=== PATIENT | female | born 1950 | race African-American/Black ===

== ENCOUNTER 2024-11-21 14:15 | Outpatient (AMB) | payer MEDICARE, SELFPAY ==
[2024-11-21 14:18] VITALS: BP 128/76; PULSE 76; O2SAT 99; BMI 24.2
--- NOTE | 2024-11-21 14:18 | A.OFFVIS_ITS ---
Vital Signs 11/21/24 14:18 Height 5 ft 6 in Weight 149 lb 14.629 oz BMI 24.2 BP 128/76 Blood Pressure Location Rt brachial Position Sitting Pulse 76 Pulse Source Pulse Oximeter Pulse Oximetry (%) 99 Oxygen Delivery Method Room Air Intake Visit Reasons: T2DM Intake Note: New patient present today for Type 2 Diabetes Mellitus Last Diabetic eye exam: 06/2024 Last Podiatry Visit: Has a rail switchman, needs to call for an appt Random Glucose: 89 mg/dL HgA1C: 10.3%, 11/21/2024 Jumpbasting Collar Baster Required: No Accompanied by: Grand Child Allergies amoxicillin Allergy (Mild, Verified 11/21/24 14:49) Rash semaglutide (From Rybelsus) Allergy (Mild, Verified 11/21/24 14:49) Rash Medication List - Last Reviewed 11/21/24 by NIKOLE Rice amlodipine 10 mg PO DAILY atorvastatin 40 mg PO DAILY blood sugar diagnostic (StoredIQTouch Verio test strips) As directed blood-glucose sensor (FreeStyle Celso 3 Plus Sensor device) As directed cholecalciferol (vitamin D3) 125 mcg PO DAILY insulin glargine U-300 conc (Toujeo Max U-300 SoloStar) units subcut insulin lispro (Humalog KwikPen (U-100) Insulin) subcut lancets (Cloudkickuch Delica Plus Lancet) As directed metformin ER 1,000 mg PO DAILY metoprolol succinate ER 100 mg PO DAILY omeprazole 20 mg PO DAILY pen needle, diabetic As directed HPI HPI T2DM: Details: Patient is a 73-year-old female who presents today for an initial consultation regarding type 2 diabetes. Endo: States that she was diagnosed with diabetes around 2004. Her A1c is 10.3. She is currently on metformin 1000 mg daily, Toujeo 8 units qam, Humalog 8 units with dinner CGM-freestyle Celso download shows 92% usage, average glucose 229, G mi 8.8%, variability 37%. Very hyperglycemic 40%, hyperglycemic 26%, in range 34%, 0% hypoglycemia Hyperglycemia-states her sensor goes off of the time because she is very hyperglycemic. Denies any symptoms of this Hypoglycemia-has some symptoms of lows and ends up eating candies and drinking juice. Daughter is here today with patient and states that her blood sugars are all over the place because of her diet. States that she eats a diet high in sugars and does not do anything with this. Patient states that she does love eating rice, pasta and bread. She understands that this is not ideal for diabetes but is not interested at this point in changing this. She does not recall ever having testing to confirm type 2 diabetes. Does not have a family history of this. It has only been recently that her blood sugars have been uncontrolled. CV: Blood pressure today in the office is 128/76. She is currently on amlodipine 10 mg daily, metoprolol 100 mg daily. Her cholesterol is managed with atorvastatin 40 mg PFSH Surgical History (Updated 11/21/24 @ 14:33 by NIKOLE Rice) History of surgery on lower extremity History of back surgery Hx of hysterectomy Family History (Updated 11/21/24 @ 14:33 by NIKOLE Rice) Father Diabetes mellitus Mother Diabetes mellitus Social History (Updated 11/21/24 @ 14:28 by NIKOLE Rice) Alcohol intake: current Alcohol intake frequency: does not drink Patient Tobacco Use Status: Never used Tobacco Physical Exam Vital Signs: Last Vital Signs Pulse 76 11/21/24 14:18 BP 128/76 11/21/24 14:18 Pulse Ox 99 11/21/24 14:18 Oxygen Delivery Method Room Air 11/21/24 14:18 BMI result Body Mass Index 24.2 Const Orientation/consciousness: patient oriented x3 Neck Neck: Yes no lymphadenopathy Thyroid: Thyroid normal Carotids: no bruits Resp Auscultation: clear to auscultation bilaterally Cardio Rate: regular rate Rhythm: regular rhythm Heart sounds: S1 normal heart sound present and S2 normal heart sound present Peripheral pulses: dorsalis pedis present Neuro General: patient oriented x3, gait normal and no focal motor deficits Extrem Other: Monofilament sensation intact bilaterally. Vibratory sensation intact bilaterally. Skin intact. General: Yes normal to inspection Results AMB Hemoglobin A1c AMB Hemoglobin A1c 10.3 % Last Edit by NIKOLE Rice on 11/21/24 14:3 6 Results Reviewed Results Reviewed: Laboratory Last Values Glucose (Clinic) 86 mg/dL (60-115) 11/21/24 14:21 Hgb A1c (Clinic) 10.3 % (4.0-6.0) H 11/21/24 14:35 Assessment & Plan Assessment & Plan (1) Type 2 diabetes mellitus with hyperglycemia, with long-term current use of insulin: Code(s): E11.65 - Type 2 diabetes mellitus with hyperglycemia; Z79.4 - group home (c urrent) use of insulin Category: Medical Plan: Spent 60 minutes in [id number] time today reviewing the differences between type 1 and type 2 diabetes, pathophysiology of diabetes and complications associated with diabetes including but not limited to kidney disease, stroke, blindness, increased risk of amputation, AK, kidney disease, neuropathy etc. Increase Toujeo to 10 units Reduce Humalog to 4 units before meals Continue metformin Labs ordered today. Short term follow up in 2 weeks. Rule of 15 review Signs and symptoms of hyper and hypoglycemia that would require emergent medical treatment were discussed. (2) HTN (hypertension): Code(s): I10 - Essential (primary) hypertension Category: Medical Plan: Continue current regimen (3) HLD (hyperlipidemia): Code(s): E78.5 - Hyperlipidemia, unspecified Category: Medical Plan: As above. Orders: Orders AMB Hemoglobin A1c Today E11.9 - Type 2 diabetes mellitus without complications Comprehensive [place]. Panel Fast Today E11.65 - Type 2 diabetes mellitus with hyperglycemia, E78.5 - Hyperlipidemia, unspecified, I10 - Essential (primary) hypertension, Z79.4 - group home (current) use of insulin C Peptide Today E11.65 - Type 2 diabetes mellitus with hyperglycemia, E78.5 - Hyperlipidemia, unspecified, I10 - Essential (primary) hypertension, Z79.4 - rat exterminator (current) use of insulin Glutamic acid decarboxylase Ab Today E11.65 - Type 2 diabetes mellitus with hyperglycemia, E78.5 - Hyperlipidemia, unspecified, I10 - Essential (primary) hypertension, Z79.4 - rat exterminator (current) use of insulin Islet Cell Antibody Scrn/Titer Today E11.65 - Type 2 diabetes mellitus with hyperglycemia, E78.5 - Hyperlipidemia, unspecified, I10 - Essential (primary) hypertension, Z79.4 - group home (current) use of insulin Microalbumin, Random (w Creat) Today E11.65 - Type 2 diabetes mellitus with hyperglycemia, E78.5 - Hyperlipidemia, unspecified, I10 - Essential (primary) hypertension, Z79.4 - rat exterminator (current) use of insulin Referrals Diabetes Education Referral E11.65 - Type 2 diabetes mellitus with hyperglycemia, Z79.4 - rat exterminator (current) use of insulin Medications: New insulin lispro (Humalog KwikPen (U-100) Insulin) with meals 4 units (0.04 mL) subcut TID 15 mL 2RF lancets (OneTouch UltraSoft 2 Lancet) use daily As directed to monitor blood sugars 100 ea 2RF insulin glargine U-300 conc (Toujeo Max U-300 SoloStar) 10 units (0.0333 mL) subcut QAM 6 mL 3RF blood-glucose meter (OneTouch Verio Flex Meter) Use daily As directed to monitor blood sugars 1 ea 0RF E11.649 - Type 2 diabetes mellitus with hypoglycemia without coma, Z79.4 - rat exterminator (current) use of insulin blood sugar diagnostic (OneTouch Verio test strips) use daily As directed to monitor blood sugars 100 ea 1RF Coding Level of Care Code New Pt Level 5 (74090) Complex EM visit Add On G2211 Diagnoses Type 2 diabetes mellitus with hyperglycemia, with long-term current use of insulin E11.65; Z79.4 HTN (hypertension) I10 HLD (hyperlipidemia) E78.5
[2024-11-21 14:25] LABS: Glucose, Whole Blood 86 mg/dL (60-115)
--- OUTSIDE RECORDS SUMMARY | 2024-11-21 15:05 | XMS_ITS | Encounter Summary ---
Author Organization [facility] Address [address] [facility] [address] [place] [address] Phone Care Team Providers Care Graphic Illustrator Name Role Phone Jasper Villalba MD Primary Care Provider [phone] Encounter Details Date Type Department Care Team ([facility] Contact Info) Description 07/09/2021 Documentation Only [facility] [address] [facility] [address] [place] [address] Gurwinder Quinonez MD [address] [place] [address], [address] [address] Social History Tobacco Use Types Packs/Day Years Used Date Smoking Tobacco: Never Smokeless Tobacco: Never Alcohol Use Standard Drinks/Week Comments No 0 (1 standard drink = 0.6 oz pur e alcohol) Comments Unknown Sex and Gender Information Value Date Recorded Sex Assigned at Not on file Legal Sex Female 4:49 PM EST Gender Identity Not on file Sexual Orientation Not on file COVID-19 Exposure Response Date Recorded In the last month, have you been in contact with someone who was confirmed or suspected to have Coronavirus / COVID-19? No / Unsure 07/09/2021 3:57 PM EST documented as of this encounter Plan of Treatment Upcoming Encounters Date Type Department Care Team (Late Contact Info) Description 11/29/2024 1:00 PM EDT Office Visit [facility] [address] [address] Nguyen Vu ARNP [address] [address] documented as of this encounter Visit Diagnoses Not on filedocumented in this encounter Care Teams Graphic Illustrator Relationship Specialty Start Date End Date Jasper Villalba MD [address] [place] [address] PCP - General Internal Medicine 01/03/21 documented as of this encounter
--- OUTSIDE RECORDS SUMMARY | 2024-11-21 15:05 | XMS_ITS | Patient Health Record ---
Author Organization [facility] [address] Address [address] [place] [address] Care Team Providers Care Oil Well Service Operator Name Role Phone NITA VILLALBA Unavailable [phone] Walter Sonal Unavailable [phone] Allergies Allergen (clinical drug ingredient) Drug/Non Drug Allergy documented on EMR Reaction Allergy Type Onset Date Status semaglutide Rybelsus rash Drug Allergy Activ e amoxicillin Amoxicillin Unknown Drug Allergy Act haja Results Component Value Reference Range Notes RENAL PROFILE Reviewed date:03/14/2024 09:14:46 AM Interpretation: Performing Lab: Notes/Report: Note Original Ordering Provider: BACILIO ESPINAL [employer] [address] Airfield Operations Specialist - Mary Leos MD GLUCOSE 476 70-100 mg/dL JERARDO REBOLLEDO CALLED CRITICAL RESULTS AT [id number] 1620. THE RESULTS WERE READ BACK AND VERIFIED BY: FRANCHESCA Reference range applicable to fasting specimens only BUN 21 5-25 mg/dL CREAT 1.17 0.5-1.1 mg/dL GLOMERULAR FILTRATION RATE 50 >60 This eGFR result was calculated using the CKD-EPI 2020 Creatinine Equation SODIUM 135 135-145 mEq/L POTASSIUM 4.0 3.5-5.5 mmol/L CHLORIDE 103 96-110 mmol/L CO2 24 21-32 mmol/L ANION GAP 8 3-11 CALCIUM 9.0 8.5-10.5 mg/dL PHOSPHORUS 3.4 2.5-4.5 mg/dL ALBUMIN 3.5 3.2-5.0 G/dL Note Original Ordering Provider: BACILIO ESPINAL [employer], [place] [address] Airfield Operations Specialist - Mary Leos MD INTACT PTH Reviewed date:12/15/2023 10:26:04 AM Interpretation: Performing Lab: Notes/Report: Note Original Orderi ng Provider: BACILIO [place] INTACT PTH 120 18-88 pg/mL LIPID PROFILE Reviewed date:03/02/2024 09:15:07 AM Interpretation: Performing Lab: Notes/Report: [employer], a member of [address] [address] Airfield Operations Specialist - Mary Leos MD CHOLESTEROL 156 0-200 mg/dL TRIGLYCERIDES 117 0-150 mg/dL HDL CHOLESTEROL 43 >40 mg/dL LDL CALCULATED 90 0-100 mg/dL TC-HDLC RATIO 3.6 0-4.4 mg/dL CBC WITH AUTO DIFF Reviewed date:03/02/2024 10:35:53 AM Interpretation: Performing Lab: Notes/Report: Original Ordering Provider: SONAL RIBEIRO PA-C [employer], a member of [address] [address] Airfield Operations Specialist - Mary Leos MD WBC 6.1 4.8-10.8 x10-3/uL RBC 4.0 3.8-4.8 x10-6/uL HEMOGLOBIN 11.4 11.5-16.0 g/dL HEMATOCRIT 35.6 35-47 % MCV 88.6 79-98 fL MCH 28.4 27-32 pg MCHC 32.0 32-37 g/dL RDW 15.1 11-15 % PLT COUNT 206 130-400 x10-3/uL MEAN PLATELET VOLUME 12.4 7-11 fL NRBC % AUTO 0.0 <1 % NEUT % 57.1 LYMPH % 35.2 MONO % 6.4 EOS % 0.8 BASO % 0.3 IMMATURE GRANULOCYTES % 0.2 NRBC # AUTO 0.00 <0.1 x10-3/uL ABSOLUTE NEUT 3.49 1.5-7.0 x10-3/uL LYMPH # 2.15 1-5.0 x10-3/uL MONO # 0.39 0.2-1.0 x10-3/uL EOS # 0.05 0-0.5 x10-3/uL BASO # 0.02 0-0.2 x10-3/uL IMMATURE GRANULOCYTES # 0.01 0-0.03 x10-3/uL COMPREHENSIVE METABOLIC PANE L Reviewed date:03/02/2024 10:35:22 AM Interpretation: Performing Lab: Notes/Report: Note Original Orderi ng Provider: SONAL RIBEIRO PA-C GLUCOSE 476 70-100 mg/dL JERARDO REBOLLEDO CALLED CRITICAL RESULTS AT [id number] 1617. THE RESULTS WERE READ BACK AND VERIFIED BY: Jaspreet RIBEIRO Reference range applicable to fasting specimens only BUN 22 5-25 mg/dL CREAT 1.21 0.5-1.1 mg/dL GLOMERULAR FILTRATION RATE 48 >60 This eGFR result was calculated using the CKD-EPI 2020 Creatinine Equation SODIUM 133 135-145 mEq/L POTASSIUM 4.1 3.5-5.5 mmol/L CHLORIDE 101 96-110 mmol/L CO2 26 21-32 mmol/L ANION GAP 6 3-11 CALCIUM 9.1 8.5-10.5 mg/dL TOTAL PROTEIN 6.6 6.0-8.0 G/dL ALBUMIN 3.6 3.2-5.0 G/dL BILI,TOTAL 0.4 0.0-1.4 mg/dL SGOT 14 10-42 U/L SGPT 24 10-60 U/L ALK PHOS 71 42-121 U/L MG MAMMO DIGITAL SCREENING W NUBIA BILAT Reviewed date:08/23/2024 07:44:41 AM Interpretation: Performing Lab: Notes/Report: Note See Note [facility], a member of [employer] Patient Name: LAURIE MOELLER Date of : 1950 Reason for Exam: ROUTINE Exam Date: 08/22/2024 [id number] EST Report Status: Final Ordering Provider: SONAL RIBEIRO PCP: NITA VILLALBA EXAM: SCREENING MAMMOGRAPHY, BILATERAL HISTORY: SCREENING. Scar marked upper outer right breast for reportedly benign process. Family history of breast cancer; maternal aunt, knees COMPARISON: 06/29/23, 06/24/22, 06/21/21, 06/04/20 TECHNIQUE: Synthesiz ed CC and MLO projections of each breast. Tomosynthesis of each breast in the CC and MLO projections. ADDITIONAL IMAGING: None Computer-aided detec tion was employed with the iCAD [employer] AI 3-D. TISSUE DENSITY: Ther e are scattered areas of fibroglandular density. (BI-RADS category B) FINDINGS: RIGHT BREAST: No new suspicious ma ss. No suspicious calcification. No distortion. There is an unchanged oval 0.9 cm equal density mass in the 10 o'clock position 4.5 cm from the right nipple with an associated biopsy site marker. LEFT BREAST: No suspicious mass. No suspicious calcification. No distortion. There is an unchanged equal density circumscribed oval 1.2 cm mass with some coarse calcifications in the 7 o'clock position 3 cm from the left nipple. IMPRESSION: No mammographic evid ence of malignancy. No suspicious interv al change. A negative mammogram in the presence of a clinically suspicious palpable abnormality does not preclude the possibility of malignancy or alter the indications for biopsy. ASSESSMENT: BI-RADS 2: BENIGN RECOMMENDATION(S): 1: Routine screening mammogram BILATERAL in 1 year. [facility]amm[facility] [address], [address] -------- FINAL REPOR T -------- Dictated By: Omer Lee Dictated Date: 08/22/2024 17:27 ET Assigned Physician: Omer Wahl Reviewed and Electronically Signed By: Omer Wahl Signed Date: 025 17:40 ET Workstation ID: [id number] Transcribed By: Self Edit Transcribed Date: 08/22/2024 17:27 ET VITAMIN D, 25-HYDROXY Reviewed date:12/15/2023 10:26:04 AM Interpretation: Performing Lab: Notes/Report: [employer], a member of [address] [address] Airfield Operations Specialist - Mary Leos MD VITAMIN D, 25-HYDROXY 42 30-80 ng/mL MICROALB/CREAT RATIO, RANDOM Reviewed date:12/15/2023 11:07:39 AM Interpretation: Performing Lab: Notes/Report: Original Ordering Provider: BACILIO C[place] [employer], a member of [address] [address] Airfield Operations Specialist - Mary Leos MD CREATININE, RANDOM URINE 53 MICROALBUMIN, RANDOM 1190.0 0.0-29.0 mg/L MICROALB/CRE RATIO RANDOM 2245.2 0.0-30.0 mg/G CBC Reviewed date:12/15/2023 09:50:33 AM Interpretation: Performing Lab: Notes/Report: Note Original Ordering Provider: BACILIO BERTRAND-C [employer], a member of [address] [address] Airfield Operations Specialist - Mary Leos MD WBC 6.0 4.8-10.8 x10-3/uL RBC 3.9 3.8-4.8 x10-6/uL HEMOGLOBIN 11.2 11.5-16.0 g/dL HEMATOCRIT 34.5 35-47 % MCV 88.9 79-98 fL MCH 28.9 27-32 pg MCHC 32.5 32-37 g/dL RDW 14.8 11-15 % PLT COUNT 237 130-400 x10-3/uL MEAN PLATELET VOLUME 11.8 7-11 fL NRBC % AUTO 0.0 <1 % NRBC # AUTO 0.00 <0.1 x10-3/uL Note Original Ordering Provider: BACILIO BERTRAND-C [employer], a member of [address] [address] Airfield Operations Specialist - Mary Leos MD CR Foot RT Min 3 Views Reviewed date:12/10/2023 03:30:43 PM Interpretation: Performing Lab: Notes/Report: Original Ordering Provider: ЕКАТЕРИНА KAUFMAN NP [facility] FREE T3 Reviewed date:12/09/2023 10:24:44 AM Interpretation: Performing Lab: Notes/Report: Original Ordering Provider: SONAL RIBEIRO PA-C FREE T3 256 230-420 pg/dl TSH Reviewed date:12/09/2023 10:24:25 AM Interpretation: Performing Lab: Notes/Report: [employer], a member of [address] [address] Airfield Operations Specialist - Mary Leos MD TSH 3.56 0.40-4.00 uIU/ml FREE T4 Reviewed date:12/09/2023 10:24:56 AM Interpretation: Performing Lab: Notes/Report: FREE T4 0.94 0.70-1.80 ng/dL HEMOGLOBIN A1C Reviewed date:07/27/2024 01:05:49 PM Interpretation: Performing Lab: Notes/Report: Hemoglobin A1C 9.9 <6.5 % Mean Bld Glu Estim. 237 COMPREHENSIVE METABOLIC PANE L Reviewed date:07/27/2024 01:07:02 PM Interpretation: Performing Lab: Notes/Report: Sodium 136 133-145 mmol/L Potassium 4.2 3.5-5.5 mmol/L Chloride 103 96-110 mmol/L CO2 27 21-32 mmol/L Anion Gap 6 3-11 Glucose 423 70-100 mg/dL BUN 25 5-25 mg/dL Creatinine 1.25 0.50-1.10 mg/dL eGFR 46 >=60 mL/min/1.73m2 Calculati on based on the Chronic Kidney Disease Epidemiology Collaboration (CKD-EPI) equation refit without adjustment for race. BUN/Creatinine Ratio 20.0 Calcium 9.2 8.5-10.5 mg/dL AST (SGOT) 14 10-42 unit/L ALT (SGPT) 22 10-60 unit/L Alkaline Phosphatase 96 42-121 unit/L Total Protein 6.5 6.0-8.0 g/dL Albumin 3.1 3.2-5.0 g/dL Total Bilirubin 0.4 0.0-1.4 mg/dL THYROID STIMULATING HORMONE Reviewed date:07/27/2024 01:07:20 PM Interpretation: Performing Lab: Notes/Report: TSH 2.74 0.40-4.00 mcIU/mL CBC WITH AUTO DIFFERENTIAL Reviewed date:07/27/2024 01:07:41 PM Interpretation: Performing Lab: Notes/Report: WBC 5.5 4.8-10.8 K/mcL RBC 4.20 3.80-4.80 M/mcL Hemoglobin 11.9 11.5-16.0 g/dL Hematocrit 36.7 35.0-47.0 % MCV 88.4 79.0-98.0 FL MCH 28.7 27.0-32.0 pcg MCHC 32.4 32.0-37.0 g/dL RDW 15.3 11.0-15.0 % Platelets 241 130-400 K/mcL MPV 12.0 7.0-11.0 FL NRBC 0.0 <1.0 % NRBC Absolute 0.00 <0.10 K/mcL Neutrophils Relative 53.2 Lymphocytes Relative 37.0 Monocytes Relative 7.5 Eosinophils Relative 1.6 Basophils Relative 0.5 Immature Granulocytes Relative 0.2 Neutrophils Absolute 2.91 1.50-7.00 K/mcL Lymphocytes Absolute 2.03 1.00-5.00 K/mcL Monocytes Absolute 0.41 0.20-1.00 K/mcL Eosinophils Absolute 0.09 0.00-0.50 K/mcL Basophils Absolute 0.03 0.00-0.20 K/mcL Immature Granulocytes Absolute 0.01 0.00-0.03 K/mcL CT ABDOMEN PELVIS WO CONTRAS T Reviewed date:10/19/2024 03:27:29 PM Interpretation: Performing Lab: Notes/Report: Note See Note [facility], a member of [employer] Patient Name: LAURIE MOELLER Date of : 1950 Reason for Exam: ABDOMINAL PAIN/ UNEXPLAINABLE WEIGHT LOSS Exam Date: 10/18/2024 [id number] EST Report Status: FA Ordering Provider: SONAL RIBEIRO PCP: NITA VILLALBA PROCEDURE: CT Abdome n and Pelvis without contrast INDICATION: ABDOMINA L PAIN/ UNEXPLAINABLE WEIGHT LOSS TECHNIQUE: CT of the abdomen and pelvis without contrast. Multiplanar reformats. The examination was performed utilizing dose reduction techniques. DLP: 605 mGy/cm COMPARISON: No prior s available. FINDINGS: LOWER THORAX: Lung b ases are clear. HEPATOBILIARY: No fo greg liver lesions. No cholelithiasis or biliary duct dilatation. SPLEEN: No splenomegaly. PANCREAS: No focal m ass or ductal dilatation. ADRENALS: Stable thickening right greater than left adrenal glands. KIDNEYS/URETERS: We will low-attenuation lesions in the kidney probably represent cysts. Nonobstructive calculi in the lower pole of the left kidney. PELVIC ORGANS/BLADDE R: Status post hysterectomy. PERITONEUM / RETROPERITONEUM: No ascites or free air. No retroperitoneal lymphadenopathy. VESSELS: Atheroscler otic plaque throughout with aneurysm at the aortic hiatus measuring 3.7 cm. GI TRACT: There is a small hiatal hernia. The stomach is underdistended. No small bowel obstruction. Prominent stool burden throughout the colon with sigmoid underdistention. No mass evident. BONES AND SOFT TISSU ES: Degenerative changes of the spine was prominent at the lower lumbar levels and lumbosacral junction. There is probable spinal stenosis and neuroforaminal narrowing. Soft tissues are unremarkable. IMPRESSION: No acute infectious or inflammatory process. 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 -------- ADDENDUM -------- Dictated By: Brook Hirsch Dictated Date: 10/18/2024 16:18 ET Assigned Physician: Brook Hirsch Reviewed and Electronically Signed By: Brook Hirsch Signed Date: 16:18 ET Workstation ID: [id number] Transcribed By: Self Edit Transcribed Date: 10/18/2024 16:18 ET PROCEDURE: CT Abdome n and Pelvis without contrast INDICATION: ABDOMINA L PAIN/ UNEXPLAINABLE WEIGHT LOSS TECHNIQUE: CT of the abdomen and pelvis without contrast. Multiplanar reformats. The examination was performed utilizing dose reduction techniques. DLP: 605 mGy/cm COMPARISON: No prior s available. FINDINGS: LOWER THORAX: Lung b ases are clear. HEPATOBILIARY: No fo greg liver lesions. No cholelithiasis or biliary duct dilatation. SPLEEN: No splenomegaly. PANCREAS: No focal m ass or ductal dilatation. ADRENALS: Stable thickening right greater than left adrenal glands. KIDNEYS/URETERS: We will low-attenuation lesions in the kidney probably represent cysts. Nonobstructive calculi in the lower pole of the left kidney. PELVIC ORGANS/BLADDE R: Status post hysterectomy. PERITONEUM / RETROPERITONEUM: No ascites or free air. No retroperitoneal lymphadenopathy. VESSELS: Atheroscler otic plaque throughout with aneurysm at the aortic hiatus measuring 2.7 cm. GI TRACT: There is a small hiatal hernia. The stomach is underdistended. No small bowel obstruction. Prominent stool burden throughout the colon with sigmoid underdistention. No mass evident. BONES AND SOFT TISSU ES: Degenerative changes of the spine was prominent at the lower lumbar levels and lumbosacral junction. There is probable spinal stenosis and neuroforaminal narrowing. Soft tissues are unremarkable. IMPRESSION: No acute infectious or inflammatory process. 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 -------- FINAL REPOR T -------- Dictated By: Brook Hirsch Dictated Date: 10/18/2024 12:10 ET Assigned Physician: Brook Hirsch Reviewed and Electronically Signed By: Brook Hirsch Signed Date: 025 12:18 ET Workstation ID: [id number] Transcribed By: Self Edit Transcribed Date: 10/18/2024 12:10 ET LACTATE DEHYDROGENASE Reviewed date:10/18/2024 04:22:28 PM Interpretation: Performing Lab: Notes/Report: LDH 212 120-246 unit/L COMPREHENSIVE METABOLIC PANE L Reviewed date:10/18/2024 04:23:01 PM Interpretation: Performing Lab: Notes/Report: Sodium 139 133-145 mmol/L Potassium 4.0 3.5-5.5 mmol/L Chloride 106 96-110 mmol/L CO2 27 21-32 mmol/L Anion Gap 6 3-11 Glucose 249 70-100 mg/dL BUN 12 5-25 mg/dL Creatinine 0.86 0.50-1.10 mg/dL eGFR 72 >=60 mL/min/1.73m2 Calculati on based on the Chronic Kidney Disease Epidemiology Collaboration (CKD-EPI) equation refit without adjustment for race. BUN/Creatinine Ratio 14.0 Calcium 8.6 8.5-10.5 mg/dL AST (SGOT) 20 10-42 unit/L ALT (SGPT) 26 10-60 unit/L Alkaline Phosphatase 75 42-121 unit/L Total Protein 6.2 6.0-8.0 g/dL Albumin 3.1 3.2-5.0 g/dL Total Bilirubin 0.5 0.0-1.4 mg/dL CBC WITH AUTO DIFFERENTIAL Reviewed date:10/18/2024 04:23:21 PM Interpretation: Performing Lab: Notes/Report: WBC 5.1 4.8-10.8 K/mcL RBC 4.20 3.80-4.80 M/mcL Hemoglobin 12.0 11.5-16.0 g/dL Hematocrit 37.0 35.0-47.0 % MCV 87.5 79.0-98.0 FL MCH 28.4 27.0-32.0 pcg MCHC 32.4 32.0-37.0 g/dL RDW 15.8 11.0-15.0 % Platelets 239 130-400 K/mcL MPV 11.9 7.0-11.0 FL NRBC 0.0 <1.0 % NRBC Absolute 0.00 <0.10 K/mcL Neutrophils Relative 52.7 Lymphocytes Relative 38.2 Monocytes Relative 5.7 Eosinophils Relative 2.6 Basophils Relative 0.6 Immature Granulocytes Relative 0.2 Neutrophils Absolute 2.66 1.50-7.00 K/mcL Lymphocytes Absolute 1.93 1.00-5.00 K/mcL Monocytes Absolute 0.29 0.20-1.00 K/mcL Eosinophils Absolute 0.13 0.00-0.50 K/mcL Basophils Absolute 0.03 0.00-0.20 K/mcL Immature Granulocytes Absolute 0.01 0.00-0.03 K/mcL CT CHEST WO CONTRAST Reviewed date:03/22/2024 08:13:23 AM Interpretation: Performing Lab: Notes/Report: Note See Note [facility], a member of [employer] Patient Name: LAURIE MOELLER Date of : 1950 Reason for Exam: Chest wall pain Exam Date: 03/17/2024 [id number] EST Report Status: Final Ordering Provider: SONAL RIBEIRO PCP: NITA VILLALBA EXAMINATION: CT ches t without contrast. CLINICAL INDICATION: Chest wall pain COMPARISON: Chest 2 views 02/21/2024. TECHNIQUE: 2.5 mm th in axial and reformatted 2 mm thin sagittal and coronal images of chest were obtained. Scanner: [employer] 64 slice VCT Dose reduction technique: ASIR (Adaptive statistical iterative reconstruction) and/or AEC (automated exposure control) Dose: total exam DLP 351 mGy/cm. FINDINGS: LUNGS: The lungs are well-expanded and clear of acute pneumonic process. The heart size and pulmonary vascularity is normal. No gross bony abnormality seen. Mediastinum: Slightl y heterogeneous right thyroid lobe is noted. The left thyroid lobe is smaller. The central trachea and the bronchi are widely patent. Heart size and the great vessels are normal caliber. There is moderate coronary artery calcifications are present. Trace pericardial effusion seen. No abnormal size mediastinal or hilar lymph nodes Pleura: There is no pleural effusion, thickening or calcified plaques. Axilla: No abnormal size axillary lymph nodes seen. The chest wall is unremarkable. Osseous structures: There is moderate bridging osteophytes right thoracic spine extending from T4 through T12 vertebra. No aggressive lytic or sclerotic process or compression fracture seen.. IMPRESSION: Unremarkable CT ches t exam. There is moderate spondylosis and bridging osteophytes along the right thoracic spine as described above. No aggressive lytic process or fracture identified -------- FINAL REPOR T -------- Dictated By: Judson Hobson Dictated Date: 03/17/2024 13:24 ET Assigned Physician: Judson Hobson Reviewed and Electronically Signed By: Judson Hobson Signed Date: 13:54 ET Workstation ID: [id number] Transcribed By: Self Edit Transcribed Date: 03/17/2024 13:43 ET PROTEIN AND CREATININE WITH RATIO, URINE Reviewed date:04/19/2024 08:37:02 AM Interpretation: Performing Lab: Notes/Report: Protein, Urine 118 Prot/Creat, Ur 1.40 <=0.20 mg/mg creat Creatinine, Urine 84.0 RENAL FUNCTION PANEL Reviewed date:04/19/2024 08:32:09 AM Interpretation: Performing Lab: Notes/Report: Sodium 139 133-145 mmol/L Potassium 4.4 3.5-5.5 mmol/L Chloride 107 96-110 mmol/L CO2 23 21-32 mmol/L Anion Gap 9 3-11 Glucose 144 70-100 mg/dL BUN 26 5-25 mg/dL Creatinine 1.06 0.50-1.10 mg/dL eGFR 56 >=60 mL/min/1.73m2 Calculati on based on the?Chronic Kidney Disease Epidemiology Collaboration (CKD-EPI) equation refit?without adjustment for race. BUN/Creatinine Ratio 24.5 Albumin 3.5 3.2-5.0 g/dL Calcium 9.1 8.5-10.5 mg/dL Phosphorus 3.3 2.5-4.5 mg/dL MICROALBUMIN CREATININE URIN E RATIO Reviewed date:04/26/2024 08:52:38 AM Interpretation: Performing Lab: Notes/Report: Creatinine, Urine 84.0 Microalb, Ur 826.0 0.0-29.0 mg/L Microalb/Creat Ratio 983 <30 mg/g creat XR THORACIC SPINE 2 VIEWS Reviewed date:04/19/2024 08:31:07 AM Interpretation: Performing Lab: Notes/Report: Note See Note [facility], a member of [employer] Patient Name: LAURIE MOELLER Date of : 1950 Reason for Exam: RADICULOPATHY Exam Date: 04/15/2024 [id number] EST Report Status: Final Ordering Provider: KARRIE ENAMORADO PCP: NITA VILLALBA HISTORY: The patient is a 73-year-old female with thoracic radiculopathy. FINDINGS: AP and lat eral radiographs of the thoracic spine demonstrate mild, 9 degree dextroscoliosis with the apex at the at the T8 level. The alignment of the bony structures is otherwise anatomic. No fracture is seen. Bridging anterior and lateral osteophytes are present throughout the mid and lower thoracic spine. No osteolytic or osteoblastic lesion is seen. IMPRESSION: No acute findings. M ild, 9 degree dextroscoliosis with the apex at T8. There are bridging anterior and lateral osteophytes throughout the mid and lower thoracic spine. Code 04088 -------- FINAL REPOR T -------- Dictated By: Chandrakant Wellington Dictated Date: 04/18/2024 08:01 ET Assigned Physician: Chandrakant Wellington Reviewed and Electronically Signed By: Chandrakant Wellington Signed Date: 08:03 ET Workstation ID: [id number] Transcribed By: Self Edit Transcribed Date: 04/18/2024 08:01 ET LIPID PANEL WITH REFLEX TO D IRECT LDL Reviewed date:04/19/2024 08:18:44 AM Interpretation: Performing Lab: Notes/Report: Cholesterol 151 0-200 mg/dL Triglycerides 149 0-150 mg/dL HDL 50 >=40 mg/dL LDL Calculated 71 0-100 mg/dL VLDL Cholesterol Greg 29.8 Non HDL Chol. (LDL+VLDL) 101 <145 mg/dL Chol/HDL Ratio 3.0 0.0-4.4 Reason For Referral Diagnosis 1 Decreased hearing of both ears (H91.93) Referral Organization [facility] [address] Referring Provider First Name Sonal Referring Provider Last Name Svrcek Referring Provider Speciality Internal M edicine Referred Provider Specialty Ear, nose an d throat surgeon General Notes [address], [address] [address], phone [phone], fax [phone], [phone] Clinical Notes Lamar Rolon 04/2024 02:25:56 PM > refaxed to [phone], Lamar Rolon 12/21/2023 04:19:43 PM > I called the office and they informed me that the patient had three no-shows and is no longer allowed back in their practice. We need to send the referral to a different practice. I informed Reyna about this, Tenzin Mcclure 12/22/2023 11:49:53 AM >refaxed referral to ENT in [place] @ fax number [phone] and there phone number is [phone], Lamar Rolon 12/29/2023 01:52:39 PM > refaxed to [phone], Lamar Rolon 01/08/2024 09:45:29 AM > refaxed to [phone], Danya Dash 01/12/2024 08:07:01 AM >referral not accepeted at [facility] due to insurance Referral Priority Routine Diagnosis 1 Decreased hearing of both ears (H91.93) Referral Organization [facility] [address] Referring Provider First Name NITA Referring Provider Last Name SANKET Referring Provider Speciality Internal M edicine Referred Provider Cesar Londono Referred Provider Specialty Ear, nose an d throat surgeon General Notes [address] [place] [address] [place] [address], , Clinical Notes Lamar Rolon 10:32:52 AM > refaxed and I called the patient to inform her and provided the office's phone number. The patient said she would call them, Lamar Rolon 01/21/2024 11:03:51 AM > Patient is scheduled for 04/21/2024 at 10 am. Pt is aware Referral Priority Routine Reason PSSP; moderate spond ylosis thoracic spine/chronic pain Diagnosis 1 Spondylolisthesis, t horacic region (M43.14) Diagnosis 2 Other chronic pain ( G89.29) Referral Organization [facility] [address] Referring Provider First Name Sonal Referring Provider Last Name Walter Referring Provider Speciality Internal M edicine Referred Provider Specialty Physical The rapist General Notes [address] [place] [address], (p) [phone], (f)[phone] Clinical Notes Yolande Kessler 02:59:34 PM >referral faxed Referral Priority Routine Reason [email or web address]; ty pe 2 diabetes Diagnosis 1 Type 2 diabetes saira itus without complication, without long-term current use of insulin (E11.9) [facility] Referring Provider First Name TALSANDRA Referring Provider Last Name SANKET Referring Provider Speciality Internal edicine Referred Provider Specialty Nutrition General Notes [address] [facility], (p) [phone] Clinical Notes Corrine Dwyer 08/09 03:30:31 PM >, patient referred to alternative provider Referral Priority Routine Reason [employer]; diabeti c management program Diagnosis 1 Type 2 diabetes saira itus without complications (E11.9) Referral Organization [facility] Referring Provider First Name NITA Referring Provider Last Name SANKET [facility] Referred Provider Specialty Miscellaneou s General Notes (p) [phone], (f ) [phone] Clinical Notes Yolande Kessler 01:29:08 PM > manually faxed with attachments, they do not take [facility] [place] Referral Priority Routine Reason patient needing home services / diabetes education Diagnosis 1 Decreased hearing of both ears (H91.93) Diagnosis 2 Heart disease (I51.9 ) Diagnosis 3 Primary hypertension (I10) Diagnosis 4 Uncontrolled type 2 diabetes mellitus with hyperglycemia (E11.65) Referral Organization [facility] Referring Provider First Name NITA Referring Provider Last Name SANKET [facility] Referred Provider [facility] General Notes alessandra CARRILLO , phone - [phone] , fax- [phone] Clinical Notes Corrine Dwyer 08/09 03:33:47 PM >, faxed pt is aware, Lamar Rolon 09/07/2024 03:34:27 PM > refaxed to [phone] Referral Priority Routine Reason [facility] Diagnosis 1 Uncontrolled type 2 diabetes mellitus with hyperglycemia (E11.65) [facility] Referring Provider First Name TALAL Referring Provider Last Name SANKET Referring Provider Speciality Internal edicine Referred Provider Specialty Endocrinolog y General Notes [facility], phone - , [address] [place] [address] Drive, [address], Alessandra , fax- [phone] Clinical Notes Yuliya, Corrine 09/28 10:03:59 AM >, referral faxed with attachments patient is awareGonzales Redena 10/25/2024 03:08:44 PM > Scheduled for 10/31 but this appt needs to be rescheduled. The office will be calling the patient to r/s her appt Referral Priority Routine Reason Pt needing referral Diagnosis 1 Abdominal aortic ane urysm (AAA) without rupture, unspecified part (I71.40) Referral Organization [facility] [address] Referring Provider First Name Sonal Referring Provider Last Name Walter Referring Provider Speciality Internal M edicine Referred Provider Den Carrillo Referred Provider Specialty Vascular Daquan delfina General Notes [facility] a ppt request form faxed to [facility]. Fax - [phone] results , last office note and demographics. Clinical Notes Maggie Phillips 10/20/19 02:38:20 PM >, Lamar Rolon 10/25/2024 01:55:53 PM > Refaxed, Lamar Rolon 10/31/2024 03:51:13 PM > Not contracted with [facility] Corrine Dwyer 10/31/2024 03:59:06 PM >, re-faxed to [facility] [address] [place] [address], phone- [phone], fax- [phone] Referral Priority Routine Medications Medication SIG (Take, Route, Frequency, Duration) Notes Start Date End Date Status Vitamin D3 125 MCG (5000 UT) 1 capsule Orally Once a day; Duration: 90 days Active Aspirin 81 MG 1 tablet Orally Once a day Active Atorvastatin Calcium 40 MG 1 tablet Orally Once a day; Duration: 90 days Active amLODIPine Besylate 10 MG TAKE 1 TABLET BY MOUTH DAILY; Duration: 90 Active Gabapentin 100 MG TAKE 1 CAPSULE BY MOUTH EVERY 8 HOURS; Duration: 30 Active Metoprolol Succinate ER 100 MG TAKE 1 TABLET BY MOUTH DAILY; Duration: 90 Active hydrALAZINE HCl 25 MG TAKE 1 TABLET BY MOUTH TWICE DAILY WITH FOOD; Duration: 90 Active one touch verio test strips 1 strip 1 strip intra 3 times a day; Duration: 30 days 08/10/2020 Active metFORMIN HCl ER 500 MG 2 tablets Orally Once a day; Duration: 90 days Active Hydrocortisone 2.5 % 1 application Externally Once a day; Duration: 30 days Active FreeStyle Celso 3 Sensor - use one sensor every 15 days; Duration: 30 days freestyle celso 3 plus 08/17/2024 Active Wong Blanc SoloStar 300 UNIT/ML INJECT SUBCUTANEOUSLY 50 UNITS EVERY NIGHT AT BEDTIME; Duration: 90 10 units at bedtime Active BD Pen Needle Mini Ultrafine 31G X 5 MM USE DIRECTED FOUR TIMES DAILY; Duration: 75 Active HumaLOG 100 UNIT/ML use 15 units Subcutaneous twice a day; Duration: 90 days 8 units with meals Active Losartan Potassium 100 MG TAKE 1 TABLET BY MOUTH EVERY DAY Orally Once a day; Duration: 90 days Active Immunizations Vaccine Route Administration Date Status Comme nts influenza IM Intramuscular 03/06/2021 Administered influenza IM Intramuscular 02/06/2022 Administered Social History Tobacco Use: Social History Observation Description Date Details (start date - stop date) Never Smoker NA - NA Tobacco Use/Smoking Question Answer Notes Are you a nonsmoker Problems Problem Type SNOMED Code ICD Code Onset Dates Problem Status W/U Status Risk Notes Problem Anemia in chronic kidney disease (303011212) Anemia in chronic kidney disease (D63.1) Active confirmed Problem Type II diabetes mellitus without complication (241843728) Type 2 diabetes mellitus without complications (E11.9) Active confirmed Problem Chronic pain (37535730) Other chronic pain (G89.29) Active confirmed Problem Acquired spondylolisthesis (981303106) Spondylolisthesis, thoracic region (M43.14) Active confirmed Problem Low back pain (776538449) Low back pain (M54.5) Active confirmed Problem Adult health examination (225422276) Encounter for general adult medical examination without abnormal findings (Z00.00) Active confirmed Problem Long-term current us e of insulin (821601130) prison (current) use of insulin (Z79.4) Active confirmed Problem Hyperlipidemia (11440415) Hyperlipidemia, unspecified (E78.5) Active confirmed Problem Moderate nonproliferative retinopathy of right eye due to diabetes mellitus (disorder) (667438348) Type 2 diabetes mellitus with moderate nonproliferative diabetic retinopathy with macular edema, right eye (E11.3311) Active confirmed Problem Proliferative diabetic retinopathy due to type II diabetes mellitus (3112044935201) Type 2 diabetes mellitus with stable proliferative diabetic retinopathy, bilateral (E11.3553) Active confirmed Problem Essential hypertension (40399936) Essential hypertension (I10) Active confirmed Problem Hearing loss (37622065) Decreased hearing of both ears (H91.93) Active confirmed Problem Colon cancer screening (163379590) Colon cancer screening (Z12.11) Active confirmed Problem Disorder due to type 2 diabetes mellitus (304750619) Type 2 diabetes mellitus with complication, unspecified whether halfway insulin use (E11.8) Active confirmed Problem Hyperlipidaemia (86348430) Hyperlipidemia, unspecified hyperlipidemia type (E78.5) Active confirmed Problem Acquired hypothyroidism (700200742) Acquired hypothyroidism (E03.9) Active confirmed Problem Hypothyroidism (92334740) Hypothyroidism, unspecified type (E03.9) Active confirmed Problem Essential hypertension (34977425) Jovanna hypertension (I10) Active confirmed Problem Vitamin D deficiency (61573627) Vitamin D deficiency (E55.9) Active confirmed Problem Screening for malignant neoplasm of breast (436509990) Breast cancer screening by mammogram (Z12.31) Active confirmed Problem Constipation (05851696) Constipation, unspecified constipation type (K59.00) Active confirmed Problem Essential hypertension (21089849) Hypertension, unspecified type (I10) Active confirmed Problem Type II diabetes mellitus without complication (768722734) Type 2 diabetes mellitus without complication, without long-term current use of insulin (E11.9) Active confirmed Problem Type II diabetes mellitus without complication (183172496) Type 2 diabetes mellitus without complication, unspecified whether halfway insulin use (E11.9) Active confirmed Problem Peripheral vascular disease (107151274) PVD (peripheral vascular disease) (I73.9) Active confirmed Problem Gastroesophageal reflux disease with esophagitis (disorder) (771792471) Gastroesophageal reflux disease with esophagitis without hemorrhage (K21.00) Active confirmed Problem Chronic kidney disease stage 3A (662034384) Stage 3a chronic kidney disease (N18.31) Active confirmed Problem Aortic aneurysm (81130651) Aortic aneurysm without rupture, unspecified portion of aorta (I71.9) Active confirmed Problem Primary hypertension (59092721) Primary hypertension (I10) Active confirmed Problem Eruption of skin (264160497) Rash and nonspecific skin eruption (R21) Active confirmed Problem Hyperglycemia due to type 2 diabetes mellitus (553157757348978) Uncontrolled type 2 diabetes mellitus with hyperglycemia (E11.65) Active confirmed Problem Dyspnea on exertion (60044187) Dyspnea on exertion (R06.00) Active confirmed Problem Diastolic dysfunctio n (4191980) Diastolic dysfunction (I51.89) Active confirmed Problem Allergic contact dermatitis (217465385) Allergic dermatitis (L23.9) Active confirmed Problem Heart disease (94643065) Heart disease (I51.9) Active confirmed Problem Abdominal aortic aneurysm without rupture (disorder) (66419097) Abdominal aortic aneurysm (AAA) without rupture, unspecified part (I71.40) Active confirmed Problem Congenital hypothyroidism screening test (726310303) Screening for hypothyroidism (Z13.29) Active confirmed Problem Hyperaldosteronism (03619907) Hyperaldosteronism (E26.9) Active confirmed Problem Hyperparathyroidism due to renal insufficiency (72644714) Hyperparathyroidism, 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) Active confirmed Problem Thoracic spondylosis (613256174) Thoracic spondylosis (M47.814) Active confirmed Vital Signs Heart Rate 79 /min 10/25/2024 Oximetry 99 % 10/25/2024 Blood pressure diastolic 60 mm Hg 10/25/2024 Height 65 in 10/25/2024 Blood pressure systolic 136 mm Hg 10/25/2024 Weight 150.8 lbs 10/25/2024 BMI 25.09 kg/m2 10/25/2024 Encounters Encounter Location Date Provider Diagnosis [facility] [address] [place] [address] 12/09/2023 Sonal Svrcek [facility] [address] [place] [address] 12/09/2023 TALAL VILLALBA [facility] [address] [address] 12/21/2023 Sonal Svrcek [facility] [address] [place] [address] 01/12/2024 TALAL VILLALBA [facility] [address] [facility] [address] [place] [address] 02/05/2024 TALAL VILLALBA [facility] [address] [facility] [address] [place] [address] 02/18/2024 TALAL VILLALBA [facility] [address] [place] [address] 02/24/2024 Sonal Svrcek [facility] [address] [address] [place] [address] 03/01/2024 Sonal Svrcek [facility] [address] [facility] [address] [place] [address] 03/15/2024 TALAL VILLALBA [facility] [address] [facility] [address] [place] [address] 03/18/2024 Sonal Svrcek [facility] [address] [facility] [address] [place] [address] 03/30/2024 Sonal Svrcek [facility] [address] [facility] [address] [place] [address] 04/12/2024 Sonal Svrcek [facility] [address] [facility] [address] [place] [address] 04/14/2024 TALAL VILLALBA [facility] [address] [facility] [address] [place] [address] 04/19/2024 Sonal Svrcek [facility] [address] [facility] [address] [place] [address] 05/13/2024 Sonal Svrcek [facility] [address] [facility] [address] [place] [address] 05/24/2024 TALAL VILLALBA [facility] [address] [facility] [address] [place] [address] 06/16/2024 TALAL VILLALBA [facility] [address] [place] [address] 07/26/2024 Sonal Svrcek [facility] [address] [facility] [address] [place] [address] 07/27/2024 TALAL VILLALBA [facility] [address] [facility] [address] [place] [address] 08/04/2024 TALAL VILLALBA [facility] [address] [facility] [address] [place] [address] 08/08/2024 TALAL VILLALBA [facility] [address] [facility] [address] [place] [address] 08/17/2024 Sonal Svrcek [facility] [address] [facility] [address] [place], [place] 08/22/2024 Sonal Svrcek [facility] [address] [facility] [address] [place], [place] 08/22/2024 Sonal Svrcek [facility] [address] [facility] [address] [place] 09/14/2024 Sonal Svrcek [facility] [address] [facility] [address] [place] 09/16/2024 Sonal Svrcek [facility] [address] [facility] [address] [place] 09/22/2024 Sonal Svrcek [facility] [address] [place] [address] 10/06/2024 TALAL VILLALBA [facility] [address] 10/18/2024 Sonal Svrcek [facility] [address] [place] [address] 10/19/2024 Sonal Svrcek [facility] [address] 10/25/2024 TALAL VILLALBA [facility] [address] 10/31/2024 TALAL VILLALBA [facility] [address] 11/15/2024 Sonal Svrcek [facility] [address] 02/18/2024 Sonal Svrcek Other chronic pain G 89.29 ; Right-sided chest wall pain R07.89 ; Pleuritic pain R07.81 ; Pain in thoracic spine M54.6 and Essential hypertension I10 [facility] [address] 09/15/2024 Sonal Svrcek [facility] [address] 12/08/2023 Sonal Svrcek Type 2 diabetes saira itus with complication, unspecified whether terminal press operator insulin use E11.8 ; Essential hypertension I10 ; Right foot pain M79.671 ; Decreased hearing of both ears H91.93 and Abnormal TSH R79.89 [facility] [address] [address] 01/27/2024 Sonal Svrcek Essential hypertensi on I10 ; Type 2 diabetes mellitus without complication, unspecified whether terminal press operator insulin use E11.9 ; Stage 3a chronic kidney disease N18.31 ; Hyperaldosteronism E26.9 ; Hyperparathyroidism, secondary renal N25.81 and Anemia in chronic kidney disease D63.1 [facility] [address] 03/17/2024 Sonal Svrcek Other chronic pain G 89.29 ; Right-sided chest wall pain R07.89 ; Pleuritic pain R07.81 ; Essential hypertension I10 and Thoracic spondylosis M47.814 [facility] [address] [address] 06/16/2024 Sonal Svrcek Essential hypertensi on I10 ; Type 2 diabetes mellitus with complication, unspecified whether halfway insulin use E11.8 ; Hyperlipidemia, unspecified E78.5 ; prison (current) use of insulin Z79.4 ; Hyperaldosteronism E26.9 and Stage 3a chronic kidney disease N18.31 [facility] [address] [address] 07/27/2024 Sonal Svrcek Essential hypertensi on I10 ; Type 2 diabetes mellitus with complication, unspecified whether halfway insulin use E11.8 ; Hyperlipidemia, unspecified E78.5 ; prison (current) use of insulin Z79.4 ; Hyperaldosteronism E26.9 ; Stage 3a chronic kidney disease N18.31 ; Systolic murmur R01.1 and Breast cancer screening by mammogram Z12.31 [facility] [address] [address] 09/21/2024 Sonal Svrcek Essential hypertensi on I10 ; Abdominal distention R14.0 ; Unexplained weight loss R63.4 ; Type 2 diabetes mellitus with complication, unspecified whether halfway insulin use E11.8 ; Hyperlipidemia, unspecified E78.5 ; terminologist (current) use of insulin Z79.4 ; Hyperaldosteronism E26.9 ; Stage 3a chronic kidney disease N18.31 and Breast cancer screening by mammogram Z12.31 [facility] [address] [facility] [address] [place] [address] 10/25/2024 Sonal Emilcemicaela Type 2 diabetes saira itus with complication, unspecified whether terminal press operator insulin use E11.8 ; Aortic aneurysm without rupture, unspecified portion of aorta I71.9 ; Unexplained weight loss R63.4 ; Hyperlipidemia, unspecified E78.5 ; terminologist (current) use of insulin Z79.4 ; Hyperaldosteronism E26.9 ; Stage 3a chronic kidney disease N18.31 and Hypertension, unspecified type I10 [facility] [address] [facility] [address] [place] [address] 02/24/2024 Sonal Ribeiro Other chronic pain G 89.29 ; Right-sided chest wall pain R07.89 ; Pleuritic pain R07.81 and Essential hypertension I10 Assessments Encounter Date Diagnosis (ICD Code) Assessment Notes Treatment Notes Treatment Clinical Notes Section Notes 12/08/2023 Essential hypertension (ICD-10 - I10) #Type 2 diabetes. Not well-controlled. She did not tolerate the increased dose of Rybelsus 7 mg. Will go back to 3 mg daily. Continue metformin 500 mg twice a day. Discussed if blood glucose readings remain elevated in 2 weeks can increase metformin to 1000 mg in the morning and 500 in the evening until her follow-up with me in 6 weeks. #Hypertension. Blood pressure remains elevated. She did not tolerate increased dose of valsartan and went back to losartan 100 mg daily. She does have further testing with nephrology in the next 2 weeks for her blood pressure. Renal function has been normal. #Right foot pain. Status post trip and fall yesterday with acute tenderness to anterior right foot at base of fourth and fifth toes mild swelling. Discussed rest ice elevation. Will get x-ray and follow-up pending results. #Decreased hearing. Family has noticed difficulty with hearing will refer for hearing evaluation. #Abnormal TSH- she never had her repeat labs. Will do today and f/u pending results. Case discussed with collaborating physician Yeni Villalba who reviewed the assessment and plan. Chart, medications, labs, vital signs reviewed. Dictation was accomplished with the use of [employer] voice recognition software, prone to medical misidentifications and grammatical errors. This is unintentional and the practitioner does try to identify and correct these, but some could still be present. Please do not hesitate to contact practitioner for clarification. All questions answered to patients satisfaction. Patient verbalized understanding of diagnosis and treatments explained. To call sooner prior to next visit it any questions/concerns arise. 12/08/2023 Type 2 diabetes mellitus with complication, unspecified whether terminal press operator insulin use (ICD-10 - E11.8) #Type 2 diabetes. Not well-controlled. She did not tolerate the increased dose of Rybelsus 7 mg. Will go back to 3 mg daily. Continue metformin 500 mg twice a day. Discussed if blood glucose readings remain elevated in 2 weeks can increase metformin to 1000 mg in the morning and 500 in the evening until her follow-up with me in 6 weeks. #Hypertension. Blood pressure remains elevated. She did not tolerate increased dose of valsartan and went back to losartan 100 mg daily. She does have further testing with nephrology in the next 2 weeks for her blood pressure. Renal function has been normal. #Right foot pain. Status post trip and fall yesterday with acute tenderness to anterior right foot at base of fourth and fifth toes mild swelling. Discussed rest ice elevation. Will get x-ray and follow-up pending results. #Decreased hearing. Family has noticed difficulty with hearing will refer for hearing evaluation. #Abnormal TSH- she never had her repeat labs. Will do today and f/u pending results. Case discussed with collaborating physician Yeni Villalba who reviewed the assessment and plan. Chart, medications, labs, vital signs reviewed. Dictation was accomplished with the use of [employer] voice recognition software, prone to medical misidentifications and grammatical errors. This is unintentional and the practitioner does try to identify and correct these, but some could still be present. Please do not hesitate to contact practitioner for clarification. All questions answered to patients satisfaction. Patient verbalized understanding of diagnosis and treatments explained. To call sooner prior to next visit it any questions/concerns arise. 01/27/2024 Essential hypertension (ICD-10 - I10) #Hypertension. Uncontrolled. Followed by [facility]. 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 She has had a workup for secondary causes including saline suppression test which showed primary hyperaldosteronism. Abdominal MRI showed bilateral thickening of the adrenals without a specific nodule therefore was not report for surgical intervention. Her renal Doppler did not show any evidence of STEFANIE. She did not tolerate Farxiga or spironolactone. Recent visit last month with nephrology. Currently on amlodipine 10 mg daily, eplerenone 100 mg twice daily which was increased from 50 mg twice daily. Metoprolol XL 200 mg daily. Continue to avoid nephrotoxins and NSAIDs. Will get comprehensive labs and follow-up in 1 month. She has follow-up with them in March. Advised to bring all of her medications to her visit in 1 month to review. #Type 2 diabetes. Did not tolerate SGLT2's. Will get comprehensive labs follow-up in 1 month. #CKD 3 AA. Labs have been stable. Will continue to work on blood pressure control with nephrology and avoid nephrotoxins. #Hyperaldosteronism. As above. Following with nephrology. 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 PTH borderline at 120. Normal calcium and vitamin D. Nephrology plans to continue to monitor with a target PTH of less than 150. Case discussed with collaborating physician Yeni Villalba who reviewed the assessment and plan. Chart, medications, labs, vital signs reviewed. Dictation was accomplished with the use of [employer] voice recognition software, prone to medical misidentifications and grammatical errors. This is unintentional and the practitioner does try to identify and correct these, but some could still be present. Please do not hesitate to contact practitioner for clarification. All questions answered to patients satisfaction. Patient verbalized understanding of diagnosis and treatments explained. To call sooner prior to next visit it any questions/concerns arise. 01/27/2024 Type 2 diabetes mellitus without complication, unspecified whether halfway insulin use (ICD-10 - E11.9) #Hypertension. Uncontrolled. Followed by [facility]. 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 She has had a workup for secondary causes including saline suppression test which showed primary hyperaldosteronism. Abdominal MRI showed bilateral thickening of the adrenals without a specific nodule therefore was not report for surgical intervention. Her renal Doppler did not show any evidence of STEFANIE. She did not tolerate Farxiga or spironolactone. Recent visit last month with nephrology. Currently on amlodipine 10 mg daily, eplerenone 100 mg twice daily which was increased from 50 mg twice daily. Metoprolol XL 200 mg daily. Continue to avoid nephrotoxins and NSAIDs. Will get comprehensive labs and follow-up in 1 month. She has follow-up with them in March. Advised to bring all of her medications to her visit in 1 month to review. #Type 2 diabetes. Did not tolerate SGLT2's. Will get comprehensive labs follow-up in 1 month. #CKD 3 AA. Labs have been stable. Will continue to work on blood pressure control with nephrology and avoid nephrotoxins. #Hyperaldosteronism. As above. Following with nephrology. 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 PTH borderline at 120. Normal calcium and vitamin D. Nephrology plans to continue to monitor with a target PTH of less than 150. Case discussed with collaborating physician Yeni Villalba who reviewed the assessment and plan. Chart, medications, labs, vital signs reviewed. Dictation was accomplished with the use of [employer] voice recognition software, prone to medical misidentifications and grammatical errors. This is unintentional and the practitioner does try to identify and correct these, but some could still be present. Please do not hesitate to contact practitioner for clarification. All questions answered to patients satisfaction. Patient verbalized understanding of diagnosis and treatments explained. To call sooner prior to next visit it any questions/concerns arise. 02/18/2024 Other chronic pain (ICD-10 - G89.29) #Right-sided chest wall pain. Right sided chest wall pain, thoracic pain and intermittent pleuritic pain. Ongoing times years with worsening symptoms. Unclear etiology. She has had recent chest x-ray, rib series, abdominal ultrasound of the right upper quadrant as well as MRI of the abdomen without clear cause. Will get further workup with chest CT with contrast and follow-up pending results. If negative will do bone scan. Discussed symptomatic management. Will start with Salonpas with lidocaine patches. Discussed option of adding gabapentin as needed. Will follow-up pending CT results and follow-up with me in the office in 2 weeks sooner with any new or worsening symptoms. #Hypertension. Uncontrolled. Followed by nephrology and cardiology. Has had extensive workup for secondary causes of hypertension. MRI did show nonspecific adrenal cortical thickening without mass or nodule. Continue to follow with nephrology. Follow labs closely. Case discussed with collaborating physician Yeni Villalba who reviewed the assessment and plan. Chart, medications, labs, vital signs reviewed. Dictation was accomplished with the use of [employer] voice recognition software, prone to medical misidentifications and grammatical errors. This is unintentional and the practitioner does try to identify and correct these, but some could still be present. Please do not hesitate to contact practitioner for clarification. All questions answered to patients satisfaction. Patient verbalized understanding of diagnosis and treatments explained. To call sooner prior to next visit it any questions/concerns arise. 02/18/2024 Right-sided chest wall pain (ICD-10 - R07.89) #Right-sided chest wall pain. Right sided chest wall pain, thoracic pain and intermittent pleuritic pain. Ongoing times years with worsening symptoms. Unclear etiology. She has had recent chest x-ray, rib series, abdominal ultrasound of the right upper quadrant as well as MRI of the abdomen without clear cause. Will get further workup with chest CT with contrast and follow-up pending results. If negative will do bone scan. Discussed symptomatic management. Will start with Salonpas with lidocaine patches. Discussed option of adding gabapentin as needed. Will follow-up pending CT results and follow-up with me in the office in 2 weeks sooner with any new or worsening symptoms. #Hypertension. Uncontrolled. Followed by nephrology and cardiology. Has had extensive workup for secondary causes of hypertension. MRI did show nonspecific adrenal cortical thickening without mass or nodule. Continue to follow with nephrology. Follow labs closely. Case discussed with collaborating physician Yeni Villalba who reviewed the assessment and plan. Chart, medications, labs, vital signs reviewed. Dictation was accomplished with the use of [employer] voice recognition software, prone to medical misidentifications and grammatical errors. This is unintentional and the practitioner does try to identify and correct these, but some could still be present. Please do not hesitate to contact practitioner for clarification. All questions answered to patients satisfaction. Patient verbalized understanding of diagnosis and treatments explained. To call sooner prior to next visit it any questions/concerns arise. 02/24/2024 Other chronic pain (ICD-10 - G89.29) #Right-sided chest wall pain. Right sided chest wall pain, thoracic pain and intermittent pleuritic pain. Ongoing times years with worsening symptoms. Unclear etiology. Recent ED visit this weekened with repeat CXR that was normal. Chest CT with contrast pending. No improvement with lidocaine patches, Tylenol or ibuprofen. Will start gabapentin 100 mg 3 times daily. Discussed risk benefits adverse effects of medication in detail. If no improvement after 3 days can increase to 200 mg at bedtime and 100 mg twice during the day and gradually increase from there as needed. She will follow-up on Thursday with how she is feeling. Follow-up sooner with any new or worsening symptoms. Follow up with me in the office in 3 weeks once she has had CT. #Hypertension. Uncontrolled. Followed by nephrology and cardiology. Has had extensive workup for secondary causes of hypertension. MRI did show nonspecific adrenal cortical thickening without mass or nodule. Continue to follow with nephrology. Follow labs closely. Case discussed with collaborating physician Yeni Villalba who reviewed the assessment and plan. Chart, medications, labs, vital signs reviewed. Dictation was accomplished with the use of [employer] voice recognition software, prone to medical misidentifications and grammatical errors. This is unintentional and the practitioner does try to identify and correct these, but some could still be present. Please do not hesitate to contact practitioner for clarification. All questions answered to patients satisfaction. Patient verbalized understanding of diagnosis and treatments explained. To call sooner prior to next visit it any questions/concerns arise. 02/24/2024 Right-sided chest wall pain (ICD-10 - R07.89) #Right-sided chest wall pain. Right sided chest wall pain, thoracic pain and intermittent pleuritic pain. Ongoing times years with worsening symptoms. Unclear etiology. Recent ED visit this weekened with repeat CXR that was normal. Chest CT with contrast pending. No improvement with lidocaine patches, Tylenol or ibuprofen. Will start gabapentin 100 mg 3 times daily. Discussed risk benefits adverse effects of medication in detail. If no improvement after 3 days can increase to 200 mg at bedtime and 100 mg twice during the day and gradually increase from there as needed. She will follow-up on Thursday with how she is feeling. Follow-up sooner with any new or worsening symptoms. Follow up with me in the office in 3 weeks once she has had CT. #Hypertension. Uncontrolled. Followed by nephrology and cardiology. Has had extensive workup for secondary causes of hypertension. MRI did show nonspecific adrenal cortical thickening without mass or nodule. Continue to follow with nephrology. Follow labs closely. Case discussed with collaborating physician Yeni Villalba who reviewed the assessment and plan. Chart, medications, labs, vital signs reviewed. Dictation was accomplished with the use of [employer] voice recognition software, prone to medical misidentifications and grammatical errors. This is unintentional and the practitioner does try to identify and correct these, but some could still be present. Please do not hesitate to contact practitioner for clarification. All questions answered to patients satisfaction. Patient verbalized understanding of diagnosis and treatments explained. To call sooner prior to next visit it any questions/concerns arise. 03/17/2024 Right-sided chest wall pain (ICD-10 - R07.89) #Right-sided chest wall pain. Right sided chest wall pain, thoracic pain and intermittent pleuritic pain. Ongoing times years with worsening symptoms. She has had extensive workup. She did have chest CT this morning. CT was unremarkable however did show spondylosis of the thoracic spine. She has not been using the gabapentin consistently but only as needed as she does not always have symptoms. Discussed options we will send to [facility] for consult. n #Hypertension. Uncontrolled. Followed by nephrology and cardiology. Has had extensive workup for secondary causes of hypertension. MRI did show nonspecific adrenal cortical thickening without mass or nodule. Continue to follow with nephrology. Follow labs closely. #Thoracic spondylosis noted on CT done this morning. T4-T12. Will refer to [facility]. Question could this be contributing to her intermittent chest pain as above. Case discussed with collaborating physician Yeni Villalba who reviewed the assessment and plan. Chart, medications, labs, vital signs reviewed. Dictation was accomplished with the use of [employer] voice recognition software, prone to medical misidentifications and grammatical errors. This is unintentional and the practitioner does try to identify and correct these, but some could still be present. Please do not hesitate to contact practitioner for clarification. All questions answered to patients satisfaction. Patient verbalized understanding of diagnosis and treatments explained. To call sooner prior to next visit it any questions/concerns arise. 03/17/2024 Other chronic pain (ICD-10 - G89.29) #Right-sided chest wall pain. Right sided chest wall pain, thoracic pain and intermittent pleuritic pain. Ongoing times years with worsening symptoms. She has had extensive workup. She did have chest CT this morning. CT was unremarkable however did show spondylosis of the thoracic spine. She has not been using the gabapentin consistently but only as needed as she does not always have symptoms. Discussed options we will send to [facility] for consult. n #Hypertension. Uncontrolled. Followed by nephrology and cardiology. Has had extensive workup for secondary causes of hypertension. MRI did show nonspecific adrenal cortical thickening without mass or nodule. Continue to follow with nephrology. Follow labs closely. #Thoracic spondylosis noted on CT done this morning. T4-T12. Will refer to [facility]. Question could this be contributing to her intermittent chest pain as above. Case discussed with collaborating physician Yeni Villalba who reviewed the assessment and plan. Chart, medications, labs, vital signs reviewed. Dictation was accomplished with the use of [employer] voice recognition software, prone to medical misidentifications and grammatical errors. This is unintentional and the practitioner does try to identify and correct these, but some could still be present. Please do not hesitate to contact practitioner for clarification. All questions answered to patients satisfaction. Patient verbalized understanding of diagnosis and treatments explained. To call sooner prior to next visit it any questions/concerns arise. 06/16/2024 Essential hypertension (ICD-10 - I10) #Hypertension. Blood pressure is actually improved today compared to previous. Of note she has been off the eplerenone for the past month. Advised to call her licensed club manager to discuss whether or not she should remain off or restart. #Type 2 diabetes. Uncontrolled. A1c 10.5 in the office today. Currently on metformin 500 mg twice daily, Toujeo 10 units at bedtime and Humalog 8 units with meals. She has not tolerated Rybelsus or Farxiga in the past. She does note that her daughter has been cooking for her for the last couple of weeks and plans to continue to manage her meals. Since then blood sugar levels have been in the green zone. We did discuss slow titration of Toujeo at bedtime could increase to 12 units and monitor for any lows. Discussed importance of consistent eating habits. Will plan to recheck labs in 6 weeks. Follow-up sooner with any worsening symptoms. #Hyperaldosteronism. Followed by nephrology. Has been on eplerenone however reports that she discontinued this after someone from the lab told her that she should not be on it. I advised her to call her licensed club manager today to discuss further with them in regards to remaining off versus restarting. #Chronic kidney disease. As above. Followed by nephrology. Will get updated labs prior to follow-up in 6 weeks. Case discussed with collaborating physician Yeni Villalba who reviewed the assessment and plan. Chart, medications, labs, vital signs reviewed. Dictation was accomplished with the use of [employer] voice recognition software, prone to medical misidentifications and grammatical errors. This is unintentional and the practitioner does try to identify and correct these, but some could still be present. Please do not hesitate to contact practitioner for clarification. All questions answered to patients satisfaction. Patient verbalized understanding of diagnosis and treatments explained. To call sooner prior to next visit it any questions/concerns arise. 07/27/2024 Essential hypertension (ICD-10 - I10) #Hypertension. Blood pressure remains elevated and has been difficult to controll. Currently being managed by nephrology. She has had extensive workup and tried many medications. Advised to call nephrology for f/u. #Type 2 diabetes. Uncontrolled. A1c 9.7 today, down from 10.5 last visit. Does admit that she has not been consistently taking her metformin in the evening. Advised to take 2 tablets for total of 1000 mg daily in the morning as she is currently on the extended release 24-hour formulation to ensure better compliance. She also never increase her Toujeo dose at bedtime beyond 8 units. Encouraged to consider increasing by 2 units and monitoring blood glucose closely. Will refer to museum educator. She has not tolerated Rybelsus or Farxiga in the past. She has frequent fluctuations in BG levels. She is using a celso 3 and is benefitting from better monitoring of blood sugar leveles. Discussed importance of consistent eating habits with a focus on more protein in her diet. Will plan to recheck labs in 6 weeks. Follow-up sooner with any worsening symptoms. #Hyperaldosteronism. Followed by nephrology. #Chronic kidney disease. As above. Followed by nephrology. Will get updated labs prior to follow-up in 6 weeks. #Systolic murmur. Not new. Asymptomatic. Cardiogram was done in June 2023. She also had a nuclear stress test last year with cardiology as well. Will continue to monitor. Discussed signs and symptoms to monitor for. Case discussed with collaborating physician Yeni Villalba who reviewed the assessment and plan. Chart, medications, labs, vital signs reviewed. Dictation was accomplished with the use of [employer] voice recognition software, prone to medical misidentifications and grammatical errors. This is unintentional and the practitioner does try to identify and correct these, but some could still be present. Please do not hesitate to contact practitioner for clarification. All questions answered to patients satisfaction. Patient verbalized understanding of diagnosis and treatments explained. To call sooner prior to next visit it any questions/concerns arise. 07/27/2024 Type 2 diabetes mellitus with complication, unspecified whether halfway insulin use (ICD-10 - E11.8) #Hypertension. Blood pressure remains elevated and has been difficult to controll. Currently being managed by nephrology. She has had extensive workup and tried many medications. Advised to call nephrology for f/u. #Type 2 diabetes. Uncontrolled. A1c 9.7 today, down from 10.5 last visit. Does admit that she has not been consistently taking her metformin in the evening. Advised to take 2 tablets for total of 1000 mg daily in the morning as she is currently on the extended release 24-hour formulation to ensure better compliance. She also never increase her Toujeo dose at bedtime beyond 8 units. Encouraged to consider increasing by 2 units and monitoring blood glucose closely. Will refer to museum educator. She has not tolerated Rybelsus or Farxiga in the past. She has frequent fluctuations in BG levels. She is using a celso 3 and is benefitting from better monitoring of blood sugar leveles. Discussed importance of consistent eating habits with a focus on more protein in her diet. Will plan to recheck labs in 6 weeks. Follow-up sooner with any worsening symptoms. #Hyperaldosteronism. Followed by nephrology. #Chronic kidney disease. As above. Followed by nephrology. Will get updated labs prior to follow-up in 6 weeks. #Systolic murmur. Not new. Asymptomatic. Cardiogram was done in June 2023. She also had a nuclear stress test last year with cardiology as well. Will continue to monitor. Discussed signs and symptoms to monitor for. Case discussed with collaborating physician Yeni Villalba who reviewed the assessment and plan. Chart, medications, labs, vital signs reviewed. Dictation was accomplished with the use of [employer] voice recognition software, prone to medical misidentifications and grammatical errors. This is unintentional and the practitioner does try to identify and correct these, but some could still be present. Please do not hesitate to contact practitioner for clarification. All questions answered to patients satisfaction. Patient verbalized understanding of diagnosis and treatments explained. To call sooner prior to next visit it any questions/concerns arise. 09/21/2024 Essential hypertension (ICD-10 - I10) #Abdominal distention and weight loss. Mild distention noted on exam. Vague abdominal discomfort, weight loss over the past year although stable in the past few months. Negative Cologuard October 2022. She does not want to have a colonoscopy. Will get CT scan to further evaluate and follow-up pending results. Discussed signs and symptoms to monitor for. #Hypertension. Blood pressure remains mildly elevated and has been difficult to controll. Currently being managed by nephrology. She has had extensive workup and tried many medications. continue current regimen. #Type 2 diabetes. Uncontrolled. A1c 9.9 today,up from 9.7 last visit. Reports compliance with medications. On metformin 1000 mg XR daily. She also never increased her Toujeo dose at bedtime beyond 8 units. Encouraged to consider increasing by 2 units and monitoring blood glucose closely. Reports she drops with any adjustment of insulin. Referred to DM educator at last visit. She has not tolerated Rybelsus or Farxiga in the past. F/u 4 weeks. #Hyperaldosteronism. Followed by nephrology. #Chronic kidney disease. As above. Followed by nephrology. Case discussed with collaborating physician Yeni Villalba who reviewed the assessment and plan. Chart, medications, labs, vital signs reviewed. Dictation was accomplished with the use of [employer] voice recognition software, prone to medical misidentifications and grammatical errors. This is unintentional and the practitioner does try to identify and correct these, but some could still be present. Please do not hesitate to contact practitioner for clarification. All questions answered to patients satisfaction. Patient verbalized understanding of diagnosis and treatments explained. To call sooner prior to next visit it any questions/concerns arise. 09/21/2024 Abdominal distention (ICD-10 - R14.0) #Abdominal distention and weight loss. Mild distention noted on exam. Vague abdominal discomfort, weight loss over the past year although stable in the past few months. Negative Cologuard October 2022. She does not want to have a colonoscopy. Will get CT scan to further evaluate and follow-up pending results. Discussed signs and symptoms to monitor for. #Hypertension. Blood pressure remains mildly elevated and has been difficult to controll. Currently being managed by nephrology. She has had extensive workup and tried many medications. continue current regimen. #Type 2 diabetes. Uncontrolled. A1c 9.9 today,up from 9.7 last visit. Reports compliance with medications. On metformin 1000 mg XR daily. She also never increased her Toujeo dose at bedtime beyond 8 units. Encouraged to consider increasing by 2 units and monitoring blood glucose closely. Reports she drops with any adjustment of insulin. Referred to DM educator at last visit. She has not tolerated Rybelsus or Farxiga in the past. F/u 4 weeks. #Hyperaldosteronism. Followed by nephrology. #Chronic kidney disease. As above. Followed by nephrology. Case discussed with collaborating physician Yeni Villalba who reviewed the assessment and plan. Chart, medications, labs, vital signs reviewed. Dictation was accomplished with the use of [employer] voice recognition software, prone to medical misidentifications and grammatical errors. This is unintentional and the practitioner does try to identify and correct these, but some could still be present. Please do not hesitate to contact practitioner for clarification. All questions answered to patients satisfaction. Patient verbalized understanding of diagnosis and treatments explained. To call sooner prior to next visit it any questions/concerns arise. 10/25/2024 Type 2 diabetes mellitus with complication, unspecified whether terminal press operator insulin use (ICD-10 - E11.8) #Aortic aneurysm. 3.7 cm aortic aneurysm noted on recent CT of abdomen and pelvis. Reviewed results with patient and her daughter. Patient has been referred to vascular surgery for consultation. #Abdominal distention and weight loss. Negative Cologuard October 2022. She does not want to have a colonoscopy. CT of abdomen and pelvis done and reviewed with the patient. No acute findings aside from aortic aneurysm as noted above. Discussed weight loss may be secondary to poorly controlled diabetes. #Hypertension. Currently being managed by nephrology. She has had extensive workup and tried many medications. continue current regimen. #Type 2 diabetes. Uncontrolled. A1c 10.2, up from 9.9. Reports compliance with medications. On metformin 1000 mg XR daily. She has not tolerated insulin doses beyond 8 units. Discussed diet and consistent eating habits at length. Her daughter is planning to help her with diabetic diet. We have referred her to endocrinology and discussed the importance of following up with them for better management. I am concerned as she is having highs as well as significant lows. She does have a CGM. She has not tolerated Rybelsus, trulicity or Farxiga in the past. #Hyperaldosteronism. Followed by nephrology. #Chronic kidney disease. As above. Followed by nephrology. Case discussed with collaborating physician Yeni Villalba who reviewed the assessment and plan. Chart, medications, labs, vital signs reviewed. Dictation was accomplished with the use of [employer] voice recognition software, prone to medical misidentifications and grammatical errors. This is unintentional and the practitioner does try to identify and correct these, but some could still be present. Please do not hesitate to contact practitioner for clarification. All questions answered to patients satisfaction. Patient verbalized understanding of diagnosis and treatments explained. To call sooner prior to next visit it any questions/concerns arise. 10/25/2024 Aortic aneurysm without rupture, unspecified portion of aorta (ICD-10 - I71.9) #Aortic aneurysm. 3.7 cm aortic aneurysm noted on recent CT of abdomen and pelvis. Reviewed results with patient and her daughter. Patient has been referred to vascular surgery for consultation. #Abdominal distention and weight loss. Negative Cologuard October 2022. She does not want to have a colonoscopy. CT of abdomen and pelvis done and reviewed with the patient. No acute findings aside from aortic aneurysm as noted above. Discussed weight loss may be secondary to poorly controlled diabetes. #Hypertension. Currently being managed by nephrology. She has had extensive workup and tried many medications. continue current regimen. #Type 2 diabetes. Uncontrolled. A1c 10.2, up from 9.9. Reports compliance with medications. On metformin 1000 mg XR daily. She has not tolerated insulin doses beyond 8 units. Discussed diet and consistent eating habits at length. Her daughter is planning to help her with diabetic diet. We have referred her to endocrinology and discussed the importance of following up with them for better management. I am concerned as she is having highs as well as significant lows. She does have a CGM. She has not tolerated Rybelsus, trulicity or Farxiga in the past. #Hyperaldosteronism. Followed by nephrology. #Chronic kidney disease. As above. Followed by nephrology. Case discussed with collaborating physician Yeni Villalba who reviewed the assessment and plan. Chart, medications, labs, vital signs reviewed. Dictation was accomplished with the use of [employer] voice recognition software, prone to medical misidentifications and grammatical errors. This is unintentional and the practitioner does try to identify and correct these, but some could still be present. Please do not hesitate to contact practitioner for clarification. All questions answered to patients satisfaction. Patient verbalized understanding of diagnosis and treatments explained. To call sooner prior to next visit it any questions/concerns arise. 10/25/2024 Unexplained weight loss (ICD-10 - R63.4) #Aortic aneurysm. 3.7 cm aortic aneurysm noted on recent CT of abdomen and pelvis. Reviewed results with patient and her daughter. Patient has been referred to vascular surgery for consultation. #Abdominal distention and weight loss. Negative Cologuard October 2022. She does not want to have a colonoscopy. CT of abdomen and pelvis done and reviewed with the patient. No acute findings aside from aortic aneurysm as noted above. Discussed weight loss may be secondary to poorly controlled diabetes. #Hypertension. Currently being managed by nephrology. She has had extensive workup and tried many medications. continue current regimen. #Type 2 diabetes. Uncontrolled. A1c 10.2, up from 9.9. Reports compliance with medications. On metformin 1000 mg XR daily. She has not tolerated insulin doses beyond 8 units. Discussed diet and consistent eating habits at length. Her daughter is planning to help her with diabetic diet. We have referred her to endocrinology and discussed the importance of following up with them for better management. I am concerned as she is having highs as well as significant lows. She does have a CGM. She has not tolerated Rybelsus, trulicity or Farxiga in the past. #Hyperaldosteronism. Followed by nephrology. #Chronic kidney disease. As above. Followed by nephrology. Case discussed with collaborating physician Yeni Villalba who reviewed the assessment and plan. Chart, medications, labs, vital signs reviewed. Dictation was accomplished with the use of [employer] voice recognition software, prone to medical misidentifications and grammatical errors. This is unintentional and the practitioner does try to identify and correct these, but some could still be present. Please do not hesitate to contact practitioner for clarification. All questions answered to patients satisfaction. Patient verbalized understanding of diagnosis and treatments explained. To call sooner prior to next visit it any questions/concerns arise. 09/21/2024 Unexplained weight loss (ICD-10 - R63.4) #Abdominal distention and weight loss. Mild distention noted on exam. Vague abdominal discomfort, weight loss over the past year although stable in the past few months. Negative Cologuard October 2022. She does not want to have a colonoscopy. Will get CT scan to further evaluate and follow-up pending results. Discussed signs and symptoms to monitor for. #Hypertension. Blood pressure remains mildly elevated and has been difficult to controll. Currently being managed by nephrology. She has had extensive workup and tried many medications. continue current regimen. #Type 2 diabetes. Uncontrolled. A1c 9.9 today,up from 9.7 last visit. Reports compliance with medications. On metformin 1000 mg XR daily. She also never increased her Toujeo dose at bedtime beyond 8 units. Encouraged to consider increasing by 2 units and monitoring blood glucose closely. Reports she drops with any adjustment of insulin. Referred to DM educator at last visit. She has not tolerated Rybelsus or Farxiga in the past. F/u 4 weeks. #Hyperaldosteronism. Followed by nephrology. #Chronic kidney disease. As above. Followed by nephrology. Case discussed with collaborating physician Yeni Villalba who reviewed the assessment and plan. Chart, medications, labs, vital signs reviewed. Dictation was accomplished with the use of [employer] voice recognition software, prone to medical misidentifications and grammatical errors. This is unintentional and the practitioner does try to identify and correct these, but some could still be present. Please do not hesitate to contact practitioner for clarification. All questions answered to patients satisfaction. Patient verbalized understanding of diagnosis and treatments explained. To call sooner prior to next visit it any questions/concerns arise. 07/27/2024 Hyperlipidemia, unspecified (ICD-10 - E78.5) #Hypertension. Blood pressure remains elevated and has been difficult to controll. Currently being managed by nephrology. She has had extensive workup and tried many medications. Advised to call nephrology for f/u. #Type 2 diabetes. Uncontrolled. A1c 9.7 today, down from 10.5 last visit. Does admit that she has not been consistently taking her metformin in the evening. Advised to take 2 tablets for total of 1000 mg daily in the morning as she is currently on the extended release 24-hour formulation to ensure better compliance. She also never increase her Toujeo dose at bedtime beyond 8 units. Encouraged to consider increasing by 2 units and monitoring blood glucose closely. Will refer to museum educator. She has not tolerated Rybelsus or Farxiga in the past. She has frequent fluctuations in BG levels. She is using a celso 3 and is benefitting from better monitoring of blood sugar leveles. Discussed importance of consistent eating habits with a focus on more protein in her diet. Will plan to recheck labs in 6 weeks. Follow-up sooner with any worsening symptoms. #Hyperaldosteronism. Followed by nephrology. #Chronic kidney disease. As above. Followed by nephrology. Will get updated labs prior to follow-up in 6 weeks. #Systolic murmur. Not new. Asymptomatic. Cardiogram was done in June 2023. She also had a nuclear stress test last year with cardiology as well. Will continue to monitor. Discussed signs and symptoms to monitor for. Case discussed with collaborating physician Yeni Villalba who reviewed the assessment and plan. Chart, medications, labs, vital signs reviewed. Dictation was accomplished with the use of [employer] voice recognition software, prone to medical misidentifications and grammatical errors. This is unintentional and the practitioner does try to identify and correct these, but some could still be present. Please do not hesitate to contact practitioner for clarification. All questions answered to patients satisfaction. Patient verbalized understanding of diagnosis and treatments explained. To call sooner prior to next visit it any questions/concerns arise. 06/16/2024 Type 2 diabetes mellitus with complication, unspecified whether terminal press operator insulin use (ICD-10 - E11.8) #Hypertension. Blood pressure is actually improved today compared to previous. Of note she has been off the eplerenone for the past month. Advised to call her licensed club manager to discuss whether or not she should remain off or restart. #Type 2 diabetes. Uncontrolled. A1c 10.5 in the office today. Currently on metformin 500 mg twice daily, Toujeo 10 units at bedtime and Humalog 8 units with meals. She has not tolerated Rybelsus or Farxiga in the past. She does note that her daughter has been cooking for her for the last couple of weeks and plans to continue to manage her meals. Since then blood sugar levels have been in the green zone. We did discuss slow titration of Toujeo at bedtime could increase to 12 units and monitor for any lows. Discussed importance of consistent eating habits. Will plan to recheck labs in 6 weeks. Follow-up sooner with any worsening symptoms. #Hyperaldosteronism. Followed by nephrology. Has been on eplerenone however reports that she discontinued this after someone from the lab told her that she should not be on it. I advised her to call her licensed club manager today to discuss further with them in regards to remaining off versus restarting. #Chronic kidney disease. As above. Followed by nephrology. Will get updated labs prior to follow-up in 6 weeks. Case discussed with collaborating physician Yeni Villalba who reviewed the assessment and plan. Chart, medications, labs, vital signs reviewed. Dictation was accomplished with the use of [employer] voice recognition software, prone to medical misidentifications and grammatical errors. This is unintentional and the practitioner does try to identify and correct these, but some could still be present. Please do not hesitate to contact practitioner for clarification. All questions answered to patients satisfaction. Patient verbalized understanding of diagnosis and treatments explained. To call sooner prior to next visit it any questions/concerns arise. 03/17/2024 Pleuritic pain (ICD-10 - R07.81) #Right-sided chest wall pain. Right sided chest wall pain, thoracic pain and intermittent pleuritic pain. Ongoing times years with worsening symptoms. She has had extensive workup. She did have chest CT this morning. CT was unremarkable however did show spondylosis of the thoracic spine. She has not been using the gabapentin consistently but only as needed as she does not always have symptoms. Discussed options we will send to [facility] for consult. n #Hypertension. Uncontrolled. Followed by nephrology and cardiology. Has had extensive workup for secondary causes of hypertension. MRI did show nonspecific adrenal cortical thickening without mass or nodule. Continue to follow with nephrology. Follow labs closely. #Thoracic spondylosis noted on CT done this morning. T4-T12. Will refer to [facility]. Question could this be contributing to her intermittent chest pain as above. Case discussed with collaborating physician Yeni Villalba who reviewed the assessment and plan. Chart, medications, labs, vital signs reviewed. Dictation was accomplished with the use of [employer] voice recognition software, prone to medical misidentifications and grammatical errors. This is unintentional and the practitioner does try to identify and correct these, but some could still be present. Please do not hesitate to contact practitioner for clarification. All questions answered to patients satisfaction. Patient verbalized understanding of diagnosis and treatments explained. To call sooner prior to next visit it any questions/concerns arise. 02/24/2024 Pleuritic pain (ICD-10 - R07.81) #Right-sided chest wall pain. Right sided chest wall pain, thoracic pain and intermittent pleuritic pain. Ongoing times years with worsening symptoms. Unclear etiology. Recent ED visit this weekened with repeat CXR that was normal. Chest CT with contrast pending. No improvement with lidocaine patches, Tylenol or ibuprofen. Will start gabapentin 100 mg 3 times daily. Discussed risk benefits adverse effects of medication in detail. If no improvement after 3 days can increase to 200 mg at bedtime and 100 mg twice during the day and gradually increase from there as needed. She will follow-up on Thursday with how she is feeling. Follow-up sooner with any new or worsening symptoms. Follow up with me in the office in 3 weeks once she has had CT. #Hypertension. Uncontrolled. Followed by nephrology and cardiology. Has had extensive workup for secondary causes of hypertension. MRI did show nonspecific adrenal cortical thickening without mass or nodule. Continue to follow with nephrology. Follow labs closely. Case discussed with collaborating physician Yeni Villalba who reviewed the assessment and plan. Chart, medications, labs, vital signs reviewed. Dictation was accomplished with the use of [employer] voice recognition software, prone to medical misidentifications and grammatical errors. This is unintentional and the practitioner does try to identify and correct these, but some could still be present. Please do not hesitate to contact practitioner for clarification. All questions answered to patients satisfaction. Patient verbalized understanding of diagnosis and treatments explained. To call sooner prior to next visit it any questions/concerns arise. 02/18/2024 Pleuritic pain (ICD-10 - R07.81) #Right-sided chest wall pain. Right sided chest wall pain, thoracic pain and intermittent pleuritic pain. Ongoing times years with worsening symptoms. Unclear etiology. She has had recent chest x-ray, rib series, abdominal ultrasound of the right upper quadrant as well as MRI of the abdomen without clear cause. Will get further workup with chest CT with contrast and follow-up pending results. If negative will do bone scan. Discussed symptomatic management. Will start with Salonpas with lidocaine patches. Discussed option of adding gabapentin as needed. Will follow-up pending CT results and follow-up with me in the office in 2 weeks sooner with any new or worsening symptoms. #Hypertension. Uncontrolled. Followed by nephrology and cardiology. Has had extensive workup for secondary causes of hypertension. MRI did show nonspecific adrenal cortical thickening without mass or nodule. Continue to follow with nephrology. Follow labs closely. Case discussed with collaborating physician Yeni Villalba who reviewed the assessment and plan. Chart, medications, labs, vital signs reviewed. Dictation was accomplished with the use of [employer] voice recognition software, prone to medical misidentifications and grammatical errors. This is unintentional and the practitioner does try to identify and correct these, but some could still be present. Please do not hesitate to contact practitioner for clarification. All questions answered to patients satisfaction. Patient verbalized understanding of diagnosis and treatments explained. To call sooner prior to next visit it any questions/concerns arise. 01/27/2024 Stage 3a chronic kidney disease (ICD-10 - N18.31) #Hypertension. Uncontrolled. Followed by [facility]. 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 She has had a workup for secondary causes including saline suppression test which showed primary hyperaldosteronism. Abdominal MRI showed bilateral thickening of the adrenals without a specific nodule therefore was not report for surgical intervention. Her renal Doppler did not show any evidence of STEFANIE. She did not tolerate Farxiga or spironolactone. Recent visit last month with nephrology. Currently on amlodipine 10 mg daily, eplerenone 100 mg twice daily which was increased from 50 mg twice daily. Metoprolol XL 200 mg daily. Continue to avoid nephrotoxins and NSAIDs. Will get comprehensive labs and follow-up in 1 month. She has follow-up with them in March. Advised to bring all of her medications to her visit in 1 month to review. #Type 2 diabetes. Did not tolerate SGLT2's. Will get comprehensive labs follow-up in 1 month. #CKD 3 AA. Labs have been stable. Will continue to work on blood pressure control with nephrology and avoid nephrotoxins. #Hyperaldosteronism. As above. Following with nephrology. 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 PTH borderline at 120. Normal calcium and vitamin D. Nephrology plans to continue to monitor with a target PTH of less than 150. Case discussed with collaborating physician Yeni Villalba who reviewed the assessment and plan. Chart, medications, labs, vital signs reviewed. Dictation was accomplished with the use of [employer] voice recognition software, prone to medical misidentifications and grammatical errors. This is unintentional and the practitioner does try to identify and correct these, but some could still be present. Please do not hesitate to contact practitioner for clarification. All questions answered to patients satisfaction. Patient verbalized understanding of diagnosis and treatments explained. To call sooner prior to next visit it any questions/concerns arise. 12/08/2023 Right foot pain (ICD-10 - M79.671) #Type 2 diabetes. Not well-controlled. She did not tolerate the increased dose of Rybelsus 7 mg. Will go back to 3 mg daily. Continue metformin 500 mg twice a day. Discussed if blood glucose readings remain elevated in 2 weeks can increase metformin to 1000 mg in the morning and 500 in the evening until her follow-up with me in 6 weeks. #Hypertension. Blood pressure remains elevated. She did not tolerate increased dose of valsartan and went back to losartan 100 mg daily. She does have further testing with nephrology in the next 2 weeks for her blood pressure. Renal function has been normal. #Right foot pain. Status post trip and fall yesterday with acute tenderness to anterior right foot at base of fourth and fifth toes mild swelling. Discussed rest ice elevation. Will get x-ray and follow-up pending results. #Decreased hearing. Family has noticed difficulty with hearing will refer for hearing evaluation. #Abnormal TSH- she never had her repeat labs. Will do today and f/u pending results. Case discussed with collaborating physician Ynei Villalba who reviewed the assessment and plan. Chart, medications, labs, vital signs reviewed. Dictation was accomplished with the use of [employer] voice recognition software, prone to medical misidentifications and grammatical errors. This is unintentional and the practitioner does try to identify and correct these, but some could still be present. Please do not hesitate to contact practitioner for clarification. All questions answered to patients satisfaction. Patient verbalized understanding of diagnosis and treatments explained. To call sooner prior to next visit it any questions/concerns arise. 12/08/2023 Decreased hearing of both ears (ICD-10 - H91.93) #Type 2 diabetes. Not well-controlled. She did not tolerate the increased dose of Rybelsus 7 mg. Will go back to 3 mg daily. Continue metformin 500 mg twice a day. Discussed if blood glucose readings remain elevated in 2 weeks can increase metformin to 1000 mg in the morning and 500 in the evening until her follow-up with me in 6 weeks. #Hypertension. Blood pressure remains elevated. She did not tolerate increased dose of valsartan and went back to losartan 100 mg daily. She does have further testing with nephrology in the next 2 weeks for her blood pressure. Renal function has been normal. #Right foot pain. Status post trip and fall yesterday with acute tenderness to anterior right foot at base of fourth and fifth toes mild swelling. Discussed rest ice elevation. Will get x-ray and follow-up pending results. #Decreased hearing. Family has noticed difficulty with hearing will refer for hearing evaluation. #Abnormal TSH- she never had her repeat labs. Will do today and f/u pending results. Case discussed with collaborating physician Yeni Villalba who reviewed the assessment and plan. Chart, medications, labs, vital signs reviewed. Dictation was accomplished with the use of [employer] voice recognition software, prone to medical misidentifications and grammatical errors. This is unintentional and the practitioner does try to identify and correct these, but some could still be present. Please do not hesitate to contact practitioner for clarification. All questions answered to patients satisfaction. Patient verbalized understanding of diagnosis and treatments explained. To call sooner prior to next visit it any questions/concerns arise. 01/27/2024 Hyperaldosteronism (ICD-10 - E26.9) #Hypertension. Uncontrolled. Followed by [facility]. 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 She has had a workup for secondary causes including saline suppression test which showed primary hyperaldosteronism. Abdominal MRI showed bilateral thickening of the adrenals without a specific nodule therefore was not report for surgical intervention. Her renal Doppler did not show any evidence of STEFANIE. She did not tolerate Farxiga or spironolactone. Recent visit last month with nephrology. Currently on amlodipine 10 mg daily, eplerenone 100 mg twice daily which was increased from 50 mg twice daily. Metoprolol XL 200 mg daily. Continue to avoid nephrotoxins and NSAIDs. Will get comprehensive labs and follow-up in 1 month. She has follow-up with them in March. Advised to bring all of her medications to her visit in 1 month to review. #Type 2 diabetes. Did not tolerate SGLT2's. Will get comprehensive labs follow-up in 1 month. #CKD 3 AA. Labs have been stable. Will continue to work on blood pressure control with nephrology and avoid nephrotoxins. #Hyperaldosteronism. As above. Following with nephrology. 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 PTH borderline at 120. Normal calcium and vitamin D. Nephrology plans to continue to monitor with a target PTH of less than 150. Case discussed with collaborating physician Yeni Villalba who reviewed the assessment and plan. Chart, medications, labs, vital signs reviewed. Dictation was accomplished with the use of [employer] voice recognition software, prone to medical misidentifications and grammatical errors. This is unintentional and the practitioner does try to identify and correct these, but some could still be present. Please do not hesitate to contact practitioner for clarification. All questions answered to patients satisfaction. Patient verbalized understanding of diagnosis and treatments explained. To call sooner prior to next visit it any questions/concerns arise. 02/18/2024 Pain in thoracic spine (ICD-10 - M54.6) #Right-sided chest wall pain. Right sided chest wall pain, thoracic pain and intermittent pleuritic pain. Ongoing times years with worsening symptoms. Unclear etiology. She has had recent chest x-ray, rib series, abdominal ultrasound of the right upper quadrant as well as MRI of the abdomen without clear cause. Will get further workup with chest CT with contrast and follow-up pending results. If negative will do bone scan. Discussed symptomatic management. Will start with Salonpas with lidocaine patches. Discussed option of adding gabapentin as needed. Will follow-up pending CT results and follow-up with me in the office in 2 weeks sooner with any new or worsening symptoms. #Hypertension. Uncontrolled. Followed by nephrology and cardiology. Has had extensive workup for secondary causes of hypertension. MRI did show nonspecific adrenal cortical thickening without mass or nodule. Continue to follow with nephrology. Follow labs closely. Case discussed with collaborating physician Yeni Villalba who reviewed the assessment and plan. Chart, medications, labs, vital signs reviewed. Dictation was accomplished with the use of [employer] voice recognition software, prone to medical misidentifications and grammatical errors. This is unintentional and the practitioner does try to identify and correct these, but some could still be present. Please do not hesitate to contact practitioner for clarification. All questions answered to patients satisfaction. Patient verbalized understanding of diagnosis and treatments explained. To call sooner prior to next visit it any questions/concerns arise. 02/24/2024 Essential hypertension (ICD-10 - I10) #Right-sided chest wall pain. Right sided chest wall pain, thoracic pain and intermittent pleuritic pain. Ongoing times years with worsening symptoms. Unclear etiology. Recent ED visit this weekened with repeat CXR that was normal. Chest CT with contrast pending. No improvement with lidocaine patches, Tylenol or ibuprofen. Will start gabapentin 100 mg 3 times daily. Discussed risk benefits adverse effects of medication in detail. If no improvement after 3 days can increase to 200 mg at bedtime and 100 mg twice during the day and gradually increase from there as needed. She will follow-up on Thursday with how she is feeling. Follow-up sooner with any new or worsening symptoms. Follow up with me in the office in 3 weeks once she has had CT. #Hypertension. Uncontrolled. Followed by nephrology and cardiology. Has had extensive workup for secondary causes of hypertension. MRI did show nonspecific adrenal cortical thickening without mass or nodule. Continue to follow with nephrology. Follow labs closely. Case discussed with collaborating physician Yeni Villalba who reviewed the assessment and plan. Chart, medications, labs, vital signs reviewed. Dictation was accomplished with the use of [employer] voice recognition software, prone to medical misidentifications and grammatical errors. This is unintentional and the practitioner does try to identify and correct these, but some could still be present. Please do not hesitate to contact practitioner for clarification. All questions answered to patients satisfaction. Patient verbalized understanding of diagnosis and treatments explained. To call sooner prior to next visit it any questions/concerns arise. 06/16/2024 Hyperlipidemia, unspecified (ICD-10 - E78.5) #Hypertension. Blood pressure is actually improved today compared to previous. Of note she has been off the eplerenone for the past month. Advised to call her licensed club manager to discuss whether or not she should remain off or restart. #Type 2 diabetes. Uncontrolled. A1c 10.5 in the office today. Currently on metformin 500 mg twice daily, Toujeo 10 units at bedtime and Humalog 8 units with meals. She has not tolerated Rybelsus or Farxiga in the past. She does note that her daughter has been cooking for her for the last couple of weeks and plans to continue to manage her meals. Since then blood sugar levels have been in the green zone. We did discuss slow titration of Toujeo at bedtime could increase to 12 units and monitor for any lows. Discussed importance of consistent eating habits. Will plan to recheck labs in 6 weeks. Follow-up sooner with any worsening symptoms. #Hyperaldosteronism. Followed by nephrology. Has been on eplerenone however reports that she discontinued this after someone from the lab told her that she should not be on it. I advised her to call her licensed club manager today to discuss further with them in regards to remaining off versus restarting. #Chronic kidney disease. As above. Followed by nephrology. Will get updated labs prior to follow-up in 6 weeks. Case discussed with collaborating physician Yeni Villalba who reviewed the assessment and plan. Chart, medications, labs, vital signs reviewed. Dictation was accomplished with the use of [employer] voice recognition software, prone to medical misidentifications and grammatical errors. This is unintentional and the practitioner does try to identify and correct these, but some could still be present. Please do not hesitate to contact practitioner for clarification. All questions answered to patients satisfaction. Patient verbalized understanding of diagnosis and treatments explained. To call sooner prior to next visit it any questions/concerns arise. 03/17/2024 Essential hypertension (ICD-10 - I10) #Right-sided chest wall pain. Right sided chest wall pain, thoracic pain and intermittent pleuritic pain. Ongoing times years with worsening symptoms. She has had extensive workup. She did have chest CT this morning. CT was unremarkable however did show spondylosis of the thoracic spine. She has not been using the gabapentin consistently but only as needed as she does not always have symptoms. Discussed options we will send to [facility] for consult. n #Hypertension. Uncontrolled. Followed by nephrology and cardiology. Has had extensive workup for secondary causes of hypertension. MRI did show nonspecific adrenal cortical thickening without mass or nodule. Continue to follow with nephrology. Follow labs closely. #Thoracic spondylosis noted on CT done this morning. T4-T12. Will refer to [facility]. Question could this be contributing to her intermittent chest pain as above. Case discussed with collaborating physician Yeni Villalba who reviewed the assessment and plan. Chart, medications, labs, vital signs reviewed. Dictation was accomplished with the use of [employer] voice recognition software, prone to medical misidentifications and grammatical errors. This is unintentional and the practitioner does try to identify and correct these, but some could still be present. Please do not hesitate to contact practitioner for clarification. All questions answered to patients satisfaction. Patient verbalized understanding of diagnosis and treatments explained. To call sooner prior to next visit it any questions/concerns arise. 07/27/2024 prison (current) use of insulin (ICD-10 - Z79.4) #Hypertension. Blood pressure remains elevated and has been difficult to controll. Currently being managed by nephrology. She has had extensive workup and tried many medications. Advised to call nephrology for f/u. #Type 2 diabetes. Uncontrolled. A1c 9.7 today, down from 10.5 last visit. Does admit that she has not been consistently taking her metformin in the evening. Advised to take 2 tablets for total of 1000 mg daily in the morning as she is currently on the extended release 24-hour formulation to ensure better compliance. She also never increase her Toujeo dose at bedtime beyond 8 units. Encouraged to consider increasing by 2 units and monitoring blood glucose closely. Will refer to museum educator. She has not tolerated Rybelsus or Farxiga in the past. She has frequent fluctuations in BG levels. She is using a celso 3 and is benefitting from better monitoring of blood sugar leveles. Discussed importance of consistent eating habits with a focus on more protein in her diet. Will plan to recheck labs in 6 weeks. Follow-up sooner with any worsening symptoms. #Hyperaldosteronism. Followed by nephrology. #Chronic kidney disease. As above. Followed by nephrology. Will get updated labs prior to follow-up in 6 weeks. #Systolic murmur. Not new. Asymptomatic. Cardiogram was done in June 2023. She also had a nuclear stress test last year with cardiology as well. Will continue to monitor. Discussed signs and symptoms to monitor for. Case discussed with collaborating physician Yeni Villalba who reviewed the assessment and plan. Chart, medications, labs, vital signs reviewed. Dictation was accomplished with the use of [employer] voice recognition software, prone to medical misidentifications and grammatical errors. This is unintentional and the practitioner does try to identify and correct these, but some could still be present. Please do not hesitate to contact practitioner for clarification. All questions answered to patients satisfaction. Patient verbalized understanding of diagnosis and treatments explained. To call sooner prior to next visit it any questions/concerns arise. 09/21/2024 Type 2 diabetes mellitus with complication, unspecified whether terminal press operator insulin use (ICD-10 - E11.8) #Abdominal distention and weight loss. Mild distention noted on exam. Vague abdominal discomfort, weight loss over the past year although stable in the past few months. Negative Cologuard October 2022. She does not want to have a colonoscopy. Will get CT scan to further evaluate and follow-up pending results. Discussed signs and symptoms to monitor for. #Hypertension. Blood pressure remains mildly elevated and has been difficult to controll. Currently being managed by nephrology. She has had extensive workup and tried many medications. continue current regimen. #Type 2 diabetes. Uncontrolled. A1c 9.9 today,up from 9.7 last visit. Reports compliance with medications. On metformin 1000 mg XR daily. She also never increased her Toujeo dose at bedtime beyond 8 units. Encouraged to consider increasing by 2 units and monitoring blood glucose closely. Reports she drops with any adjustment of insulin. Referred to DM educator at last visit. She has not tolerated Rybelsus or Farxiga in the past. F/u 4 weeks. #Hyperaldosteronism. Followed by nephrology. #Chronic kidney disease. As above. Followed by nephrology. Case discussed with collaborating physician Yeni Villalba who reviewed the assessment and plan. Chart, medications, labs, vital signs reviewed. Dictation was accomplished with the use of [employer] voice recognition software, prone to medical misidentifications and grammatical errors. This is unintentional and the practitioner does try to identify and correct these, but some could still be present. Please do not hesitate to contact practitioner for clarification. All questions answered to patients satisfaction. Patient verbalized understanding of diagnosis and treatments explained. To call sooner prior to next visit it any questions/concerns arise. 10/25/2024 Hyperlipidemia, unspecified (ICD-10 - E78.5) #Aortic aneurysm. 3.7 cm aortic aneurysm noted on recent CT of abdomen and pelvis. Reviewed results with patient and her daughter. Patient has been referred to vascular surgery for consultation. #Abdominal distention and weight loss. Negative Cologuard October 2022. She does not want to have a colonoscopy. CT of abdomen and pelvis done and reviewed with the patient. No acute findings aside from aortic aneurysm as noted above. Discussed weight loss may be secondary to poorly controlled diabetes. #Hypertension. Currently being managed by nephrology. She has had extensive workup and tried many medications. continue current regimen. #Type 2 diabetes. Uncontrolled. A1c 10.2, up from 9.9. Reports compliance with medications. On metformin 1000 mg XR daily. She has not tolerated insulin doses beyond 8 units. Discussed diet and consistent eating habits at length. Her daughter is planning to help her with diabetic diet. We have referred her to endocrinology and discussed the importance of following up with them for better management. I am concerned as she is having highs as well as significant lows. She does have a CGM. She has not tolerated Rybelsus, trulicity or Farxiga in the past. #Hyperaldosteronism. Followed by nephrology. #Chronic kidney disease. As above. Followed by nephrology. Case discussed with collaborating physician Yeni Villalba who reviewed the assessment and plan. Chart, medications, labs, vital signs reviewed. Dictation was accomplished with the use of [employer] voice recognition software, prone to medical misidentifications and grammatical errors. This is unintentional and the practitioner does try to identify and correct these, but some could still be present. Please do not hesitate to contact practitioner for clarification. All questions answered to patients satisfaction. Patient verbalized understanding of diagnosis and treatments explained. To call sooner prior to next visit it any questions/concerns arise. 10/25/2024 prison (current) use of insulin (ICD-10 - Z79.4) #Aortic aneurysm. 3.7 cm aortic aneurysm noted on recent CT of abdomen and pelvis. Reviewed results with patient and her daughter. Patient has been referred to vascular surgery for consultation. #Abdominal distention and weight loss. Negative Cologuard October 2022. She does not want to have a colonoscopy. CT of abdomen and pelvis done and reviewed with the patient. No acute findings aside from aortic aneurysm as noted above. Discussed weight loss may be secondary to poorly controlled diabetes. #Hypertension. Currently being managed by nephrology. She has had extensive workup and tried many medications. continue current regimen. #Type 2 diabetes. Uncontrolled. A1c 10.2, up from 9.9. Reports compliance with medications. On metformin 1000 mg XR daily. She has not tolerated insulin doses beyond 8 units. Discussed diet and consistent eating habits at length. Her daughter is planning to help her with diabetic diet. We have referred her to endocrinology and discussed the importance of following up with them for better management. I am concerned as she is having highs as well as significant lows. She does have a CGM. She has not tolerated Rybelsus, trulicity or Farxiga in the past. #Hyperaldosteronism. Followed by nephrology. #Chronic kidney disease. As above. Followed by nephrology. Case discussed with collaborating physician Yeni Villalba who reviewed the assessment and plan. Chart, medications, labs, vital signs reviewed. Dictation was accomplished with the use of [employer] voice recognition software, prone to medical misidentifications and grammatical errors. This is unintentional and the practitioner does try to identify and correct these, but some could still be present. Please do not hesitate to contact practitioner for clarification. All questions answered to patients satisfaction. Patient verbalized understanding of diagnosis and treatments explained. To call sooner prior to next visit it any questions/concerns arise. 09/21/2024 Hyperlipidemia, unspecified (ICD-10 - E78.5) #Abdominal distention and weight loss. Mild distention noted on exam. Vague abdominal discomfort, weight loss over the past year although stable in the past few months. Negative Cologuard October 2022. She does not want to have a colonoscopy. Will get CT scan to further evaluate and follow-up pending results. Discussed signs and symptoms to monitor for. #Hypertension. Blood pressure remains mildly elevated and has been difficult to controll. Currently being managed by nephrology. She has had extensive workup and tried many medications. continue current regimen. #Type 2 diabetes. Uncontrolled. A1c 9.9 today,up from 9.7 last visit. Reports compliance with medications. On metformin 1000 mg XR daily. She also never increased her Toujeo dose at bedtime beyond 8 units. Encouraged to consider increasing by 2 units and monitoring blood glucose closely. Reports she drops with any adjustment of insulin. Referred to DM educator at last visit. She has not tolerated Rybelsus or Farxiga in the past. F/u 4 weeks. #Hyperaldosteronism. Followed by nephrology. #Chronic kidney disease. As above. Followed by nephrology. Case discussed with collaborating physician Yeni Villalba who reviewed the assessment and plan. Chart, medications, labs, vital signs reviewed. Dictation was accomplished with the use of [employer] voice recognition software, prone to medical misidentifications and grammatical errors. This is unintentional and the practitioner does try to identify and correct these, but some could still be present. Please do not hesitate to contact practitioner for clarification. All questions answered to patients satisfaction. Patient verbalized understanding of diagnosis and treatments explained. To call sooner prior to next visit it any questions/concerns arise. 07/27/2024 Hyperaldosteronism (ICD-10 - E26.9) #Hypertension. Blood pressure remains elevated and has been difficult to controll. Currently being managed by nephrology. She has had extensive workup and tried many medications. Advised to call nephrology for f/u. #Type 2 diabetes. Uncontrolled. A1c 9.7 today, down from 10.5 last visit. Does admit that she has not been consistently taking her metformin in the evening. Advised to take 2 tablets for total of 1000 mg daily in the morning as she is currently on the extended release 24-hour formulation to ensure better compliance. She also never increase her Toujeo dose at bedtime beyond 8 units. Encouraged to consider increasing by 2 units and monitoring blood glucose closely. Will refer to museum educator. She has not tolerated Rybelsus or Farxiga in the past. She has frequent fluctuations in BG levels. She is using a celso 3 and is benefitting from better monitoring of blood sugar leveles. Discussed importance of consistent eating habits with a focus on more protein in her diet. Will plan to recheck labs in 6 weeks. Follow-up sooner with any worsening symptoms. #Hyperaldosteronism. Followed by nephrology. #Chronic kidney disease. As above. Followed by nephrology. Will get updated labs prior to follow-up in 6 weeks. #Systolic murmur. Not new. Asymptomatic. Cardiogram was done in June 2023. She also had a nuclear stress test last year with cardiology as well. Will continue to monitor. Discussed signs and symptoms to monitor for. Case discussed with collaborating physician Yeni Villalba who reviewed the assessment and plan. Chart, medications, labs, vital signs reviewed. Dictation was accomplished with the use of [employer] voice recognition software, prone to medical misidentifications and grammatical errors. This is unintentional and the practitioner does try to identify and correct these, but some could still be present. Please do not hesitate to contact practitioner for clarification. All questions answered to patients satisfaction. Patient verbalized understanding of diagnosis and treatments explained. To call sooner prior to next visit it any questions/concerns arise. 03/17/2024 Thoracic spondylosis (ICD-10 - M47.814) #Right-sided chest wall pain. Right sided chest wall pain, thoracic pain and intermittent pleuritic pain. Ongoing times years with worsening symptoms. She has had extensive workup. She did have chest CT this morning. CT was unremarkable however did show spondylosis of the thoracic spine. She has not been using the gabapentin consistently but only as needed as she does not always have symptoms. Discussed options we will send to [facility] for consult. n #Hypertension. Uncontrolled. Followed by nephrology and cardiology. Has had extensive workup for secondary causes of hypertension. MRI did show nonspecific adrenal cortical thickening without mass or nodule. Continue to follow with nephrology. Follow labs closely. #Thoracic spondylosis noted on CT done this morning. T4-T12. Will refer to [facility]. Question could this be contributing to her intermittent chest pain as above. Case discussed with collaborating physician Yeni Villalba who reviewed the assessment and plan. Chart, medications, labs, vital signs reviewed. Dictation was accomplished with the use of [employer] voice recognition software, prone to medical misidentifications and grammatical errors. This is unintentional and the practitioner does try to identify and correct these, but some could still be present. Please do not hesitate to contact practitioner for clarification. All questions answered to patients satisfaction. Patient verbalized understanding of diagnosis and treatments explained. To call sooner prior to next visit it any questions/concerns arise. 06/16/2024 prison (current) use of insulin (ICD-10 - Z79.4) #Hypertension. Blood pressure is actually improved today compared to previous. Of note she has been off the eplerenone for the past month. Advised to call her licensed club manager to discuss whether or not she should remain off or restart. #Type 2 diabetes. Uncontrolled. A1c 10.5 in the office today. Currently on metformin 500 mg twice daily, Toujeo 10 units at bedtime and Humalog 8 units with meals. She has not tolerated Rybelsus or Farxiga in the past. She does note that her daughter has been cooking for her for the last couple of weeks and plans to continue to manage her meals. Since then blood sugar levels have been in the green zone. We did discuss slow titration of Toujeo at bedtime could increase to 12 units and monitor for any lows. Discussed importance of consistent eating habits. Will plan to recheck labs in 6 weeks. Follow-up sooner with any worsening symptoms. #Hyperaldosteronism. Followed by nephrology. Has been on eplerenone however reports that she discontinued this after someone from the lab told her that she should not be on it. I advised her to call her licensed club manager today to discuss further with them in regards to remaining off versus restarting. #Chronic kidney disease. As above. Followed by nephrology. Will get updated labs prior to follow-up in 6 weeks. Case discussed with collaborating physician Yeni Villalba who reviewed the assessment and plan. Chart, medications, labs, vital signs reviewed. Dictation was accomplished with the use of [employer] voice recognition software, prone to medical misidentifications and grammatical errors. This is unintentional and the practitioner does try to identify and correct these, but some could still be present. Please do not hesitate to contact practitioner for clarification. All questions answered to patients satisfaction. Patient verbalized understanding of diagnosis and treatments explained. To call sooner prior to next visit it any questions/concerns arise. 02/18/2024 Essential hypertension (ICD-10 - I10) #Right-sided chest wall pain. Right sided chest wall pain, thoracic pain and intermittent pleuritic pain. Ongoing times years with worsening symptoms. Unclear etiology. She has had recent chest x-ray, rib series, abdominal ultrasound of the right upper quadrant as well as MRI of the abdomen without clear cause. Will get further workup with chest CT with contrast and follow-up pending results. If negative will do bone scan. Discussed symptomatic management. Will start with Salonpas with lidocaine patches. Discussed option of adding gabapentin as needed. Will follow-up pending CT results and follow-up with me in the office in 2 weeks sooner with any new or worsening symptoms. #Hypertension. Uncontrolled. Followed by nephrology and cardiology. Has had extensive workup for secondary causes of hypertension. MRI did show nonspecific adrenal cortical thickening without mass or nodule. Continue to follow with nephrology. Follow labs closely. Case discussed with collaborating physician Yeni Villalba who reviewed the assessment and plan. Chart, medications, labs, vital signs reviewed. Dictation was accomplished with the use of [employer] voice recognition software, prone to medical misidentifications and grammatical errors. This is unintentional and the practitioner does try to identify and correct these, but some could still be present. Please do not hesitate to contact practitioner for clarification. All questions answered to patients satisfaction. Patient verbalized understanding of diagnosis and treatments explained. To call sooner prior to next visit it any questions/concerns arise. 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 Uncontrolled. Followed by [facility]. 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 She has had a workup for secondary causes including saline suppression test which showed primary hyperaldosteronism. Abdominal MRI showed bilateral thickening of the adrenals without a specific nodule therefore was not report for surgical intervention. Her renal Doppler did not show any evidence of STFEANIE. She did not tolerate Farxiga or spironolactone. Recent visit last month with nephrology. Currently on amlodipine 10 mg daily, eplerenone 100 mg twice daily which was increased from 50 mg twice daily. Metoprolol XL 200 mg daily. Continue to avoid nephrotoxins and NSAIDs. Will get comprehensive labs and follow-up in 1 month. She has follow-up with them in March. Advised to bring all of her medications to her visit in 1 month to review. #Type 2 diabetes. Did not tolerate SGLT2's. Will get comprehensive labs follow-up in 1 month. #CKD 3 AA. Labs have been stable. Will continue to work on blood pressure control with nephrology and avoid nephrotoxins. #Hyperaldosteronism. As above. Following with nephrology. 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 PTH borderline at 120. Normal calcium and vitamin D. Nephrology plans to continue to monitor with a target PTH of less than 150. Case discussed with collaborating physician Yeni Villalba who reviewed the assessment and plan. Chart, medications, labs, vital signs reviewed. Dictation was accomplished with the use of [employer] voice recognition software, prone to medical misidentifications and grammatical errors. This is unintentional and the practitioner does try to identify and correct these, but some could still be present. Please do not hesitate to contact practitioner for clarification. All questions answered to patients satisfaction. Patient verbalized understanding of diagnosis and treatments explained. To call sooner prior to next visit it any questions/concerns arise. 12/08/2023 Abnormal TSH (ICD-10 - R79.89) #Type 2 diabetes. Not well-controlled. She did not tolerate the increased dose of Rybelsus 7 mg. Will go back to 3 mg daily. Continue metformin 500 mg twice a day. Discussed if blood glucose readings remain elevated in 2 weeks can increase metformin to 1000 mg in the morning and 500 in the evening until her follow-up with me in 6 weeks. #Hypertension. Blood pressure remains elevated. She did not tolerate increased dose of valsartan and went back to losartan 100 mg daily. She does have further testing with nephrology in the next 2 weeks for her blood pressure. Renal function has been normal. #Right foot pain. Status post trip and fall yesterday with acute tenderness to anterior right foot at base of fourth and fifth toes mild swelling. Discussed rest ice elevation. Will get x-ray and follow-up pending results. #Decreased hearing. Family has noticed difficulty with hearing will refer for hearing evaluation. #Abnormal TSH- she never had her repeat labs. Will do today and f/u pending results. Case discussed with collaborating physician Yeni Villalba who reviewed the assessment and plan. Chart, medications, labs, vital signs reviewed. Dictation was accomplished with the use of [employer] voice recognition software, prone to medical misidentifications and grammatical errors. This is unintentional and the practitioner does try to identify and correct these, but some could still be present. Please do not hesitate to contact practitioner for clarification. All questions answered to patients satisfaction. Patient verbalized understanding of diagnosis and treatments explained. To call sooner prior to next visit it any questions/concerns arise. 01/27/2024 Anemia in chronic kidney disease (ICD-10 - D63.1) #Hypertension. Uncontrolled. Followed by [facility]. 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 She has had a workup for secondary causes including saline suppression test which showed primary hyperaldosteronism. Abdominal MRI showed bilateral thickening of the adrenals without a specific nodule therefore was not report for surgical intervention. Her renal Doppler did not show any evidence of STEFANIE. She did not tolerate Farxiga or spironolactone. Recent visit last month with nephrology. Currently on amlodipine 10 mg daily, eplerenone 100 mg twice daily which was increased from 50 mg twice daily. Metoprolol XL 200 mg daily. Continue to avoid nephrotoxins and NSAIDs. Will get comprehensive labs and follow-up in 1 month. She has follow-up with them in March. Advised to bring all of her medications to her visit in 1 month to review. #Type 2 diabetes. Did not tolerate SGLT2's. Will get comprehensive labs follow-up in 1 month. #CKD 3 AA. Labs have been stable. Will continue to work on blood pressure control with nephrology and avoid nephrotoxins. #Hyperaldosteronism. As above. Following with nephrology. 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 PTH borderline at 120. Normal calcium and vitamin D. Nephrology plans to continue to monitor with a target PTH of less than 150. Case discussed with collaborating physician Yeni Villalba who reviewed the assessment and plan. Chart, medications, labs, vital signs reviewed. Dictation was accomplished with the use of [employer] voice recognition software, prone to medical misidentifications and grammatical errors. This is unintentional and the practitioner does try to identify and correct these, but some could still be present. Please do not hesitate to contact practitioner for clarification. All questions answered to patients satisfaction. Patient verbalized understanding of diagnosis and treatments explained. To call sooner prior to next visit it any questions/concerns arise. 06/16/2024 Hyperaldosteronism (ICD-10 - E26.9) #Hypertension. Blood pressure is actually improved today compared to previous. Of note she has been off the eplerenone for the past month. Advised to call her licensed club manager to discuss whether or not she should remain off or restart. #Type 2 diabetes. Uncontrolled. A1c 10.5 in the office today. Currently on metformin 500 mg twice daily, Toujeo 10 units at bedtime and Humalog 8 units with meals. She has not tolerated Rybelsus or Farxiga in the past. She does note that her daughter has been cooking for her for the last couple of weeks and plans to continue to manage her meals. Since then blood sugar levels have been in the green zone. We did discuss slow titration of Toujeo at bedtime could increase to 12 units and monitor for any lows. Discussed importance of consistent eating habits. Will plan to recheck labs in 6 weeks. Follow-up sooner with any worsening symptoms. #Hyperaldosteronism. Followed by nephrology. Has been on eplerenone however reports that she discontinued this after someone from the lab told her that she should not be on it. I advised her to call her licensed club manager today to discuss further with them in regards to remaining off versus restarting. #Chronic kidney disease. As above. Followed by nephrology. Will get updated labs prior to follow-up in 6 weeks. Case discussed with collaborating physician Yeni Villalba who reviewed the assessment and plan. Chart, medications, labs, vital signs reviewed. Dictation was accomplished with the use of [employer] voice recognition software, prone to medical misidentifications and grammatical errors. This is unintentional and the practitioner does try to identify and correct these, but some could still be present. Please do not hesitate to contact practitioner for clarification. All questions answered to patients satisfaction. Patient verbalized understanding of diagnosis and treatments explained. To call sooner prior to next visit it any questions/concerns arise. 07/27/2024 Stage 3a chronic kidney disease (ICD-10 - N18.31) #Hypertension. Blood pressure remains elevated and has been difficult to controll. Currently being managed by nephrology. She has had extensive workup and tried many medications. Advised to call nephrology for f/u. #Type 2 diabetes. Uncontrolled. A1c 9.7 today, down from 10.5 last visit. Does admit that she has not been consistently taking her metformin in the evening. Advised to take 2 tablets for total of 1000 mg daily in the morning as she is currently on the extended release 24-hour formulation to ensure better compliance. She also never increase her Toujeo dose at bedtime beyond 8 units. Encouraged to consider increasing by 2 units and monitoring blood glucose closely. Will refer to museum educator. She has not tolerated Rybelsus or Farxiga in the past. She has frequent fluctuations in BG levels. She is using a celso 3 and is benefitting from better monitoring of blood sugar leveles. Discussed importance of consistent eating habits with a focus on more protein in her diet. Will plan to recheck labs in 6 weeks. Follow-up sooner with any worsening symptoms. #Hyperaldosteronism. Followed by nephrology. #Chronic kidney disease. As above. Followed by nephrology. Will get updated labs prior to follow-up in 6 weeks. #Systolic murmur. Not new. Asymptomatic. Cardiogram was done in June 2023. She also had a nuclear stress test last year with cardiology as well. Will continue to monitor. Discussed signs and symptoms to monitor for. Case discussed with collaborating physician Yeni Villalba who reviewed the assessment and plan. Chart, medications, labs, vital signs reviewed. Dictation was accomplished with the use of [employer] voice recognition software, prone to medical misidentifications and grammatical errors. This is unintentional and the practitioner does try to identify and correct these, but some could still be present. Please do not hesitate to contact practitioner for clarification. All questions answered to patients satisfaction. Patient verbalized understanding of diagnosis and treatments explained. To call sooner prior to next visit it any questions/concerns arise. 09/21/2024 terminologist (current) use of insulin (ICD-10 - Z79.4) #Abdominal distention and weight loss. Mild distention noted on exam. Vague abdominal discomfort, weight loss over the past year although stable in the past few months. Negative Cologuard October 2022. She does not want to have a colonoscopy. Will get CT scan to further evaluate and follow-up pending results. Discussed signs and symptoms to monitor for. #Hypertension. Blood pressure remains mildly elevated and has been difficult to controll. Currently being managed by nephrology. She has had extensive workup and tried many medications. continue current regimen. #Type 2 diabetes. Uncontrolled. A1c 9.9 today,up from 9.7 last visit. Reports compliance with medications. On metformin 1000 mg XR daily. She also never increased her Toujeo dose at bedtime beyond 8 units. Encouraged to consider increasing by 2 units and monitoring blood glucose closely. Reports she drops with any adjustment of insulin. Referred to DM educator at last visit. She has not tolerated Rybelsus or Farxiga in the past. F/u 4 weeks. #Hyperaldosteronism. Followed by nephrology. #Chronic kidney disease. As above. Followed by nephrology. Case discussed with collaborating physician Yeni Villalba who reviewed the assessment and plan. Chart, medications, labs, vital signs reviewed. Dictation was accomplished with the use of [employer] voice recognition software, prone to medical misidentifications and grammatical errors. This is unintentional and the practitioner does try to identify and correct these, but some could still be present. Please do not hesitate to contact practitioner for clarification. All questions answered to patients satisfaction. Patient verbalized understanding of diagnosis and treatments explained. To call sooner prior to next visit it any questions/concerns arise. 10/25/2024 Hyperaldosteronism (ICD-10 - E26.9) #Aortic aneurysm. 3.7 cm aortic aneurysm noted on recent CT of abdomen and pelvis. Reviewed results with patient and her daughter. Patient has been referred to vascular surgery for consultation. #Abdominal distention and weight loss. Negative Cologuard October 2022. She does not want to have a colonoscopy. CT of abdomen and pelvis done and reviewed with the patient. No acute findings aside from aortic aneurysm as noted above. Discussed weight loss may be secondary to poorly controlled diabetes. #Hypertension. Currently being managed by nephrology. She has had extensive workup and tried many medications. continue current regimen. #Type 2 diabetes. Uncontrolled. A1c 10.2, up from 9.9. Reports compliance with medications. On metformin 1000 mg XR daily. She has not tolerated insulin doses beyond 8 units. Discussed diet and consistent eating habits at length. Her daughter is planning to help her with diabetic diet. We have referred her to endocrinology and discussed the importance of following up with them for better management. I am concerned as she is having highs as well as significant lows. She does have a CGM. She has not tolerated Rybelsus, trulicity or Farxiga in the past. #Hyperaldosteronism. Followed by nephrology. #Chronic kidney disease. As above. Followed by nephrology. Case discussed with collaborating physician Yeni Villalba who reviewed the assessment and plan. Chart, medications, labs, vital signs reviewed. Dictation was accomplished with the use of [employer] voice recognition software, prone to medical misidentifications and grammatical errors. This is unintentional and the practitioner does try to identify and correct these, but some could still be present. Please do not hesitate to contact practitioner for clarification. All questions answered to patients satisfaction. Patient verbalized understanding of diagnosis and treatments explained. To call sooner prior to next visit it any questions/concerns arise. 10/25/2024 Stage 3a chronic kidney disease (ICD-10 - N18.31) #Aortic aneurysm. 3.7 cm aortic aneurysm noted on recent CT of abdomen and pelvis. Reviewed results with patient and her daughter. Patient has been referred to vascular surgery for consultation. #Abdominal distention and weight loss. Negative Cologuard October 2022. She does not want to have a colonoscopy. CT of abdomen and pelvis done and reviewed with the patient. No acute findings aside from aortic aneurysm as noted above. Discussed weight loss may be secondary to poorly controlled diabetes. #Hypertension. Currently being managed by nephrology. She has had extensive workup and tried many medications. continue current regimen. #Type 2 diabetes. Uncontrolled. A1c 10.2, up from 9.9. Reports compliance with medications. On metformin 1000 mg XR daily. She has not tolerated insulin doses beyond 8 units. Discussed diet and consistent eating habits at length. Her daughter is planning to help her with diabetic diet. We have referred her to endocrinology and discussed the importance of following up with them for better management. I am concerned as she is having highs as well as significant lows. She does have a CGM. She has not tolerated Rybelsus, trulicity or Farxiga in the past. #Hyperaldosteronism. Followed by nephrology. #Chronic kidney disease. As above. Followed by nephrology. Case discussed with collaborating physician Yeni Villalba who reviewed the assessment and plan. Chart, medications, labs, vital signs reviewed. Dictation was accomplished with the use of [employer] voice recognition software, prone to medical misidentifications and grammatical errors. This is unintentional and the practitioner does try to identify and correct these, but some could still be present. Please do not hesitate to contact practitioner for clarification. All questions answered to patients satisfaction. Patient verbalized understanding of diagnosis and treatments explained. To call sooner prior to next visit it any questions/concerns arise. 09/21/2024 Hyperaldosteronism (ICD-10 - E26.9) #Abdominal distention and weight loss. Mild distention noted on exam. Vague abdominal discomfort, weight loss over the past year although stable in the past few months. Negative Cologuard October 2022. She does not want to have a colonoscopy. Will get CT scan to further evaluate and follow-up pending results. Discussed signs and symptoms to monitor for. #Hypertension. Blood pressure remains mildly elevated and has been difficult to controll. Currently being managed by nephrology. She has had extensive workup and tried many medications. continue current regimen. #Type 2 diabetes. Uncontrolled. A1c 9.9 today,up from 9.7 last visit. Reports compliance with medications. On metformin 1000 mg XR daily. She also never increased her Toujeo dose at bedtime beyond 8 units. Encouraged to consider increasing by 2 units and monitoring blood glucose closely. Reports she drops with any adjustment of insulin. Referred to DM educator at last visit. She has not tolerated Rybelsus or Farxiga in the past. F/u 4 weeks. #Hyperaldosteronism. Followed by nephrology. #Chronic kidney disease. As above. Followed by nephrology. Case discussed with collaborating physician Yeni Villalba who reviewed the assessment and plan. Chart, medications, labs, vital signs reviewed. Dictation was accomplished with the use of [employer] voice recognition software, prone to medical misidentifications and grammatical errors. This is unintentional and the practitioner does try to identify and correct these, but some could still be present. Please do not hesitate to contact practitioner for clarification. All questions answered to patients satisfaction. Patient verbalized understanding of diagnosis and treatments explained. To call sooner prior to next visit it any questions/concerns arise. 07/27/2024 Systolic murmur (ICD-10 - R01.1) #Hypertension. Blood pressure remains elevated and has been difficult to controll. Currently being managed by nephrology. She has had extensive workup and tried many medications. Advised to call nephrology for f/u. #Type 2 diabetes. Uncontrolled. A1c 9.7 today, down from 10.5 last visit. Does admit that she has not been consistently taking her metformin in the evening. Advised to take 2 tablets for total of 1000 mg daily in the morning as she is currently on the extended release 24-hour formulation to ensure better compliance. She also never increase her Toujeo dose at bedtime beyond 8 units. Encouraged to consider increasing by 2 units and monitoring blood glucose closely. Will refer to museum educator. She has not tolerated Rybelsus or Farxiga in the past. She has frequent fluctuations in BG levels. She is using a celso 3 and is benefitting from better monitoring of blood sugar leveles. Discussed importance of consistent eating habits with a focus on more protein in her diet. Will plan to recheck labs in 6 weeks. Follow-up sooner with any worsening symptoms. #Hyperaldosteronism. Followed by nephrology. #Chronic kidney disease. As above. Followed by nephrology. Will get updated labs prior to follow-up in 6 weeks. #Systolic murmur. Not new. Asymptomatic. Cardiogram was done in June 2023. She also had a nuclear stress test last year with cardiology as well. Will continue to monitor. Discussed signs and symptoms to monitor for. Case discussed with collaborating physician Yeni Villalba who reviewed the assessment and plan. Chart, medications, labs, vital signs reviewed. Dictation was accomplished with the use of [employer] voice recognition software, prone to medical misidentifications and grammatical errors. This is unintentional and the practitioner does try to identify and correct these, but some could still be present. Please do not hesitate to contact practitioner for clarification. All questions answered to patients satisfaction. Patient verbalized understanding of diagnosis and treatments explained. To call sooner prior to next visit it any questions/concerns arise. 06/16/2024 Stage 3a chronic kidney disease (ICD-10 - N18.31) #Hypertension. Blood pressure is actually improved today compared to previous. Of note she has been off the eplerenone for the past month. Advised to call her licensed club manager to discuss whether or not she should remain off or restart. #Type 2 diabetes. Uncontrolled. A1c 10.5 in the office today. Currently on metformin 500 mg twice daily, Toujeo 10 units at bedtime and Humalog 8 units with meals. She has not tolerated Rybelsus or Farxiga in the past. She does note that her daughter has been cooking for her for the last couple of weeks and plans to continue to manage her meals. Since then blood sugar levels have been in the green zone. We did discuss slow titration of Toujeo at bedtime could increase to 12 units and monitor for any lows. Discussed importance of consistent eating habits. Will plan to recheck labs in 6 weeks. Follow-up sooner with any worsening symptoms. #Hyperaldosteronism. Followed by nephrology. Has been on eplerenone however reports that she discontinued this after someone from the lab told her that she should not be on it. I advised her to call her licensed club manager today to discuss further with them in regards to remaining off versus restarting. #Chronic kidney disease. As above. Followed by nephrology. Will get updated labs prior to follow-up in 6 weeks. Case discussed with collaborating physician Yeni Villalba who reviewed the assessment and plan. Chart, medications, labs, vital signs reviewed. Dictation was accomplished with the use of [employer] voice recognition software, prone to medical misidentifications and grammatical errors. This is unintentional and the practitioner does try to identify and correct these, but some could still be present. Please do not hesitate to contact practitioner for clarification. All questions answered to patients satisfaction. Patient verbalized understanding of diagnosis and treatments explained. To call sooner prior to next visit it any questions/concerns arise. 07/27/2024 Breast cancer screening by mammogram (ICD-10 - Z12.31) #Hypertension. Blood pressure remains elevated and has been difficult to controll. Currently being managed by nephrology. She has had extensive workup and tried many medications. Advised to call nephrology for f/u. #Type 2 diabetes. Uncontrolled. A1c 9.7 today, down from 10.5 last visit. Does admit that she has not been consistently taking her metformin in the evening. Advised to take 2 tablets for total of 1000 mg daily in the morning as she is currently on the extended release 24-hour formulation to ensure better compliance. She also never increase her Toujeo dose at bedtime beyond 8 units. Encouraged to consider increasing by 2 units and monitoring blood glucose closely. Will refer to museum educator. She has not tolerated Rybelsus or Farxiga in the past. She has frequent fluctuations in BG levels. She is using a celso 3 and is benefitting from better monitoring of blood sugar leveles. Discussed importance of consistent eating habits with a focus on more protein in her diet. Will plan to recheck labs in 6 weeks. Follow-up sooner with any worsening symptoms. #Hyperaldosteronism. Followed by nephrology. #Chronic kidney disease. As above. Followed by nephrology. Will get updated labs prior to follow-up in 6 weeks. #Systolic murmur. Not new. Asymptomatic. Cardiogram was done in June 2023. She also had a nuclear stress test last year with cardiology as well. Will continue to monitor. Discussed signs and symptoms to monitor for. Case discussed with collaborating physician Yeni Villalba who reviewed the assessment and plan. Chart, medications, labs, vital signs reviewed. Dictation was accomplished with the use of [employer] voice recognition software, prone to medical misidentifications and grammatical errors. This is unintentional and the practitioner does try to identify and correct these, but some could still be present. Please do not hesitate to contact practitioner for clarification. All questions answered to patients satisfaction. Patient verbalized understanding of diagnosis and treatments explained. To call sooner prior to next visit it any questions/concerns arise. 09/21/2024 Stage 3a chronic kidney disease (ICD-10 - N18.31) #Abdominal distention and weight loss. Mild distention noted on exam. Vague abdominal discomfort, weight loss over the past year although stable in the past few months. Negative Cologuard October 2022. She does not want to have a colonoscopy. Will get CT scan to further evaluate and follow-up pending results. Discussed signs and symptoms to monitor for. #Hypertension. Blood pressure remains mildly elevated and has been difficult to controll. Currently being managed by nephrology. She has had extensive workup and tried many medications. continue current regimen. #Type 2 diabetes. Uncontrolled. A1c 9.9 today,up from 9.7 last visit. Reports compliance with medications. On metformin 1000 mg XR daily. She also never increased her Toujeo dose at bedtime beyond 8 units. Encouraged to consider increasing by 2 units and monitoring blood glucose closely. Reports she drops with any adjustment of insulin. Referred to DM educator at last visit. She has not tolerated Rybelsus or Farxiga in the past. F/u 4 weeks. #Hyperaldosteronism. Followed by nephrology. #Chronic kidney disease. As above. Followed by nephrology. Case discussed with collaborating physician Yeni Villalba who reviewed the assessment and plan. Chart, medications, labs, vital signs reviewed. Dictation was accomplished with the use of [employer] voice recognition software, prone to medical misidentifications and grammatical errors. This is unintentional and the practitioner does try to identify and correct these, but some could still be present. Please do not hesitate to contact practitioner for clarification. All questions answered to patients satisfaction. Patient verbalized understanding of diagnosis and treatments explained. To call sooner prior to next visit it any questions/concerns arise. 10/25/2024 Hypertension, unspecified type (ICD-10 - I10) #Aortic aneurysm. 3.7 cm aortic aneurysm noted on recent CT of abdomen and pelvis. Reviewed results with patient and her daughter. Patient has been referred to vascular surgery for consultation. #Abdominal distention and weight loss. Negative Cologuard October 2022. She does not want to have a colonoscopy. CT of abdomen and pelvis done and reviewed with the patient. No acute findings aside from aortic aneurysm as noted above. Discussed weight loss may be secondary to poorly controlled diabetes. #Hypertension. Currently being managed by nephrology. She has had extensive workup and tried many medications. continue current regimen. #Type 2 diabetes. Uncontrolled. A1c 10.2, up from 9.9. Reports compliance with medications. On metformin 1000 mg XR daily. She has not tolerated insulin doses beyond 8 units. Discussed diet and consistent eating habits at length. Her daughter is planning to help her with diabetic diet. We have referred her to endocrinology and discussed the importance of following up with them for better management. I am concerned as she is having highs as well as significant lows. She does have a CGM. She has not tolerated Rybelsus, trulicity or Farxiga in the past. #Hyperaldosteronism. Followed by nephrology. #Chronic kidney disease. As above. Followed by nephrology. Case discussed with collaborating physician Yeni Villalba who reviewed the assessment and plan. Chart, medications, labs, vital signs reviewed. Dictation was accomplished with the use of [employer] voice recognition software, prone to medical misidentifications and grammatical errors. This is unintentional and the practitioner does try to identify and correct these, but some could still be present. Please do not hesitate to contact practitioner for clarification. All questions answered to patients satisfaction. Patient verbalized understanding of diagnosis and treatments explained. To call sooner prior to next visit it any questions/concerns arise. 09/21/2024 Breast cancer screening by mammogram (ICD-10 - Z12.31) #Abdominal distention and weight loss. Mild distention noted on exam. Vague abdominal discomfort, weight loss over the past year although stable in the past few months. Negative Cologuard October 2022. She does not want to have a colonoscopy. Will get CT scan to further evaluate and follow-up pending results. Discussed signs and symptoms to monitor for. #Hypertension. Blood pressure remains mildly elevated and has been difficult to controll. Currently being managed by nephrology. She has had extensive workup and tried many medications. continue current regimen. #Type 2 diabetes. Uncontrolled. A1c 9.9 today,up from 9.7 last visit. Reports compliance with medications. On metformin 1000 mg XR daily. She also never increased her Toujeo dose at bedtime beyond 8 units. Encouraged to consider increasing by 2 units and monitoring blood glucose closely. Reports she drops with any adjustment of insulin. Referred to DM educator at last visit. She has not tolerated Rybelsus or Farxiga in the past. F/u 4 weeks. #Hyperaldosteronism. Followed by nephrology. #Chronic kidney disease. As above. Followed by nephrology. Case discussed with collaborating physician Yeni Villalba who reviewed the assessment and plan. Chart, medications, labs, vital signs reviewed. Dictation was accomplished with the use of [employer] voice recognition software, prone to medical misidentifications and grammatical errors. This is unintentional and the practitioner does try to identify and correct these, but some could still be present. Please do not hesitate to contact practitioner for clarification. All questions answered to patients satisfaction. Patient verbalized understanding of diagnosis and treatments explained. To call sooner prior to next visit it any questions/concerns arise. 01/20/2024 #Type 2 diabetes. Not well-controlled. She did not tolerate the increased dose of Rybelsus 7 mg. Will go back to 3 mg daily. Continue metformin 500 mg twice a day. Discussed if blood glucose readings remain elevated in 2 weeks can increase metformin to 1000 mg in the morning and 500 in the evening until her follow-up with me in 6 weeks. #Hypertension. Blood pressure remains elevated. She did not tolerate increased dose of valsartan and went back to losartan 100 mg daily. She does have further testing with nephrology in the next 2 weeks for her blood pressure. Renal function has been normal. #Right foot pain. Status post trip and fall yesterday with acute tenderness to anterior right foot at base of fourth and fifth toes mild swelling. Discussed rest ice elevation. Will get x-ray and follow-up pending results. #Decreased hearing. Family has noticed difficulty with hearing will refer for hearing evaluation. #Abnormal TSH- she never had her repeat labs. Will do today and f/u pending results. Case discussed with collaborating physician Yeni Villalba who reviewed the assessment and plan. Chart, medications, labs, vital signs reviewed. Dictation was accomplished with the use of [employer] voice recognition software, prone to medical misidentifications and grammatical errors. This is unintentional and the practitioner does try to identify and correct these, but some could still be present. Please do not hesitate to contact practitioner for clarification. All questions answered to patients satisfaction. Patient verbalized understanding of diagnosis and treatments explained. To call sooner prior to next visit it any questions/concerns arise. Plan Of Treatment Pending Test Test Name Order Date X ray : Chest 04/06/2020 Ultrasound : Right Upper Quadrant 2020 Ultrasound : Abdomen 05/07/2020 X ray : Shoulder, right 04/06/2020 Mammogram 07/27/2024 X ray : Thoracic and lumbar 04/06/2020 X ray : Thoracic spine 2 views 0 X ray : Chest with 2 views 04/06/2020 Chest X-ray PA and lateral 07/16/2023 EAR IRRIGATION 09/19/2022 MRI : Lumbar with and without Contrast 0 12/19/2020 Stress Echo 02/05/2022 ALKALINE PHOSPHATASE 06/11/2022 AMYLASE 06/11/2022 BILIRUBIN,TOTAL 06/11/2022 CBC (COMPLETE BLOOD COUNT) 04/06/2020 CBC (COMPLETE BLOOD COUNT) WITH DIFF CBC (COMPLETE BLOOD COUNT) WITH DIFF COMPREHENSIVE METABOLIC PANEL 01/27/2024 COMPREHENSIVE METABOLIC PANEL 05/26/2023 COMPREHENSIVE METABOLIC PANEL 04/06/2020 HEMOGLOBIN A1C 04/06/2020 HEMOGLOBIN A1C 03/06/2021 LDH 09/21/2024 LIPASE 06/11/2022 LIPID PANEL 04/06/2020 LIPID PANEL 05/26/2023 LIPID PANEL 01/27/2024 T3, FREE 10/22/2023 TSH 06/16/2024 TSH 10/22/2023 TSH 05/26/2023 TSH 10/20/2023 URINALYSIS, COMPLETE 04/06/2020 CT Chest w Contrast 02/18/2024 US Abdomen Complete 07/16/2023 US Abdomen Complete 06/03/2022 XR Foot 2 Views RT 12/08/2023 Cologuard 09/11/2022 COMPREHENSIVE METABOLIC PANEL 09/21/2024 COMPREHENSIVE METABOLIC PANEL 06/16/2024 CBC (INCLUDES DIFF/PLT) 06/16/2024 CBC (INCLUDES DIFF/PLT) 09/21/2024 HEMOGLOBIN A1c 06/16/2024 HEMOGLOBIN A1c 10/14/2021 HEMOGLOBIN A1c 01/27/2024 HEMOGLOBIN A1c 10/20/2023 VITAMIN B12 10/20/2023 T4, FREE 10/22/2023 TSH 01/27/2024 TSH 06/30/2023 VITAMIN D, 1,25 DIHYDROXY LC/MS/MS 10/19 Dexa Bone Density (Axial) 10/14/2022 MR Lumbar Spine WO 12/11/2020 H PYLORI BREATH TEST 06/11/2022 CT Abdomen Pelvis WO Cont 09/21/2024 Ribs W/ PA Chest Right 07/16/2023 PPC Hemoglobin A1C 10/25/2024 Future Test Test Name Order Date CBC (COMPLETE BLOOD COUNT) 01/31/2021 COMPREHENSIVE METABOLIC PANEL 01/31/2021 LIPID PANEL 01/31/2021 TSH 01/31/2021 HEMOGLOBIN A1C 05/02/2021 LIPID PANEL 05/02/2021 MICROALBUMIN, URINE 05/02/2021 COMPREHENSIVE METABOLIC PANEL 09/17/2021 HEMOGLOBIN A1C 09/17/2021 LIPID PANEL 09/17/2021 HEMOGLOBIN A1C 09/08/2022 CBC (COMPLETE BLOOD COUNT) WITH DIFF COMPREHENSIVE METABOLIC PANEL 01/14/2023 HEMOGLOBIN A1C 01/14/2023 LIPID PANEL 01/14/2023 MICROALBUMIN, URINE 01/14/2023 URINALYSIS W/REFLEX CULTURE 01/14/2023 Next Appt Details Provider Name:Sonal Ribeiro, Radha 11/30/2024 01:45:00 PM, [address] [facility] [address], [place], [address], Insurance Providers Payer Name Payer Address Payer Phone Subscriber Number Group Number Insured Name Patient Relationship to Insured Coverage Start Date Coverage End Date [employer] Preferred [address] [place] [address] [id number] LAURIE CHOUDHARY Self - patient is the insured Medical (General) History Medical History History ICD Code hypertension hyperlipidemia type II diabetes acid reflux Surgical History Surgery Date(Month/Year) hysterectomy Left leg surgery x2 due to infection of muscle causing sepsis 2017 Hospitalization History Reason Date(Month/Year) diabetes 2002
--- OUTSIDE RECORDS SUMMARY | 2024-11-21 15:05 | XMS_ITS | Encounter Summary ---
Author Organization [employer] Address [address] [facility] [address] [place] [address] Care Team Providers [employer] Professional Name Role Phone Unavailable Primary Care Provider Unavailabl e Encounter Details Date Type Department Care Team (Latest Contact Info) Description 07/12/2019 Abstract [facility] CONVERSIONS Dental, Provider, DDS Social History Tobacco Use Types Packs/Day Years Used Date Smoking Tobacco: Never Assessed Comments Unknown Sex and Gender Information Value Date Recorded Sex Assigned at Female 03/03/2022 10:33 AM EDT Legal Sex Female 10:33 AM EDT Gender Identity Female 03/03/2022 10:33 AM EDT Sexual Orientation Straight 03/03/2022 10 :33 AM EDT documented as of this encounter Plan of Treatment Not on file documented as of this encounter Visit Diagnoses Not on filedocumented in this encounter
--- OUTSIDE RECORDS SUMMARY | 2024-11-21 15:05 | XMS_ITS | Clinical Summary ---
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 Active eplerenone (INSPRA) 50 mg tablet Take 1 Tablet by mouth daily. Active aspirin 81 mg EC tablet Take 1 tablet (81 mg total) by mouth 1 (one) time each day. Active atorvastatin (LIPITOR) 40 mg tablet Take 1 tablet (40 mg total) by mouth 1 (one) time each day. Active losartan-hydroCHL OROthiazide (HYZAAR) 100-25 mg per tablet Take 1 tablet by mouth 1 (one) time each day. Active metoprolol succinate (Kapspargo Sprinkle) 100 mg capsule,sprinkle, ER 24hr Take by mouth. Active amLODIPine (NORVASC) 10 mg tablet Take 10 mg by mouth daily. Active metFORMIN XR (GLUCOPHAGE-XR) 500 mg 24 hr tablet Take 500 mg by mouth daily (with breakfast). Active insulin aspart protamine-insulin aspart (NovoLOG Mix 70-30FlexPen U-100) 100 unit/mL (70-30) injection pen Inject into the skin. Active Active Problems Problem Noted Date Diagnosed Date Diabetes ([facility] V24, [facility] V28) 02/10/2024 Diabetic neuropathy ([facility] V24, [facility] V28) 1 Hypertension 02/10/2024 Overview (02/10/2024): Last Assessment & Plan: Hypertension control has improved significantly but still slightly higher. PVD (peripheral vascular disease) ([facility] V24) 02/10/2024 Abnormal echocardiogram 10/29/2023 Overview (02/10/2024): Last Assessment & Plan: She has significant LVH by echocardiogram no obvious granular appearance. Global strain was overall unremarkable. LVH is probably caused by uncontrolled hypertension although I would like to exclude cardiac amyloidosis and hypertrophic cardiomyopathy. I will schedule cardiac PYP first. Abnormal EKG 10/29/2023 Overview (02/10/2024): Last Assessment & Plan: She had abnormal repolarization for quite a few years. She has no symptoms to suggest angina. But she is also diabetic. She had exercise echocardiogram stress test back to 2021 and did reasonably well without evidence of rest anemia. I would like to repeat stress test with nuclear perfusion modality. Venous insufficiency 03/24/2018 Encounters Date Type Department Care Team Description 10/18/2024 10:17 AM EDT - 10/18/2024 11:59 PM EDT Hospital Encounter [facility] CT Scan [address] [place] [address] Abdominal distension (gaseous); Abnormal weight loss Discharge Disposition: Home or Self Care 08/22/2024 12:53 PM EDT - 08/22/2024 11:59 PM EDT [facility] [address] [place] [id number] Encounter for screening mammogram for malignant neoplasm of breast Discharge Disposition: Home or Self Care from Last 3 Months Surgical History Surgery Date Site/Laterality Comments OTHER SURGICAL HISTORY 11/05/2016 PROCEDURE: ---- OTHER ----; COMMENT: STATED SURGICAL LEG HYSTERECTOMY BREAST LUMPECTOMY Right BENIGN STEREOTACTIC CORE BIOPSY Right Medical History Medical History Date Comments Diabetes ([facility] V24, [facility] V28) DX:Diabetes ([facility]) Hypertension DX:Hypertension PVD (peripheral vascular dis ease) ([facility] V24) DX:PVD (peripheral vascular disease) ([facility]) Diabetic neuropathy ([facility] V24, [facility] V28) DX:Diabetic neuropathy ([facility]) Family History Medical History Relation Name Comments Diabetes Father Other: Kidney disease Father Diabetes Mother Hypertension Mother Other: pacemaker Mother Breast cancer Mother's Sister Breast cancer Niece Relation Name Status Comments Father Mother Alive Mother's Sister Alive Niece Alive Social History Tobacco Use Types Packs/Day Years Used Date Smoking Tobacco: Never Smokeless Tobacco: Never Alcohol Use Standard Drinks/Week Comments Yes 0 (1 standard drink = 0.6 oz pur e alcohol) Comments No Sex and Gender Information Value Date Recorded Sex Assigned at Female 08/01/2024 11:11 AM EDT Legal Sex Female 4:23 AM EST Gender Identity Female 08/01/2024 11:11 AM EDT Sexual Orientation Straight 08/01/2024 11 :11 AM EDT Obstetrics History Para Term AB IAB SAB Ectopic Multiple Livin g Live Births 3 Last Filed Vital Signs Vital Sign Reading Time Taken Comments Blood Pressure 160/80 03/23/2024 1:09 PM EST Pulse 80 03/23/2024 1:09 PM EST Temperature - - Respiratory Rate 16 03/23/2024 1:09 PM EST Oxygen Saturation - - Inhaled Oxygen Concentration - - Weight 70.8 kg (156 lb) 08/22/2024 1:12 PM EDT Height 167.6 cm (5' 6 ) 08/22/2024 1:12 PM EDT Body Mass Index 25.18 08/22/2024 1:12 PM EDT Plan of Treatment Health Maintenance Due Date Last Done Comments Diabetes: Annual Foot Exam 1962 Diabetes: Annual Retina Eye Exam 1962 DTaP,Tdap,and Td Vaccines (1 - Tdap) 11/24/1971 Pneumococcal Vaccine: 50+ Years (1 of 2 - PCV) 11/24/1971 Zoster Vaccines (1 of 2) 2002 RSV Immunization Adult Patients (1 - Risk 60-74 years 1-dose series) 2012 Falls Risk Assessment 04/12/2022 Hepatitis C Screening 04/12/2022 Medicare Annual Wellness Visit 04/12/2022 Social Influencers of Health Screening 04/12/2022 COVID-19 Vaccine ( season) 2024 09/11/2020, 08/21/2020 Depression Screening 05/04/2024 Influenza Vaccine (#1) 2025 , 03/06/2021, 02/11/2017 Diabetes: Blood Sugar Control Test (HGBA1C) 01/25/2025 07/25/2024, 01/13/2023 Diabetes: Annual Urine Albumin-Creatinine Ratio (uACR) 04/15/2025 04/15/2024 Colorectal Cancer Screening: FIT-DNA (Cologuard) 10/01/2025 10/01/2022, 10/01/2022 Diabetes: Annual GFR (Glomerular Filtration Rate) 10/18/2025 10/18/2024, 07/25/2024, 04/15/2024 Hypertension/CHF/CAD Annual BMP Blood Test 10/18/2025 10/18/2024, 07/25/2024, 04/15/2024 Breast Cancer Screening 08/22/2026 08/23/19, 06/29/2023, 06/24/2022, Additional history exists Cholesterol Screening (Lipid Panel) 04/15/2029 04/15/2024 Osteoporosis Screening (Bone Density Screening) 10/27/2032 10/27/2022 HIB Vaccines Aged Out No longer eligi ble based on patient's age to complete this topic HPV Vaccines Aged Out No longer eligi ble based on patient's age to complete this topic Hepatitis A Vaccines Aged Out No long er eligible based on patient's age to complete this topic Hepatitis B Vaccines Aged Out No long er eligible based on patient's age to complete this topic IPV Vaccines Aged Out No longer eligi ble based on patient's age to complete this topic MMR Vaccines Aged Out No longer eligi ble based on patient's age to complete this topic Meningococcal ACWY Vaccine Aged Out N o longer eligible based on patient's age to complete this topic Meningococcal B Vaccine Aged Out No l onger eligible based on patient's age to complete this topic RSV Immunization Patients Under 20 months Aged Out No longer eligible based on patient's age to complete this topic Varicella Vaccines Aged Out No longer eligible based on patient's age to complete this topic Procedures Procedure Name Priority Date/Time Associated Diagnosis Comments CBC WITH AUTO DIFFERENTIAL Routine 10/18/2024 10:37 AM EDT Gastric tympany Loss of weight LACTATE DEHYDROGENASE Routine 10/18/2024 10:37 AM EDT Gastric tympany Loss of weight CBC AND DIFFERENTIAL Routine 10/18/2024 10:37 AM EDT Gastric tympany Loss of weight COMPREHENSIVE METABOLIC PANEL Routine 10/18/2024 10:37 AM EDT Gastric tympany Loss of weight CT ABDOMEN PELVIS WO CONTRAST Routine 10/18/2024 10:28 AM EDT Abdominal distension (gaseous) Abnormal weight loss MG MAMMO DIGITAL SCREENING W JOSE C BILAT Routine 08/22/2024 1:17 PM EDT Encounter for screening mammogram for malignant neoplasm of breast HEMOGLOBIN A1C Routine 07/25/2024 2:06 PM EDT Diabetes mellitus (CMS/HCC V24, CMS/HCC V28) Essential hypertension, malignant Screening for thyroid disorder MICROALBUMIN CREATININE URINE RATIO Routine 04/15/2024 3:29 PM EST Chronic kidney disease (CKD) stage G3a/A1, moderately decreased glomerular filtration rate (GFR) between 45-59 mL/min/1.73 square meter and albuminuria creatinine ratio les* (CMS/HCC V24, CMS/HCC V28) Essential hypertension, malignant Proteinuria Anemia of chronic renal failure 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 (CMS/HCC V24) LIPID PANEL WITH REFLEX TO DIRECT LDL Routine 04/15/2024 3:22 PM EST Essential hypertension, malignant Heart disease, unspecified KELL DEXA AXIAL SKELETON Routine 10/27/2022 8:32 AM EDT Encounter for screening for osteoporosis from Last 3 Months or Most Recently Relevant to Health Maintenance Results * (ABNORMAL) CBC auto differential (10/18/2024 10:37 AM EDT) [facility] WBC 5.1 4.8 - 10.8 K/mcL LAB HEMETOLOGY METHOD 10/18/2024 12:21 PM [facility] RBC 4.20 3.80 - 4.80 M/mcL LAB HEMETOLOGY METHOD 10/18/2024 12:21 PM [facility] Hemoglobin 12.0 11.5 - 16.0 g/dL LAB HEMETOLOGY METHOD 10/18/2024 12:21 PM [facility] Hematocrit 37.0 35.0 - 47.0 % LAB HEMETOLOGY METHOD 10/18/2024 12:21 PM [facility] MCV 87.5 79.0 - 98.0 FL LAB HEMETOLOGY METHOD 10/18/2024 12:21 PM [facility] MCH 28.4 27.0 - 32.0 pcg LAB HEMETOLOGY METHOD 10/18/2024 12:21 PM [facility] MCHC 32.4 32.0 - 37.0 g/dL LAB HEMETOLOGY METHOD 10/18/2024 12:21 PM [facility] RDW 15.8(H) 11.0 - 15.0 % LAB HEMETOLOGY METHOD 10/18/2024 12:21 PM [facility] Platelets 239 130 - 400 K/[facility] LAB HEMETOLOGY METHOD 10/18/2024 12:21 PM [facility] MPV 11.9(H) 7.0 - 11.0 FL LAB HEMETOLOGY METHOD 10/18/2024 12:21 PM [facility] NRBC 0.0 <1.0 % LAB HEMETOLOGY METHOD 10/18/2024 12:21 PM [facility] NRBC Absolute 0.00 <0.10 K/[facility] LAB HEMETOLOGY METHOD 10/18/2024 12:21 PM [facility] Neutrophils Relative 52.7 % LAB HEMETOLOGY METHOD 10/18/2024 12:21 PM [facility] Lymphocytes Relative 38.2 % LAB HEMETOLOGY METHOD 10/18/2024 12:21 PM [facility] Monocytes Relative 5.7 % LAB HEMETOLOGY METHOD 10/18/2024 12:21 PM [facility] Eosinophils Relative 2.6 % LAB HEMETOLOGY METHOD 10/18/2024 12:21 PM [facility] Basophils Relative 0.6 % LAB HEMETOLOGY METHOD 10/18/2024 12:21 PM [facility] Immature Granulocytes Relative 0.2 % LAB HEMETOLOGY METHOD 10/18/2024 12:21 PM [facility] Neutrophils Absolute 2.66 1.50 - 7.00 K/mcL LAB HEMETOLOGY METHOD 10/18/2024 12:21 PM [facility] Lymphocytes Absolute 1.93 1.00 - 5.00 K/mcL LAB HEMETOLOGY METHOD 10/18/2024 12:21 PM [facility] Monocytes Absolute 0.29 0.20 - 1.00 K/mcL LAB HEMETOLOGY METHOD 10/18/2024 12:21 PM [facility] Eosinophils Absolute 0.13 0.00 - 0.50 K/mcL LAB HEMETOLOGY METHOD 10/18/2024 12:21 PM [facility] Basophils Absolute 0.03 0.00 - 0.20 K/mcL LAB HEMETOLOGY METHOD 10/18/2024 12:21 PM [facility] Immature Granulocytes Absolute 0.01 0.00 - 0.03 K/mcL LAB HEMETOLOGY METHOD 10/18/2024 12:21 PM [facility] Blood Venous blood specimen / Unknown Venipuncture / Unknown 10/18/2024 10:37 AM EDT 10/18/2024 11:46 AM EDT Ernestina FRIEND LAB BLOOD ORDERABLES Final Resul t Performing Organization Address [facility]/ZIP Co de Phone Number [facility] [address] [place] [address], [place] [phone] * Lactate dehydrogenase (10/18/2024 10:37 AM EDT) LDH 212 120 - 246 unit/L LAB CHEMISTRY METHOD 10/18/2024 1:34 PM EDT [facility] Blood Venous blood specimen / Unknown Venipuncture / Unknown 10/18/2024 10:37 AM EDT 10/18/2024 11:46 AM EDT Ernestina FRIEND LAB BLOOD ORDERABLES Final Resul t Performing Organization Address [facility] de Phone Number [facility] [address] [place] [address], [place] [phone] * (ABNORMAL) Comprehensive metabolic panel (10/18/2024 10:37 AM EDT) Sodium 139 133 - 145 mmol/L LAB CHEMISTRY METHOD 10/18/2024 1:35 PM EDT [facility] Potassium 4.0 3.5 - 5.5 mmol/L LAB CHEMISTRY METHOD 10/18/2024 1:35 PM EDT [facility] Chloride 106 96 - 110 mmol/L LAB CHEMISTRY METHOD 10/18/2024 1:35 PM EDT [facility] CO2 27 21 - 32 mmol/L LAB CHEMISTRY METHOD 10/18/2024 1:35 PM EDT [facility] Anion Gap 6 3 - 11 LAB CHEMISTRY METHOD 10/18/2024 1:35 PM EDT [facility] Glucose 249(H) 70 - 100 mg/dL LAB CHEMISTRY METHOD 10/18/2024 1:35 PM [facility] BUN 12 5 - 25 mg/dL LAB CHEMISTRY METHOD 10/18/2024 1:35 PM [facility] Creatinine 0.86 0.50 - 1.10 mg/dL LAB CHEMISTRY METHOD 10/18/2024 1:35 PM [facility] eGFR 72 >=60 mL/min/1. 73m2 LAB CHEMISTRY METHOD 10/18/2024 1:35 PM [facility] Comment:Calculation based on the Chronic Kidney Disease Epidemiology Collaboration (CKD-EPI) equation refit without adjustment for race. BUN/Creatinine Ratio 14.0 LAB CHEMISTRY METHOD 10/18/2024 1:35 PM [facility] Calcium 8.6 8.5 - 10.5 mg/dL LAB CHEMISTRY METHOD 10/18/2024 1:35 PM [facility] AST (SGOT) 20 10 - 42 unit/L LAB CHEMISTRY METHOD 10/18/2024 1:35 PM [facility] ALT (SGPT) 26 10 - 60 unit/L LAB CHEMISTRY METHOD 10/18/2024 1:35 PM [facility] Alkaline Phosphatase 75 42 - 121 unit/L LAB CHEMISTRY METHOD 10/18/2024 1:35 PM [facility] Total Protein 6.2 6.0 - 8.0 g/dL LAB CHEMISTRY METHOD 10/18/2024 1:35 PM [facility] Albumin 3.1(L) 3.2 - 5.0 g/dL LAB CHEMISTRY METHOD 10/18/2024 1:35 PM [facility] Total Bilirubin 0.5 0.0 - 1.4 mg/dL LAB CHEMISTRY METHOD 10/18/2024 1:35 PM [facility] Blood Venous blood specimen / Unknown Venipuncture / Unknown 10/18/2024 10:37 AM EDT 10/18/2024 11:46 AM EDT Ernestina FRIEND LAB BLOOD ORDERABLES Final Resul t [facility] [address] [place] [address], [place] [phone] * CT Abdomen Pelvis wo Contrast (10/18/2024 10:28 AM EDT) Anatomical Region Laterality Modality Body Computed Tomogra phy 10/18/2024 12:1 0 PM EDT Addenda Addendum by Brook Hirsch MD on 10/18/2024 4:18 PM EDT PROCEDURE: CT Abdomen and Pelvis without contrast INDICATION: ABDOMINAL PAIN/ UNEXPLAINABLE WEIGHT LOSS TECHNIQUE: CT of the abdomen and pelvis without contrast. Multiplanar reformats. The examination was performed utilizing dose reduction techniques. DLP: 605 mGy/cm COMPARISON: No priors available. FINDINGS: LOWER THORAX: Lung bases are clear. HEPATOBILIARY: No focal liver lesions. No cholelithiasis or biliary duct dilatation. SPLEEN: No splenomegaly. PANCREAS: No focal mass or ductal dilatation. ADRENALS: Stable thickening right greater than left adrenal glands. KIDNEYS/URETERS: We will low-attenuation lesions in the kidney probably represent cysts. Nonobstructive calculi in the lower pole of the left kidney. PELVIC ORGANS/BLADDER: Status post hysterectomy. PERITONEUM / RETROPERITONEUM: No ascites or free air. No retroperitoneal lymphadenopathy. VESSELS: Atherosclerotic plaque throughout with aneurysm at the aortic hiatus measuring 3.7 cm. GI TRACT: There is a small hiatal hernia. The stomach is underdistended. No small bowel obstruction. Prominent stool burden throughout the colon with sigmoid underdistention. No mass evident. BONES AND SOFT TISSUES: Degenerative changes of the spine was prominent at the lower lumbar levels and lumbosacral junction. There is probable spinal stenosis and neuroforaminal narrowing. Soft tissues are unremarkable. IMPRESSION: No acute infectious or inflammatory process. There is a 3.7 cm aortic aneurysm at the hiatus, recommend vascular surgery consultation. -------- ADDENDUM -------- Dictated By: Brook Hirsch Dictated Date: 10/18/2024 16:18 ET Assigned Physician: Brook Hirsch Reviewed and Electronically Signed By: Brook Hirsch Signed Date: 10/18/2024 16:18 ET Workstation ID: [id number] Transcribed By: Self Edit Transcribed Date: 10/18/2024 16:18 ET Impressions 10/18/2024 12:18 PM EDT No acute infectious or inflammatory process. There is a 3.7 cm aortic aneurysm at the hiatus, recommend vascular surgery consultation. -------- FINAL REPORT -------- Dictated By: Brook Hirsch Dictated Date: 10/18/2024 12:10 ET Assigned Physician: Brook Hirsch Reviewed and Electronically Signed By: Brook Hirsch Signed Date: 10/18/2024 12:18 ET Workstation ID: [id number] Transcribed By: Self Edit Transcribed Date: 10/18/2024 12:10 ET Narrative 10/18/2024 12:18 PM EDT PROCEDURE: CT Abdomen and Pelvis without contrast INDICATION: ABDOMINAL PAIN/ UNEXPLAINABLE WEIGHT LOSS TECHNIQUE: CT of the abdomen and pelvis without contrast. Multiplanar reformats. The examination was performed utilizing dose reduction techniques. DLP: 605 mGy/cm COMPARISON: No priors available. FINDINGS: LOWER THORAX: Lung bases are clear. HEPATOBILIARY: No focal liver lesions. No cholelithiasis or biliary duct dilatation. SPLEEN: No splenomegaly. PANCREAS: No focal mass or ductal dilatation. ADRENALS: Stable thickening right greater than left adrenal glands. KIDNEYS/URETERS: We will low-attenuation lesions in the kidney probably represent cysts. Nonobstructive calculi in the lower pole of the left kidney. PELVIC ORGANS/BLADDER: Status post hysterectomy. PERITONEUM / RETROPERITONEUM: No ascites or free air. No retroperitoneal lymphadenopathy. VESSELS: Atherosclerotic plaque throughout with aneurysm at the aortic hiatus measuring 2.7 cm. GI TRACT: There is a small hiatal hernia. The stomach is underdistended. No small bowel obstruction. Prominent stool burden throughout the colon with sigmoid underdistention. No mass evident. BONES AND SOFT TISSUES: Degenerative changes of the spine was prominent at the lower lumbar levels and lumbosacral junction. There is probable spinal stenosis and neuroforaminal narrowing. Soft tissues are unremarkable. Procedure Note Brook Hirsch MD - 10/18/2024 PROCEDURE: CT Abdomen and Pelvis without contrast INDICATION: ABDOMINAL PAIN/ UNEXPLAINABLE WEIGHT LOSS TECHNIQUE: CT of the abdomen and pelvis without contrast. Multiplanarreformats. The examination was performed utilizing dose reductiontechniques. DLP: 605 mGy/cm COMPARISON: No priors available. FINDINGS: LOWER THORAX: Lung bases are clear. HEPATOBILIARY: No focal liver lesions. No cholelithiasis or biliary ductdilatation. SPLEEN: No splenomegaly. PANCREAS: No focal mass or ductal dilatation. ADRENALS: Stable thickening right greater than left adrenal glands. KIDNEYS/URETERS: We will low-attenuation lesions in the kidney probablyrepresent cysts. Nonobstructive calculi in the lower pole of the leftkidney. PELVIC ORGANS/BLADDER: Status post hysterectomy. PERITONEUM / RETROPERITONEUM: No ascites or free air. No retroperitoneallymphadenopathy. VESSELS: Atherosclerotic plaque throughout with aneurysm at the aortichiatus measuring 2.7 cm. GI TRACT: There is a small hiatal hernia. The stomach is underdistended.No small bowel obstruction. Prominent stool burden throughout the colonwith sigmoid underdistention. No mass evident. BONES AND SOFT TISSUES: Degenerative changes of the spine was prominent atthe lower lumbar levels and lumbosacral junction. There is probablespinal stenosis and neuroforaminal narrowing. Soft tissues areunremarkable. IMPRESSION: No acute infectious or inflammatory process. There is a 3.7 cm aortic aneurysm at the hiatus, recommend vascularsurgery consultation. -------- FINAL REPORT -------- Dictated By: Brook Hirsch Dictated Date: 10/18/2024 12:10 ET Assigned Physician: Brook Hirsch Reviewed and Electronically Signed By: Brook Hirsch Signed Date: 10/18/2024 12:18 ET Workstation ID: [id number] Transcribed By: Self Edit Transcribed Date: 10/18/2024 12:10 ET [address] CT PROCEDURES Edited Result - Final * MG Mammo Digital Screening w Jose C bilat (08/22/2024 1:17 PM EDT) Anatomical Region Laterality Modality Breast Bilateral Mammography 08/22/2024 5:27 PM EDT Impressions 08/22/2024 5:40 PM EDT No mammographic evidence of malignancy. No suspicious interval change. A negative mammogram in the presence of a clinically suspicious palpable abnormality does not preclude the possibility of malignancy or alter the indications for biopsy. ASSESSMENT: BI-RADS 2: BENIGN RECOMMENDATION(S): 1: Routine screening mammogram BILATERAL in 1 year. [facility] [address], [address] -------- FINAL REPORT -------- Dictated By: Omer Wahl Dictated Date: 08/22/2024 17:27 ET Assigned Physician: Omer Wahl Reviewed and Electronically Signed By: Omer Wahl Signed Date: 08/22/2024 17:40 ET Workstation ID: [id number] Transcribed By: Self Edit Transcribed Date: 08/22/2024 17:27 ET Narrative 08/22/2024 5:40 PM EDT EXAM: SCREENING MAMMOGRAPHY, BILATERAL HISTORY: SCREENING. Scar marked upper outer right breast for reportedly benign process. Family history of breast cancer; maternal aunt, knees COMPARISON: 06/29/23, 06/24/22, 06/21/21, 06/04/20 TECHNIQUE: Synthesized CC and MLO projections of each breast. Tomosynthesis of each breast in the CC and MLO projections. ADDITIONAL IMAGING: None Computer-aided detection was employed with the iCAD ProFound AI 3-D. TISSUE DENSITY: There are scattered areas of fibroglandular density. (BI-RADS category B) FINDINGS: RIGHT BREAST: No new suspicious mass. No suspicious calcification. No distortion. [...] position 3 cm from the left nipple. Procedure Note Omer Wahl MD - 08/22/2024 EXAM: SCREENING MAMMOGRAPHY, BILATERAL HISTORY: SCREENING. Scar marked upper outer right breast for reportedlybenign process. Family history of breast cancer; maternal aunt, knees COMPARISON: 06/29/23, 06/24/22, 06/21/21, 06/04/20 TECHNIQUE: Synthesized CC and MLO projections of each breast.Tomosynthesis of each breast in the CC and MLO projections. ADDITIONAL IMAGING: None Computer-aided detection was employed with the iCAD BoxTone AI 3-D. TISSUE DENSITY: There are scattered areas of fibroglandular density.(BI-RADS category B) FINDINGS: RIGHT BREAST: No new suspicious mass. No suspicious calcification. No distortion.There is an unchanged oval 0.9 cm equal density mass in the 10 o'clockposition 4.5 cm from the right nipple with an associated biopsy sitemarker. LEFT BREAST: No suspicious mass. No suspicious calcification. No distortion. There isan unchanged equal density circumscribed oval 1.2 cm mass with some coarsecalcifications in the 7 o'clock position 3 cm from the left nipple. IMPRESSION: No mammographic evidence of malignancy. No suspicious interval change. A negative mammogram in the presence of a clinically suspicious palpableabnormality does not preclude the possibility of malignancy or alter theindications for biopsy. ASSESSMENT: BI-RADS 2: BENIGN RECOMMENDATION(S): 1: Routine screening mammogram BILATERAL in 1 year. [facility] location[facility] [address], [address] -------- FINAL REPORT -------- Dictated By: Omer Wahl Dictated Date: 08/22/2024 17:27 ET Assigned Physician: Omer Wahl Reviewed and Electronically Signed By: Omer Wahl Signed Date: 08/22/2024 17:40 ET Workstation ID: [id number] Transcribed By: Self Edit Transcribed Date: 08/22/2024 17:27 ET Ernestina FRIEND IMG BI PROCEDURES Final Result * (ABNORMAL) Hemoglobin A1c (07/25/2024 2:06 PM EDT) Hemoglobin A1C 9.9(H) <6.5 % LAB CHEMISTRY METHOD 07/25/2024 10:28 PM EDT [facility] Mean Bld Glu Estim. 237 mg/dL LAB CHEMISTRY METHOD 07/25/2024 10:28 PM EDT [facility] Blood Venous blood specimen / Unknown Venipuncture / Unknown 07/25/2024 2:06 PM EDT 07/25/2024 3:32 PM EDT Ernestina Watson PA LAB BLOOD ORDERABLES Final Resul t Performing Organization Address City/[facility]/ZIP Co de Phone Number [facility] [address] [place] [address], [place] [phone] * (ABNORMAL) Microalbumin creatinine urine ratio (04/15/2024 3:29 PM EST) Creatinine, Urine 84.0 mg/dL LAB CHEMISTRY METHOD 04/15/2024 5:24 PM EST [facility] Microalb, Ur 826.0(H) 0.0 - 29.0 mg/L LAB CHEMISTRY METHOD 04/15/2024 5:24 PM EST [facility] Microalb/Crea t Ratio 983(H) <30 mg/g creat LAB CHEMISTRY METHOD 04/15/2024 5:24 PM EST [facility] Urine Urine specimen obtained by clean catch procedure / Unknown Non-blood Collection / Unknown 04/15/2024 3:29 PM EST 04/15/2024 4:00 PM EST Nguyen SOMMERP LAB URINE ORDERABLES Final R esult [facility] [address] [place] [address], [place] [phone] * Lipid panel with reflex to direct LDL (04/15/2024 3:22 PM EST) Cholesterol 151 0 - 200 mg/dL LAB CHEMISTRY METHOD 04/15/2024 4:38 PM EST [facility] Triglycerides 149 0 - 150 mg/dL LAB CHEMISTRY METHOD 04/15/2024 4:38 PM EST [facility] HDL 50 >=40 mg/dL LAB CHEMISTRY METHOD 04/15/2024 4:38 PM [facility] LDL Calculated 71 0 - 100 mg/dL LAB CHEMISTRY METHOD 04/15/2024 4:38 PM EST [facility] VLDL Cholesterol Virgilio 29.8 mg/dL LAB CHEMISTRY METHOD 04/15/2024 4:38 PM [facility] Non HDL Chol. (LDL+VLDL) 101 <145 mg/dL LAB CHEMISTRY METHOD 04/15/2024 4:38 PM [facility] Chol/HDL Ratio 3.0 0.0 - 4.4 LAB CHEMISTRY METHOD 04/15/2024 4:38 PM [facility] Blood Venous blood specimen / Unknown Venipuncture / Unknown 04/15/2024 3:22 PM EST 04/15/2024 4:00 PM EST Kaity Mckenzie NP LAB BLOOD ORDERABLES F inal Result [facility] [address] [place] [address], * KELL DEXA AXIAL SKELETON (10/27/2022 8:32 AM EDT) Anatomical Region Laterality Modality Mammography 10/27/2022 7:35 AM EDT Narrative 10/27/2022 8:[address] [facility] Diagnostic Imaging Department [address] [place] [address] Patient: ANGELIQUE DELGADILLO /Age/Sex: 1950 - 71 - F Unit#: [id number] Location/Status: SPDIMAM/REG CLI Mnemonic/Ordering Site: MAMDEXAAX/SPMAM Ordering Physician: NITA VILLALBA MD [facility] Dexa Axial Skeleton - 10/27/22813 Report Status:Signed HISTORY: The patient is a 71-year-old postmenopausal female with clinical concern for metabolic bone disease. FINDINGS: Dual energy x-ray absorptiometry of the lumbar spine and femurs is performed. The mean bone mineral density at L1-L4 is 1.421 gm/cm2 which is 120% of that of young normals and 120% of that of age matched controls. This yields a T-score of 2.0 and a Z-score of 2.6 and there is therefore no evidence of osteoporosis or osteopenia here. The mean bone mineral density of the femurs bilaterally is 1.063 gm/cm2 which is 105% of that of young normals and 109% of that of age matched controls. This yields a T-score of 0.4 and a Z-score of 0.7 and there is therefore no evidence of osteoporosis or osteopenia here. IMPRESSION: 1. There is no evidence of osteoporosis or osteopenia. 2. FRAX analysis yields a 10-year probability of major osteoporotic fracture of 3.8% and a 10-year probability of hip fracture of 0.4%. Code 45118 Dictating Physician: YADIRA WELLINGTON MD Electronically Signed by: YADIRA WELLINGTON MD Dic Date/Time: 10/27/22819 Sign date/Time: 10/27/22831 Procedure Note Yadira Wellington MD - 06/09/2023 [facility] Diagnostic Imaging Department [address] [place] [address] Patient: ANGELIQUE DELGADILLO /Age/Sex: 1950 - 71- F Unit#: [id number] Location/Status: SPDIMAM/REG CLI Mnemonic/Ordering Site: MAMDEXAAX/SPMAM Ordering Physician: NITA VILLALBA MD [facility] Dexa Axial Skeleton - 10/27/22813 Report Status:Signed HISTORY: The patient is a 71-year-old postmenopausal female withclinical concern for metabolic bone disease. FINDINGS: Dual energy x-ray absorptiometry of the lumbar spine and femursis performed. The mean bone mineral density at L1-L4 is 1.421 gm/cm2 which is120% of that of young normals and 120% of that of age matched controls. Thisyields a T-score of 2.0 and a Z-score of 2.6 and there is therefore no evidenceof osteoporosis or osteopenia here. The mean bone mineral density of the femurs bilaterally is 1.063 gm/by0tbdxd is 105% of that of young normals and 109% of that of age matched controls.This yields a T-score of 0.4 and a Z-score of 0.7 and there is therefore noevidence of osteoporosis or osteopenia here. IMPRESSION: 1. There is no evidence of osteoporosis or osteopenia. 2. FRAX analysis yields a 10-year probability of major osteoporoticfracture of 3.8% and a 10-year probability of hip fracture of 0.4%. Code 56310 Dictating Physician: YADIRA WELLINGTON MD Electronically Signed by: YADIRA WELLINGTON MD Dic Date/Time: 10/27/22 0820 Sign date/Time: 10/27/22 0832 Nita Villalba MD IMG BI PROCEDURES Final Result from Last 3 Months or Most Recently Relevant to Health Maintenance Insurance [employer] [place] Care Teams Shoelace Tipping Machine Operator Relationship Specialty Start Date End Date Nita Villalba MD [address] [place] [id number] PCP - General Internal Medicine 03/17/24
--- OUTSIDE RECORDS SUMMARY | 2024-11-21 15:05 | XMS_ITS | Patient Health Record ---
Author Organization [facility] Address [address] [place] [address] Care Team Providers Care Cushion Padder Name Role Phone Deejay Avthomas Primary Care Provider Jarad Lacey Unavailable [phone] Allergies Allergen (clinical drug ingredient) Drug/Non Drug Allergy documented on EMR Reaction Allergy Type Onset Date Status meperidine Demerol rash Drug Allergy Active Penicillin Unknown Drug Allergy Active Reason For Referral No Information Medications Medication SIG (Take, Route, Frequency, Duration) Notes Start Date End Date Status Aaronujessica Blanc SoloStar 40 units Not-Taking Jardiance Active Synjardy XR 10-1000 MG 1 tablet with deuce akfast Once a day Not-Taking Ammonium Lactate 12 % 1 application to affected area Externally to feet Twice a day; Duration: 30 days Active Extra Depth Orthopedic Shoes (1 Pair) with Customized Heat Molded Multidensity Innersoles (3 Pair) as directed Dx: NIDDM/Polyneuropathy (E11.42), Hammertoe Foot Deformity (M20.41,M20.42), Preulcerative Skin Lesion(s) (L85.1 01/28/2023 Active Metoprolol Succinate ER 200 MG 1 tablet Orally Once a day Active Vitamin D3 Active HumaLOG 20 units Active Losartan Potassium 100 MG 1 tablet Once a day Active Atorvastatin Calcium 20 MG 1 tablet Once a day Active Eplerenone 50 MG 1 tablet Orally Active amLODIPine Besylate 10 MG 1 tablet Once a day Active metFORMIN HCl 1000 MG 1 tablet with a me al Once a day Not-Taking - Active Social History Tobacco Use: Social History Observation Description Date Details (start date - stop date) Never Smoker NA - NA Tobacco Use/Smoking Question Answer Notes Are you a: nonsmoker Additional Findings: Tobacco Non-User Current no n-smoker Alcohol Screen Question Answer Notes Did you have a drink containing alcohol in the p ast year? No Points 0 Interpretation Negative Tobacco use other than smoking: Question Answer Notes Are you an other tobacco user? No Problems Problem Type SNOMED Code ICD Code Onset Dates Problem Status W/U Status Risk Notes Problem Acquired hammer toe of right foot (3786869947732319 ) Other hammer toe(s) (acquired), right foot (M20.41) Active confirmed Problem Acquired hammer toe of left foot (1687818699997683 ) Other hammer toe(s) (acquired), left foot (M20.42) Active confirmed Problem Plantar wart (82336373) Plantar wart (B07.0) Active confirmed Problem Polyneuropathy due to type 2 diabetes mellitus (395231046) Type 2 diabetes mellitus with diabetic polyneuropathy (E11.42) Active confirmed Plan Of Treatment Pending Test Test Name Order Date 07203-RTOYGEX NAIL, 6 OR MORE 08/29/2021 75494-VWQYUOU NAIL, 6 OR MORE 11/28/2021 30965-MKZUXHF NAIL, 6 OR MORE 02/27/2022 73977-UCGSAIK NAIL, 6 OR MORE 05/29/2022 38758-HUZZNCU NAIL, 6 OR MORE 10/29/2022 86860-NCJUFMC NAIL, 6 OR MORE 01/28/2023 04849-Hvif Destruction, 1-14 01/28/2023 28710-Layp Destruction, 1-14 10/29/2022 97921-Uhjz Destruction, 1-14 11/28/2021 06997-Zsgt Destruction, 1-14 05/29/2022 52287-Gjkc Destruction, 1-14 02/27/2022 54912-FLBZ SKIN LESIONS, OVER 4 02/28/20 22 75840-UMQO SKIN LESIONS, OVER 4 05/29/19 23 45184-VAYV SKIN LESIONS, OVER 4 11/29/19 22 30654-WGZY SKIN LESIONS, OVER 4 08/30/19 22 17642-LVEX SKIN LESIONS, OVER 4 10/30/19 23 34800-XUMI SKIN LESIONS, OVER 4 01/29/20 23 Insurance Providers Payer Name Payer Address Payer Phone Subscriber Number Group Number Insured Name Patient Relationship to Insured Coverage Start Date Coverage End Date [employer] Preferred [address] [place] [address] [phone] [id number] Angelique Flores Self - patient is the insured Medical (General) History Medical History History ICD Code Diabetic High blood pressure Chicken pox Surgical History Surgery Date(Month/Year) leg surgery 10/21/16 hysterectomy 30 years ago
== END 2024-11-21 15:03 | disposition home or self-care (01) ==
LOC: HO.ENCR 14:15
PROVIDERS: PCP Internal Medicine; Visit Provider Physician Assistant
DX: E11.65 Type 2 diabetes mellitus with hyperglycemia (principal); Z79.4 Long term (current) use of insulin; I10 Essential (primary) hypertension; E78.5 Hyperlipidemia, unspecified; E11.9 Type 2 diabetes mellitus without complications

== ENCOUNTER → 2024-11-21 14:15 | Outpatient (BNVA) | payer MEDICARE, SELFPAY | PROVIDERS: PCP Internal Medicine; Visit Provider Physician Assistant | DX: E11.65 Type 2 diabetes mellitus with hyperglycemia (principal); E11.649 Type 2 diabetes mellitus with hypoglycemia without coma; I10 Essential (primary) hypertension; E78.5 Hyperlipidemia, unspecified; Z79.4 Long term (current) use of insulin; Z79.84 Long term (current) use of oral hypoglycemic drugs | CPT/HCPCS: 82947; 83036; 99202 ==

== ENCOUNTER 2024-11-30 08:45 | Outpatient (REF) | payer MEDICARE, SELFPAY ==
--- OUTSIDE RECORDS SUMMARY | 2024-11-30 09:03 | XMS_ITS | Encounter Summary ---
Author Organization [facility] Address [address] [facility] [address] [place] [address] Care Team Providers Care Yarn Sorter Name Role Phone Unavailable Primary Care Provider Unavailabl e Encounter Details Date Type Department Care Team (Latest Contact Info) Description 07/12/2019 Abstract [facility] CONVERSIONS Dental, Provider, DDS Social History Tobacco [...]
--- OUTSIDE RECORDS SUMMARY | 2024-11-30 09:03 | XMS_ITS | Clinical Summary ---
Author Organization [facility] Address [address] [place] [address] Phone Care Team Providers Care Certified Solid Waste Facility Operator Name Role Phone Nita Villalba MD Primary Care Provider [phone] Allergies No known active allergies Medications insulin [...] Problems Problem Noted Date Diagnosed Date Diabetes ([facility] V24, [facility] V28) 02/10/2024 Diabetic neuropathy ([facility] V24, [facility] V28) 1 Hypertension 02/10/2024 Overview (02/10/2024): Last Assessment & Plan: Hypertension control has improved significantly but still slightly higher. PVD (peripheral vascular disease) ([facility] V24) 02/10/2024 Abnormal echocardiogram 10/29/2023 Overview (02/10/2024): [...] - 10/18/2024 11:59 PM EDT Hospital Encounter [facility] CT Scan [address] [place] [address] Abdominal distension (gaseous); Abnormal weight loss Discharge Disposition: Home or Self Care from Last 3 Months Surgical History Surgery Date Site/Laterality Comments OTHER SURGICAL HISTORY 11/05/2016 PROCEDURE: ---- OTHER ----; COMMENT: STATED SURGICAL LEG HYSTERECTOMY BREAST LUMPECTOMY Right BENIGN STEREOTACTIC CORE BIOPSY Right Medical History Medical History Date Comments Diabetes ([facility] V24, [facility] V28) DX:Diabetes (HCC) Hypertension DX:Hypertension PVD (peripheral vascular dis ease) ([facility] V24) DX:PVD (peripheral vascular disease) (HCC) Diabetic neuropathy ([facility] V24, [facility] V28) DX:Diabetic neuropathy (HCC) Family History Medical History Relation Name Comments [...] EST Essential hypertension, malignant Heart disease, unspecified [facility] DEXA AXIAL SKELETON Routine 10/27/2022 8:32 AM EDT Encounter for screening for osteoporosis from Last 3 Months or Most Recently Relevant to Health Maintenance Results * (ABNORMAL) CBC auto differential (10/18/2024 10:37 AM EDT) [facility] WBC 5.1 4.8 - 10.8 K/mcL LAB HEMETOLOGY METHOD 10/18/2024 12:21 PM EDT [facility] RBC 4.20 3.80 - 4.80 M/mcL LAB HEMETOLOGY METHOD 10/18/2024 12:21 PM [facility] Hemoglobin 12.0 11.5 - 16.0 g/dL LAB HEMETOLOGY METHOD 10/18/2024 12:21 PM [facility] Hematocrit 37.0 35.0 - 47.0 % LAB HEMETOLOGY METHOD 10/18/2024 12:21 PM [facility] MCV 87.5 79.0 - 98.0 FL LAB HEMETOLOGY METHOD 10/18/2024 12:21 PM [facility] MCH 28.4 27.0 - 32.0 pcg LAB HEMETOLOGY METHOD 10/18/2024 12:21 PM [facility] MCHC 32.4 32.0 - 37.0 g/dL LAB HEMETOLOGY METHOD 10/18/2024 12:21 PM [facility] RDW 15.8(H) 11.0 - 15.0 % LAB HEMETOLOGY METHOD 10/18/2024 12:21 PM [facility] Platelets 239 130 - 400 K/mcL LAB HEMETOLOGY METHOD 10/18/2024 12:21 PM [facility] MPV 11.9(H) 7.0 - 11.0 FL LAB HEMETOLOGY METHOD 10/18/2024 12:21 PM [facility] NRBC 0.0 <1.0 % LAB HEMETOLOGY METHOD 10/18/2024 12:21 PM [facility] NRBC Absolute 0.00 <0.10 K/mcL LAB HEMETOLOGY METHOD 10/18/2024 12:21 PM [facility] Neutrophils Relative 52.7 % LAB HEMETOLOGY METHOD 10/18/2024 12:21 PM [facility] Lymphocytes Relative 38.2 % LAB HEMETOLOGY METHOD 10/18/2024 12:21 PM [facility] Monocytes Relative 5.7 % LAB HEMETOLOGY METHOD 10/18/2024 12:21 PM [facility] Eosinophils Relative 2.6 % LAB HEMETOLOGY METHOD 10/18/2024 12:21 PM [facility] Basophils Relative 0.6 % LAB HEMETOLOGY METHOD 10/18/2024 12:21 PM [facility] Immature Granulocytes Relative 0.2 % LAB HEMETOLOGY METHOD 10/18/2024 12:21 PM [facility] Neutrophils Absolute 2.66 1.50 - 7.00 K/mcL LAB HEMETOLOGY METHOD 10/18/2024 12:21 PM [facility] Lymphocytes Absolute 1.93 1.00 - 5.00 K/mcL LAB HEMETOLOGY METHOD 10/18/2024 12:21 PM [facility] Monocytes Absolute 0.29 0.20 - 1.00 K/mcL LAB HEMETOLOGY METHOD 10/18/2024 12:21 PM [facility] Eosinophils Absolute 0.13 0.00 - 0.50 K/mcL LAB HEMETOLOGY METHOD 10/18/2024 12:21 PM [facility] Basophils Absolute 0.03 0.00 - 0.20 K/mcL LAB HEMETOLOGY METHOD 10/18/2024 12:21 PM [facility] Immature Granulocytes Absolute 0.01 0.00 - 0.03 K/mcL LAB HEMETOLOGY METHOD 10/18/2024 12:21 PM [facility] Blood Venous blood specimen / Unknown Venipuncture / Unknown 10/18/2024 10:37 AM EDT 10/18/2024 11:46 AM EDT Ernestina FRIEND LAB BLOOD ORDERABLES Final Resul t Performing Organization Address [facility]/ZIP Co de Phone Number [facility] [address] [place] [address], [place] [phone] * Lactate dehydrogenase (10/18/2024 10:37 AM EDT) LDH 212 120 - 246 unit/L LAB CHEMISTRY METHOD 10/18/2024 1:34 PM EDT [facility] Blood Venous blood specimen / Unknown Venipuncture / Unknown 10/18/2024 10:37 AM EDT 10/18/2024 11:46 AM EDT Ernestina FRIEND LAB BLOOD ORDERABLES Final Resul t Performing Organization Address [facility] Co de Phone Number [facility] [address] [place] [address], [place] [phone] * (ABNORMAL) Comprehensive metabolic panel (10/18/2024 10:37 AM EDT) Pathologist [facility] Sodium 139 133 - 145 mmol/L LAB CHEMISTRY METHOD 10/18/2024 1:35 PM T [facility] Potassium 4.0 3.5 - 5.5 mmol/L LAB CHEMISTRY METHOD 10/18/2024 1:35 PM [facility] Chloride 106 96 - 110 mmol/L LAB CHEMISTRY METHOD 10/18/2024 1:35 PM T [facility] CO2 27 21 - 32 mmol/L LAB CHEMISTRY METHOD 10/18/2024 1:35 PM T [facility] Anion Gap 6 3 - 11 LAB CHEMISTRY METHOD 10/18/2024 1:35 PM [facility] Glucose 249(H) 70 - 100 mg/dL LAB CHEMISTRY METHOD 10/18/2024 1:35 PM [facility] BUN 12 5 - 25 mg/dL LAB CHEMISTRY METHOD 10/18/2024 1:35 PM T [facility] Creatinine 0.86 0.50 - 1.10 mg/dL LAB CHEMISTRY METHOD 10/18/2024 1:35 PM EDT [facility] eGFR 72 >=60 mL/min/1. 73m2 LAB CHEMISTRY METHOD 10/18/2024 1:35 PM T [facility] Comment:Calculation based on the Chronic Kidney Disease Epidemiology Collaboration (CKD-EPI) equation refit without adjustment for race. BUN/Creatinine Ratio 14.0 LAB CHEMISTRY METHOD 10/18/2024 1:35 PM T [facility] Calcium 8.6 8.5 - 10.5 mg/dL LAB CHEMISTRY METHOD 10/18/2024 1:35 PM [facility] AST (SGOT) 20 10 - 42 unit/L LAB CHEMISTRY METHOD 10/18/2024 1:35 PM [facility] ALT (SGPT) 26 10 - 60 unit/L LAB CHEMISTRY METHOD 10/18/2024 1:35 PM [facility] Alkaline Phosphatase 75 42 - 121 unit/L LAB CHEMISTRY METHOD 10/18/2024 1:35 PM [facility] Total Protein 6.2 6.0 - 8.0 g/dL LAB CHEMISTRY METHOD 10/18/2024 1:35 PM [facility] Albumin 3.1(L) 3.2 - 5.0 g/dL LAB CHEMISTRY METHOD 10/18/2024 1:35 PM T [facility] Total Bilirubin 0.5 0.0 - 1.4 mg/dL LAB CHEMISTRY METHOD 10/18/2024 1:35 PM [facility] Blood Venous blood specimen / Unknown Venipuncture / Unknown 10/18/2024 10:37 AM EDT 10/18/2024 11:46 AM EDT us Ernestina FRIEND LAB BLOOD ORDERABLES Final Resul t [facility] [address] [place] [address], * CT Abdomen Pelvis wo Contrast (10/18/2024 [...] Signed Date: 10/18/2024 16:18 ET Workstation ID: [id number] Transcribed By: Self Edit Transcribed Date: 10/18/2024 [...] Signed Date: 10/18/2024 12:18 ET Workstation ID: [id number] Transcribed By: Self Edit Transcribed Date: 10/18/2024 [...] Signed Date: 10/18/2024 12:18 ET Workstation ID: [id number] Transcribed By: Self Edit Transcribed Date: 10/18/2024 12:10 ET Ernestina FRIEND IMJason CT PROCEDURES Edited Result - Final * [...] year. 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 TISSUE DENSITY: There are scattered [...] year. Mammography location: [facility] at [address], [address] -------- FINAL REPORT -------- Dictated By: Omer Wahl Dictated Date: 08/22/2024 17:27 ET Assigned Physician: Omer Wahl Reviewed and Electronically Signed By: Omer Wahl Signed Date: 08/22/2024 17:40 ET Workstation ID: [id number] Transcribed By: Self Edit Transcribed Date: 08/22/2024 17:27 ET Ernestina FRIEND IMG BI PROCEDURES Final Result * (ABNORMAL) Hemoglobin A1c (07/25/2024 2:06 PM EDT) Hemoglobin A1C 9.9(H) <6.5 % LAB CHEMISTRY METHOD 07/25/2024 10:28 PM EDT [facility] Mean Bld Glu Estim. 237 mg/dL LAB CHEMISTRY METHOD 07/25/2024 10:28 PM EDT [facility] Blood Venous blood specimen / Unknown Venipuncture / Unknown 07/25/2024 2:06 PM EDT 07/25/2024 3:32 PM EDT Ernestina Watson PA LAB BLOOD ORDERABLES Final Resul t Performing Organization Address City/[facility]/ZIP Co de Phone Number [facility] [address] [place] [address], [place] [phone] * (ABNORMAL) Microalbumin creatinine urine ratio (04/15/2024 3:29 PM EST) Creatinine, Urine 84.0 mg/dL LAB CHEMISTRY METHOD 04/15/2024 5:24 PM EST [facility] Microalb, Ur 826.0(H) 0.0 - 29.0 mg/L LAB CHEMISTRY METHOD 04/15/2024 5:24 PM EST [facility] Microalb/Crea t Ratio 983(H) <30 mg/g creat LAB CHEMISTRY METHOD 04/15/2024 5:24 PM EST [facility] Urine Urine specimen obtained by clean catch procedure / Unknown Non-blood Collection / Unknown 04/15/2024 3:29 PM EST 04/15/2024 4:00 PM EST Nguyen Vu [facility] URINE ORDERABLES Final R esult Performing Organization Address City/[facility]/ZIP Co de Phone Number [facility] [address] [place] [address], [place] [phone] * Lipid panel with reflex to direct LDL (04/15/2024 3:22 PM EST) Cholesterol 151 0 - 200 mg/dL LAB CHEMISTRY METHOD 04/15/2024 4:38 PM EST [facility] Triglycerides 149 0 - 150 mg/dL LAB CHEMISTRY METHOD 04/15/2024 4:38 PM EST [facility] HDL 50 >=40 mg/dL LAB CHEMISTRY METHOD 04/15/2024 4:38 PM EST [facility] LDL Calculated 71 0 - 100 mg/dL LAB CHEMISTRY METHOD 04/15/2024 4:38 PM EST [facility] VLDL Cholesterol Virgilio 29.8 mg/dL LAB CHEMISTRY METHOD 04/15/2024 4:38 PM EST [facility] Non HDL Chol. (LDL+VLDL) 101 <145 mg/dL LAB CHEMISTRY METHOD 04/15/2024 4:38 PM EST [facility] Chol/HDL Ratio 3.0 0.0 - 4.4 LAB CHEMISTRY METHOD 04/15/2024 4:38 PM EST [facility] Blood Venous blood specimen / Unknown Venipuncture / Unknown 04/15/2024 3:22 PM EST 04/15/2024 4:00 PM EST us Kaity Mckenzie REHABILITATION SERVICES COUNSELOR LAB BLOOD ORDERABLES F inal Result [facility] [address] [place] [address], * KELL DEXA AXIAL SKELETON (10/27/2022 8:32 AM EDT) Anatomical Region Laterality Modality Mammography 10/27/2022 7:35 AM EDT Narrative 10/27/2022 8:32 AM EDT [facility] Diagnostic Imaging Department [address] [place] [address] Patient: ANGELIQUE DELGADILLO TASIA /Age/Sex: 1950 - 71 - F Unit#: [id number] Location/Status: SPDIMAM/REG CLI Mnemonic/Ordering Site: MAMDEXAAX/SPMAM Ordering [...] probability of hip fracture of 0.4%. Code 02669 Dictating Physician: YADIRA WELLINGTON MD Electronically Signed by: YADIRA WELLINGTON MD Dic Date/Time: 10/27/22819 Sign date/Time: 10/27/22831 Procedure Note Yadira Wellington MD - 06/09/2023 [facility] Diagnostic Imaging Department [address] [place] [address] Patient: ANGELIQUE DELGADILLO TASIA /Age/Sex: 1950 - 71- F Unit#: [id number] Location/Status: [facility] CLI Mnemonic/[facility] Ordering Physician: NITA VILLALBA MD [facility] Dexa Axial Skeleton - 10/27/22813 Report [...] density of the femurs bilaterally is 1.063 gm/fh0rxpui is 105% of that of young normals [...] probability of hip fracture of 0.4%. Code 96649 Dictating Physician: YADIRA WELLINGTON MD Electronically Signed by: YADIRA WELLINGTON MD Dic Date/Time: 10/27/22819 Sign date/Time: 10/27/22831 Nita Villalba MD IMG BI PROCEDURES Final Result from Last 3 Months or Most Recently Relevant to Health Maintenance Insurance [employer] [place] Care Teams Certified Solid Waste Facility Operator Relationship Specialty Start Date End Date Nita Villalba MD [address] [place] [address] [place] [address] PCP - General Internal Medicine 03/17/24
--- OUTSIDE RECORDS SUMMARY | 2024-11-30 09:03 | XMS_ITS | Encounter Summary ---
Author Organization [facility] Address [address] [address] Phone Care Team Providers Care Joinery Machinist Name Role Phone Jasper Villalba MD Primary Care Provider [phone] Encounter Details Date Type Department Care Team (Late st Contact Info) Description 07/09/2021 Documentation Only [facility] [address] [id number] Gurwinder Quinonez MD [address] [place] [address], [address] [id number] Social History Tobacco Use Types Packs/Day Years [...] on filedocumented in this encounter Care Teams Joinery Machinist Relationship Specialty Start Date End Date Jasper Villalba MD [address] [id number] PCP - General Internal Medicine 01/03/21 documented as of this encounter
--- OUTSIDE RECORDS SUMMARY | 2024-11-30 09:03 | XMS_ITS | Patient Health Record ---
Author Organization [facility] [address] Address [address] [place] [address] Care Team Providers Care Appeals Analyst Name Role Phone NITA VILLALBA Unavailable [phone] Sonal Ribeiro Unavailable [phone] Allergies Allergen (clinical drug ingredient) Drug/Non Drug Allergy documented on EMR Reaction Allergy Type Onset Date Status semaglutide Rybelsus rash Drug Allergy Activ e amoxicillin Amoxicillin Unknown Drug Allergy Act haja Results Component Value Reference Range Notes LIPID PROFILE Reviewed date:03/02/2024 09:15:07 AM Interpretation: Performing Lab: Notes/Report: [facility], a member of [address] [address] Shop Repairer - Mary Leos MD CHOLESTEROL 156 0-200 mg/dL TRIGLYCERIDES 117 0-150 mg/dL HDL CHOLESTEROL 43 >40 mg/dL LDL CALCULATED 90 0-100 mg/dL TC-HDLC RATIO 3.6 0-4.4 mg/dL COMPREHENSIVE METABOLIC PANE L Reviewed date:03/02/2024 10:35:22 AM Interpretation: Performing Lab: Notes/Report: Erica Original Orderi keyonna Provider: SONAL RIBEIRO PA-C GLUCOSE 476 70-100 mg/dL JERARDO REBOLLEDO CALLED CRITICAL RESULTS AT [id number] 1617. THE RESULTS WERE READ BACK AND [...] 10-60 U/L ALK PHOS 71 42-121 U/L CT ABDOMEN PELVIS WO CONTRAS T Reviewed date:10/19/2024 03:27:29 PM Interpretation: Performing Lab: Notes/Report: Note See Note [facility], a member of [employer] Patient Name: LAURIE MOELLER Date of : 1950 Reason for Exam: ABDOMINAL PAIN/ UNEXPLAINABLE WEIGHT LOSS Exam Date: 10/18/2024 [id number] EST Report Status: FA Ordering Provider: SONAL [...] Hirsch Signed Date: 16:18 ET Workstation ID: [id number] Transcribed By: Self Edit Transcribed Date: 10/18/2024 [...] Signed Date: 025 12:18 ET Workstation ID: [id number] Transcribed By: Self Edit Transcribed Date: 10/18/2024 12:10 ET LACTATE DEHYDROGENASE Reviewed date:10/18/2024 04:22:28 PM Interpretation: Performing Lab: Notes/Report: LDH 212 120-246 unit/L PROTEIN AND CREATININE WITH RATIO, URINE Reviewed [...] Interpretation: Performing Lab: Notes/Report: Note See Note [facility], a member of [employer] Patient Name: LAURIE MOELLER Date of : 1950 Reason for Exam: RADICULOPATHY Exam Date: 04/15/2024 [id number] EST Report Status: Final Ordering Provider: KARRIE [...] the mid and lower thoracic spine. Code 13465 -------- FINAL REPOR T -------- Dictated By: Chandrakant Wellington Dictated Date: 04/18/2024 08:01 ET Assigned Physician: Chandrakant Wellington Reviewed and Electronically Signed By: Chandrakant Wellington Signed Date: 08:03 ET Workstation ID: [id number] Transcribed By: Self Edit Transcribed Date: 04/18/2024 08:01 ET MG MAMMO DIGITAL SCREENING W NUBIA BILAT Reviewed date:08/23/2024 07:44:41 AM Interpretation: Performing Lab: Notes/Report: Note See Note [facility], a member of [place] [employer] Patient Name: LAURIE MOELLER Date of : 1950 Reason for Exam: ROUTINE Exam Date: 08/22/2024 [id number] EST Report Status: Final Ordering Provider: SONAL [...] Mamm[facility] [address], [address] -------- FINAL REPOR T -------- Dictated By: Omer Lee Dictated Date: 08/22/2024 17:27 ET Assigned Physician: Omer Wahl Reviewed and Electronically Signed By: Omer Wahl Signed Date: 025 17:40 ET Workstation ID: [id number] Transcribed By: Self Edit Transcribed Date: 08/22/2024 17:27 ET COMPREHENSIVE METABOLIC PANE L Reviewed date:10/18/2024 04:23:01 [...] 3.2-5.0 g/dL Total Bilirubin 0.5 0.0-1.4 mg/dL LIPID PANEL WITH REFLEX TO D IRECT LDL Reviewed date:04/19/2024 08:18:44 AM Interpretation: Performing Lab: Notes/Report: Cholesterol 151 0-200 mg/dL Triglycerides 149 0-150 mg/dL HDL 50 >=40 mg/dL LDL Calculated 71 0-100 mg/dL VLDL Cholesterol Greg 29.8 Non HDL Chol. (LDL+VLDL) 101 <145 mg/dL Chol/HDL Ratio 3.0 0.0-4.4 CBC WITH AUTO DIFFERENTIAL Reviewed date:10/18/2024 04:23:21 [...] K/mcL Immature Granulocytes Absolute 0.01 0.00-0.03 K/mcL RENAL PROFILE Reviewed date:03/14/2024 09:14:46 AM Interpretation: Performing Lab: Notes/Report: Note Original Ordering Provider: BACILIO SOMMERP-C [employer] [address] Shop Repairer - Mary Leos MD GLUCOSE 476 70-100 mg/dL JERARDO REBOLLEDO CALLED CRITICAL RESULTS AT [id number] 1620. THE RESULTS WERE READ BACK AND [...] 3.2-5.0 G/dL Note Original Ordering Provider: BACILIO BERTRAND-C [employer] [address] Shop Repairer - Mary Leos MD INTACT PTH Reviewed date:12/15/2023 10:26:04 AM Interpretation: Performing Lab: Notes/Report: Note Original Orderi ng Provider: BACILIO SOMMERP-C INTACT PTH 120 18-88 pg/mL VITAMIN D, 25-HYDROXY Reviewed date:12/15/2023 10:26:04 AM Interpretation: Performing Lab: Notes/Report: [employer] [address] Shop Repairer - Mary Leos MD VITAMIN D, 25-HYDROXY 42 30-80 ng/mL MICROALB/CREAT RATIO, RANDOM Reviewed date:12/15/2023 11:07:39 AM Interpretation: Performing Lab: Notes/Report: Original Ordering Provider: BACILIO BERTRAND-C [employer], a member of [address] [address] Shop Repairer - Mary Leos MD CREATININE, RANDOM URINE 53 MICROALBUMIN, RANDOM 1190.0 0.0-29.0 mg/L MICROALB/CRE RATIO RANDOM 2245.2 0.0-30.0 mg/G CBC WITH AUTO DIFF Reviewed date:03/02/2024 10:35:53 AM Interpretation: Performing Lab: Notes/Report: Original Ordering Provider: SONAL RIBEIRO PA-C [employer], a member of [address] [address] Shop Repairer - Mary Leos MD WBC 6.1 4.8-10.8 [...] x10-3/uL IMMATURE GRANULOCYTES # 0.01 0-0.03 x10-3/uL CBC Reviewed date:12/15/2023 09:50:33 AM Interpretation: Performing Lab: Notes/Report: Note Original Ordering Provider: BACILIO ESPINAL STUDIO CONTROL OPERATOR-C [employer], a member of [address] [address] Shop Repairer - Mary Leos MD WBC 6.0 4.8-10.8 [...] <0.1 x10-3/uL Note Original Ordering Provider: BACILIO ESPINAL STUDIO CONTROL OPERATOR-C [employer], a member of [address] [address] Shop Repairer - Mary Leos MD CT CHEST WO CONTRAST Reviewed date:03/22/2024 08:13:23 AM Interpretation: Performing Lab: Notes/Report: Note See Note [facility], a member of [facility] Patient Name: LAURIE MOELLER Date of : 1950 Reason for Exam: Chest wall pain Exam Date: 03/17/2024 [id number] EST Report Status: Final Ordering Provider: SONAL RIBEIRO PCP: NITA VILLALBA EXAMINATION: CT ches t without contrast. CLINICAL INDICATION: Chest wall pain COMPARISON: Chest 2 views 02/21/2024. TECHNIQUE: 2.5 mm th in axial and reformatted 2 mm thin sagittal and coronal images of chest were obtained. Scanner: [employer] 64 slice VCT Dose reduction technique: ASIR [...] Hobson Signed Date: 13:54 ET Workstation ID: [id number] Transcribed By: Self Edit Transcribed Date: 03/17/2024 13:43 ET HEMOGLOBIN A1C Reviewed date:07/27/2024 01:05:49 PM Interpretation: [...] K/mcL Immature Granulocytes Absolute 0.01 0.00-0.03 K/mcL CR Foot RT Min 3 Views Reviewed date:12/10/2023 03:30:43 PM Interpretation: Performing Lab: Notes/Report: Original Ordering Provider: ЕКАТЕРИНА KAUFMAN [facility] FREE T3 Reviewed date:12/09/2023 10:24:44 AM Interpretation: Performing Lab: Notes/Report: Original Ordering Provider: SONAL RIBEIRO PA-C FREE T3 256 230-420 pg/dl TSH Reviewed date:12/09/2023 10:24:25 AM Interpretation: Performing Lab: Notes/Report: [employer], a member of [address] [address] Shop Repairer - Mary Leos MD TSH 3.56 0.40-4.00 uIU/ml FREE T4 Reviewed date:12/09/2023 10:24:56 AM Interpretation: Performing Lab: Notes/Report: FREE T4 0.94 0.70-1.80 ng/dL Reason For Referral Diagnosis 1 Decreased hearing of both ears (H91.93) Referral Organization [facility] [address] Referring Provider First Name Sonal Referring Provider Last Name Walter Referring Provider Speciality Internal M edicine Referred Provider Specialty Ear, nose an d throat surgeon General Notes [address], [address] [address], phone [phone], fax [phone], [phone] Clinical Notes Lamar Rolon 04/2024 02:25:56 PM > refaxed to [phone], Lamar Rolon 12/21/2023 04:19:43 PM > I called the office and they informed me that the patient had three no-shows and is no longer allowed back in their practice. We need to send the referral to a different practice. I informed Reyna about this, Tenzin Mcclure 12/22/2023 11:49:53 AM >refaxed referral to ENT in [place] @ fax number [phone] and there phone number is [phone], Lamar Rolon 12/29/2023 01:52:39 PM > refaxed to [phone], Lamar Rolon 01/08/2024 09:45:29 AM > refaxed to [phone], Danya Dash 01/12/2024 08:07:01 AM >referral not accepeted at [facility] due to insurance Referral Priority Routine Diagnosis 1 Decreased hearing of both ears (H91.93) Referral Organization [facility] [address] Referring Provider First Name NITA Referring Provider Last Name SANKET Referring Provider Speciality Internal M edicine Referred Provider Cesar Londono Referred Provider Specialty Ear, nose an d throat surgeon General Notes [address] [place] [address] [place] [address], , Clinical Notes Lamar Rolon 10:32:52 AM [...] Provider Specialty Physical The rapist General Notes [address] [place] [address], (p) [phone], (f)[phone] Clinical Notes Yolande Kessler 02:59:34 PM >referral faxed Referral Priority Routine Reason [email or web address]; ty pe 2 diabetes Diagnosis 1 Type 2 diabetes saira itus without complication, without long-term current use of insulin (E11.9) [facility] Referring Provider First Name TALSANDRA Referring Provider Last Name SANKET Referring Provider Speciality Internal edicine Referred Provider Specialty Nutrition General Notes [address] [facility], (p) [phone] Clinical Notes Corrine Dwyer 08/09 03:30:31 PM >, patient referred to alternative provider Referral Priority Routine Reason [employer]; diabeti c management program Diagnosis 1 Type 2 diabetes saira itus without complications (E11.9) Referral Organization [facility] Referring Provider First Name NITA Referring Provider Last Name SANKET Referring Provider [facility] Internal edicine Referred Provider Specialty Miscellaneou s General Notes (p) [phone], (f ) [phone] Clinical Notes Yolande Kessler 01:29:08 PM > manually faxed with attachments, they do not take [facility] Referral Priority Routine Reason patient needing home services / diabetes education Diagnosis 1 Decreased hearing of both ears (H91.93) Diagnosis 2 Heart disease (I51.9 ) Diagnosis 3 Primary hypertension (I10) Diagnosis 4 Uncontrolled type 2 diabetes mellitus with hyperglycemia (E11.65) Referral Organization [facility] Referring Provider First Name NITA Referring Provider Last Name SANKET Referring Provider [facility] Internal edicine Referred Provider Specialty Miscellaneou s General Notes alessandra CARRILLO , phone - [phone] , fax- [phone] Clinical Notes Corrine Dwyer 08/09 03:33:47 PM >, faxed pt is aware, Lamar Rolon 09/07/2024 03:34:27 PM > refaxed to [phone] Referral Priority Routine Reason [facility] Diagnosis 1 Uncontrolled type 2 diabetes mellitus with hyperglycemia (E11.65) [facility] Referring Provider First Name TALAL Referring Provider Last Name SANKET Referring Provider Speciality Internal edicine Referred Provider Specialty Endocrinolog y General Notes [facility], phone - , [address] [place] [address] Drive, [address], Alessandra , fax- [phone] Clinical Notes Yuliya, Corrine 09/28 10:03:59 AM [...] Provider Specialty Vascular Daquan delfina General Notes [facility] a ppt request form faxed to [facility]. Fax - [phone] results , last office note and demographics. Clinical Notes Maggie Phillips 10/20/19 02:38:20 PM >, Lamar Rolon 10/25/2024 01:55:53 PM > Refaxed, Lamar Rolon 10/31/2024 03:51:13 PM > Not contracted with [facility] Corrine Dwyer 10/31/2024 03:59:06 PM >, re-faxed to [facility] [address] [place] [address], phone- [phone], fax- [phone] Referral Priority Routine Medications Medication SIG (Take, [...] Notes Problem Anemia in chronic kidney disease (312955481) Anemia in chronic kidney disease (D63.1) Active confirmed Problem Type II diabetes mellitus without complication (641311844) Type 2 diabetes mellitus without complications (E11.9) Active confirmed Problem Chronic pain (15408123) Other chronic pain (G89.29) Active confirmed Problem Acquired spondylolisthesis (847616813) Spondylolisthesis, thoracic region (M43.14) Active confirmed Problem Low back pain (776995360) Low back pain (M54.5) Active confirmed Problem Adult health examination (506020917) Encounter for general adult medical examination without abnormal findings (Z00.00) Active confirmed Problem Long-term current us e of insulin (500959457) [facility] (current) use of insulin (Z79.4) Active confirmed Problem Hyperlipidemia (12222208) Hyperlipidemia, unspecified (E78.5) Active confirmed Problem Moderate nonproliferative retinopathy of right eye due to diabetes mellitus (disorder) (147301768) Type 2 diabetes mellitus with moderate nonproliferative diabetic retinopathy with macular edema, right eye (E11.3311) Active confirmed Problem Proliferative diabetic retinopathy due to type II diabetes mellitus (6289828772117) Type 2 diabetes mellitus with stable proliferative diabetic retinopathy, bilateral (E11.3553) Active confirmed Problem Essential hypertension (23417377) Essential hypertension (I10) Active confirmed Problem Hearing loss (33703755) Decreased hearing of both ears (H91.93) Active confirmed Problem Colon cancer screening (960850375) Colon cancer screening (Z12.11) Active confirmed Problem Disorder due to type 2 diabetes mellitus (639607058) Type 2 diabetes mellitus with complication, unspecified whether halfway insulin use (E11.8) Active confirmed Problem Hyperlipidaemia (27882692) Hyperlipidemia, unspecified hyperlipidemia type (E78.5) Active confirmed Problem Acquired hypothyroidism (957070093) Acquired hypothyroidism (E03.9) Active confirmed Problem Hypothyroidism (20859458) Hypothyroidism, unspecified type (E03.9) Active confirmed Problem Essential hypertension (74142903) Jovanna hypertension (I10) Active confirmed Problem Vitamin D deficiency (54947628) Vitamin D deficiency (E55.9) Active confirmed Problem Screening for malignant neoplasm of breast (437512193) Breast cancer screening by mammogram (Z12.31) Active confirmed Problem Constipation (17632644) Constipation, unspecified constipation type (K59.00) Active confirmed Problem Essential hypertension (44576757) Hypertension, unspecified type (I10) Active confirmed Problem Type II diabetes mellitus without complication (515149469) Type 2 diabetes mellitus without complication, without long-term current use of insulin (E11.9) Active confirmed Problem Type II diabetes mellitus without complication (887179223) Type 2 diabetes mellitus without complication, unspecified whether halfway insulin use (E11.9) Active confirmed Problem Peripheral vascular disease (799725464) PVD (peripheral vascular disease) (I73.9) Active confirmed Problem Gastroesophageal reflux disease with esophagitis (disorder) (199459248) Gastroesophageal reflux disease with esophagitis without hemorrhage (K21.00) Active confirmed Problem Chronic kidney disease stage 3A (759111930) Stage 3a chronic kidney disease (N18.31) Active confirmed Problem Aortic aneurysm (28011328) Aortic aneurysm without rupture, unspecified portion of aorta (I71.9) Active confirmed Problem Primary hypertension (85920952) Primary hypertension (I10) Active confirmed Problem Eruption of skin (291932244) Rash and nonspecific skin eruption (R21) Active confirmed Problem Hyperglycemia due to type 2 diabetes mellitus (368715566109103) Uncontrolled type 2 diabetes mellitus with hyperglycemia (E11.65) Active confirmed Problem Dyspnea on exertion (05476801) Dyspnea on exertion (R06.00) Active confirmed Problem Diastolic dysfunctio n (7312358) Diastolic dysfunction (I51.89) Active confirmed Problem Allergic contact dermatitis (362203926) Allergic dermatitis (L23.9) Active confirmed Problem Heart disease (68930168) Heart disease (I51.9) Active confirmed Problem Abdominal aortic aneurysm without rupture (disorder) (16277963) Abdominal aortic aneurysm (AAA) without rupture, unspecified part (I71.40) Active confirmed Problem Congenital hypothyroidism screening test (681761571) Screening for hypothyroidism (Z13.29) Active confirmed Problem Hyperaldosteronism (06633739) Hyperaldosteronism (E26.9) Active confirmed Problem Hyperparathyroidism due to renal insufficiency (60961295) Hyperparathyroidism, 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) Active confirmed Problem Thoracic spondylosis (886265050) Thoracic spondylosis (M47.814) Active confirmed Vital Signs Heart Rate 79 /min 10/25/2024 Blood pressure diastolic 60 mm Hg 10/25/2024 Oximetry 99 % 10/25/2024 Height 65 in 10/25/2024 Blood pressure systolic 136 mm Hg 10/25/2024 Weight 150.8 lbs 10/25/2024 BMI 25.09 kg/m2 10/25/2024 Encounters Encounter Location Date Provider Diagnosis [facility] [address] [place] [address] 12/09/2023 Sonal Svrcek [facility] [address] [place] [address] 12/09/2023 TALAL VILLALBA [facility] [address] [address] 12/21/2023 Sonal Svrcek [facility] [address] [place] [address] 01/12/2024 TALAL VILLALBA [facility] [address] [facility] [address] [place] [address] 02/05/2024 TALAL VILLALBA [facility] [address] [facility] [address] [place] [address] 02/18/2024 TALAL VILLALBA [facility] [address] [place] [address] 02/24/2024 Sonal Svrcek [facility] [address] [facility] [address] [place] [address] 03/01/2024 Sonal Svrcek [facility] [address] [facility] [address] [place] [address] 03/15/2024 TALAL VILLALBA [facility] [address] [facility] [address] [place] [address] 03/18/2024 Sonal Svrcek [facility] [address] [facility] [address] [place] [address] 03/30/2024 Sonal Svrcek [facility] [address] [facility] [address] [place] [address] 04/12/2024 Sonal Svrcek [facility] [address] [facility] [address] [place] [address] 04/14/2024 TALAL VILLALBA [facility] [address] [facility] [address] [place] [address] 04/19/2024 Sonal Svrcek [facility] [address] [facility] [address] [place] [address] 05/13/2024 Sonal Svrcek [facility] [address] [facility] [address] [place] [address] 05/24/2024 TALAL VILLALBA [facility] [address] [facility] [address] [place] [address] 06/16/2024 TALAL VILLALBA [facility] [address] [place] [address] 07/26/2024 Sonal Svrcek [facility] [address] [facility] [address] [place] [address] 07/27/2024 TALAL VILLALBA [facility] [address] [facility] [address] [place] [address] 08/04/2024 TALAL VILLALBA [facility] [address] [address] [place] [address] 08/08/2024 TALAL VILLALBA [facility] [address] [address] [place] [address] 08/17/2024 Sonal Svrcek [facility] [address] [address] [place], [place] 08/22/2024 Sonal Svrcek [facility] [address] [facility] [address] [place], [place] 08/22/2024 Sonal Svrcek [facility] [address] [facility] [address] [place], [place] 09/14/2024 Sonal Svrcek [facility] [address] [facility] [address] [place], [place] 09/16/2024 Sonal Svrcek [facility] [address] [facility] [address] [place], [place] 09/22/2024 Sonal Svrcek [facility] [address] [place] [address] 10/06/2024 TALAL VILLALBA [facility] [address] 10/18/2024 Sonal Svrcek [facility] [address] [place] [address] 10/19/2024 Sonal Svrcek [facility] [address] 10/25/2024 TALAL VILLALBA [facility] [address] 10/31/2024 TALAL VILLALBA [facility] [address] 11/15/2024 Sonal Svrcek [facility] [address] 02/18/2024 Sonal Svrcek Other chronic pain G 89.29 ; Right-sided chest wall pain R07.89 ; Pleuritic pain R07.81 ; Pain in thoracic spine M54.6 and Essential hypertension I10 [facility] [address] 09/15/2024 Sonal Svrcek [facility] [address] 12/08/2023 Sonal Svrcek Type 2 diabetes saira itus with complication, unspecified whether intermediate designer insulin use E11.8 ; Essential hypertension I10 ; Right foot pain M79.671 ; Decreased hearing of both ears H91.93 and Abnormal TSH R79.89 [facility] [address] [address] 01/27/2024 Sonal Svrcek Essential hypertensi on I10 ; Type 2 diabetes mellitus without complication, unspecified whether intermediate designer insulin use E11.9 ; Stage 3a chronic kidney disease N18.31 ; Hyperaldosteronism E26.9 ; Hyperparathyroidism, secondary renal N25.81 and Anemia in chronic kidney disease D63.1 [facility] [address] 03/17/2024 Sonal Svrcek Other chronic pain G 89.29 ; Right-sided chest wall pain R07.89 ; Pleuritic pain R07.81 ; Essential hypertension I10 and Thoracic spondylosis M47.814 [facility] [address] [address] 06/16/2024 Sonal Svrcek Essential hypertensi on I10 ; Type 2 diabetes mellitus with complication, unspecified whether halfway insulin use E11.8 ; Hyperlipidemia, unspecified E78.5 ; [facility] (current) use of insulin Z79.4 ; Hyperaldosteronism E26.9 and Stage 3a chronic kidney disease N18.31 [facility] [address] [address] 07/27/2024 Sonal Svrcek Essential hypertensi on I10 ; Type 2 diabetes mellitus with complication, unspecified whether halfway insulin use E11.8 ; Hyperlipidemia, unspecified E78.5 ; [facility] (current) use of insulin Z79.4 ; Hyperaldosteronism E26.9 ; Stage 3a chronic kidney disease N18.31 ; Systolic murmur R01.1 and Breast cancer screening by mammogram Z12.31 [facility] [address] [address] 09/21/2024 Sonal Svrcek Essential hypertensi on I10 ; Abdominal distention R14.0 ; Unexplained weight loss R63.4 ; Type 2 diabetes mellitus with complication, unspecified whether halfway insulin use E11.8 ; Hyperlipidemia, unspecified E78.5 ; exterminator (current) use of insulin Z79.4 ; Hyperaldosteronism E26.9 ; Stage 3a chronic kidney disease N18.31 and Breast cancer screening by mammogram Z12.31 [facility] [address] [facility] [address] [place] [address] 10/25/2024 Sonal Svrcek Type 2 diabetes saira itus with complication, unspecified whether intermediate designer insulin use E11.8 ; Aortic aneurysm without rupture, unspecified portion of aorta I71.9 ; Unexplained weight loss R63.4 ; Hyperlipidemia, unspecified E78.5 ; exterminator (current) use of insulin Z79.4 ; Hyperaldosteronism E26.9 ; Stage 3a chronic kidney disease N18.31 and Hypertension, unspecified type I10 [facility] [address] [facility] [address] [place] [address] 02/24/2024 Sonal Walter Other chronic pain G 89.29 ; Right-sided chest wall pain R07.89 ; Pleuritic pain R07.81 and Essential hypertension I10 Assessments Encounter Date Diagnosis (ICD Code) Assessment Notes Treatment Notes Treatment Clinical Notes Section Notes 12/08/2023 Type 2 diabetes mellitus with complication, unspecified whether intermediate designer insulin use (ICD-10 - E11.8) #Type 2 [...] Dictation was accomplished with the use of [employer] voice recognition software, prone to medical misidentifications [...] next visit it any questions/concerns arise. 12/08/2023 Essential hypertension (ICD-10 - I10) #Type [...] Dictation was accomplished with the use of [employer] voice recognition software, prone to medical misidentifications [...] Followed by [facility]. 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 She has [...] Dictation was accomplished with the use of [employer] voice recognition software, prone to medical misidentifications [...] Followed by [facility]. 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 She has [...] Dictation was accomplished with the use of Ne[employer]ix voice recognition software, prone to medical misidentifications [...] Dictation was accomplished with the use of [employer] voice recognition software, prone to medical misidentifications [...] Dictation was accomplished with the use of Ne[employer] voice recognition software, prone to medical misidentifications [...] Dictation was accomplished with the use of [employer] voice recognition software, prone to medical misidentifications [...] Dictation was accomplished with the use of Ne[employer] voice recognition software, prone to medical misidentifications [...] symptoms. Discussed options we will send to [facility] for consult. n #Hypertension. Uncontrolled. Followed by nephrology and cardiology. Has had extensive workup for secondary causes of hypertension. MRI did show nonspecific adrenal cortical thickening without mass or nodule. Continue to follow with nephrology. Follow labs closely. #Thoracic spondylosis noted on CT done this morning. T4-T12. Will refer to [facility]. Question could this be contributing to her intermittent chest pain as above. Case discussed with collaborating physician Yeni Villalba who reviewed the assessment and plan. Chart, medications, labs, vital signs reviewed. Dictation was accomplished with the use of [employer] voice recognition software, prone to medical misidentifications [...] symptoms. Discussed options we will send to [facility] for consult. n #Hypertension. Uncontrolled. Followed by nephrology and cardiology. Has had extensive workup for secondary causes of hypertension. MRI did show nonspecific adrenal cortical thickening without mass or nodule. Continue to follow with nephrology. Follow labs closely. #Thoracic spondylosis noted on CT done this morning. T4-T12. Will refer to [facility]. Question could this be contributing to her intermittent chest pain as above. Case discussed with collaborating physician Yeni Villalba who reviewed the assessment and plan. Chart, medications, labs, vital signs reviewed. Dictation was accomplished with the use of [employer] voice recognition software, prone to medical misidentifications [...] the past month. Advised to call her hop worker to discuss whether or not she should [...] it. I advised her to call her hop worker today to discuss further with them in regards to remaining off versus restarting. #Chronic kidney disease. As above. Followed by nephrology. Will get updated labs prior to follow-up in 6 weeks. Case discussed with collaborating physician Yeni Villalba who reviewed the assessment and plan. Chart, medications, labs, vital signs reviewed. Dictation was accomplished with the use of [employer] voice recognition software, prone to medical misidentifications [...] monitoring blood glucose closely. Will refer to sales representative [employer]. She has not tolerated Rybelsus or Farxiga [...] Dictation was accomplished with the use of Ne[employer] voice recognition software, prone to medical misidentifications [...] monitoring blood glucose closely. Will refer to sales representative public [employer]. She has not tolerated Rybelsus or Farxiga [...] Dictation was accomplished with the use of Ne[employer] voice recognition software, prone to medical misidentifications [...] Dictation was accomplished with the use of [employer] voice recognition software, prone to medical misidentifications [...] Dictation was accomplished with the use of [employer] voice recognition software, prone to medical misidentifications [...] 2 diabetes mellitus with complication, unspecified whether intermediate designer insulin use (ICD-10 - E11.8) #Aortic aneurysm. [...] Dictation was accomplished with the use of [employer] voice recognition software, prone to medical misidentifications [...] Dictation was accomplished with the use of Ne[employer] voice recognition software, prone to medical misidentifications [...] Dictation was accomplished with the use of [employer] voice recognition software, prone to medical misidentifications [...] Dictation was accomplished with the use of Ne[employer] voice recognition software, prone to medical misidentifications [...] monitoring blood glucose closely. Will refer to sales representative [employer]. She has not tolerated Rybelsus or Farxiga [...] Dictation was accomplished with the use of Ne[employer] voice recognition software, prone to medical misidentifications [...] 2 diabetes mellitus with complication, unspecified whether intermediate designer insulin use (ICD-10 - E11.8) #Hypertension. Blood pressure is actually improved today compared to previous. Of note she has been off the eplerenone for the past month. Advised to call her hop worker to discuss whether or not she should [...] it. I advised her to call her hop worker today to discuss further with them in regards to remaining off versus restarting. #Chronic kidney disease. As above. Followed by nephrology. Will get updated labs prior to follow-up in 6 weeks. Case discussed with collaborating physician Yeni Villalba who reviewed the assessment and plan. Chart, medications, labs, vital signs reviewed. Dictation was accomplished with the use of Ne[employer] voice recognition software, prone to medical misidentifications [...] symptoms. Discussed options we will send to [facility] for consult. n #Hypertension. Uncontrolled. Followed by nephrology and cardiology. Has had extensive workup for secondary causes of hypertension. MRI did show nonspecific adrenal cortical thickening without mass or nodule. Continue to follow with nephrology. Follow labs closely. #Thoracic spondylosis noted on CT done this morning. T4-T12. Will refer to [facility]. Question could this be contributing to her intermittent chest pain as above. Case discussed with collaborating physician Yeni Villalba who reviewed the assessment and plan. Chart, medications, labs, vital signs reviewed. Dictation was accomplished with the use of Ne[employer] voice recognition software, prone to medical misidentifications [...] Dictation was accomplished with the use of Ne[employer] voice recognition software, prone to medical misidentifications [...] Dictation was accomplished with the use of Ne[employer] voice recognition software, prone to medical misidentifications [...] Followed by [facility]. 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 She has [...] Dictation was accomplished with the use of Ne[employer]ix voice recognition software, prone to medical misidentifications [...] Dictation was accomplished with the use of Ne[employer]ix voice recognition software, prone to medical misidentifications [...] Dictation was accomplished with the use of Neoconix voice recognition software, prone to medical misidentifications [...] Followed by [facility]. 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 Discussed options we will send to [facility] for consult. n #Hypertension. Uncontrolled. Followed by nephrology and cardiology. Has had extensive workup for secondary causes of hypertension. MRI did show nonspecific adrenal cortical thickening without mass or nodule. Continue to follow with nephrology. Follow labs closely. #Thoracic spondylosis noted on CT done this morning. T4-T12. Will refer to [facility]. Question could this be contributing to her intermittent chest pain as above. Case discussed with collaborating physician Yeni Villalba who reviewed the assessment and plan. Chart, medications, labs, vital signs reviewed. Dictation was accomplished with the use of Ne[employer] voice recognition software, prone to medical misidentifications [...] the past month. Advised to call her hop worker to discuss whether or not she should [...] it. I advised her to call her hop worker today to discuss further with them in regards to remaining off versus restarting. #Chronic kidney disease. As above. Followed by nephrology. Will get updated labs prior to follow-up in 6 weeks. Case discussed with collaborating physician Yeni Villalba who reviewed the assessment and plan. Chart, medications, labs, vital signs reviewed. Dictation was accomplished with the use of Ne[employer] voice recognition software, prone to medical misidentifications [...] next visit it any questions/concerns arise. 07/27/2024 [facility] (current) use of insulin (ICD-10 - Z79.4) [...] monitoring blood glucose closely. Will refer to [employer] representative [employer]. She has not tolerated Rybelsus or Farxiga [...] for. Case discussed with collaborating physician Yeni Villalab who reviewed the assessment and plan. Chart, medications, labs, vital signs reviewed. Dictation was accomplished with the use of Ne[employer]ix voice recognition software, prone to medical misidentifications [...] 2 diabetes mellitus with complication, unspecified whether intermediate designer insulin use (ICD-10 - E11.8) #Abdominal distention [...] Dictation was accomplished with the use of Ne[employer] voice recognition software, prone to medical misidentifications [...] Dictation was accomplished with the use of Ne[employer]ix voice recognition software, prone to medical misidentifications [...] next visit it any questions/concerns arise. 10/25/2024 [facility] (current) use of insulin (ICD-10 - Z79.4) [...] Dictation was accomplished with the use of Ne[employer]ix voice recognition software, prone to medical misidentifications [...] Dictation was accomplished with the use of Ne[employer]ix voice recognition software, prone to medical misidentifications [...] monitoring blood glucose closely. Will refer to sales [employer]. She has not tolerated Rybelsus or Farxiga [...] Dictation was accomplished with the use of Ne[employer]ix voice recognition software, prone to medical misidentifications [...] next visit it any questions/concerns arise. 06/16/2024 [facility] (current) use of insulin (ICD-10 - Z79.4) #Hypertension. Blood pressure is actually improved today compared to previous. Of note she has been off the eplerenone for the past month. Advised to call her hop worker to discuss whether or not she should [...] it. I advised her to call her hop worker today to discuss further with them in regards to remaining off versus restarting. #Chronic kidney disease. As above. Followed by nephrology. Will get updated labs prior to follow-up in 6 weeks. Case discussed with collaborating physician Yeni Villalba who reviewed the assessment and plan. Chart, medications, labs, vital signs reviewed. Dictation was accomplished with the use of Ne[employer] voice recognition software, prone to medical misidentifications [...] symptoms. Discussed options we will send to [facility] for consult. n #Hypertension. Uncontrolled. Followed by nephrology and cardiology. Has had extensive workup for secondary causes of hypertension. MRI did show nonspecific adrenal cortical thickening without mass or nodule. Continue to follow with nephrology. Follow labs closely. #Thoracic spondylosis noted on CT done this morning. T4-T12. Will refer to [facility]. Question could this be contributing to her intermittent chest pain as above. Case discussed with collaborating physician Yeni Villalba who reviewed the assessment and plan. Chart, medications, labs, vital signs reviewed. Dictation was accomplished with the use of Ne[employer]ix voice recognition software, prone to medical misidentifications [...] Dictation was accomplished with the use of Ne[employer]ix voice recognition software, prone to medical misidentifications [...] Followed by [facility]. 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 Advised to call her hop worker to discuss whether or not she should [...] it. I advised her to call her hop worker today to discuss further with them in regards to remaining off versus restarting. #Chronic kidney disease. As above. Followed by nephrology. Will get updated labs prior to follow-up in 6 weeks. Case discussed with collaborating physician Yeni Villalba who reviewed the assessment and plan. Chart, medications, labs, vital signs reviewed. Dictation was accomplished with the use of Ne[employer]ix voice recognition software, prone to medical misidentifications [...] monitoring blood glucose closely. Will refer to [employer]. She has not tolerated Rybelsus or Farxiga [...] Dictation was accomplished with the use of Ne[employer]ix voice recognition software, prone to medical misidentifications [...] next visit it any questions/concerns arise. 09/21/2024 extermin[facility] (current) use of insulin (ICD-10 - Z79.4) [...] Dictation was accomplished with the use of Ne[employer]ix voice recognition software, prone to medical misidentifications [...] Dictation was accomplished with the use of Ne[employer]ix voice recognition software, prone to medical misidentifications [...] Dictation was accomplished with the use of Neoconix voice recognition software, prone to medical misidentifications [...] Dictation was accomplished with the use of Neoconix voice recognition software, prone to medical misidentifications [...] monitoring blood glucose closely. Will refer to [employer]. She has not tolerated Rybelsus or Farxiga [...] Dictation was accomplished with the use of Ne[employer]ix voice recognition software, prone to medical misidentifications [...] the past month. Advised to call her hop worker to discuss whether or not she should [...] it. I advised her to call her hop worker today to discuss further with them in regards to remaining off versus restarting. #Chronic kidney disease. As above. Followed by nephrology. Will get updated labs prior to follow-up in 6 weeks. Case discussed with collaborating physician Yeni Villalba who reviewed the assessment and plan. Chart, medications, labs, vital signs reviewed. Dictation was accomplished with the use of Ne[employer]ix voice recognition software, prone to medical misidentifications [...] monitoring blood glucose closely. Will refer to sales representative [employer]. She has not tolerated Rybelsus or Farxiga [...] Dictation was accomplished with the use of Neoconix voice recognition software, prone to medical misidentifications [...] Dictation was accomplished with the use of Neoconix voice recognition software, prone to medical misidentifications [...] Dictation was accomplished with the use of Neoconix voice recognition software, prone to medical misidentifications [...] Dictation was accomplished with the use of Neoconix voice recognition software, prone to medical misidentifications [...] Dictation was accomplished with the use of Neoconix voice recognition software, prone to medical misidentifications [...] 03/06/2021 LDH 09/21/2024 LIPASE 06/11/2022 LIPID PANEL 01/27/2024 LIPID PANEL 05/26/2023 LIPID PANEL 04/06/2020 T3, FREE 10/22/2023 TSH 05/26/2023 TSH 10/20/2023 TSH 06/16/2024 TSH 10/22/2023 URINALYSIS, COMPLETE 04/06/2020 CT Chest w Contrast 02/18/2024 US Abdomen Complete 07/16/2023 US Abdomen Complete 06/03/2022 XR Foot 2 Views RT 12/08/2023 Cologuard 09/11/2022 COMPREHENSIVE METABOLIC PANEL 06/16/2024 COMPREHENSIVE METABOLIC PANEL 09/21/2024 CBC (INCLUDES DIFF/PLT) 09/21/2024 CBC (INCLUDES DIFF/PLT) 06/16/2024 HEMOGLOBIN A1c 06/16/2024 HEMOGLOBIN A1c 10/14/2021 HEMOGLOBIN A1c 10/20/2023 HEMOGLOBIN A1c 01/27/2024 VITAMIN B12 10/20/2023 T4, FREE 10/22/2023 TSH [...] 01/14/2023 Next Appt Details Provider Name:Sonal Ribeiro, 0 11/30/2024 01:45:00 PM, [address] [facility] [address], [place], [address], Insurance Providers Payer Name Payer Address Payer Phone Subscriber Number Group Number Insured Name Patient Relationship to Insured Coverage Start Date Coverage End Date [employer] Preferred [address] [place] [address] [id number] LAURIE CHOUDHARY Self - patient is the insured Medical (General) History Medical History History ICD Code hypertension hyperlipidemia type II diabetes acid reflux Surgical History Surgery Date(Month/Year) hysterectomy Left leg surgery x2 due to infection of muscle causing sepsis 2017 Hospitalization History Reason Date(Month/Year) diabetes 2002
--- OUTSIDE RECORDS SUMMARY | 2024-11-30 09:03 | XMS_ITS | Patient Health Record ---
Author Organization [facility] Address [address] [place] [address] Care Team Providers Care Dry Chain Offbearer Name Role Phone Deejay Avthomas Primary Care Provider Jarad Lacey Unavailable [phone] Allergies Allergen (clinical drug ingredient) Drug/Non Drug [...] Problem Acquired hammer toe of right foot (7065913165670683 ) Other hammer toe(s) (acquired), right foot (M20.41) Active confirmed Problem Acquired hammer toe of left foot (7114786527798732 ) Other hammer toe(s) (acquired), left foot (M20.42) Active confirmed Problem Plantar wart (61400325) Plantar wart (B07.0) Active confirmed Problem Polyneuropathy due to type 2 diabetes mellitus (720898363) Type 2 diabetes mellitus with diabetic polyneuropathy (E11.42) Active confirmed Plan Of Treatment Pending Test Test Name Order Date [id number] NAIL, 6 OR MORE 08/29/2021 83255-MCEBRXG NAIL, 6 OR MORE 11/28/2021 31424-GULCRVO NAIL, 6 OR MORE 02/27/2022 23062-LNQGIUY NAIL, 6 OR MORE 05/29/2022 88556-LUHUFQQ NAIL, 6 OR MORE 10/29/2022 52158-EHBGREI NAIL, 6 OR MORE 01/28/2023 58279-Ngtc Destruction, 1-14 01/28/2023 21464-Rhhs Destruction, 1-14 10/29/2022 51767-Fobk Destruction, 1-14 11/28/2021 63821-Fega Destruction, 1-14 05/29/2022 49319-Gtwu Destruction, 1-14 02/27/2022 06878-PSXQ SKIN LESIONS, OVER 4 02/28/20 22 68305-XZCG SKIN LESIONS, OVER 4 05/29/19 23 67708-GTEY SKIN LESIONS, OVER 4 11/29/19 22 46643-PLIM SKIN LESIONS, OVER 4 08/30/19 22 63719-FRFX SKIN LESIONS, OVER 4 10/30/19 23 36529-WTBM SKIN LESIONS, OVER 4 01/29/20 23 Insurance Providers Payer Name Payer Address Payer Phone Subscriber Number Group Number Insured Name Patient Relationship to Insured Coverage Start Date Coverage End Date [employer] Preferred [address] [place] [address] [phone] [id number] Angelique Flores Self - patient is the insured Medical (General) History Medical History History ICD Code Diabetic High blood pressure Chicken pox Surgical History Surgery Date(Month/Year) leg surgery 10/21/16 hysterectomy 30 years ago
[2024-11-30 10:05] LABS: Alanine Aminotransferase 20 U/L (0-31); Albumin Level 4.1 g/dL (3.5-5.0); Alkaline Phosphatase 70 U/L (39-117); Anion Gap 13 (12-20); Aspartate Amino Transferase 19 U/L (5-31); Blood Urea Nitrogen 16 mg/dL (9-16); Calcium 8.8 mg/dL (8.4-10.2); Carbon Dioxide 27 mmol/L (22-29); Chloride 107 mmol/L (96-108); Estimated Glomerular Filt Rate > 60; Potassium 3.5 mmol/L (3.3-5.1); Sodium 143 mmol/L (135-145); Total Protein 7.0 g/dL (6.5-8.0)
== END 2024-11-30 08:46 | disposition home or self-care (01) ==
LOC: HO.LAB 08:45
PROVIDERS: PCP Physician Assistant; Visit Provider Physician Assistant
DX: E11.65 Type 2 diabetes mellitus with hyperglycemia (principal); I10 Essential (primary) hypertension; E78.5 Hyperlipidemia, unspecified; Z79.4 Long term (current) use of insulin
CPT/HCPCS: 36415; 80053; 84681; 86341

== ENCOUNTER 2024-12-05 14:05 | Outpatient (REF) | payer MEDICARE, SELFPAY ==
[2024-12-05 17:01] LABS: Microalbum/Creatinine Ratio Ur 2975.1 ug/mg cr (<30)
== END 2024-12-05 14:06 | disposition home or self-care (01) ==
LOC: HO.LNP 14:05
PROVIDERS: Physician Assistant; PCP Internal Medicine; Visit Provider Registered Nurse Diabetes Educator
DX: E11.65 Type 2 diabetes mellitus with hyperglycemia (principal); Z79.4 Long term (current) use of insulin; I10 Essential (primary) hypertension; E78.5 Hyperlipidemia, unspecified
CPT/HCPCS: 82043; 82570; 99211

== ENCOUNTER 2024-12-05 14:05 | Outpatient (AMB) | payer MEDICARE, SELFPAY ==
--- OUTSIDE RECORDS SUMMARY | 2024-12-05 14:13 | XMS_ITS | Encounter Summary ---
Author Organization [facility] Address [address] [address] Phone Care Team Providers Care Nurse Orthopaedic Name Role Phone Jasper Villalba MD Primary Care Provider [phone] Encounter Details Date Type Department Care Team (Late st Contact Info) Description 07/09/2021 Documentation Only [facility] [address] [address] Gurwinder Quinonez MD [address] [place] [address], [address] [address] Social History Tobacco Use Types Packs/Day Years [...] on filedocumented in this encounter Care Teams Nurse Orthopaedic Relationship Specialty Start Date End Date Jasper Villalba MD [address] [id number] PCP - General Internal Medicine 01/03/21 documented as of this encounter
--- OUTSIDE RECORDS SUMMARY | 2024-12-05 14:13 | XMS_ITS | Clinical Summary ---
Author Organization [facility] Address [address] [place] [address] Phone Care Team Providers Care Script Writer Name Role Phone Nita Villalba MD Primary Care Provider [phone] Allergies No known active allergies Medications insulin [...] Problems Problem Noted Date Diagnosed Date Diabetes ([facility] V24, [facility] V28) 02/10/2024 Diabetic neuropathy ([facility] V24, [facility] V28) 1 Hypertension 02/10/2024 Overview (02/10/2024): Last Assessment & Plan: Hypertension control has improved significantly but still slightly higher. PVD (peripheral vascular disease) ([facility] V24) 02/10/2024 Abnormal echocardiogram 10/29/2023 Overview (02/10/2024): [...] - 10/18/2024 11:59 PM EDT Hospital Encounter [facility] CT Scan [address] [place] [address] Abdominal distension (gaseous); Abnormal weight loss Discharge Disposition: Home or Self Care from Last 3 Months Surgical History Surgery Date Site/Laterality Comments OTHER SURGICAL HISTORY 11/05/2016 PROCEDURE: ---- OTHER ----; COMMENT: STATED SURGICAL LEG HYSTERECTOMY BREAST LUMPECTOMY Right BENIGN STEREOTACTIC CORE BIOPSY Right Medical History Medical History Date Comments Diabetes ([facility] V24, [facility] V28) DX:Diabetes (HCC) Hypertension DX:Hypertension PVD (peripheral vascular dis ease) ([facility] V24) DX:PVD (peripheral vascular disease) (HCC) Diabetic neuropathy ([facility] V24, [facility] V28) DX:Diabetic neuropathy (HCC) Family History Medical [...] EST Essential hypertension, malignant Heart disease, unspecified [facility] DEXA AXIAL SKELETON Routine 10/27/2022 8:32 AM EDT Encounter for screening for osteoporosis from Last 3 Months or Most Recently Relevant to Health Maintenance Results * (ABNORMAL) CBC auto differential (10/18/2024 10:37 AM EDT) [facility] WBC 5.1 4.8 - 10.8 K/mcL LAB HEMETOLOGY METHOD 10/18/2024 12:21 PM EDT [facility] RBC 4.20 3.80 - 4.80 [...] [facility] NRBC Absolute 0.00 <0.10 K/mcL [...] ORDERABLES Final Resul t Performing Organization Address [facility]/ZIP Co de Phone Number [facility] [address] [place] [address], [place] [phone] * Lactate dehydrogenase (10/18/2024 10:37 AM EDT) LDH 212 120 - 246 unit/L LAB CHEMISTRY METHOD 10/18/2024 1:34 PM EDT [facility] Blood Venous blood specimen / Unknown Venipuncture / Unknown 10/18/2024 10:37 AM EDT 10/18/2024 11:46 AM EDT Ernestina FRIEND LAB BLOOD ORDERABLES Final Resul t Performing Organization Address [facility] Co de Phone Number [facility] [address] [place] [address], [place] [phone] * (ABNORMAL) Comprehensive metabolic panel (10/18/2024 10:37 AM EDT) Pathologist [facility] Sodium 139 133 - 145 mmol/L LAB CHEMISTRY METHOD 10/18/2024 1:35 PM T [facility] Potassium 4.0 3.5 - 5.5 mmol/L LAB CHEMISTRY METHOD 10/18/2024 1:35 PM [facility] Chloride 106 96 - 110 mmol/L LAB CHEMISTRY METHOD 10/18/2024 1:35 PM T [facility] CO2 27 21 - 32 mmol/L LAB CHEMISTRY METHOD 10/18/2024 1:35 PM T [facility] Anion Gap 6 3 - 11 LAB CHEMISTRY METHOD 10/18/2024 1:35 PM [facility] Glucose 249(H) 70 - 100 mg/dL LAB CHEMISTRY METHOD 10/18/2024 1:35 PM [facility] BUN 12 5 - 25 mg/dL LAB CHEMISTRY METHOD 10/18/2024 1:35 PM T [facility] Creatinine 0.86 0.50 - 1.10 mg/dL LAB CHEMISTRY METHOD 10/18/2024 1:35 PM EDT [facility] eGFR 72 >=60 mL/min/1. 73m2 LAB CHEMISTRY METHOD 10/18/2024 1:35 PM T [facility] Comment:Calculation based on the Chronic Kidney Disease Epidemiology Collaboration (CKD-EPI) equation refit without adjustment for race. BUN/Creatinine Ratio 14.0 LAB CHEMISTRY METHOD 10/18/2024 1:35 PM T [facility] Calcium 8.6 8.5 - 10.5 [...] LAB CHEMISTRY METHOD 10/18/2024 1:35 PM T [facility] Total Bilirubin 0.5 0.0 - 1.4 mg/dL LAB CHEMISTRY METHOD 10/18/2024 1:35 PM [facility] Blood Venous blood specimen / Unknown Venipuncture / Unknown 10/18/2024 10:37 AM EDT 10/18/2024 11:46 AM EDT us Ernestina FRIEND LAB BLOOD ORDERABLES Final Resul t [facility] [address] [place] [address], * CT Abdomen Pelvis wo Contrast (10/18/2024 [...] Date: 10/18/2024 16:18 ET Assigned Physician: Brook Hrisch Reviewed and Electronically Signed By: Brook Hirsch Signed Date: 10/18/2024 16:18 ET Workstation ID: [id number] Transcribed By: Self Edit Transcribed Date: 10/18/2024 [...] Signed Date: 10/18/2024 12:18 ET Workstation ID: [id number] Transcribed By: Self Edit Transcribed Date: 10/18/2024 [...] Signed Date: 10/18/2024 12:18 ET Workstation ID: [id number] Transcribed By: Self Edit Transcribed Date: 10/18/2024 [...] year. 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 TISSUE DENSITY: There are scattered [...] year. Mammography location: [facility] at [address], [address] -------- FINAL REPORT -------- Dictated By: Omer Wahl Dictated Date: 08/22/2024 17:27 ET Assigned Physician: Omer Wahl Reviewed and Electronically Signed By: Omer Wahl Signed Date: 08/22/2024 17:40 ET Workstation ID: [id number] Transcribed By: Self Edit Transcribed Date: 08/22/2024 17:27 ET Ernestina FRIEND IMG BI PROCEDURES Final Result * (ABNORMAL) Hemoglobin A1c (07/25/2024 2:06 PM EDT) Hemoglobin A1C 9.9(H) <6.5 % LAB CHEMISTRY METHOD 07/25/2024 10:28 PM EDT [facility] Mean Bld Glu Estim. 237 mg/dL LAB CHEMISTRY METHOD 07/25/2024 10:28 PM EDT [facility] Blood Venous blood specimen / Unknown Venipuncture / Unknown 07/25/2024 2:06 PM EDT 07/25/2024 3:32 PM EDT Ernestina Watson PA LAB BLOOD ORDERABLES Final Resul t Performing Organization Address City/[facility]/ZIP Co de Phone Number [facility] [address] [place] [address], [place] [phone] * (ABNORMAL) Microalbumin creatinine urine ratio (04/15/2024 3:29 PM EST) Creatinine, Urine 84.0 mg/dL LAB CHEMISTRY METHOD 04/15/2024 5:24 PM EST [facility] Microalb, Ur 826.0(H) 0.0 - 29.0 mg/L LAB CHEMISTRY METHOD 04/15/2024 5:24 PM EST [facility] Microalb/Crea t Ratio 983(H) <30 mg/g creat LAB CHEMISTRY METHOD 04/15/2024 5:24 PM EST [facility] Urine Urine specimen obtained by clean catch procedure / Unknown Non-blood Collection / Unknown 04/15/2024 3:29 PM EST 04/15/2024 4:00 PM EST Nguyen Vu [facility] URINE ORDERABLES Final R esult Performing Organization Address City/[facility]/ZIP Co de Phone Number [facility] [address] [place] [address], [place] [phone] * Lipid panel with reflex to direct LDL (04/15/2024 3:22 PM EST) Cholesterol 151 0 - 200 mg/dL LAB CHEMISTRY METHOD 04/15/2024 4:38 PM EST [facility] Triglycerides 149 0 - 150 mg/dL LAB CHEMISTRY METHOD 04/15/2024 4:38 PM EST [facility] HDL 50 >=40 mg/dL LAB CHEMISTRY METHOD 04/15/2024 4:38 PM EST [facility] LDL Calculated 71 0 - 100 mg/dL LAB CHEMISTRY METHOD 04/15/2024 4:38 PM EST [facility] VLDL Cholesterol Virgilio 29.8 mg/dL LAB CHEMISTRY METHOD 04/15/2024 4:38 PM EST [facility] Non HDL Chol. (LDL+VLDL) 101 <145 mg/dL LAB CHEMISTRY METHOD 04/15/2024 4:38 PM EST [facility] Chol/HDL Ratio 3.0 0.0 - 4.4 LAB CHEMISTRY METHOD 04/15/2024 4:38 PM EST [facility] Blood Venous blood specimen / Unknown Venipuncture / Unknown 04/15/2024 3:22 PM EST 04/15/2024 4:00 PM EST us Kaity Mckenzie [employer] LAB BLOOD ORDERABLES F inal Result [facility] [address] [place] [address], * KELL DEXA AXIAL SKELETON (10/27/2022 8:32 AM EDT) Anatomical Region Laterality Modality Mammography 10/27/2022 7:35 AM EDT Narrative 10/27/2022 8:32 AM EDT [facility] Diagnostic Imaging Department [address] [place] [address] Patient: ANGELIQUE DELGADILLO TASIA /Age/Sex: 1950 - 71 - F Unit#: [id number] Location/Status: SPDIMAM/REG CLI Mnemonic/Ordering Site: MAMDEXAAX/SPMAM Ordering [...] probability of hip fracture of 0.4%. Code 92320 Dictating Physician: YADIRA WELLINGTON MD Electronically Signed by: YADIRA WELLINGTON MD Dic Date/Time: 10/27/22819 Sign date/Time: 10/27/22831 Procedure Note Yadira Wellington MD - 06/09/2023 [facility] Diagnostic Imaging Department [address] [place] [address] Patient: ANGELIQUE DELGADILLO TASIA /Age/Sex: 1950 - 71- F Unit#: [id number] Location/Status: [facility] CLI Mnemonic/[facility] Ordering Physician: NITA VILLALBA MD [facility] Dexa Axial Skeleton - 10/27/22813 Report Status:Signed [...] density of the femurs bilaterally is 1.063 gm/ew6nrwdl is 105% of that of young normals [...] probability of hip fracture of 0.4%. Code 10049 Dictating Physician: YADIRA WELLINGTON MD Electronically Signed by: YADIRA WELLINGTON MD Dic Date/Time: 10/27/22819 Sign date/Time: 10/27/22831 Nita Villalba MD IMG BI PROCEDURES Final Result from Last 3 Months or Most Recently Relevant to Health Maintenance Insurance [employer] [place] Care Teams Script Writer Relationship Specialty Start Date End Date Nita Villalba MD [address] [place] [address] [place] [id number] PCP - General Internal Medicine 03/17/24
--- OUTSIDE RECORDS SUMMARY | 2024-12-05 14:13 | XMS_ITS | Encounter Summary ---
Author Organization [employer] Address [address] [facility] [address] [facility] [address] [place] [address] Care Team Providers Care Spread Cutter Name Role Phone Unavailable Primary Care Provider Unavailabl e Encounter Details Date Type Department Care Team (Latest Contact Info) Description 07/12/2019 Abstract [facility] CONVERSIONS Dental, Provider, DDS Social History Tobacco [...]
--- OUTSIDE RECORDS SUMMARY | 2024-12-05 14:14 | XMS_ITS | Patient Health Record ---
Author Organization [facility] Address [address] [place] [address] Care Team Providers Care Prison Librarian Name Role Phone Deejay Avthomas Primary Care Provider Jarad Lacey Unavailable [phone] Allergies Allergen (clinical drug ingredient) Drug/Non Drug [...] Problem Acquired hammer toe of right foot (0527339537766874 ) Other hammer toe(s) (acquired), right foot (M20.41) Active confirmed Problem Acquired hammer toe of left foot (4359260432220123 ) Other hammer toe(s) (acquired), left foot (M20.42) Active confirmed Problem Plantar wart (84283462) Plantar wart (B07.0) Active confirmed Problem Polyneuropathy due to type 2 diabetes mellitus (886983757) Type 2 diabetes mellitus with diabetic polyneuropathy (E11.42) Active confirmed Plan Of Treatment Pending Test Test Name Order Date 51159-OPJJBAB NAIL, 6 OR MORE 08/29/2021 90221-PCPOZEW NAIL, 6 OR MORE 11/28/2021 89733-ZZYTAMB NAIL, 6 OR MORE 02/27/2022 66397-SAPJCHX NAIL, 6 OR MORE 05/29/2022 80184-BSIZURO NAIL, 6 OR MORE 10/29/2022 49628-IJRTQAG NAIL, 6 OR MORE 01/28/2023 57224-Jdpe Destruction, 1-14 01/28/2023 75604-Vldv Destruction, 1-14 10/29/2022 76893-Cgiz Destruction, 1-14 11/28/2021 24970-Fvue Destruction, 1-14 05/29/2022 84506-Hopt Destruction, 1-14 02/27/2022 50981-XVAB SKIN LESIONS, OVER 4 02/28/20 22 26407-TBUW SKIN LESIONS, OVER 4 05/29/19 23 12430-ZHYG SKIN LESIONS, OVER 4 11/29/19 22 74435-BWPX SKIN LESIONS, OVER 4 08/30/19 22 51402-VBVU SKIN LESIONS, OVER 4 10/30/19 23 56888-HVQW SKIN LESIONS, OVER 4 01/29/20 23 Insurance Providers Payer Name Payer Address Payer Phone Subscriber Number Group Number Insured Name Patient Relationship to Insured Coverage Start Date Coverage End Date [employer] Medicare Preferred [address] [place] [address] [id number] Angelique Flores Self - patient is the insured Medical (General) History Medical History History ICD Code Diabetic High blood pressure Chicken pox Surgical History Surgery Date(Month/Year) leg surgery 10/21/16 hysterectomy 30 years ago
--- OUTSIDE RECORDS SUMMARY | 2024-12-05 14:14 | XMS_ITS | Patient Health Record ---
[facility] Organization [facility] [address] Address [address] [place] [address] Care Team Providers Care Licensed Audiologist Name Role Phone NITA VILLALBA Unavailable [phone] Sonal Ribeiro Unavailable [phone] Allergies Allergen (clinical drug ingredient) Drug/Non Drug Allergy documented on EMR Reaction Allergy Type Onset Date Status semaglutide Rybelsus rash Drug Allergy Activ e amoxicillin Amoxicillin Unknown Drug Allergy Act haja Results Component Value Reference Range Notes CT ABDOMEN PELVIS WO DILMA T Reviewed date:10/19/2024 03:27:29 PM Interpretation: Performing Lab: Notes/Report: Note See Note [facility], a member of [facility] Patient Name: LAURIE MOELLER Date of : 1950 Reason for Exam: ABDOMINAL PAIN/ UNEXPLAINABLE WEIGHT LOSS Exam Date: 10/18/2024 [id number] EST Report Status: FA Ordering Provider: SONAL [...] Signed By: Brook Hirsch Signed Date: 025 16:18 ET Workstation ID: [id number] Transcribed By: Self Edit Transcribed Date: 10/18/2024 [...] Signed Date: 025 12:18 ET Workstation ID: [id number] Transcribed By: Self Edit Transcribed Date: 10/18/2024 [...] K/mcL Immature Granulocytes Absolute 0.01 0.00-0.03 K/mcL HEMOGLOBIN A1C Reviewed date:07/27/2024 01:05:49 PM Interpretation: [...] Interpretation: Performing Lab: Notes/Report: Note See Note [facility], a member of [facility] Patient Name: LAURIE MOELLER Date of : 1950 Reason for Exam: Chest wall pain Exam Date: 03/17/2024 [id number] EST Report Status: Final Ordering Provider: SONAL RIBEIRO PCP: NITA VILLALBA EXAMINATION: CT ches t without contrast. CLINICAL INDICATION: Chest wall pain COMPARISON: Chest 2 views 02/21/2024. TECHNIQUE: 2.5 mm th in axial and reformatted 2 mm thin sagittal and coronal images of chest were obtained. Scanner: GE LightSpeed 64 slice VCT Dose reduction technique: ASIR [...] Electronically Signed By: Judson Hobson Signed Date: 024 13:54 ET Workstation ID: [id number] Transcribed By: Self Edit Transcribed Date: 03/17/2024 13:43 ET RENAL PROFILE Reviewed date:03/14/2024 09:14:46 AM Interpretation: Performing Lab: Notes/Report: Note Original Ordering Provider: BACILIO ESPINAL OCCUPATIONAL THERAPY PROFESSOR-C [facility], a member of [address] [address] Rerolling Machine Operator - Mary Leos MD GLUCOSE 476 70-100 mg/dL JERARDO JOHNSTONUBE CALLED CRITICAL RESULTS AT [id number] 1620. THE RESULTS WERE READ BACK AND [...] 3.2-5.0 G/dL Note Original Ordering Provider: BACILIO [place] [facility], a member of [address] [address] Rerolling Machine Operator - Mary Leos MD LIPID PROFILE Reviewed date:03/02/2024 09:15:07 AM Interpretation: Performing Lab: Notes/Report: [facility], [place] [address] Rerolling Machine Operator - Mary Leos MD CHOLESTEROL 156 0-200 mg/dL TRIGLYCERIDES 117 0-150 mg/dL HDL CHOLESTEROL 43 >40 mg/dL LDL CALCULATED 90 0-100 mg/dL TC-HDLC RATIO 3.6 0-4.4 mg/dL CBC WITH AUTO DIFF Reviewed date:03/02/2024 10:35:53 AM Interpretation: Performing Lab: Notes/Report: Original Ordering Provider: SONAL RIBEIRO PA-C [facility] [address] Rerolling Machine Operator - Mary Leos MD WBC 6.1 4.8-10.8 [...] mg/dL JERARDO REBOLLEDO CALLED CRITICAL RESULTS AT [id number] 1617. THE RESULTS WERE READ BACK AND [...] 10-60 U/L ALK PHOS 71 42-121 U/L CBC Reviewed date:12/15/2023 09:50:33 AM Interpretation: Performing Lab: Notes/Report: Note Original Ordering Provider: BACILIO ESPINAL OCCUPATIONAL THERAPY PROFESSOR-C [facility], a member of [address] [address] Rerolling Machine Operator - Mary Leos MD WBC 6.0 4.8-10.8 [...] x10-3/uL Note Original Ordering Provider: BACILIO BERTRAND-C [facility], a member of [address] [address] Rerolling Machine Operator - Mary Leos MD CR Foot RT Min 3 Views Reviewed date:12/10/2023 03:30:43 PM Interpretation: Performing Lab: Notes/Report: Original Ordering Provider: ЕКАТЕРИНА KAUFMAN NP [facility] FREE T3 Reviewed date:12/09/2023 10:24:44 AM Interpretation: Performing Lab: Notes/Report: Original Ordering Provider: SONAL RIBEIRO PA-C FREE T3 256 230-420 pg/dl TSH Reviewed date:12/09/2023 10:24:25 AM Interpretation: Performing Lab: Notes/Report: [facility] [address] Rerolling Machine Operator - Mary Leos MD TSH 3.56 0.40-4.00 uIU/ml FREE T4 Reviewed date:12/09/2023 10:24:56 AM Interpretation: Performing Lab: Notes/Report: FREE T4 0.94 0.70-1.80 ng/dL MG MAMMO DIGITAL SCREENING W NUBIA BILAT Reviewed date:08/23/2024 07:44:41 AM Interpretation: Performing Lab: Notes/Report: Note See Note [facility], a member of [facility] Patient Name: LAURIE MOELLER Date of : 1950 Reason for Exam: ROUTINE Exam Date: 08/22/2024 [id number] EST Report Status: Final Ordering Provider: SONAL [...] Mamm[facility] [address], [address] -------- FINAL REPOR T -------- Dictated By: Omer Lee Dictated Date: 08/22/2024 17:27 ET Assigned Physician: Omer Wahl Reviewed and Electronically Signed By: Omer Wahl Signed Date: 025 17:40 ET Workstation ID: [id number] Transcribed By: Self Edit Transcribed Date: 08/22/2024 17:27 ET PROTEIN AND CREATININE WITH RATIO, URINE [...] Interpretation: Performing Lab: Notes/Report: Note See Note [facility], a member of [facility] Patient Name: LAURIE MOELLER Date of : 1950 Reason for Exam: RADICULOPATHY Exam Date: 04/15/2024 [id number] EST Report Status: Final Ordering Provider: KARRIE [...] the mid and lower thoracic spine. Code 49604 -------- FINAL REPOR T -------- Dictated By: Chandrakant Wellington Dictated Date: 04/18/2024 08:01 ET Assigned Physician: Chandrakant Wellington Reviewed and Electronically Signed By: Chandrakant Wellington Signed Date: 08:03 ET Workstation ID: [id number] Transcribed By: Self Edit Transcribed Date: 04/18/2024 08:01 ET LIPID PANEL WITH REFLEX TO D IRECT LDL Reviewed date:04/19/2024 08:18:44 AM Interpretation: Performing Lab: Notes/Report: Cholesterol 151 0-200 mg/dL Triglycerides 149 0-150 mg/dL HDL 50 >=40 mg/dL LDL Calculated 71 0-100 mg/dL VLDL Cholesterol Greg 29.8 Non HDL Chol. (LDL+VLDL) 101 <145 mg/dL Chol/HDL Ratio 3.0 0.0-4.4 INTACT PTH Reviewed date:12/15/2023 10:26:04 AM Interpretation: Performing Lab: Notes/Report: Note Original Orderi ng Provider: BACILIO SOMMERPHomero INTACT PTH 120 18-88 pg/mL VITAMIN D, 25-HYDROXY Reviewed date:12/15/2023 10:26:04 AM Interpretation: Performing Lab: Notes/Report: [facility], [place] [address] Rerolling Machine Operator - Mary Leos MD VITAMIN D, 25-HYDROXY 42 30-80 ng/mL MICROALB/CREAT RATIO, RANDOM Reviewed date:12/15/2023 11:07:39 AM Interpretation: Performing Lab: Notes/Report: Original Ordering Provider: BACILIO CLEVELAND [facility] [address] Rerolling Machine Operator - Mary Leos MD CREATININE, RANDOM URINE 53 MICROALBUMIN, RANDOM 1190.0 0.0-29.0 mg/L MICROALB/CRE RATIO RANDOM 2245.2 0.0-30.0 mg/G Reason For Referral Diagnosis 1 Decreased hearing of both ears (H91.93) Referral Organization [facility] [address] Referring Provider First Name Sonal Referring Provider Last Name Svrcek Referring Provider Speciality Internal M edicine Referred Provider Specialty Ear, nose an d throat surgeon General Notes [address], [address] [address], phone [phone], fax [phone], [phone] Clinical Notes Lamar Rolon 04/2024 02:25:56 PM > refaxed to [phone], Lamar Rolon 12/21/2023 04:19:43 PM > I called the office and they informed me that the patient had three no-shows and is no longer allowed back in their practice. We need to send the referral to a different practice. I informed Reyna about this, Tenzin Mcclure 12/22/2023 11:49:53 AM >refaxed referral to ENT in [facility] @ fax number [phone] and there phone number is [phone], Lamar Rolon 12/29/2023 01:52:39 PM > refaxed to [phone], Lamar Rolon 01/08/2024 09:45:29 AM > refaxed to [phone], Danya Dash 01/12/2024 08:07:01 AM >referral not accepeted at [facility] due to insurance Referral Priority Routine Diagnosis 1 Decreased hearing of both ears (H91.93) Referral Organization [facility] [address] Referring Provider First Name NITA Referring Provider Last Name SANKET Referring Provider Speciality Internal M edicine Referred Provider Cesar Londono Referred Provider Specialty Ear, nose an d throat surgeon General Notes [address] [place] [address] [place] [address], , Clinical Notes Lamar Rolon 10:32:52 AM [...] Provider Specialty Physical The rapist General Notes [address] [place] [address], (p) [phone], (f)[phone] Clinical Notes Yolande Kessler 02:59:34 PM >referral faxed Referral Priority Routine Reason [email or web address]; ty pe 2 diabetes Diagnosis 1 Type 2 diabetes saira itus without complication, without long-term current use of insulin (E11.9) [facility] Referring Provider First Name NITA Referring Provider Last Name SANKET Referring Provider Speciality Internal edicine Referred Provider Specialty Nutrition General Notes [address] [facility], (p) [phone] Clinical Notes Corrine Dwyer 08/09 03:30:31 PM >, patient referred to alternative provider Referral Priority Routine Reason [employer]; diabeti c management program Diagnosis 1 Type 2 diabetes saira itus without complications (E11.9) Referral Organization [facility] Referring Provider First Name NITA Referring Provider Last Name SANKET [facility] Referred Provider Specialty Miscellaneou s General Notes (p) [phone], (f ) [phone] Clinical Notes Yolande Kessler 01:29:08 PM > manually faxed with attachments, they do not take [facility] Referral Priority Routine Reason patient needing home services / diabetes education Diagnosis 1 Decreased hearing of both ears (H91.93) Diagnosis 2 Heart disease (I51.9 ) Diagnosis 3 Primary hypertension (I10) Diagnosis 4 Uncontrolled type 2 diabetes mellitus with hyperglycemia (E11.65) [facility] [address] [facility] Referring Provider First Name NITA Referring Provider Last Name SANKET Referring [facility] Internal edicine Referred Provider Specialty Miscellaneou s General Notes alessandra CARRILLO , phone - [phone] , fax- [phone] Clinical Notes Corrine Dwyer 08/09 03:33:47 PM >, faxed pt is aware, Lamar Rolon 09/07/2024 03:34:27 PM > refaxed to [phone], Lamar Rolon 12/01/2024 03:52:04 PM > refaxed to [phone] Referral Priority Routine Reason [facility] Diagnosis 1 Uncontrolled type 2 diabetes mellitus with hyperglycemia (E11.65) Referral Organization [facility] Referring Provider First Name NITA Referring Provider Last Name SANKET Referring Provider Speciality Internal edicine Referred Provider Specialty Endocrinolog y General Notes [facility], phone - , [address], [address], [place] , fax- [phone] Clinical Notes Corrine Dwyer 09/28 10:03:59 AM >, referral faxed with [...] Provider Specialty Vascular Daquan delfina General Notes [facility] specialty a ppt request form faxed to [facility]. Fax - [phone] results , last office note and demographics. Clinical Notes Maggie Phillips 10/20/19 02:38:20 PM >, Lamar Rolon 10/25/2024 01:55:53 PM > RefaxedGonzales Redena 10/31/2024 03:51:13 PM > Not contracted with Yuliya Wong Julia 10/31/2024 03:59:06 PM >, re-faxed to [facility] [address] [place] [address], phone- [phone], fax- [phone] Referral Priority Routine Medications Medication SIG (Take, [...] days freestyle celso 3 plus 08/17/2024 Active Toujeo Max SoloStar 300 UNIT/ML INJECT SUBCUTANEOUSLY 50 UNITS [...] Notes Problem Anemia in chronic kidney disease (352102588) Anemia in chronic kidney disease (D63.1) Active confirmed Problem Type II diabetes mellitus without complication (962772193) Type 2 diabetes mellitus without complications (E11.9) Active confirmed Problem Chronic pain (38607111) Other chronic pain (G89.29) Active confirmed Problem Acquired spondylolisthesis (870387510) Spondylolisthesis, thoracic region (M43.14) Active confirmed Problem Low back pain (176379927) Low back pain (M54.5) Active confirmed Problem Adult health examination (882550924) Encounter for general adult medical examination without abnormal findings (Z00.00) Active confirmed Problem Long-term current us e of insulin (654345812) watermaster (current) use of insulin (Z79.4) Active confirmed Problem Hyperlipidemia (27351425) Hyperlipidemia, unspecified (E78.5) Active confirmed Problem Moderate nonproliferative retinopathy of right eye due to diabetes mellitus (disorder) (073154758) Type 2 diabetes mellitus with moderate nonproliferative diabetic retinopathy with macular edema, right eye (E11.3311) Active confirmed Problem Proliferative diabetic retinopathy due to type II diabetes mellitus (4610431518436) Type 2 diabetes mellitus with stable proliferative diabetic retinopathy, bilateral (E11.3553) Active confirmed Problem Essential hypertension (33139167) Essential hypertension (I10) Active confirmed Problem Hearing loss (66308823) Decreased hearing of both ears (H91.93) Active confirmed Problem Colon cancer screening (714490360) Colon cancer screening (Z12.11) Active confirmed Problem Disorder due to type 2 diabetes mellitus (745273994) Type 2 diabetes mellitus with complication, unspecified whether extermination inspector insulin use (E11.8) Active confirmed Problem Hyperlipidaemia (33652101) Hyperlipidemia, unspecified hyperlipidemia type (E78.5) Active confirmed Problem Acquired hypothyroidism (759666907) Acquired hypothyroidism (E03.9) Active confirmed Problem Hypothyroidism (24957988) Hypothyroidism, unspecified type (E03.9) Active confirmed Problem Essential hypertension (20330327) Jovanna hypertension (I10) Active confirmed Problem Vitamin D deficiency (62409598) Vitamin D deficiency (E55.9) Active confirmed Problem Screening for malignant neoplasm of breast (225095073) Breast cancer screening by mammogram (Z12.31) Active confirmed Problem Constipation (03442038) Constipation, unspecified constipation type (K59.00) Active confirmed Problem Essential hypertension (70863500) Hypertension, unspecified type (I10) Active confirmed Problem Type II diabetes mellitus without complication (786817042) Type 2 diabetes mellitus without complication, without long-term current use of insulin (E11.9) Active confirmed Problem Type II diabetes mellitus without complication (662626762) Type 2 diabetes mellitus without complication, unspecified whether extermination inspector insulin use (E11.9) Active confirmed Problem Peripheral vascular disease (128528592) PVD (peripheral vascular disease) (I73.9) Active confirmed Problem Gastroesophageal reflux disease with esophagitis (disorder) (628350270) Gastroesophageal reflux disease with esophagitis without hemorrhage (K21.00) Active confirmed Problem Chronic kidney disease stage 3A (780228252) Stage 3a chronic kidney disease (N18.31) Active confirmed Problem Aortic aneurysm (36216395) Aortic aneurysm without rupture, unspecified portion of aorta (I71.9) Active confirmed Problem Primary hypertension (61823452) Primary hypertension (I10) Active confirmed Problem Eruption of skin (013797529) Rash and nonspecific skin eruption (R21) Active confirmed Problem Hyperglycemia due to type 2 diabetes mellitus (262563682454866) Uncontrolled type 2 diabetes mellitus with hyperglycemia (E11.65) Active confirmed Problem Dyspnea on exertion (51008766) Dyspnea on exertion (R06.00) Active confirmed Problem Diastolic dysfunctio n (6477723) Diastolic dysfunction (I51.89) Active confirmed Problem Allergic contact dermatitis (160501309) Allergic dermatitis (L23.9) Active confirmed Problem Heart disease (66289187) Heart disease (I51.9) Active confirmed Problem Abdominal aortic aneurysm without rupture (disorder) (28775222) Abdominal aortic aneurysm (AAA) without rupture, unspecified part (I71.40) Active confirmed Problem Congenital hypothyroidism screening test (472176325) Screening for hypothyroidism (Z13.29) Active confirmed Problem Hyperaldosteronism (69446125) Hyperaldosteronism (E26.9) Active confirmed Problem Hyperparathyroidism due to renal insufficiency (84569757) Hyperparathyroidism, 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) Active confirmed Problem Thoracic spondylosis (527768526) Thoracic spondylosis (M47.814) Active confirmed Vital Signs Heart Rate 79 /min 10/25/2024 Oximetry 99 % 10/25/2024 Blood pressure diastolic 60 mm Hg 10/25/2024 Height 65 in 10/25/2024 Blood pressure systolic 136 mm Hg 10/25/2024 Weight 150.8 lbs 10/25/2024 BMI 25.09 kg/m2 10/25/2024 Encounters Encounter Location Date Provider Diagnosis [facility] [address] [address] 09/15/2024 Sonal Svrcek [facility] [address] [address] 11/30/2024 Sonal Svrcek [facility] [address] [address] 12/08/2023 Sonal Svrcek Type 2 diabetes saira itus with complication, unspecified whether extermination inspector insulin use E11.8 ; Essential hypertension I10 ; Right foot pain M79.671 ; Decreased hearing of both ears H91.93 and Abnormal TSH R79.89 [facility] [address] [address] 01/27/2024 Sonal Svrcek Essential hypertensi on I10 ; Type 2 diabetes mellitus without complication, unspecified whether fci insulin use E11.9 ; Stage 3a chronic kidney disease N18.31 ; Hyperaldosteronism E26.9 ; Hyperparathyroidism, secondary renal N25.81 and Anemia in chronic kidney disease D63.1 [facility] [address] 02/18/2024 Sonal Svrcek Other chronic pain G 89.29 ; Right-sided chest wall pain R07.89 ; Pleuritic pain R07.81 ; Pain in thoracic spine M54.6 and Essential hypertension I10 [facility] [address] 02/24/2024 Sonal Svrcek Other chronic pain G 89.29 ; Right-sided chest wall pain R07.89 ; Pleuritic pain R07.81 and Essential hypertension I10 [facility] [address] [address] 03/17/2024 Sonal Svrcek Other chronic pain G 89.29 ; Right-sided chest wall pain R07.89 ; Pleuritic pain R07.81 ; Essential hypertension I10 and Thoracic spondylosis M47.814 [facility] [address] [address] 06/16/2024 Sonal Svrcek Essential hypertensi on I10 ; Type 2 diabetes mellitus with complication, unspecified whether extermination inspector insulin use E11.8 ; Hyperlipidemia, unspecified E78.5 ; watermaster (current) use of insulin Z79.4 ; Hyperaldosteronism E26.9 and Stage 3a chronic kidney disease N18.31 [facility] [address] [address] 07/27/2024 Sonal Svrcek Essential hypertensi on I10 ; Type 2 diabetes mellitus with complication, unspecified whether extermination inspector insulin use E11.8 ; Hyperlipidemia, unspecified E78.5 ; watermaster (current) use of insulin Z79.4 ; Hyperaldosteronism E26.9 ; Stage 3a chronic kidney disease N18.31 ; Systolic murmur R01.1 and Breast cancer screening by mammogram Z12.31 [facility] [address] [address] 09/21/2024 Sonal Svrcek Essential hypertensi on I10 ; Abdominal distention R14.0 ; Unexplained weight loss R63.4 ; Type 2 diabetes mellitus with complication, unspecified whether fci insulin use E11.8 ; Hyperlipidemia, unspecified E78.5 ; nursing home (current) use of insulin Z79.4 ; Hyperaldosteronism E26.9 ; Stage 3a chronic kidney disease N18.31 and Breast cancer screening by mammogram Z12.31 [facility] [address] 10/25/2024 Sonal Svrcek Type 2 diabetes saira itus with complication, unspecified whether fci insulin use E11.8 ; Aortic aneurysm without rupture, unspecified portion of aorta I71.9 ; Unexplained weight loss R63.4 ; Hyperlipidemia, unspecified E78.5 ; nursing home (current) use of insulin Z79.4 ; Hyperaldosteronism E26.9 ; Stage 3a chronic kidney disease N18.31 and Hypertension, unspecified type I10 [facility] [address] [place] [address] 12/09/2023 Sonal Svrcek [facility] [address] [place] [address] 12/09/2023 TALAL VILLALBA [facility] [address] 12/21/2023 Sonal Svrcek [facility] [address] [place] [address] 01/12/2024 TALAL VILLALBA [facility] [address] 02/05/2024 TALAL VILLALBA [facility] [address] 02/18/2024 TALAL VILLALBA [facility] [address] [place] [address] 02/24/2024 Sonal Svrcek [facility] [address] 03/01/2024 Sonal Svrcek [facility] [address] [place] [address] 03/15/2024 TALAL VILLALBA [facility] [address] [place] [address] 03/18/2024 Sonal Svrcek [facility] [address] [place] [address] 03/30/2024 Sonal Svrcek [facility] [address] [place] [address] 04/12/2024 Sonal Svrcek [facility] [address] [place] [address] 04/14/2024 TALAL VILLALBA [facility] [address] [place] [address] 04/19/2024 Sonal Svrcek [facility] [address] [place] [address] 05/13/2024 Sonal Svrcek [facility] [address] [place] [address] 05/24/2024 TALAL VILLALBA [facility] [address] [place] [address] 06/16/2024 TALAL VILLALBA [facility] [address] [place] [address] 07/26/2024 Sonal Svrcek [facility] [address] [place] [address] 07/27/2024 TALAL VILLALBA [facility] [address] [place] [address] 08/04/2024 TALAL VILLALBA [facility] [address] [place] [address] 08/08/2024 TALAL VILLALBA [facility] [address] [place] [address] 08/17/2024 Sonal Svrcek [facility] [address] [place] [address] 08/22/2024 Sonal Svrcek [facility] [address] [place] [address] 08/22/2024 Sonal Svrcek [facility] [address] [place] [address] 09/14/2024 Sonal Svrcek [facility] [address] [place] [address] 09/16/2024 Sonal Svrcek [facility] [address] [place] [address] 09/22/2024 Sonal Svrcek [facility] [address] [place] [address] 10/06/2024 TALAL VILLALBA [facility] [address] [place] [address] 10/18/2024 Sonal Svrcek [facility] [address] [place] [address] 10/19/2024 Sonal Svrcek [facility] [address] [address] 10/25/2024 TALAL VILLALBA [facility] [address] [address] 10/31/2024 TALAL VILLALBA [facility] [address] [address] 11/15/2024 Sonal Svrcek [facility] [address] [address] 12/01/2024 Sonal Svrcek Assessments Encounter Date Diagnosis (ICD Code) Assessment [...] Dictation was accomplished with the use of [employer] 2000 voice recognition software, prone to medical misidentifications [...] 2 diabetes mellitus with complication, unspecified whether extermination inspector insulin use (ICD-10 - E11.8) #Type 2 [...] Dictation was accomplished with the use of [employer] 2000 voice recognition software, prone to medical misidentifications [...] Followed by [facility]. 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 She has [...] Dictation was accomplished with the use of [employer] 2000 voice recognition software, prone to medical misidentifications [...] 2 diabetes mellitus without complication, unspecified whether extermination inspector insulin use (ICD-10 - E11.9) #Hypertension. Uncontrolled. Followed by [facility] transplant [facility]. 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 She has [...] Dictation was accomplished with the use of [employer] 2000 voice recognition software, prone to medical misidentifications [...] Dictation was accomplished with the use of [employer] 2000 voice recognition software, prone to medical misidentifications [...] Dictation was accomplished with the use of [employer] 2000 voice recognition software, prone to medical misidentifications [...] Dictation was accomplished with the use of [employer] 2000 voice recognition software, prone to medical misidentifications [...] Dictation was accomplished with the use of [employer] 2000 voice recognition software, prone to medical misidentifications [...] symptoms. Discussed options we will send to [facility] for consult. n #Hypertension. Uncontrolled. Followed by nephrology and cardiology. Has had extensive workup for secondary causes of hypertension. MRI did show nonspecific adrenal cortical thickening without mass or nodule. Continue to follow with nephrology. Follow labs closely. #Thoracic spondylosis noted on CT done this morning. T4-T12. Will refer to [facility]. Question could this be contributing to her intermittent chest pain as above. Case discussed with collaborating physician Yeni Villalba who reviewed the assessment and plan. Chart, medications, labs, vital signs reviewed. Dictation was accomplished with the use of [employer] 2000 voice recognition software, prone to medical misidentifications [...] symptoms. Discussed options we will send to [facility] for consult. n #Hypertension. Uncontrolled. Followed by nephrology and cardiology. Has had extensive workup for secondary causes of hypertension. MRI did show nonspecific adrenal cortical thickening without mass or nodule. Continue to follow with nephrology. Follow labs closely. #Thoracic spondylosis noted on CT done this morning. T4-T12. Will refer to [employer] [facility] [employer] [facility]. Question could this be contributing to her intermittent chest pain as above. Case discussed with collaborating physician Yeni Villalba who reviewed the assessment and plan. Chart, medications, labs, vital signs reviewed. Dictation was accomplished with the use of [employer] 2000 voice recognition software, prone to medical misidentifications [...] the past month. Advised to call her online journalist to discuss whether or not she should [...] it. I advised her to call her online journalist today to discuss further with them in regards to remaining off versus restarting. #Chronic kidney disease. As above. Followed by nephrology. Will get updated labs prior to follow-up in 6 weeks. Case discussed with collaborating physician Yeni Villalba who reviewed the assessment and plan. Chart, medications, labs, vital signs reviewed. Dictation was accomplished with the use of [employer] 2000 voice recognition software, prone to medical misidentifications [...] monitoring blood glucose closely. Will refer to structural welder. She has not tolerated Rybelsus or Farxiga [...] Dictation was accomplished with the use of [employer] 2000 voice recognition software, prone to medical misidentifications [...] 2 diabetes mellitus with complication, unspecified whether extermination inspector insulin use (ICD-10 - E11.8) #Hypertension. Blood [...] monitoring blood glucose closely. Will refer to structural welder. She has not tolerated Rybelsus or Farxiga [...] Dictation was accomplished with the use of [employer] 2000 voice recognition software, prone to medical misidentifications [...] Dictation was accomplished with the use of [employer] 2000 voice recognition software, prone to medical misidentifications [...] Dictation was accomplished with the use of [employer] 2000 voice recognition software, prone to medical misidentifications [...] 2 diabetes mellitus with complication, unspecified whether fci insulin use (ICD-10 - E11.8) #Aortic aneurysm. [...] by nephrology. Case discussed with collaborating physician eYni Villalba who reviewed the assessment and plan. Chart, medications, labs, vital signs reviewed. Dictation was accomplished with the use of [employer] 2000 voice recognition software, prone to medical misidentifications [...] Dictation was accomplished with the use of [employer] 2000 voice recognition software, prone to medical misidentifications [...] Dictation was accomplished with the use of [employer] 2000 voice recognition software, prone to medical misidentifications [...] Dictation was accomplished with the use of [employer] 2000 voice recognition software, prone to medical misidentifications [...] monitoring blood glucose closely. Will refer to structural welder. She has not tolerated Rybelsus or Farxiga [...] Dictation was accomplished with the use of [employer] 2000 voice recognition software, prone to medical misidentifications [...] 2 diabetes mellitus with complication, unspecified whether extermination inspector insulin use (ICD-10 - E11.8) #Hypertension. Blood pressure is actually improved today compared to previous. Of note she has been off the eplerenone for the past month. Advised to call her online journalist to discuss whether or not she should [...] it. I advised her to call her online journalist today to discuss further with them in regards to remaining off versus restarting. #Chronic kidney disease. As above. Followed by nephrology. Will get updated labs prior to follow-up in 6 weeks. Case discussed with collaborating physician Yeni Villalba who reviewed the assessment and plan. Chart, medications, labs, vital signs reviewed. Dictation was accomplished with the use of [employer] 2000 voice recognition software, prone to medical misidentifications [...] symptoms. Discussed options we will send to [facility] for consult. n #Hypertension. Uncontrolled. Followed by nephrology and cardiology. Has had extensive workup for secondary causes of hypertension. MRI did show nonspecific adrenal cortical thickening without mass or nodule. Continue to follow with nephrology. Follow labs closely. #Thoracic spondylosis noted on CT done this morning. T4-T12. Will refer to [facility]. Question could this be contributing to her intermittent chest pain as above. Case discussed with collaborating physician Yeni Villalba who reviewed the assessment and plan. Chart, medications, labs, vital signs reviewed. Dictation was accomplished with the use of [employer] 2000 voice recognition software, prone to medical misidentifications [...] Dictation was accomplished with the use of [employer] 2000 voice recognition software, prone to medical misidentifications [...] Dictation was accomplished with the use of [employer] 2000 voice recognition software, prone to medical misidentifications [...] [facility]. 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 She has [...] Dictation was accomplished with the use of [employer] 2000 voice recognition software, prone to medical misidentifications [...] Dictation was accomplished with the use of [employer] 2000 voice recognition software, prone to medical misidentifications [...] Dictation was accomplished with the use of [employer] 2000 voice recognition software, prone to medical misidentifications [...] Follow[facility] by [facility]. 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 Advised to call her online journalist to discuss whether or not she should [...] it. I advised her to call her online journalist today to discuss further with them in regards to remaining off versus restarting. #Chronic kidney disease. As above. Followed by nephrology. Will get updated labs prior to follow-up in 6 weeks. Case discussed with collaborating physician Yeni Villalba who reviewed the assessment and plan. Chart, medications, labs, vital signs reviewed. Dictation was accomplished with the use of [employer] 2000 voice recognition software, prone to medical misidentifications [...] symptoms. Discussed options we will send to [facility] for consult. n #Hypertension. Uncontrolled. Followed by nephrology and cardiology. Has had extensive workup for secondary causes of hypertension. MRI did show nonspecific adrenal cortical thickening without mass or nodule. Continue to follow with nephrology. Follow labs closely. #Thoracic spondylosis noted on CT done this morning. T4-T12. Will refer to [facility]. Question could this be contributing to her intermittent chest pain as above. Case discussed with collaborating physician Yeni Villalba who reviewed the assessment and plan. Chart, medications, labs, vital signs reviewed. Dictation was accomplished with the use of [employer] 2000 voice recognition software, prone to medical misidentifications [...] next visit it any questions/concerns arise. 07/27/2024 nursing home (current) use of insulin (ICD-10 - Z79.4) [...] monitoring blood glucose closely. Will refer to structural welder. She has not tolerated Rybelsus or Farxiga [...] Dictation was accomplished with the use of [employer] 2000 voice recognition software, prone to medical misidentifications [...] 2 diabetes mellitus with complication, unspecified whether fci insulin use (ICD-10 - E11.8) #Abdominal distention [...] Dictation was accomplished with the use of [employer] 2000 voice recognition software, prone to medical misidentifications [...] Dictation was accomplished with the use of [employer] voice recognition software, prone to medical misidentifications [...] next visit it any questions/concerns arise. 10/25/2024 [facility] (current) use of insulin (ICD-10 - Z79.4) [...] Dictation was accomplished with the use of [employer] 2000 voice recognition software, prone to medical misidentifications [...] Dictation was accomplished with the use of [employer] 2000 voice recognition software, prone to medical misidentifications [...] monitoring blood glucose closely. Will refer to structural welder. She has not tolerated Rybelsus or Farxiga [...] Dictation was accomplished with the use of [employer] 2000 voice recognition software, prone to medical misidentifications [...] symptoms. Discussed options we will send to [employer] for consult. n #Hypertension. Uncontrolled. Followed by nephrology and cardiology. Has had extensive workup for secondary causes of hypertension. MRI did show nonspecific adrenal cortical thickening without mass or nodule. Continue to follow with nephrology. Follow labs closely. #Thoracic spondylosis noted on CT done this morning. T4-T12. Will refer to [employer]. Question could this be contributing to her intermittent chest pain as above. Case discussed with collaborating physician Yeni Villalba who reviewed the assessment and plan. Chart, medications, labs, vital signs reviewed. Dictation was accomplished with the use of [employer] 2000 voice recognition software, prone to medical misidentifications [...] next visit it any questions/concerns arise. 06/16/2024 nursing home (current) use of insulin (ICD-10 - Z79.4) #Hypertension. Blood pressure is actually improved today compared to previous. Of note she has been off the eplerenone for the past month. Advised to call her online journalist to discuss whether or not she should [...] it. I advised her to call her online journalist today to discuss further with them in regards to remaining off versus restarting. #Chronic kidney disease. As above. Followed by nephrology. Will get updated labs prior to follow-up in 6 weeks. Case discussed with collaborating physician Yeni Villalba who reviewed the assessment and plan. Chart, medications, labs, vital signs reviewed. Dictation was accomplished with the use of [employer] 2000 voice recognition software, prone to medical misidentifications [...] Dictation was accomplished with the use of [employer] voice recognition software, prone to medical misidentifications [...] [facility]. 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 She has [...] Dictation was accomplished with the use of [employer] 2000 voice recognition software, prone to medical misidentifications [...] Dictation was accomplished with the use of [employer] voice recognition software, prone to medical misidentifications [...] Follow[facility] by [facility]. 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 She has [...] Dictation was accomplished with the use of [employer] 2000 voice recognition software, prone to medical misidentifications [...] the past month. Advised to call her online journalist to discuss whether or not she should [...] it. I advised her to call her online journalist today to discuss further with them in regards to remaining off versus restarting. #Chronic kidney disease. As above. Followed by nephrology. Will get updated labs prior to follow-up in 6 weeks. Case discussed with collaborating physician Yeni Villalba who reviewed the assessment and plan. Chart, medications, labs, vital signs reviewed. Dictation was accomplished with the use of [employer] 2000 voice recognition software, prone to medical misidentifications [...] monitoring blood glucose closely. Will refer to structural welder. She has not tolerated Rybelsus or Farxiga [...] Dictation was accomplished with the use of [employer] 2000 voice recognition software, prone to medical misidentifications [...] next visit it any questions/concerns arise. 09/21/2024 nursing home (current) use of insulin (ICD-10 - Z79.4) [...] Dictation was accomplished with the use of [employer] 2000 voice recognition software, prone to medical misidentifications [...] Dictation was accomplished with the use of [employer] 2000 voice recognition software, prone to medical misidentifications [...] Dictation was accomplished with the use of [employer] 2000 voice recognition software, prone to medical misidentifications [...] Dictation was accomplished with the use of [employer] 2000 voice recognition software, prone to medical misidentifications [...] monitoring blood glucose closely. Will refer to structural welder. She has not tolerated Rybelsus or Farxiga [...] Dictation was accomplished with the use of [employer] 2000 voice recognition software, prone to medical misidentifications [...] the past month. Advised to call her online journalist to discuss whether or not she should [...] it. I advised her to call her online journalist today to discuss further with them in regards to remaining off versus restarting. #Chronic kidney disease. As above. Followed by nephrology. Will get updated labs prior to follow-up in 6 weeks. Case discussed with collaborating physician Yeni Villalba who reviewed the assessment and plan. Chart, medications, labs, vital signs reviewed. Dictation was accomplished with the use of [employer] 2000 voice recognition software, prone to medical misidentifications [...] monitoring blood glucose closely. Will refer to structural welder. She has not tolerated Rybelsus or Farxiga [...] Dictation was accomplished with the use of [employer] 2000 voice recognition software, prone to medical misidentifications [...] Dictation was accomplished with the use of [employer] 2000 voice recognition software, prone to medical misidentifications [...] Dictation was accomplished with the use of [employer] voice recognition software, prone to medical misidentifications [...] Dictation was accomplished with the use of [employer] 2000 voice recognition software, prone to medical misidentifications [...] Dictation was accomplished with the use of [employer] 2000 voice recognition software, prone to medical misidentifications [...] CULTURE 01/14/2023 Next Appt Details Provider Name:Sonal Riebiro, 0 12/27/2024 02:00:00 PM, [address] [facility] [address], [place], [address], Insurance Providers Payer Name Payer Address Payer Phone Subscriber Number Group Number Insured Name Patient Relationship to Insured Coverage Start Date Coverage End Date [employer] Preferred [address] [place] [place] [phone] [id number] LAURIE CHOUDHARY Self - patient is the insured 0 Medical (General) History Medical History History ICD Code hypertension hyperlipidemia type II diabetes acid reflux Surgical History Surgery Date(Month/Year) hysterectomy Left leg surgery x2 due to infection of muscle causing sepsis 2017 Hospitalization History Reason Date(Month/Year) diabetes 2002
--- NOTE | 2024-12-05 15:01 | MHC.AMDMED ---
Intake Intake Visit Reasons: Type 2 diabetes mellitus with hyperglycemia Technical Applications Specialist Required: No Accompanied by: Daughter Allergies amoxicillin Allergy (Mild, Verified 11/21/24 14:49) Rash semaglutide (From Rybelsus) Allergy (Mild, Verified 11/21/24 14:49) Rash HPI Comprehensive Diabetes Asmnt Most Recent Diabetes Results: Creatinine, (0.5-1.4) 0.87 mg/dL 11/30/24 BUN, (9-16) 16 mg/dL 11/30/24 Sodium, (135-145) 143 mmol/L 11/30/24 Potassium, (3.3-5.1) 3.5 mmol/L 11/30/24 Chloride, (96-108) 107 mmol/L 11/30/24 Carbon Dioxide, (22-29) 27 mmol/L 11/30/24 Calcium, (8.4-10.2) 8.8 mg/dL 11/30/24 AST, (5-31) 19 U/L 11/30/24 ALT, (0-31) 20 U/L 11/30/24 Total Protein, (6.5-8.0) 7.0 g/dL 11/30/24 Albumin, (3.5-5.0) 4.1 g/dL 11/30/24 PFSH Surgical History (Updated 11/21/24 @ 14:33 by NIKOLE Rice) History of surgery on lower extremity History of back surgery Hx of hysterectomy Family History (Updated 11/21/24 @ 14:33 by NIKOLE Rice) Father Diabetes mellitus Mother Diabetes mellitus Social History (Updated 11/21/24 @ 14:28 by NIKOLE Rice) Alcohol intake: current Alcohol intake frequency: does not drink Patient Tobacco Use Status: Never used Tobacco Assessment & Plan Assessment & Plan (1) Type 2 diabetes mellitus with hyperglycemia, with long-term current use of insulin: Code(s): E11.65 - Type 2 diabetes mellitus with hyperglycemia; Z79.4 - terminal operations manager (current) use of insulin Plan: Diabetes self-management education and support participation record Assessment/scale: 1= needs instructed? 2= needs review? 3= comprehend keep point? 4= demonstrates understanding/ competent? NC= Not Covered Topics Learning Objective: Initial visit Initial or post srvc Initial or post srvc Initial or post srvc Initial or post srvc Initial or post srvc Post srvc Comments Pre Edu-assessment/plan Outcome or reassess Outcome or reassess Outcome or reassess Outcome or reassess Outcome or reassess Outcome or reassess Diabetes pathophysiology 1 Healthy eating 1 Being active 1 Taking medication 1 Monitoring glucose 1 Acute complication 1 Chronic complicated 1 Lifestyle and healthy coping 1 Diabetes distress in support 1 ?Diabetes pathophysiology: ?Defined diabetes med identify own type of diabetes; list 3 options for treating diabetes Healthy eating: ?Described effect of type, amount and ?timing of food on blood glucose; list 3 methods for planning meal Being active: ?State effect of exercise on blood glucose level Taking medication: ?State effect of diabetes medications on diabetes; name diabetes medications taking, action and side effects Monitoring glucose: ?Identify recommended blood glucose targets and personal target Acute complication: ?List symptoms and treatment of hyper and hypoglycemia, DKA, sick day guidelines and guidelines for severe weather or situations of crisis and diabetes supply manage Chronic complication: ?To find the relationship of blood glucose levels to long-term complications of diabetes in screening and preventative measures Lifestyle and healthy coping: ?Described lifestyle and healthy coping strategies to rule out diabetes self-management Diabetes to stress and support: ?Recognize Diabetes to stress and be able to identified support options Learning objectives: The patient was provided with verbal and written education on the following topics as outlined below. The patient met all learning objectives and was able to verbalize understanding and provide teach back of education topics discussed . The patient was provided with the opportunity to ask questions and all questions were answered. Patient Assessment Assess patient education level/literacy/barriers, patient's A1c on 11/21/2024 10.2%. Patient's insulin was adjusted on 11/21/2024 by endocrine PA. average glucose for the past 2 weeks 198 mg/dL Patient at visit with her daughter, reports she does shopping and cooking for family. Patient takes Toujeo max 10 units daily Humalog 4 units before meals Metformin 1000 mg daily Uses Celso 3 +sensor with smart phone to review glucose numbers Patient questions/concerns What is Diabetes? Pathophysiology How the body produces and uses insulin Identify type of DM Risk factors Signs of Diabetes Brief overview of Diabetes Management Monitoring blood sugar Following a meal plan Regular exercise Maintaining a healthy weight Taking medication as needed Members of the care team (PCP, RN, MA, RD, CDE, service delivery manager) Blood glucose monitoring When/how often to test Target blood sugar ranges Introduction to Nutrition Importance of healthy diet in managing DM Diet is personalized to individual preference Review patient?s regular diet/food preferences Who prepares meals/does food shopping/ Dining out?/ Barriers? How diet effects glucose Eating 3 balanced meals a day with small, healthy snacks between meals Review food groups Carbohydrates: What is a carbohydrate/Which food/food groups are considered carbohydrates Effect of carbohydrates on blood glucose Portion sizes Reading food labels Basic carb counting (if applicable per nursing assessment) Plate method Meal planning Recommendations: Follow plate method, consistent carbs and read nutritional labels. Smart Goal: Patient will identify foods in current meal plan that contain carbohydrate Educational Materials: The patient was provided with the following written educational materials: Planning Healthy Meals Handout Patient Response to instructions: Comprehension of Instructions: Fair Readiness to make changes: Contemplation How confident they feel about making changes: fair Portions of this note were created using voice recognition software, please excuse any words or phrases that may have been misinterpreted. Patient Instructions: Include regular daily activity. ADA recommends 30 minutes of exercise 5 days a week. Weight loss talk to PCP or Procurement Accountant before starting new plan. Test blood sugar as directed; Fasting and 2hpp largest meal. Watch trends in results. Utilize results and to assess how food, physical activity and medications affect blood sugar results. Bring glucometer or CGM to next visit. Be knowledgeable about diabetes medication, its action, side effects, efficacy, toxicity, prescribed dosage, appropriate timing and frequency of administration, effect of missed and delayed doses and instructions for storage, travel and safety. Problem solving techniques to monitor hypo/hyperglycemia episodes and treatments. Reduce risk reduction behaviors, smoking cessation, regular eye, foot and dental examinations. Coding Level of Care Code Est Pt Level 1 (23914) Diagnoses Type 2 diabetes mellitus with hyperglycemia, with long-term current use of insulin E11.65; Z79.4
== END 2024-12-05 15:06 | disposition home or self-care (01) ==
LOC: HO.ENCR 14:05
PROVIDERS: PCP Internal Medicine; Visit Provider Registered Nurse Diabetes Educator
DX: E11.65 Type 2 diabetes mellitus with hyperglycemia (principal); Z79.4 Long term (current) use of insulin

== ENCOUNTER 2024-12-30 13:49 | Outpatient (AMB) | payer MEDICARE, SELFPAY ==
--- OUTSIDE RECORDS SUMMARY | 2024-11-30 09:45 | XMS_ITS ---
Author Organization [facility] [address] Address [address] [place] [address] Care Team Providers Care Automatic Equipment Technician Name Role Phone NITA COLES Unavailable [phone] Ernestina Watson Unavailable [phone] Encounters Encounter Location Date Provider Diagnosis [facility] [address] [place] [address] 11/30/2024 Ernestina Watson Plan Of Treatment Next Appt Details Provider Name:Ernestina Watson, 1 01:30:00 PM, [address], [place], [address], Provider Name:Ernestina Watson, 0 01/09/2026 01:00:00 PM, [address], [facility] [address], [place], [address], Progress Notes * LAURIE MOELLER TDOB: (74 yo F)Acc No.[id number]:11/30/2024 Progress Note Patient: Kecia CARRERA LAURIE Jaime Provider: Cayla Watson PA-C :1950 A ge:74 Y S ex:Female Date:11/30/2024 Address:[address] [place] [address] [address], [place], [place] Subjective: * Chief Complaints: * * Medical History: Objective: * Vitals: Assessment: Plan: * Treatment: * Procedure Codes: 9 9199 NO SHOW OFFICE VISIT * Images: Billing Information: * Visit Code: * Procedure Codes: 05808 NO SHOW OFFICE VISIT. Care Plan Details* * Electronic signature of Ernestina Watson PA-C on 12/30/2024 at 01:54 PM EDT Sign off status: Pending * Provider: Cayla Watson PA-C Date: 0 11/30/2024 Generated for Dangelo newby/Steve/Josee on: 0 12/30/2024 01:54 PM EDT
--- OUTSIDE RECORDS SUMMARY | 2024-12-27 10:00 | XMS_ITS ---
Author Organization [facility] [address] Address [address] [place] [address] Care Team Providers [facility] [employer] Name Role Phone NITA VILLALBA Unavailable [phone] WalterErnestina Unavailable [phone] Allergies Allergen (clinical drug ingredient) Drug/Non Drug Allergy documented on EMR Reaction Allergy Type Onset Date Status semaglutide Rybelsus rash Drug Allergy Activ e amoxicillin Amoxicillin Unknown Drug Allergy Act haja Reason For Referral Reason [facility]; Ao rtic aneurysm without rupture Diagnosis 1 Aortic aneurysm with out rupture, unspecified portion of aorta (I71.9) Referral Organization [facility] [address] Referring Provider First Name Ernestina Referring Provider Last Name Svrcek Referring Provider Speciality Internal M edicine Referred Provider Specialty Vascular Daquan delfina General Notes [address] [place], (p) [phone], (f) [phone] Clinical Notes Yolande Kessler 03:25:02 PM > referral faxed with Gonzales aragon Redena 12/30/2024 01:47:44 PM > I called the office and they informed me that they have contacted the patient twice and are waiting for her to call back to schedule Referral Priority Routine REASON FOR VISIT Pt here for annual MWV. Medications Medication SIG (Take, Route, Frequency, Duration) Notes Start Date End Date Status amLODIPine Besylate 10 MG TAKE 1 TABLET BY MOUTH DAILY; Duration: 90 Active Toujeo Max SoloStar 300 UNIT/ML INJECT SUBCUTANEOUSLY 50 UNITS EVERY NIGHT AT BEDTIME; Duration: 90 10 units at bedtime Active Aspirin 81 MG 1 tablet Orally Once a day Active BD Pen Needle Mini Ultrafine 31G X 5 MM USE DIRECTED FOUR TIMES DAILY; Duration: 75 Active one touch verio test strips 1 strip 1 strip intra 3 times a day; Duration: 30 days 08/10/2020 Active Metoprolol Succinate ER 100 MG TAKE 1 TABLET BY MOUTH DAILY; Duration: 90 Active HumaLOG KwikPen 100 UNIT/ML INJECT 15 UNITS SUBCUTANEOUSLY TWICE DAILY; Duration: 90 Active FreeStyle Celso 3 Sensor - use one sensor every 15 days; Duration: 30 days freestyle celso 3 plus 08/17/2024 Active metFORMIN HCl ER 500 MG 2 tablets Orally Once a day; Duration: 90 days Active Atorvastatin Calcium 40 MG 1 tablet Orally Once a day; Duration: 90 days Active Vitamin D3 125 MCG (5000 UT) 1 capsule Orally Once a day; Duration: 90 days Active Social History Tobacco Use: Social History Observation Description Date Details (start date - stop date) Never Smoker NA - NA Tobacco Use/Smoking Question Answer Notes Are you a nonsmoker Vital Signs Heart Rate 79 /min 12/27/2024 Blood pressure systolic 138 mm Hg 12/28/19 25 Blood pressure diastolic 74 mm Hg 025 Weight 150.9 lbs 12/27/2024 BMI 25.11 kg/m2 12/27/2024 Height 65 in 12/27/2024 Oximetry 99 % 12/27/2024 Encounters Encounter Location Date Provider Diagnosis [facility] [address] [place] [id number] 12/27/2024 Ernestina Watson Forgetfulness R68.89 ; Medicare annual wellness visit, subsequent Z00.00 ; Essential hypertension I10 ; Type 2 diabetes mellitus without complication, without long-term current use of insulin E11.9 ; Encounter for screening for other disorder Z13.89 and Alcohol screening Z13.39 Assessments Encounter Date Diagnosis (ICD Code) Assessment Notes Treatment Notes Treatment Clinical Notes Section Notes 12/27/2024 Forgetfulness (ICD-10 - R68.89) #Annual wellness visit. Discussed importance of healthy diet and regular exercise. Discussed immunizations at the pharmacy including annual flu vaccine, tetanus vaccine, shingles vaccine, RSV vaccine and pneumonia vaccine. PHQ-9 09/27. Audit C0/12. She is up-to-date on mammogram earlier this year. Cologuard done in 2022. Declines colonoscopy. #Forgetfulness. Ongoing issue has noticed some memory decrease. More forgetful. Will get updated comprehensive labs. Follow-up for Mini-Mental status exam. #Hypertension. Blood pressure borderlined. WIll conitnue current regimen and monitor. #Type 2 diabetes. Has been uncontrolled. Now following with endocrinology. They are adjusting her insulin. Now on 11 units of long-acting at bedtime and 4 units of short acting with meals. Less low readings. She is also working with clinical nurse educator and tube filler. Comprehensive discussion was done on the following. 1. Nutrition: It is important to follow a healthy diet based on lots of vegetables and legumes and good fat. Avoid processed food and processed carbohydrates. Learn to prepare your own meals. Learn to read labels and avoid high fructose corn syrup, processed chemicals added to increase shelf life and preprepared meals. Avoid fast foods. Learn to eat slowly and plan meals for a week. Try to count calories and be mindful off daily calorie intake. Get into the habit of keeping an eye on your weight by using an appropriate scale. Learn to log exercise and discussed fitness Apps like BioSilta which can help keep log off calories taken versus calories burned. Local food should be preferred. Discussed Dirty Dozen Versus Clean Fifteen. Discussed healthy supplements like fish oil, Tumeric, Curcumin, Melatonin, Resveratrol, Probiotics, Vitamin-D, Alpha-Lipoic acid, Vitamin-D and coconut oil. 2. It is important to exercise regularly. Is a good habit to walk at least 30-45 minutes a day. Gentle weightlifting with standard precautions to protect the back. Finding activity like cycling or hiking and get into the habit of engaging in it. Stretching before and after the exercises important. It is also important to contact me if there are any problems like shortness of breath, chest pain, back pain and joint or muscle pain associated with the exercise. 3. Discussed age appropriate screening guidelines. Colonoscopy needs to start at age 50 with stool for occult blood as appropriate. There is a new test that can test for genetic abnormalities in the stool sample. This would not replace a colonoscopy but could be used as a screening tool for patients who do not want a colonoscopy. We discussed the importance of early detection of colon cancer. 4. Discussed current guidelines with respect to breast examination, mammogram and pap smear for early detection of breast and cervical cancer. Patient advised to follow up with these appointments. 5. Discussed safe driving and no use of smart phone while driving 6. Age-appropriate immunizations were discussed. A tetanus booster is needed every 10 years. Flu vaccine is recommended every year just before the start of the flu season. Shingles vaccine is recommended after age 50 but not all insurances cover it.Pneumonia vaccine is given after age 65 unless there are certain comorbidities for which it is started earlier. 7. Diagnostic labs were discussed. These could include CBC CMP and lipids with fasting blood glucose and insulin levels. Vitamin D and hemoglobin A1c testing might be appropriate. Case discussed with collaborating physician Yeni Villalba who reviewed the assessment and plan. Chart, medications, labs, vital signs reviewed. Dictation was accomplished with the use of epicurio voice recognition software, prone to medical misidentifications and grammatical errors. This is unintentional and the practitioner does try to identify and correct these, but some could still be present. Please do not hesitate to contact practitioner for clarification. All questions answered to patients satisfaction. Patient verbalized understanding of diagnosis and treatments explained. To call sooner prior to next visit it any questions/concerns arise. 12/27/2024 Medicare annual wellness visit, subsequent (ICD-10 - Z00.00) #Annual wellness visit. Discussed importance of healthy diet and regular exercise. Discussed immunizations at the pharmacy including annual flu vaccine, tetanus vaccine, shingles vaccine, RSV vaccine and pneumonia vaccine. PHQ-9 09/27. Audit . She is up-to-date on mammogram earlier this year. Cologuard done in 2022. Declines colonoscopy. #Forgetfulness. Ongoing issue has noticed some memory decrease. More forgetful. Will get updated comprehensive labs. Follow-up for Mini-Mental status exam. #Hypertension. Blood pressure borderlined. WIll conitnue current regimen and monitor. #Type 2 diabetes. Has been uncontrolled. Now following with endocrinology. They are adjusting her insulin. Now on 11 units of long-acting at bedtime and 4 units of short acting with meals. Less low readings. She is also working with clinical nurse educator and tube filler. Comprehensive discussion was done on the following. 1. Nutrition: It is important to follow a healthy diet based on lots of vegetables and legumes and good fat. Avoid processed food and processed carbohydrates. Learn to prepare your own meals. Learn to read labels and avoid high fructose corn syrup, processed chemicals added to increase shelf life and preprepared meals. Avoid fast foods. Learn to eat slowly and plan meals for a week. Try to count calories and be mindful off daily calorie intake. Get into the habit of keeping an eye on your weight by using an appropriate scale. Learn to log exercise and discussed fitness Apps like BioSilta which can help keep log off calories taken versus calories burned. Local food should be preferred. Discussed Dirty Dozen Versus Clean Fifteen. Discussed healthy supplements like fish oil, Tumeric, Curcumin, Melatonin, Resveratrol, Probiotics, Vitamin-D, Alpha-Lipoic acid, Vitamin-D and coconut oil. 2. It is important to exercise regularly. Is a good habit to walk at least 30-45 minutes a day. Gentle weightlifting with standard precautions to protect the back. Finding activity like cycling or hiking and get into the habit of engaging in it. Stretching before and after the exercises important. It is also important to contact me if there are any problems like shortness of breath, chest pain, back pain and joint or muscle pain associated with the exercise. 3. Discussed age appropriate screening guidelines. Colonoscopy needs to start at age 50 with stool for occult blood as appropriate. There is a new test that can test for genetic abnormalities in the stool sample. This would not replace a colonoscopy but could be used as a screening tool for patients who do not want a colonoscopy. We discussed the importance of early detection of colon cancer. 4. Discussed current guidelines with respect to breast examination, mammogram and pap smear for early detection of breast and cervical cancer. Patient advised to follow up with these appointments. 5. Discussed safe driving and no use of smart phone while driving 6. Age-appropriate immunizations were discussed. A tetanus booster is needed every 10 years. Flu vaccine is recommended every year just before the start of the flu season. Shingles vaccine is recommended after age 50 but not all insurances cover it.Pneumonia vaccine is given after age 65 unless there are certain comorbidities for which it is started earlier. 7. Diagnostic labs were discussed. These could include CBC CMP and lipids with fasting blood glucose and insulin levels. Vitamin D and hemoglobin A1c testing might be appropriate. Case discussed with collaborating physician Yeni Villalba who reviewed the assessment and plan. Chart, medications, labs, vital signs reviewed. Dictation was accomplished with the use of epicurio voice recognition software, prone to medical misidentifications and grammatical errors. This is unintentional and the practitioner does try to identify and correct these, but some could still be present. Please do not hesitate to contact practitioner for clarification. All questions answered to patients satisfaction. Patient verbalized understanding of diagnosis and treatments explained. To call sooner prior to next visit it any questions/concerns arise. 12/27/2024 Essential hypertension (ICD-10 - I10) #Annual wellness visit. Discussed importance of healthy diet and regular exercise. Discussed immunizations at the pharmacy including annual flu vaccine, tetanus vaccine, shingles vaccine, RSV vaccine and pneumonia vaccine. PHQ-9 09/27. Audit . She is up-to-date on mammogram earlier this year. Cologuard done in 2022. Declines colonoscopy. #Forgetfulness. Ongoing issue has noticed some memory decrease. More forgetful. Will get updated comprehensive labs. Follow-up for Mini-Mental status exam. #Hypertension. Blood pressure borderlined. WIll conitnue current regimen and monitor. #Type 2 diabetes. Has been uncontrolled. Now following with endocrinology. They are adjusting her insulin. Now on 11 units of long-acting at bedtime and 4 units of short acting with meals. Less low readings. She is also working with clinical nurse educator and tube filler. Comprehensive discussion was done on the following. 1. Nutrition: It is important to follow a healthy diet based on lots of vegetables and legumes and good fat. Avoid processed food and processed carbohydrates. Learn to prepare your own meals. Learn to read labels and avoid high fructose corn syrup, processed chemicals added to increase shelf life and preprepared meals. Avoid fast foods. Learn to eat slowly and plan meals for a week. Try to count calories and be mindful off daily calorie intake. Get into the habit of keeping an eye on your weight by using an appropriate scale. Learn to log exercise and discussed fitness Apps like BioSilta which can help keep log off calories taken versus calories burned. Local food should be preferred. Discussed Dirty Dozen Versus Clean Fifteen. Discussed healthy supplements like fish oil, Tumeric, Curcumin, Melatonin, Resveratrol, Probiotics, Vitamin-D, Alpha-Lipoic acid, Vitamin-D and coconut oil. 2. It is important to exercise regularly. Is a good habit to walk at least 30-45 minutes a day. Gentle weightlifting with standard precautions to protect the back. Finding activity like cycling or hiking and get into the habit of engaging in it. Stretching before and after the exercises important. It is also important to contact me if there are any problems like shortness of breath, chest pain, back pain and joint or muscle pain associated with the exercise. 3. Discussed age appropriate screening guidelines. Colonoscopy needs to start at age 50 with stool for occult blood as appropriate. There is a new test that can test for genetic abnormalities in the stool sample. This would not replace a colonoscopy but could be used as a screening tool for patients who do not want a colonoscopy. We discussed the importance of early detection of colon cancer. 4. Discussed current guidelines with respect to breast examination, mammogram and pap smear for early detection of breast and cervical cancer. Patient advised to follow up with these appointments. 5. Discussed safe driving and no use of smart phone while driving 6. Age-appropriate immunizations were discussed. A tetanus booster is needed every 10 years. Flu vaccine is recommended every year just before the start of the flu season. Shingles vaccine is recommended after age 50 but not all insurances cover it.Pneumonia vaccine is given after age 65 unless there are certain comorbidities for which it is started earlier. 7. Diagnostic labs were discussed. These could include CBC CMP and lipids with fasting blood glucose and insulin levels. Vitamin D and hemoglobin A1c testing might be appropriate. Case discussed with collaborating physician Yeni Villalba who reviewed the assessment and plan. Chart, medications, labs, vital signs reviewed. Dictation was accomplished with the use of epicurio voice recognition software, prone to medical misidentifications and grammatical errors. This is unintentional and the practitioner does try to identify and correct these, but some could still be present. Please do not hesitate to contact practitioner for clarification. All questions answered to patients satisfaction. Patient verbalized understanding of diagnosis and treatments explained. To call sooner prior to next visit it any questions/concerns arise. 12/27/2024 Type 2 diabetes mellitus without complication, without long-term current use of insulin (ICD-10 - E11.9) #Annual wellness visit. Discussed importance of healthy diet and regular exercise. Discussed immunizations at the pharmacy including annual flu vaccine, tetanus vaccine, shingles vaccine, RSV vaccine and pneumonia vaccine. PHQ-9 09/27. Audit . She is up-to-date on mammogram earlier this year. Cologuard done in 2022. Declines colonoscopy. #Forgetfulness. Ongoing issue has noticed some memory decrease. More forgetful. Will get updated comprehensive labs. Follow-up for Mini-Mental status exam. #Hypertension. Blood pressure borderlined. WIll conitnue current regimen and monitor. #Type 2 diabetes. Has been uncontrolled. Now following with endocrinology. They are adjusting her insulin. Now on 11 units of long-acting at bedtime and 4 units of short acting with meals. Less low readings. She is also working with clinical nurse educator and tube filler. Comprehensive discussion was done on the following. 1. Nutrition: It is important to follow a healthy diet based on lots of vegetables and legumes and good fat. Avoid processed food and processed carbohydrates. Learn to prepare your own meals. Learn to read labels and avoid high fructose corn syrup, processed chemicals added to increase shelf life and preprepared meals. Avoid fast foods. Learn to eat slowly and plan meals for a week. Try to count calories and be mindful off daily calorie intake. Get into the habit of keeping an eye on your weight by using an appropriate scale. Learn to log exercise and discussed fitness Apps like BioSilta which can help keep log off calories taken versus calories burned. Local food should be preferred. Discussed Dirty Dozen Versus Clean Fifteen. Discussed healthy supplements like fish oil, Tumeric, Curcumin, Melatonin, Resveratrol, Probiotics, Vitamin-D, Alpha-Lipoic acid, Vitamin-D and coconut oil. 2. It is important to exercise regularly. Is a good habit to walk at least 30-45 minutes a day. Gentle weightlifting with standard precautions to protect the back. Finding activity like cycling or hiking and get into the habit of engaging in it. Stretching before and after the exercises important. It is also important to contact me if there are any problems like shortness of breath, chest pain, back pain and joint or muscle pain associated with the exercise. 3. Discussed age appropriate screening guidelines. Colonoscopy needs to start at age 50 with stool for occult blood as appropriate. There is a new test that can test for genetic abnormalities in the stool sample. This would not replace a colonoscopy but could be used as a screening tool for patients who do not want a colonoscopy. We discussed the importance of early detection of colon cancer. 4. Discussed current guidelines with respect to breast examination, mammogram and pap smear for early detection of breast and cervical cancer. Patient advised to follow up with these appointments. 5. Discussed safe driving and no use of smart phone while driving 6. Age-appropriate immunizations were discussed. A tetanus booster is needed every 10 years. Flu vaccine is recommended every year just before the start of the flu season. Shingles vaccine is recommended after age 50 but not all insurances cover it.Pneumonia vaccine is given after age 65 unless there are certain comorbidities for which it is started earlier. 7. Diagnostic labs were discussed. These could include CBC CMP and lipids with fasting blood glucose and insulin levels. Vitamin D and hemoglobin A1c testing might be appropriate. Case discussed with collaborating physician Yeni Villalba who reviewed the assessment and plan. Chart, medications, labs, vital signs reviewed. Dictation was accomplished with the use of epicurio voice recognition software, prone to medical misidentifications and grammatical errors. This is unintentional and the practitioner does try to identify and correct these, but some could still be present. Please do not hesitate to contact practitioner for clarification. All questions answered to patients satisfaction. Patient verbalized understanding of diagnosis and treatments explained. To call sooner prior to next visit it any questions/concerns arise. 12/27/2024 Encounter for screening for other disorder (ICD-10 - Z13.89) #Annual wellness visit. Discussed importance of healthy diet and regular exercise. Discussed immunizations at the pharmacy including annual flu vaccine, tetanus vaccine, shingles vaccine, RSV vaccine and pneumonia vaccine. PHQ-9 09/27. Audit . She is up-to-date on mammogram earlier this year. Cologuard done in 2022. Declines colonoscopy. #Forgetfulness. Ongoing issue has noticed some memory decrease. More forgetful. Will get updated comprehensive labs. Follow-up for Mini-Mental status exam. #Hypertension. Blood pressure borderlined. WIll conitnue current regimen and monitor. #Type 2 diabetes. Has been uncontrolled. Now following with endocrinology. They are adjusting her insulin. Now on 11 units of long-acting at bedtime and 4 units of short acting with meals. Less low readings. She is also working with clinical nurse educator and tube filler. Comprehensive discussion was done on the following. 1. Nutrition: It is important to follow a healthy diet based on lots of vegetables and legumes and good fat. Avoid processed food and processed carbohydrates. Learn to prepare your own meals. Learn to read labels and avoid high fructose corn syrup, processed chemicals added to increase shelf life and preprepared meals. Avoid fast foods. Learn to eat slowly and plan meals for a week. Try to count calories and be mindful off daily calorie intake. Get into the habit of keeping an eye on your weight by using an appropriate scale. Learn to log exercise and discussed fitness Apps like BioSil[employer] which can help keep log off calories taken versus calories burned. Local food should be preferred. Discussed Dirty Dozen Versus Clean Fifteen. Discussed healthy supplements like fish oil, Tumeric, Curcumin, Melatonin, Resveratrol, Probiotics, Vitamin-D, Alpha-Lipoic acid, Vitamin-D and coconut oil. 2. It is important to exercise regularly. Is a good habit to walk at least 30-45 minutes a day. Gentle weightlifting with standard precautions to protect the back. Finding activity like cycling or hiking and get into the habit of engaging in it. Stretching before and after the exercises important. It is also important to contact me if there are any problems like shortness of breath, chest pain, back pain and joint or muscle pain associated with the exercise. 3. Discussed age appropriate screening guidelines. Colonoscopy needs to start at age 50 with stool for occult blood as appropriate. There is a new test that can test for genetic abnormalities in the stool sample. This would not replace a colonoscopy but could be used as a screening tool for patients who do not want a colonoscopy. We discussed the importance of early detection of colon cancer. 4. Discussed current guidelines with respect to breast examination, mammogram and pap smear for early detection of breast and cervical cancer. Patient advised to follow up with these appointments. 5. Discussed safe driving and no use of smart phone while driving 6. Age-appropriate immunizations were discussed. A tetanus booster is needed every 10 years. Flu vaccine is recommended every year just before the start of the flu season. Shingles vaccine is recommended after age 50 but not all insurances cover it.Pneumonia vaccine is given after age 65 unless there are certain comorbidities for which it is started earlier. 7. Diagnostic labs were discussed. These could include CBC CMP and lipids with fasting blood glucose and insulin levels. Vitamin D and hemoglobin A1c testing might be appropriate. Case discussed with collaborating physician Yeni Villalba who reviewed the assessment and plan. Chart, medications, labs, vital signs reviewed. Dictation was accomplished with the use of epicurio voice recognition software, prone to medical misidentifications and grammatical errors. This is unintentional and the practitioner does try to identify and correct these, but some could still be present. Please do not hesitate to contact practitioner for clarification. All questions answered to patients satisfaction. Patient verbalized understanding of diagnosis and treatments explained. To call sooner prior to next visit it any questions/concerns arise. 12/27/2024 Alcohol screening (ICD-10 - Z13.39) #Annual wellness visit. Discussed importance of healthy diet and regular exercise. Discussed immunizations at the pharmacy including annual flu vaccine, tetanus vaccine, shingles vaccine, RSV vaccine and pneumonia vaccine. PHQ-9 09/27. Audit . She is up-to-date on mammogram earlier this year. Cologuard done in 2022. Declines colonoscopy. #Forgetfulness. Ongoing issue has noticed some memory decrease. More forgetful. Will get updated comprehensive labs. Follow-up for Mini-Mental status exam. #Hypertension. Blood pressure borderlined. WIll conitnue current regimen and monitor. #Type 2 diabetes. Has been uncontrolled. Now following with endocrinology. They are adjusting her insulin. Now on 11 units of long-acting at bedtime and 4 units of short acting with meals. Less low readings. She is also working with clinical nurse educator and tube filler. Comprehensive discussion was done on the following. 1. Nutrition: It is important to follow a healthy diet based on lots of vegetables and legumes and good fat. Avoid processed food and processed carbohydrates. Learn to prepare your own meals. Learn to read labels and avoid high fructose corn syrup, processed chemicals added to increase shelf life and preprepared meals. Avoid fast foods. Learn to eat slowly and plan meals for a week. Try to count calories and be mindful off daily calorie intake. Get into the habit of keeping an eye on your weight by using an appropriate scale. Learn to log exercise and discussed fitness Apps like BioSilta which can help keep log off calories taken versus calories burned. Local food should be preferred. Discussed Dirty Dozen Versus Clean Fifteen. Discussed healthy supplements like fish oil, Tumeric, Curcumin, Melatonin, Resveratrol, Probiotics, Vitamin-D, Alpha-Lipoic acid, Vitamin-D and coconut oil. 2. It is important to exercise regularly. Is a good habit to walk at least 30-45 minutes a day. Gentle weightlifting with standard precautions to protect the back. Finding activity like cycling or hiking and get into the habit of engaging in it. Stretching before and after the exercises important. It is also important to contact me if there are any problems like shortness of breath, chest pain, back pain and joint or muscle pain associated with the exercise. 3. Discussed age appropriate screening guidelines. Colonoscopy needs to start at age 50 with stool for occult blood as appropriate. There is a new test that can test for genetic abnormalities in the stool sample. This would not replace a colonoscopy but could be used as a screening tool for patients who do not want a colonoscopy. We discussed the importance of early detection of colon cancer. 4. Discussed current guidelines with respect to breast examination, mammogram and pap smear for early detection of breast and cervical cancer. Patient advised to follow up with these appointments. 5. Discussed safe driving and no use of smart phone while driving 6. Age-appropriate immunizations were discussed. A tetanus booster is needed every 10 years. Flu vaccine is recommended every year just before the start of the flu season. Shingles vaccine is recommended after age 50 but not all insurances cover it.Pneumonia vaccine is given after age 65 unless there are certain comorbidities for which it is started earlier. 7. Diagnostic labs were discussed. These could include CBC CMP and lipids with fasting blood glucose and insulin levels. Vitamin D and hemoglobin A1c testing might be appropriate. Case discussed with collaborating physician Yeni Vlilalba who reviewed the assessment and plan. Chart, medications, labs, vital signs reviewed. Dictation was accomplished with the use of epicurio voice recognition software, prone to medical misidentifications [...] Treatment Pending Test Test Name Order Date LIPID PANEL 12/27/2024 TSH 12/27/2024 VITAMIN B12 12/27/2024 UA WITH CULTURE IF INDICATED 12/27/2024 COMPREHENSIVE METABOLIC PANEL 12/27/2024 CBC (INCLUDES DIFF/PLT) 12/27/2024 HEMOGLOBIN A1c 12/27/2024 VITAMIN D,25-OH,TOTAL,IA 12/27/2024 Referrals Referral Date Details 12/27/2024 12/27/2024, [facility]; Aortic aneurysm without rupture Next Appt Details Follow Up: 6 Weeks, Reason: MMSE Provider Name:Ernestina Watson, 1 01:30:00 PM, [address] [facility], [facility] [address], [place], [address], Provider Name:Ernestina Watson, 0 01/09/2026 01:00:00 PM, [address] [facility], [facility] [address], [place], [address], Progress Notes * ANGELIQUE MOELLER TDOB: (74 yo F)Acc No.[id number]:12/27/2024 Progress Note Patient: ANGELIQUE PINEDO Provider: Cayla Watson PA-C :1950 A ge:74 Y S ex:Female Date:12/27/2024 Address:[address] [place], [place] [id number] Subjective: * Chief Complaints: * 1 . Pt here for annual MWV.. * HPI: C onstitutional: Angelique is a 74-year-old female here today for annual wellness visit. Past medical history significant for hypertension, type 2 diabetes, hyperlipidemia. Overall feeling well. She has been seeing an electrician technician since her last visit and working on adjusting her insulin regimen. They have increased her long-acting insulin and decrease her short acting insulin. Reports no overnight lows. Does have follow-up with them on of this week. She continues with some concerns about forgetfulness and memory decrease. Mammogram: 08/2024 DEXA: 10/27/22 Colonoscopy: 10/01/22- cologuard Dental: UTD Eye exam: UTD today, wears glasses. Nutrition: Fairly balanced, working with DM ducator/tube filler. Exercise: walking intermittently Sleep: not great, wakes frequently to urinate. Mood: No changes, declines depression/anxiety/mood changes. Immunizations: overdue- discussed tetanus, flu, rsv, PNA, shingles vaccines at the pharmacy HCP: completed today, declines MOLST PHQ 9: 09/27 audit c: . * ROS: C onstitutional: Patient denies any excessive fatigue with exercise, no weight loss, no fever and no night sweats Eyes: No eye discharge, no itching, no redness. Ear nose throat: No sore throat, postnasal drip, runny nose, Sneezing Cardiovascular: No chest pain, no shortness of breath, no dyspnea on exertion, no PND, no orthopnea, no irregular pulse Respiratory: No chronic cough, no hemoptysis, no sputum, no wheezing GI, no diarrhea, no constipation no blood in the stools, no pain associated with eating, no indigestion Genitourinary: No painful urination no hesitancy no blood in the urine, Musculoskeletal, no limitations to walking and running, no joint deformity, no joint stiffness, no chronic back pain, no noise with joint movement Integumentary, no new skin rash. No new changes in skin moles Neurological: No history of seizures, memory loss, No language dysfunction, No inability to concentrate, no localized weakness, no sensation loss, no confusion Psychiatric: No depression, no suicidal thoughts, no anxiety Endocrine: No polyuria no polyphagia or polydipsia. * Medical History: H ypertension, Hyperlipidemia, type II diabetes, Acid reflux. * Surgical History: h ysterectomy , Left leg surgery x2 due to infection of muscle causing sepsis 2016. * Hospitalization/Major Diagno stic Procedure: [facility] 2001. * Family History: F ather: , Kidney FailureDiabetes Type II, diagnosed with Diabetes. M other: , CHFDiabetes Type IIHypertension, diagnosed with Diabetes. 5 brother(s) , 1 sister(s) - healthy. 3 daughter(s) - healthy. . 1 bother and 1 sister with diabetes. * Social History: T obacco Use: T obacco Use/Smoking A re you a n onsmoker. * Medications: T aking Aspirin 81 MG Tablet Chewable 1 tablet Orally Once a day , Taking one touch verio test strips 1 strip test strip 1 strip intra 3 times a day , Taking Toujeo Max SoloStar 300 UNIT/ML Solution Pen-injector INJECT SUBCUTANEOUSLY 50 UNITS EVERY NIGHT AT BEDTIME , Notes to Pharmacist: 10 units at bedtime, Taking amLODIPine Besylate 10 MG Tablet TAKE 1 TABLET BY MOUTH DAILY , Taking Vitamin D3 125 MCG (5000 UT) Capsule 1 capsule Orally Once a day , Taking Atorvastatin Calcium 40 MG Tablet 1 tablet Orally Once a day , Taking metFORMIN HCl ER 500 MG Tablet Extended Release 24 Hour 2 tablets Orally Once a day , Taking FreeStyle Celso 3 Sensor - Miscellaneous use one sensor every 15 days , Notes to Pharmacist: freestyle celso 3 plus, Taking Metoprolol Succinate ER 100 MG Tablet Extended Release 24 Hour TAKE 1 TABLET BY MOUTH DAILY , Taking BD Pen Needle Mini Ultrafine 31G X 5 MM Miscellaneous USE DIRECTED FOUR TIMES DAILY , Taking HumaLOG KwikPen 100 UNIT/ML Solution Pen-injector INJECT 15 UNITS SUBCUTANEOUSLY TWICE DAILY , Discontinued Hydrocortisone 2.5 % Cream 1 application Externally Once a day , Discontinued hydrALAZINE HCl 25 MG Tablet TAKE 1 TABLET BY MOUTH TWICE DAILY WITH FOOD , Discontinued Losartan Potassium 100 MG Tablet TAKE 1 TABLET BY MOUTH EVERY DAY Orally Once a day , Discontinued Gabapentin 100 MG Capsule TAKE 1 CAPSULE BY MOUTH EVERY 8 HOURS , Medication List reviewed and reconciled with the patient * Allergies: A moxicillin, Rybelsus: rash. Objective: * Vitals: H R:79/min, BP:138/74mm Hg, Wt:150.9lbs, BMI:25.11Index, Ht: 65 in, Oxygen sat %:99%. * Physical Examination: G eneral: Age appropriate F, well appearing, no acute distress, speaking in full sentences without respiratory compromise. Well groomed, well developed. Skin: Warm, dry and intact. No lesions/rashes. HEENT: Normocephalic/atraumatic. EOMI intact. PERRLA. Vision intact. No ptosis or lid lag. Nares without discharge or inflammation. Oral cavity free of plaques or exudates. + upper dentures. No pharyngeal erythema. Neck/Thyroid: Supple, with no lymphadenopathy. No carotid artery bruits auscultated. Thyroid free of nodules. Nonenlarged Lung: Clear to auscultation bilaterally, no wheezes, rales or rhonchi. No barrel chest. Cardiac: S1 and S2 appreciated. No murmurs/rubs or gallops. DP pulses intact 2+ bilaterally. Abdomen: Soft, nontender, normoactive bowel sounds. No rebound/guarding. No CVA tenderness. Extremities: Bilateral lower extremities with no edema or rubor. No evidence of varicose veins. MSK: Bilateral upper and lower extremities 5/5 strength with flexion/extension. Duct Layer Helper strength 5/5. Neuro: CN II-XI grossly intact. Steady gait with ambulation observed. Psych: Stable mood and affect. Assessment: * Assessment: 1. Lazara burger annual wellness visit, subsequent - Z00.00 (Primary) 2 . F orgetfulness - R68.89 3 . E ssential hypertension - I10 4 . T ype 2 diabetes mellitus without complication, without long-term current use of insulin - E11.9 & #160; 5 . E ncounter for screening for other disorder - Z13.89 6 . A lcohol screening - Z13.39 #Annual wellness visit. Disc ussed importance of healthy diet and regular exercise. Discussed immunizations at the pharmacy including annual flu vaccine, tetanus vaccine, shingles vaccine, RSV vaccine and pneumonia vaccine. PHQ-9 09/27. Audit . She is up-to-date on mammogram earlier this year. Cologuard done in 2022. Declines colonoscopy. #Forgetfulness. Ongoing issue has noticed some memory decrease. More forgetful. Will get updated comprehensive labs. Follow-up for Mini-Mental status exam. #Hypertension. Blood pressure borderlined. WIll conitnue current regimen and monitor. #Type 2 diabetes. Has been uncontrolled. Now following with endocrinology. They are adjusting her insulin. Now on 11 units of long-acting at bedtime and 4 units of short acting with meals. Less low readings. She is also working with clinical nurse educator and tube filler. Comprehensive discussion was done on the following. 1. Nutrition: It is important to follow a healthy diet based on lots of vegetables and legumes and good fat. Avoid processed food and processed carbohydrates. Learn to prepare your own meals. Learn to read labels and avoid high fructose corn syrup, processed chemicals added to increase shelf life and preprepared meals. Avoid fast foods. Learn to eat slowly and plan meals for a week. Try to count calories and be mindful off daily calorie intake. Get into the habit of keeping an eye on your weight by using an appropriate scale. Learn to log exercise and discussed fitness Apps like BioSilta which can help keep log off calories taken versus calories burned. Local food should be preferred. Discussed Dirty Dozen Versus Clean Fifteen. Discussed healthy supplements like fish oil, Tumeric, Curcumin, Melatonin, Resveratrol, Probiotics, Vitamin-D, Alpha-Lipoic acid, Vitamin-D and coconut oil. 2. It is important to exercise regularly. Is a good habit to walk at least 30-45 minutes a day. Gentle weightlifting with standard precautions to protect the back. Finding activity like cycling or hiking and get into the habit of engaging in it. Stretching before and after the exercises important. It is also important to contact me if there are any problems like shortness of breath, chest pain, back pain and joint or muscle pain associated with the exercise. 3. Discussed age appropriate screening guidelines. Colonoscopy needs to start at age 50 with stool for occult blood as appropriate. There is a new test that can test for genetic abnormalities in the stool sample. This would not replace a colonoscopy but could be used as a screening tool for patients who do not want a colonoscopy. We discussed the importance of early detection of colon cancer. 4. Discussed current guidelines with respect to breast examination, mammogram and pap smear for early detection of breast and cervical cancer. Patient advised to follow up with these appointments. 5. Discussed safe driving and no use of smart phone while driving 6. Age-appropriate immunizations were discussed. A tetanus booster is needed every 10 years. Flu vaccine is recommended every year just before the start of the flu season. Shingles vaccine is recommended after age 50 but not all insurances cover it.Pneumonia vaccine is given after age 65 unless there are certain comorbidities for which it is started earlier. 7. Diagnostic labs were discussed. These could include CBC CMP and lipids with fasting blood glucose and insulin levels. Vitamin D and hemoglobin A1c testing might be appropriate. Case discussed with collaborating physician Yeni Villalba who reviewed the assessment and plan. Chart, medications, labs, vital signs reviewed. Dictation was accomplished with the use of epicurio voice recognition software, prone to medical misidentifications and grammatical errors. This is unintentional and the practitioner does try to identify and correct these, but some could still be present. Please do not hesitate to contact practitioner for clarification. All questions answered to patients satisfaction. Patient verbalized understanding of diagnosis and treatments explained. To call sooner prior to next visit it any questions/concerns arise. Plan: * Treatment: 2. T ype 2 diabetes mellitus without complication, without long-term current use of insulin L AB: COMPREHENSIVE METABOLIC PANEL L AB: CBC (INCLUDES DIFF/PLT) L AB: HEMOGLOBIN A1c 3. O thers Referral To:Vascular Surgery Reason:[facility]; Aortic aneurysm without rupture * Labs: * L ab: VITAMIN B12 L ab: VITAMIN D,25-OH,TOTAL,IA L ab: LIPID PANEL L ab: TSH * Procedure Codes: 3 075F SYST BP GE 130 - 139MM HG, 3078F DIAST BP < 80 MM HG, G0439 ANNUAL WELLNESS VST; PPS SUBSQT VST, G0444 ANNUAL DEPRESSION SCREENING 15 MIN, Modifiers: 59 , G0442 ANNUAL ALCOHOL MISUSE SCREEN 15 MIN, Modifiers: 59 * Follow Up: 6 Weeks (Reason: MMSE) * Images: Billing Information: * Visit Code: * Procedure Codes: 3075F SYST BP GE 130 - 139MM HG. 3078F DIAST BP < 80 MM HG. G0439 ANNUAL WELLNESS VST; PPS SUBSQT VST. G0444 ANNUAL DEPRESSION SCREENING 15 MIN. Modifiers: 59 G0442 ANNUAL ALCOHOL MISUSE SCREEN 15 MIN. Modifiers: 59 Care Plan Details* * Sign off status: Completed true * Provider: Cayla Watson PA-C Date: 0 12/27/2024 Generated for Dangelo newby/Steve/Josee on: 0 12/30/2024 01:53 PM EDT History and Physical Notes * HPI (History of Present Illness) Category Sub-Category Detail Notes Category Not es Constitutional Angelique is a 74-year-old female here today for annual wellness visit. Past medical history significant for hypertension, type 2 diabetes, hyperlipidemia. Overall feeling well. She has been seeing an electrician technician since her last visit and working on adjusting her insulin regimen. They have increased her long-acting insulin and decrease her short acting insulin. Reports no overnight lows. Does have follow-up with them on of this week. She continues with some concerns about forgetfulness and memory decrease. Mammogram: 08/2024 DEXA: 10/27/22 Colonoscopy: 10/01/22- cologuard Dental: UTD Eye exam: UTD today, wears glasses. Nutrition: Fairly balanced, working with DM ducator/tube filler. Exercise: walking intermittently Sleep: not great, wakes frequently to urinate. Mood: No changes, declines depression/anxiety/mood changes. Immunizations: overdue- discussed tetanus, flu, rsv, PNA, shingles vaccines at the pharmacy HCP: completed today, declines MOLST PHQ 9: 5/27 audit c: 0 Physical Examination Category Sub-Category Detail Notes Section Note s General: Age appropriate F, well appearing, no acute distress, speaking in full sentences without respiratory compromise. Well groomed, well developed. Skin: Warm, dry and intact. No lesions/rashes. HEENT: Normocephalic/atraumatic. EOMI intact. PERRLA. Vision intact. No ptosis or lid lag. Nares without discharge or inflammation. Oral cavity free of plaques or exudates. + upper dentures. No pharyngeal erythema. Neck/Thyroid: Supple, with no lymphadenopathy. No carotid artery bruits auscultated. Thyroid free of nodules. Nonenlarged Lung: Clear to auscultation bilaterally, no wheezes, rales or rhonchi. No barrel chest. Cardiac: S1 and S2 appreciated. No murmurs/rubs or gallops. DP pulses intact 2+ bilaterally. Abdomen: Soft, nontender, normoactive bowel sounds. No rebound/guarding. No CVA tenderness. Extremities: Bilateral lower extremities with no edema or rubor. No evidence of varicose veins. MSK: Bilateral upper and lower extremities 5/5 strength with flexion/extension. Duct Layer Helper strength 5/5. Neuro: CN II-XI grossly intact. Steady gait with ambulation observed. Psych: Stable mood and affect Consultation Request Notes Referral Date Referring Provider Referred Provider Not es 12/27/2024 Ernestina Watson [facility]; Aortic aneurysm without rupture
--- OUTSIDE RECORDS SUMMARY | 2024-12-28 05:05 | XMS_ITS ---
Author Organization [facility] [address] Address [address] [place] [address] Care Team Providers Care Communications Instructor Name Role Phone NITA COLES Unavailable [phone] Ernestina Watsno Unavailable [phone] Reason For Referral Reason [facility] Diabetes; bilateral foot pain Diagnosis 1 Foot pain, left (M79 .672) Diagnosis 2 Foot pain, right (M7 9.671) Diagnosis 3 Type 2 diabetes saira itus without complication, without long-term current use of insulin (E11.9) Referral Organization [facility] [address] Referring Provider First Name Ernestina Referring Provider Last Name Walter Referring Provider Speciality Internal M edicine Referred Provider Specialty Podiatry General Notes [address] [facility]. [place]. [address] [place] (p) [phone], (f) [phone], Gave pt. phone number to book appt. Clinical Notes Yolande Kessler 09:15:20 AM > referral faxed with notes Referral Priority Routine REASON FOR VISIT referral Encounters Encounter Location Date Provider Diagnosis [facility] [address] [facility] [address] [place] [address] 12/28/2024 Ernestina Watson Plan Of Treatment Referrals Referral Date Details 12/28/2024 12/28/2024, [facility] Diabetes; bilateral foot pain Next Appt Details Provider Name:Ernestina Watson, 1 01:30:00 PM, [address], [address], [place], [address], Provider Name:Ernestina Watson, 0 01/09/2026 01:00:00 PM, [address] [place] [address], [address], [place], [address], Progress Notes * MOELLER LAURIE TDOB: (74 yo F)Acc No.[id number]:12/28/2024 Patient: LAURIE PINEDO :1950 A ge:74 Y S ex:Female Address:[address] [place] [address], [facility] [address], [place] [address] Subjective: * Chief Complaints: * R eferral * Medical History: * Surgical History: * Hospitalization/Major Diagno stic Procedure: * Medications: Objective: * Vitals: * Physical Examination: Assessment: Plan: * Treatment: * Procedure Codes: * true * Date: Generated for Dangelo newby/Steve/eTransmitting on: 0 12/30/2024 01:53 PM EDT Consultation Request Notes Referral Date Referring Provider Referred Provider Not es 12/28/2024 Ernestina Watson [facility] Diabetes; bilateral foot pain
--- OUTSIDE RECORDS SUMMARY | 2024-12-30 13:53 | XMS_ITS | Clinical Summary ---
Author Organization [facility] Address [address] [place] [address] Phone Care Team Providers Care Rn Digestive Name Role Phone Nita Villalba MD Primary Care Provider [phone] Allergies No known active allergies Medications insulin [...] Problems Problem Noted Date Diagnosed Date Diabetes ([facility] V24, [facility] V28) 02/10/2024 Diabetic neuropathy ([facility] V24, [facility] V28) 1 Hypertension 02/10/2024 Overview (02/10/2024): Last Assessment & Plan: Hypertension control has improved significantly but still slightly higher. PVD (peripheral vascular disease) ([facility] V24) 02/10/2024 Abnormal echocardiogram 10/29/2023 Overview (02/10/2024): [...] Date Type Department Care Team Description 10/18/2024 10:45 AM EDT Lab Draw Station - 299 [facility] [address] [place] [id number] Gastric tympany (Primary Dx); Loss of weight 10/18/2024 10:17 AM EDT - 10/18/2024 11:59 PM EDT Hospital Encounter [facility] CT Scan [address] [place] [phone] Abdominal distension (gaseous); Abnormal weight loss Discharge Disposition: Home or Self Care from Last 3 Months Surgical History Surgery Date Site/Laterality Comments OTHER SURGICAL HISTORY 11/05/2016 PROCEDURE: ---- OTHER ----; COMMENT: STATED SURGICAL LEG HYSTERECTOMY BREAST LUMPECTOMY Right BENIGN STEREOTACTIC CORE BIOPSY Right Medical History Medical History Date Comments Diabetes ([facility] V24, [facility] V28) DX:Diabetes (HCC) Hypertension DX:Hypertension PVD (peripheral vascular dis ease) ([facility] V24) DX:PVD (peripheral vascular disease) (HCC) Diabetic neuropathy ([facility] V24, [facility] V28) DX:Diabetic neuropathy (HCC) Family History Medical [...] CBC auto differential (10/18/2024 10:37 AM EDT) WBC 5.1 4.8 - 10.8 K/mcL LAB HEMETOLOGY METHOD 10/18/2024 12:21 PM [facility] RBC 4.20 3.80 - 4.80 M/mcL LAB HEMETOLOGY METHOD 10/18/2024 12:21 PM [facility] Hemoglobin 12.0 11.5 - 16.0 g/dL LAB HEMETOLOGY METHOD 10/18/2024 12:21 PM [facility] Hematocrit 37.0 35.0 - 47.0 % LAB HEMETOLOGY METHOD 10/18/2024 12:21 PM [facility] MCV 87.5 79.0 - 98.0 FL LAB HEMETOLOGY METHOD 10/18/2024 12:21 PM [facility] MCH 28.4 27.0 - 32.0 pcg LAB HEMETOLOGY METHOD 10/18/2024 12:21 PM [facility] MCHC 32.4 32.0 - 37.0 g/dL LAB HEMETOLOGY METHOD 10/18/2024 12:21 PM [facility] RDW 15.8(H) 11.0 - 15.0 % LAB HEMETOLOGY METHOD 10/18/2024 12:21 PM [facility] Platelets 239 130 - 400 K/mcL LAB HEMETOLOGY METHOD 10/18/2024 12:21 PM [facility] MPV 11.9(H) 7.0 - 11.0 FL LAB HEMETOLOGY METHOD 10/18/2024 12:21 PM [facility] NRBC 0.0 <1.0 % LAB HEMETOLOGY METHOD 10/18/2024 12:21 PM [facility] NRBC Absolute 0.00 <0.10 K/mcL LAB HEMETOLOGY METHOD 10/18/2024 12:21 PM [facility] Neutrophils Relative 52.7 % LAB HEMETOLOGY METHOD 10/18/2024 12:21 PM [facility] Lymphocytes Relative 38.2 % LAB HEMETOLOGY METHOD 10/18/2024 12:21 PM [facility] Monocytes Relative 5.7 % LAB HEMETOLOGY METHOD 10/18/2024 12:21 PM [facility] Eosinophils Relative 2.6 % LAB HEMETOLOGY METHOD 10/18/2024 12:21 PM [facility] Basophils Relative 0.6 % LAB HEMETOLOGY METHOD 10/18/2024 12:21 PM [facility] Immature Granulocytes Relative 0.2 % LAB HEMETOLOGY METHOD 10/18/2024 12:21 PM [facility] Neutrophils Absolute 2.66 1.50 - 7.00 K/mcL LAB HEMETOLOGY METHOD 10/18/2024 12:21 PM [facility] Lymphocytes Absolute 1.93 1.00 - 5.00 K/mcL LAB HEMETOLOGY METHOD 10/18/2024 12:21 PM [facility] Monocytes Absolute 0.29 0.20 - 1.00 K/mcL LAB HEMETOLOGY METHOD 10/18/2024 12:21 PM [facility] Eosinophils Absolute 0.13 0.00 - 0.50 K/mcL LAB HEMETOLOGY METHOD 10/18/2024 12:21 PM [facility] Basophils Absolute 0.03 0.00 - 0.20 K/mcL LAB HEMETOLOGY METHOD 10/18/2024 12:21 PM [facility] Immature Granulocytes Absolute 0.01 0.00 - 0.03 K/mcL LAB HEMETOLOGY METHOD 10/18/2024 12:21 PM [facility] Blood Venous blood specimen / Unknown Venipuncture / Unknown 10/18/2024 10:37 AM EDT 10/18/2024 11:46 AM EDT us Ernestina FRIEND LAB BLOOD ORDERABLES Final Resul t Performing Organization Address [facility]/ZIP Co de Phone Number [facility] [address] [place] [address], [place] [phone] * Lactate dehydrogenase (10/18/2024 10:37 AM EDT) [facility] LDH 212 120 - 246 unit/L LAB CHEMISTRY METHOD 10/18/2024 1:34 PM EDT [facility] Blood Venous blood specimen / Unknown Venipuncture / Unknown 10/18/2024 10:37 AM EDT 10/18/2024 11:46 AM EDT us Ernestina FRIEND LAB BLOOD ORDERABLES Final Resul t Performing Organization Address City/[facility]/ZIP Co de Phone Number [facility] [address] [place] [address], [place] [phone] * (ABNORMAL) Comprehensive metabolic panel (10/18/2024 10:37 AM EDT) [facility] Sodium 139 133 - 145 mmol/L LAB CHEMISTRY METHOD 10/18/2024 1:35 PM EDT [facility] Potassium 4.0 3.5 - 5.5 mmol/L LAB CHEMISTRY METHOD 10/18/2024 1:35 PM EDT [facility] Chloride 106 96 - 110 mmol/L LAB CHEMISTRY METHOD 10/18/2024 1:35 PM EDT [facility] CO2 27 21 - 32 mmol/L LAB CHEMISTRY METHOD 10/18/2024 1:35 PM EDT [facility] Anion Gap 6 3 - 11 LAB CHEMISTRY METHOD 10/18/2024 1:35 PM EDT [facility] Glucose 249(H) 70 - 100 mg/dL LAB CHEMISTRY METHOD 10/18/2024 1:35 PM [facility] BUN 12 5 - 25 mg/dL LAB CHEMISTRY METHOD 10/18/2024 1:35 PM [facility] Creatinine 0.86 0.50 - 1.10 mg/dL LAB CHEMISTRY METHOD 10/18/2024 1:35 PM [facility] eGFR 72 >=60 mL/min/1. 73m2 LAB CHEMISTRY METHOD 10/18/2024 1:35 PM [facility] Comment:Calculation based on the Chronic Kidney Disease Epidemiology Collaboration (CKD-EPI) equation refit without adjustment for race. BUN/Creatinine Ratio 14.0 LAB CHEMISTRY METHOD 10/18/2024 1:35 PM [facility] Calcium 8.6 8.5 - 10.5 mg/dL LAB CHEMISTRY METHOD 10/18/2024 1:35 PM [facility] AST (SGOT) 20 10 - 42 unit/L LAB CHEMISTRY METHOD 10/18/2024 1:35 PM [facility] ALT (SGPT) 26 10 - 60 unit/L LAB CHEMISTRY METHOD 10/18/2024 1:35 PM [facility] Alkaline Phosphatase 75 42 - 121 unit/L LAB CHEMISTRY METHOD 10/18/2024 1:35 PM [facility] Total Protein 6.2 6.0 - 8.0 g/dL LAB CHEMISTRY METHOD 10/18/2024 1:35 PM [facility] Albumin 3.1(L) 3.2 - 5.0 g/dL LAB CHEMISTRY METHOD 10/18/2024 1:35 PM [facility] Total Bilirubin 0.5 0.0 - 1.4 mg/dL LAB CHEMISTRY METHOD 10/18/2024 1:35 PM [facility] Blood Venous blood specimen / Unknown Venipuncture / Unknown 10/18/2024 10:37 AM EDT 10/18/2024 11:46 AM EDT us Ernestina Emilsantamicaela RONNA LAB BLOOD ORDERABLES Final Resul t [facility] [address] [place] [address], [place] [phone] * CT Abdomen Pelvis wo Contrast (10/18/2024 [...] Signed Date: 10/18/2024 16:18 ET Workstation ID: [id number] Transcribed By: Self Edit Transcribed Date: 10/18/2024 [...] Signed Date: 10/18/2024 12:18 ET Workstation ID: [id number] Transcribed By: Self Edit Transcribed Date: 10/18/2024 [...] Signed Date: 10/18/2024 12:18 ET Workstation ID: [id number] Transcribed By: Self Edit Transcribed Date: 10/18/2024 [...] year. Mammography location: [facility] at [address], [address] -------- FINAL REPORT -------- Dictated By: Omer Wahl Dictated Date: 08/22/2024 17:27 ET Assigned Physician: Omer Wahl Reviewed and Electronically Signed By: Omer Wahl Signed Date: 08/22/2024 17:40 ET Workstation ID: [id number] Transcribed By: Self Edit Transcribed Date: 08/22/2024 [...] year. Mammography location: [facility] at [address], [address] -------- FINAL REPORT -------- Dictated By: Omer Wahl Dictated Date: 08/22/2024 17:27 ET Assigned Physician: Omer Wahl Reviewed and Electronically Signed By: Omer Wahl Signed Date: 08/22/2024 17:40 ET Workstation ID: [id number] Transcribed By: Self Edit Transcribed Date: 08/22/2024 17:27 ET Ernestina FRIEND IMG BI PROCEDURES Final Result * (ABNORMAL) Hemoglobin A1c (07/25/2024 2:06 PM EDT) Hemoglobin A1C 9.9(H) <6.5 % LAB CHEMISTRY METHOD 07/25/2024 10:28 PM EDT [facility] Mean Bld Glu Estim. 237 mg/dL LAB CHEMISTRY METHOD 07/25/2024 10:28 PM EDT [facility] Blood Venous blood specimen / Unknown Venipuncture / Unknown 07/25/2024 2:06 PM EDT 07/25/2024 3:32 PM EDT Ernestina Watson PA LAB BLOOD ORDERABLES Final Resul t Performing Organization Address City/[facility]/ZIP Co de Phone Number [facility] [address] [place] [address], [place] [phone] * (ABNORMAL) Microalbumin creatinine urine ratio (04/15/2024 3:29 PM EST) Creatinine, Urine 84.0 mg/dL LAB CHEMISTRY METHOD 04/15/2024 5:24 PM EST [facility] Microalb, Ur 826.0(H) 0.0 - 29.0 mg/L LAB CHEMISTRY METHOD 04/15/2024 5:24 PM EST [facility] Microalb/Crea t Ratio 983(H) <30 mg/g creat LAB CHEMISTRY METHOD 04/15/2024 5:24 PM EST [facility] Urine Urine specimen obtained by clean catch procedure / Unknown Non-blood Collection / Unknown 04/15/2024 3:29 PM EST 04/15/2024 4:00 PM EST Nguyen Vu [facility] LAB URINE ORDERABLES Final R esult Performing Organization Address City/[facility]/ZIP Co de Phone Number [facility] [address] [place] [address], [place] [phone] * Lipid panel with reflex to direct LDL (04/15/2024 3:22 PM EST) Cholesterol 151 0 - 200 mg/dL LAB CHEMISTRY METHOD 04/15/2024 4:38 PM EST [facility] Triglycerides 149 0 - 150 mg/dL LAB CHEMISTRY METHOD 04/15/2024 4:38 PM EST [facility] HDL 50 >=40 mg/dL LAB CHEMISTRY METHOD 04/15/2024 4:38 PM EST [facility] LDL Calculated 71 0 - 100 mg/dL LAB CHEMISTRY METHOD 04/15/2024 4:38 PM EST [facility] VLDL Cholesterol Virgilio 29.8 mg/dL LAB CHEMISTRY METHOD 04/15/2024 4:38 PM EST [facility] Non HDL Chol. (LDL+VLDL) 101 <145 mg/dL LAB CHEMISTRY METHOD 04/15/2024 4:38 PM [facility] Chol/HDL Ratio 3.0 0.0 - 4.4 LAB CHEMISTRY METHOD 04/15/2024 4:38 PM EST [facility] Blood Venous blood specimen / Unknown Venipuncture / Unknown 04/15/2024 3:22 PM EST 04/15/2024 4:00 PM EST us Kaity Mckenzie APIARIST LAB BLOOD ORDERABLES F inal Result [facility]) [facility] [address] [place] [address], * KELL DEXA AXIAL SKELETON (10/27/2022 8:32 AM EDT) Anatomical Region Laterality Modality Mammography 10/27/2022 7:35 AM EDT Narrative 10/27/2022 8:[address] [facility] Diagnostic Imaging Department [address] [place] [address] Patient: ANGELIQUE DELGADILLOO.B./Age/Sex: 1950 - 71 - F Unit#: [id number] Location/Status: SPDIMAM/REG CLI Mnemonic/Ordering Site: MAMDEXAAX/SPMAM Ordering [...] probability of hip fracture of 0.4%. Code 08848 Dictating Physician: YADIRA WELLINGTON MD Electronically Signed by: YADIRA WELLINGTON MD Dic Date/Time: 10/27/22819 Sign date/Time: 10/27/22831 Procedure Note Yadira Wellington MD - 06/09/2023 [facility] Diagnostic Imaging Department [address] [place] [address] Patient: ANGELIQUE DELGADILLO /Age/Sex: 1950 - 71- F Unit#: [id number] Location/Status: SPDIMAM/REG CLI Mnemonic/Ordering Site: MAMDEXAAX/SPMAM Ordering [...] density of the femurs bilaterally is 1.063 gm/po0eheob is 105% of that of young normals [...] probability of hip fracture of 0.4%. Code 37075 Dictating Physician: YADIRA WELLINGTON MD Electronically Signed by: YADIRA WELLINGTON MD Dic Date/Time: 10/27/22819 Sign date/Time: 06/26/23 0832 Nita Villalba MD IMG BI PROCEDURES Final Result from Last 3 Months or Most Recently Relevant to Health Maintenance Insurance [employer] [place] - [place] Care Teams Rn Digestive Relationship Specialty Start Date End Date Nita Villalba MD [address] [place] [id number] PCP - General Internal Medicine 03/17/24
--- OUTSIDE RECORDS SUMMARY | 2024-12-30 13:53 | XMS_ITS | Encounter Summary ---
Author Organization [facility] Address [address] [facility] 7t [place] [address] Care Team Providers Care Service Line Bus Cleaner Name Role Phone Unavailable Primary Care Provider Unavailabl e Encounter Details Date Type Department Care Team (Latest Contact Info) Description 07/12/2019 Abstract [facility] CONVERSIONS Dental, Provider, DDS Social [...]
--- OUTSIDE RECORDS SUMMARY | 2024-12-30 13:53 | XMS_ITS | Clinical Summary ---
Author Organization [facility] Address [address] [place] [phone] Phone Care Team Providers Care Motor Boss Name Role Phone Jasper Villalba MD Primary Care Provider [phone] Allergies Active Allergy Reactions Criticality Noted Date Comments Insulin Detemir Other (see comments) 07/05/2020 Tramadol Other (see comments) 07/05/2020 Medications amLODIPine (NORVASC) 10 MG tablet Take 10 mg by mouth 1 (one) time each day 06/04/19 21 Active omeprazole (PriLOSEC) [address] capsule Take by mouth 1 (one) time each day 05/10/19 21 Active pravastatin (PRAVACHOL) 80 MG tablet Take 80 mg by mouth at bed time 05/21/19 21 Active acetaminophen (TYLENOL) 500 MG tablet Take 1 tablet by mouth 3 (three) times a day Active losartan (COZAAR) 100 MG tablet Take 100 mg by mouth 1 (one) time each day 12/10/19 21 Active insulin lispro (HumaLOG) 100 UNIT/ML injection Inject under the skin 3 (three) times a day before meals Active Cholecalciferol (Vitamin D3) 125 MCG (5000 UT) capsule Take 1 capsule by mouth 1 (one) time each day 05/08/19 22 Active hydrocortisone 2.5 % ointment 2 (two) times a day APPLY TOPICALLY TO THE AFFECTED AREA TWICE DAILY 06/20/19 22 Active Toujeo Max SoloStar 300 UNIT/ML solution pen-injector 07/09/19 22 Active metoprolol succinate XL (TOPROL-XL) 200 MG 24 hr tablet Take 1 tablet (200 mg total) by mouth 1 (one) time each day 90 tablet 11 07/10/19 22 Active Dulaglutide (Trulicity) 1.5 MG/0.5ML solution pen-injector Inject 1 Dose under the skin 1 (one) time per week 12 mL 5 05/28/19 23 Active gabapentin (Neurontin) 100 MG capsule Take 1 capsule (100 mg total) by mouth in the morning and 1 capsule (100 mg total) in the evening and 1 capsule (100 mg total) before bedtime. 90 capsule 11 05/28/19 23 Active eplerenone (INSPRA) 50 MG tabletIndications:Prim nesha Hyperaldosteronism Take 3 tablets (150 mg total) by mouth in the morning and 3 tablets (150 mg total) in the evening. 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 Anemia in chronic kidney disease 12/22/2023 Secondary hyperparathyroidism of renal origin Proteinuria, not otherwise specified 2023 Chronic kidney disease, stage 2 (mild) Type 2 diabetes mellitus wit h diabetic chronic kidney disease 01/03/2021 Acute nontraumatic kidney injury 07/05/2020 Stage 3a chronic kidney disease 07/05/2020 Hypertension 07/05/2020 Resolved Problems Problem Noted Date Diagnosed Date Resolved Date Anemia 07/05/2020 07/08/2021 Myositis 07/05/2020 07/08/2021 Peripheral vascular disease 07/05/2020 07/08/2021 Primary aldosteronism 07/05/20202021 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 022 Family History Medical History Relation Comments Diabetes Father Dementia Mother Diabetes Mother Heart disease Mother Hypertension Mother Kidney disease Sibling Relation Status Comments Father Mother Sibling Social History Tobacco Use Types Packs/Day Years Used Date Smoking Tobacco: Never Smokeless Tobacco: Never Tobacco Cessation:Counseling Given: Not Answered Alcohol Use Standard Drinks/Week Comments No 0 (1 standard drink = 0.6 oz pur e alcohol) Comments Unknown Sex and Gender Information Value Date Recorded Sex Assigned at Not on file Legal Sex Female 4:49 PM EST Gender Identity Not on file Sexual Orientation Not on file Last Filed Vital Signs Vital Sign Reading Time Taken Comments Blood Pressure 180/70 03/29/2024 2:13 PM EST Pulse 67 03/29/2024 2:13 PM EST Temperature - - Respiratory Rate - - Oxygen Saturation 99% 03/29/2024 2:13 PM EST Inhaled Oxygen Concentration - - Weight 70.3 kg (155 lb) 03/29/2024 2:13 PM EST Height 170.2 cm (5' 7 ) 01/03/2021 1:18 PM EDT Body Mass Index 24.28 01/03/2021 1:18 PM EDT Plan of Treatment Upcoming Encounters Date Type Department Care Team (Late st Contact Info) Description 01/04/2025 2:45 PM EDT Office Visit [facility] [address] [address] Nguyen Vu ARNP [address] [address] Health Maintenance Due Date Last Done Comments Breast Cancer Screening 1950 Pneumococcal Vaccine: 50+ Years (1 of 2 - PCV) 11/24/1971 Colorectal Cancer Screening: Annual FOBT 2001 Colorectal Cancer Screening: Colonoscopy 2001 Colorectal Cancer Screening: Sigmoidoscopy 2001 Diabetes: Ophthalmology Exam 07/05/2020 Diabetes: Pedal Pulse Checked 07/05/2020 Diabetes: Sensory Foot Exam 07/05/2020 Diabetes: Visual Foot Exam 07/05/2020 Diabetes: Hemoglobin A1C 10/25/2024 025, 01/13/2023, 05/28/2022, Additional history exists Influenza Vaccine (#1) 2025 Hepatitis B Vaccine Aged Out No longe r eligible based on patient's age to complete this topic Procedures Procedure Name Priority Date/Time Associated Diagnosis Comments HEMOGLOBIN A1C Routine 01/13/2023 11:05 AM EDT Chronic kidney disease, stage 2 (mild) from Last 3 Months or Most Recently Relevant to Health Maintenance Results * (ABNORMAL) Hemoglobin A1c (01/13/2023 11:05 AM EDT) Glycated Hemoglobin 8.9(H) <6.5 % [facility]) Estimated Average Glucose 209 mg/dL [facility]) Performing Lab Performing Lab(H) [facility]) Comment: [facility] [employer], a member of [place] [address] [place] [address] Scientific Artist - Mary Leos MD Blood specimen (specimen) Venous blood / Unknown 01/13/2023 11:05 AM EDT 01/13/2023 11:05 AM EDT Gurwinder Quinonez MD LAB BLOOD ORDERABLES Final Re sult [facility]) from Last 3 Months or Most Recently Relevant to Health Maintenance Insurance Medicaid [place] [employer] [employer] Care Teams Motor Boss Relationship Specialty Start Date End Date Jasper Villalba MD [address] [place] [phone] PCP - General Internal Medicine 01/03/21
--- OUTSIDE RECORDS SUMMARY | 2024-12-30 13:53 | XMS_ITS | Encounter Summary ---
Author Organization [facility] Address [address] [facility] [address] [place] [address] Phone Care Team Providers Care Conveyor Line Battery Charger Name Role Phone Jasper Villalba MD Primary Care Provider [phone] Encounter Details Date Type Department Care Team (Late Contact Info) Description 07/09/2021 Documentation Only [facility] [address] [place] [address] Gurwinder Quinonez MD [address] [place] [address], [address] [address] Social History Tobacco Use Types Packs/Day Years [...] Department Care Team (Late Contact Info) Description 01/04/2025 2:45 PM EDT Office Visit [facility] [address] [address] Nguyen Vu ARNP [address] [address] documented as of this encounter Visit Diagnoses Not on filedocumented in this encounter Care Teams Conveyor Line Battery Charger Relationship Specialty Start Date End Date Jasper Villalba MD [address] [place] [address] PCP - General Internal Medicine 01/03/21 documented as of this encounter
--- OUTSIDE RECORDS SUMMARY | 2024-12-30 13:53 | XMS_ITS | Encounter Summary ---
Author Organization [facility] Address [address] [facility] 7t [place] [address] Care Team Providers Care Account Representative Name Role Phone Unavailable Primary Care Provider Unavailabl e Encounter Details Date Type Department Care Team (Latest Contact Info) Description 09/07/2018 Abstract [facility] CONVERSIONS Dental, Provider, DDS Social [...]
[2024-12-30 13:54] VITALS: BP 150/80; PULSE 67; O2SAT 98; BMI 24.3
--- NOTE | 2024-12-30 13:54 | A.OFFVIS_ITS ---
Vital Signs 12/30/24 13:54 Height 5 ft 6 in Weight 150 lb 9.211 oz BMI 24.3 BP 150/80 H Blood Pressure Location Rt brachial Position Sitting Pulse 67 Pulse Source Pulse Oximeter Pulse Oximetry (%) 98 Oxygen Delivery Method Room Air Intake Visit Reasons: T2DM Intake Note: Patient present today for Type 2 Diabetes Mellitus Last Diabetic eye e xam: 09/2024 Last Podiatry Visit: Doesn't have one Random Glucose: 80 mg/dl HgA1C: 10.3% 11/21/24 Coverstitch Machine Operator Required: No Accompanied by: Daughter Allergies amoxicillin Allergy (Mild, Verified 12/30/24 13:58) Rash semaglutide (From Rybelsus) Allergy (Mild, Verified 12/30/24 13:58) Rash Medication List - Last Reconciled 12/30/24 by Samara Pritchett PA-C amlodipine 10 mg PO DAILY atorvastatin 40 mg PO DAILY blood sugar diagnostic (OneTouch Verio test strips) As directed blood sugar diagnostic (OneTouch Verio test strips) use daily As directed to monitor blood sugars blood-glucose meter (OneTouch Verio Flex Meter) Use daily As directed to monitor blood sugars blood-glucose sensor (FreeStyle Celso 3 Plus Sensor device) As directed cholecalciferol (vitamin D3) 125 mcg PO DAILY insulin glargine U-300 conc (Toujeo Max U-300 SoloStar) 10 units (0.0333 mL) subcut QAM insulin lispro (Humalog KwikPen (U-100) Insulin) 4 units (0.04 mL) subcut TID lancets (OneTouch UltraSoft 2 Lancet) use daily As directed to monitor blood sugars lancets (OneTouch Delica Plus Lancet) As directed metformin ER 1,000 mg PO DAILY metoprolol succinate ER 100 mg PO DAILY omeprazole 20 mg PO DAILY pen needle, diabetic As directed HPI HPI T2DM: Details: Patient is a 74-year-old female who presents today for an initial consultation regarding type 2 diabetes. Endo: States that she was diagnosed with diabetes around 2004. Her A1c is 10.3. She is currently on metformin 1000 mg daily, Toujeo 10 units qam, Humalog 4 units with meals Daughter states that she often does not take the Humalog before she eats. She often forgets. She recently had negative antibodies and a normal C-peptide. Had a rash with jardiance, felt nauseous with ozempic CGM-Patient Engagement Systemsstyle Celso download shows 95% usage, average glucose 218, G mi 8.5%, variability 29%. Very hyperglycemic 28%, hyperglycemic 43%, in range 29%, 0% hypoglycemia Hyperglycemia-states her sensor goes off of the time because she is very hyperglycemic. Denies any symptoms of this Hypoglycemia-has some symptoms of lows and ends up eating candies and drinking juice. Daughter is here today with patient and states that her blood sugars are all over the place because of her diet. States that she eats a diet high in sugars and does not do anything with this. Patient states that she does love eating rice, pasta and bread. She understands that this is not ideal for diabetes but is not interested at this point in changing this. CV: Blood pressure today in the office is 150/80. She is currently on amlodipine 10 mg daily, metoprolol 100 mg daily. Her cholesterol is managed with atorvastatin 40 mg PFSH Surgical History (Updated 11/21/24 @ 14:33 by NIKOLE Rice) History of surgery on lower extremity History of back surgery Hx of hysterectomy Family History (Updated 11/21/24 @ 14:33 by NIKOLE Rice) Father Diabetes mellitus Mother Diabetes mellitus Social History (Updated 11/21/24 @ 14:28 by NIKOLE Rice) Alcohol intake: current Alcohol intake frequency: does not drink Patient Tobacco Use Status: Never used Tobacco Physical Exam Const Orientation/consciousness: patient oriented x3 HEENT Ears: hearing grossly normal bilaterally Neck Thyroid: Thyroid normal Lymphatic: no lymphadenopathy noted Resp Auscultation: clear to auscultation bilaterally Cardio Rate: regular rate Rhythm: regular rhythm Heart sounds: S1 normal heart sound present and S2 normal heart sound present GI Inspection: Yes normal to inspection Palpation (GI): Soft to palpation and Other GI palpation findings present (nontender, no cva tenderness) Auscultation: normoactive bowel sounds Rectal Exam - Female: deferred Skin General skin exam: no rashes or lesions noted Neuro General: patient oriented x3, gait normal and no focal motor deficits Results Reviewed Results Reviewed: Laboratory Tests 11/21/24 11/30/24 12/05/24 14:35 09:06 12:30 Sodium 143 Potassium 3.5 Chloride 107 Carbon Dioxide 27 Anion Gap 13 BUN 16 Creatinine 0.87 Estimated GFR > 60 Fasting Glucose 182 H Hgb A1c (Clinic) 10.3 H C-Peptide 1.03 AST 19 ALT 20 Urine Creatinine 62.35 Urine Microalbumin 1855.0 Microalb/Creat Ratio 2975.1 H Islet Cell Ab Screen NEGATIVE PURVI Antibody <5 Assessment & Plan Assessment & Plan (1) Type 2 diabetes mellitus with hyperglycemia, with long-term current use of insulin: Code(s): E11.65 - Type 2 diabetes mellitus with hyperglycemia; Z79.4 - FPC (current) use of insulin Category: Medical Plan: will add trulicity continue metformin Continue the Toujeo 10 units daily Continue the Humalog 4 units with meals (2) Microalbuminuria due to type 2 diabetes mellitus: Code(s): E11.29 - Type 2 diabetes mellitus with other diabetic kidney complication; R80.9 - Proteinuria, unspecified Category: Medical Plan: follows with [facility] (3) HTN (hypertension): Code(s): I10 - Essential (primary) hypertension Category: Medical Plan: Continue current regimen Medications: New dulaglutide (Trulicity) 0.75 mg (0.5 mL) subcut QWEEK 2 mL 3RF Coding Level of Care Code Est Pt Level 4 (03002) Complex EM visit Add On G2211 Diagnoses Type 2 diabetes mellitus with hyperglycemia, with long-term current use of insulin E11.65; Z79.4 Microalbuminuria due to type 2 diabetes mellitus E11.29; R80.9 HTN (hypertension) I10
--- OUTSIDE RECORDS SUMMARY | 2024-12-30 13:54 | XMS_ITS | Patient Health Record ---
[facility] [address] Address [address] [place] [address] Care Team Providers Care Ruby Engineer Name Role Phone SANKET NITA Unavailable [phone] Sonal Ribeiro Unavailable [phone] Allergies Allergen (clinical drug ingredient) Drug/Non Drug Allergy documented on EMR Reaction Allergy Type Onset Date Status semaglutide Rybelsus rash Drug Allergy Activ e amoxicillin Amoxicillin Unknown Drug Allergy Act haja Results Component Value Reference Range Notes CT CHEST WO CONTRAST Reviewed date:03/22/2024 08:13:23 AM Interpretation: Performing Lab: Notes/Report: Note See Note [facility], a member of [facility] Patient Name: LAURIE MOELLER Date of : 1950 Reason for Exam: Chest wall pain Exam Date: 03/17/2024 [id number] EST Report Status: Final Ordering Provider: SONAL RIBEIRO PCP: NITA VILLALBA EXAMINATION: CT ches t without contrast. CLINICAL INDICATION: Chest wall pain COMPARISON: Chest 2 views 02/21/2024. TECHNIQUE: 2.5 mm th in axial and reformatted 2 mm thin sagittal and coronal images of chest were obtained. Scanner: SocrativepeTvoop 64 slice VCT Dose reduction technique: ASIR [...] Hobson Signed Date: 13:54 ET Workstation ID: [id number] Transcribed By: Self Edit Transcribed Date: 03/17/2024 13:43 ET RENAL PROFILE Reviewed date:03/14/2024 09:14:46 AM Interpretation: Performing Lab: Notes/Report: Note Original Ordering Provider: BACILIO ESPINAL [employer], [place] [address] Security Tester - Mary Leos MD GLUCOSE 476 70-100 mg/dL JERARDO REBOLLEDO CALLED CRITICAL RESULTS AT [id number] 1620. THE RESULTS WERE READ BACK AND [...] G/dL Note Original Ordering Provider: BACILIO ESPINAL [employer], [place] [address] Security Tester - Mary Leos MD LIPID PROFILE Reviewed date:03/02/2024 09:15:07 AM Interpretation: Performing Lab: Notes/Report: [employer], [place] [address] Security Tester - Mary Leos MD CHOLESTEROL 156 0-200 mg/dL TRIGLYCERIDES 117 0-150 mg/dL HDL CHOLESTEROL 43 >40 mg/dL LDL CALCULATED 90 0-100 mg/dL TC-HDLC RATIO 3.6 0-4.4 mg/dL CBC WITH AUTO DIFF Reviewed date:03/02/2024 10:35:53 AM Interpretation: Performing Lab: Notes/Report: Original Ordering Provider: SONAL RIBEIRO PA-C [employer], [place] [address] Security Tester - Mary Leos MD WBC 6.1 4.8-10.8 [...] mg/dL JERARDO REBOLLEDO CALLED CRITICAL RESULTS AT [id number] 1617. THE RESULTS WERE READ BACK AND [...] Interpretation: Performing Lab: Notes/Report: Note See Note [facility], a member of [employer] Patient Name: LAURIE MOELLER Date of : 1950 Reason for Exam: ABDOMINAL PAIN/ UNEXPLAINABLE WEIGHT LOSS Exam Date: 10/18/2024 [id number] EST Report Status: FA Ordering Provider: SONAL [...] Hirsch Signed Date: 16:18 ET Workstation ID: [id number] Transcribed By: Self Edit Transcribed Date: 10/18/2024 [...] Signed Date: 025 12:18 ET Workstation ID: [id number] Transcribed By: Self Edit Transcribed Date: 10/18/2024 [...] K/mcL Immature Granulocytes Absolute 0.01 0.00-0.03 K/mcL MG MAMMO DIGITAL SCREENING W NUBIA BILAT Reviewed date:08/23/2024 07:44:41 AM Interpretation: Performing Lab: Notes/Report: Note See Note [facility], a member of [facility] [employer] Patient Name: LAURIE MOELLER Date of : 1950 Reason for Exam: ROUTINE Exam Date: 08/22/2024 [id number] EST Report Status: Final Ordering Provider: SONAL [...] [facility]amm[facility] [address], [address] -------- FINAL REPOR T -------- Dictated By: Omer Lee Dictated Date: 08/22/2024 17:27 ET Assigned Physician: Omer Wahl Reviewed and Electronically Signed By: Omer Wahl Signed Date: 025 17:40 ET Workstation ID: [id number] Transcribed By: Self Edit Transcribed Date: 08/22/2024 17:27 ET HEMOGLOBIN A1C Reviewed date:07/27/2024 01:05:49 PM [...] Performing Lab: Notes/Report: TSH 2.74 0.40-4.00 mcIU/mL PROTEIN AND CREATININE WITH RATIO, URINE Reviewed [...] Interpretation: Performing Lab: Notes/Report: Note See Note [facility], a member of [employer] Patient Name: LAURIE MOELLER Date of : 1950 Reason for Exam: RADICULOPATHY Exam Date: 04/15/2024 [id number] EST Report Status: Final Ordering Provider: KARRIE [...] the mid and lower thoracic spine. Code 00292 -------- FINAL REPOR T -------- Dictated By: Chandrakant Wellington Dictated Date: 04/18/2024 08:01 ET Assigned Physician: Chandrakant Wellington Reviewed and Electronically Signed By: Chandrakant Wellington Signed Date: 08:03 ET Workstation ID: [id number] Transcribed By: Self Edit Transcribed Date: 04/18/2024 08:01 ET LIPID PANEL WITH REFLEX TO D IRECT LDL Reviewed date:04/19/2024 08:18:44 AM Interpretation: Performing Lab: Notes/Report: Cholesterol 151 0-200 mg/dL Triglycerides 149 0-150 mg/dL HDL 50 >=40 mg/dL LDL Calculated 71 0-100 mg/dL VLDL Cholesterol Greg 29.8 Non HDL Chol. (LDL+VLDL) 101 <145 mg/dL Chol/HDL Ratio 3.0 0.0-4.4 CBC WITH AUTO DIFFERENTIAL Reviewed date:07/27/2024 01:07:41 [...] K/mcL Immature Granulocytes Absolute 0.01 0.00-0.03 K/mcL Reason For Referral Diagnosis 1 Decreased hearing of both ears (H91.93) Referral Organization [facility] Referring Provider First Name NITA Referring Provider Last Name SANKET Referring Provider Speciality Internal edicine Referred Provider Cesar Londono Referred Provider Specialty Ear, nose an d throat surgeon General Notes [address] [place] [address] [place] [address], , Clinical Notes Lamar Rolon 10:32:52 AM [...] Other chronic pain ( G89.29) Referral Organization [facility] [address] Referring Provider First Name Sonal Referring Provider Last Name Svrsantak Referring Provider Speciality Internal edicine Referred Provider Specialty Physical The rapist General Notes [address] [place] [address], (p) [phone], (f)[phone] Clinical Notes Yolande Kessler 02:59:34 PM >referral faxed Referral Priority Routine Reason [employer]; ty pe 2 diabetes Diagnosis 1 Type 2 diabetes saira itus without complication, without long-term current use of insulin (E11.9) Referral Organization [facility] Referring Provider First Name TALAL Referring Provider Last Name SANKET Referring Provider Speciality Internal edicine Referred Provider Specialty Nutrition General Notes [address] [facility], (p) [phone] Clinical Notes Corrine Dwyer 08/09 03:30:31 PM >, patient referred to alternative provider Referral Priority Routine Reason [employer]; diabeti c management program Diagnosis 1 Type 2 diabetes saira itus without complications (E11.9) Referral Organization [facility] Referring Provider First Name TALAL Referring Provider Last Name SANKET Referring Provider Speciality Internal edicine Referred Provider Specialty Miscellaneou s General Notes (p) [phone], (f ) [phone] Clinical Notes Yolande Kessler 01:29:08 PM > manually faxed with attachments, they do not take [facility] Referral Priority Routine Reason patient needing home services / diabetes education Diagnosis 1 Decreased hearing of both ears (H91.93) Diagnosis 2 Heart disease (I51.9 ) Diagnosis 3 Primary hypertension (I10) Diagnosis 4 Uncontrolled type 2 diabetes mellitus with hyperglycemia (E11.65) Referral Organization [facility] Referring Provider First Name TALAL Referring Provider Last Name SANKET Referring Provider Speciality Internal edicine Referred Provider Specialty Miscellaneou s General Notes alessandra CARRILLO , phone - [phone] , fax- [phone] Clinical Notes Corrine Dwyer 08/09 03:33:47 PM >, faxed pt is aware, Lamar Rolon 09/07/2024 03:34:27 PM > refaxed to [phone], Lamar Rolon 12/01/2024 03:52:04 PM > refaxed to [phone] Referral Priority Routine Reason [facility] Diagnosis 1 Uncontrolled type 2 diabetes mellitus with hyperglycemia (E11.65) [facility] Referring Provider First Name TALAL Referring Provider Last Name SANKET Referring Provider Speciality Internal edicine Referred Provider Specialty Endocrinolog y General Notes [facility], phone - , [address], [address], [place] , fax- [phone] Clinical Notes Corrine Dwyer 09/28 10:03:59 AM >, referral faxed with attachments patient is aware, Lamar Rolon 10/25/2024 03:08:44 PM > Scheduled for 10/31 but this appt needs to be rescheduled. The office will be calling the patient to r/s her appt Referral Priority Routine Reason Pt needing referral Diagnosis 1 Abdominal aortic ane urysm (AAA) without rupture, unspecified part (I71.40) Referral Organization [facility] [address] Referring Provider First Name Sonal Referring Provider Last Name Svrcek Referring Provider Speciality Internal M edicine Referred Provider Den Carrillo Referred Provider Specialty Vascular Daquan delfina General Notes [facility] specialty a ppt request form faxed to [facility]. Fax - [phone] results , last office note and demographics. Clinical Notes Maggie Phillips 10/20/19 02:38:20 PM >, GonzalesColtnerissa 10/25/2024 01:55:53 PM > Refaxed, GonzalesColtnerissa 10/31/2024 03:51:13 PM > [facility]31[facility] 03:59:06 PM >, re-faxed to [facility] [address] [place] [address], phone- [phone], fax- [phone] Referral Priority Routine Reason [facility]; Ao rtic aneurysm without rupture Diagnosis 1 Aortic aneurysm with out rupture, unspecified portion of aorta (I71.9) Referral Organization [facility] [address] Referring Provider First Name Sonal Referring Provider Last Name Svrlino Referring Provider Speciality Internal M edicine Referred Provider Specialty Vascular Daquan delfina General Notes [address] [place], (p) [phone], (f) [phone] Clinical Notes Yolande Kessler 03:25:02 PM > referral faxed with [facility] aragonColt zuluaganerissa 12/30/2024 01:47:44 PM > I called the office and they informed me that they have contacted the patient twice and are waiting for her to call back to schedule Referral Priority Routine Reason [facility] Diabetes; bilateral foot pain Diagnosis 1 Foot pain, left (M79 .672) Diagnosis 2 Foot pain, right (M7 9.671) Diagnosis 3 Type 2 diabetes saira itus without complication, without long-term current use of insulin (E11.9) Referral Organization [facility] [address] Referring Provider First Name Sonal Referring Provider Last Name Walter Referring Provider Speciality Internal M edicine Referred Provider Specialty Podiatry General Notes [address] [place] (p) [phone], (f) [phone], Gave pt. phone number to book appt. Clinical Notes Yolande Kessler 09:15:20 AM > referral faxed with notes Referral Priority Routine Medications Medication SIG (Take, Route, Frequency, Duration) Notes Start Date End Date Status Aspirin 81 MG 1 tablet Orally Once a day Active FreeStyle Celso 3 Sensor - use [...] Duration: 90 10 units at bedtime Active Vitamin D3 125 MCG (5000 UT) 1 capsule Orally Once a day; Duration: 90 days Active BD Pen Needle Mini Ultrafine 31G [...] UNITS SUBCUTANEOUSLY TWICE DAILY; Duration: 90 Active Immunizations Vaccine Route Administration Date Status [...] Problem Status W/U Status Risk Notes Problem Vitamin B>12< deficiency anaemia (99085093) Vitamin B12 deficiency anemia, unspecified (D51.9) Active confirmed Problem Anemia in chronic kidney disease (330787658) Anemia in chronic kidney disease (D63.1) Active confirmed Problem Type II diabetes mellitus without complication (343065339) Type 2 diabetes mellitus without complications (E11.9) Active confirmed Problem Chronic pain (68777240) Other chronic pain (G89.29) Active confirmed Problem Acquired spondylolisthesis (030638074) Spondylolisthesis, thoracic region (M43.14) Active confirmed Problem Low back pain (168797055) Low back pain (M54.5) Active confirmed Problem Adult health examination (674503640) Encounter for general adult medical examination without abnormal findings (Z00.00) Active confirmed Problem Long-term current us e of insulin (842642894) intermediate teacher (current) use of insulin (Z79.4) Active confirmed Problem Hyperlipidemia (00708087) Hyperlipidemia, unspecified (E78.5) Active confirmed Problem Moderate nonproliferative retinopathy of right eye due to diabetes mellitus (disorder) (767790951) Type 2 diabetes mellitus with moderate nonproliferative diabetic retinopathy with macular edema, right eye (E11.3311) Active confirmed Problem Proliferative diabetic retinopathy due to type II diabetes mellitus (7075194924362) Type 2 diabetes mellitus with stable proliferative diabetic retinopathy, bilateral (E11.3553) Active confirmed Problem Essential hypertension (78735919) Essential hypertension (I10) Active confirmed Problem Hearing loss (41780219) Decreased hearing of both ears (H91.93) Active confirmed Problem Colon cancer screening (126956744) Colon cancer screening (Z12.11) Active confirmed Problem Disorder due to type 2 diabetes mellitus (037579159) Type 2 diabetes mellitus with complication, unspecified whether local intermodal truck driver insulin use (E11.8) Active confirmed Problem Hyperlipidaemia (36261227) Hyperlipidemia, unspecified hyperlipidemia type (E78.5) Active confirmed Problem Acquired hypothyroidism (423503023) Acquired hypothyroidism (E03.9) Active confirmed Problem Hypothyroidism (32317067) Hypothyroidism, unspecified type (E03.9) Active confirmed Problem Essential hypertension (29298251) Jovanna hypertension (I10) Active confirmed Problem Vitamin D deficiency (96748984) Vitamin D deficiency (E55.9) Active confirmed Problem Screening for malignant neoplasm of breast (572198939) Breast cancer screening by mammogram (Z12.31) Active confirmed Problem Constipation (09999527) Constipation, unspecified constipation type (K59.00) Active confirmed Problem Essential hypertension (04575555) Hypertension, unspecified type (I10) Active confirmed Problem Type II diabetes mellitus without complication (071704304) Type 2 diabetes mellitus without complication, without long-term current use of insulin (E11.9) Active confirmed Problem Type II diabetes mellitus without complication (143861462) Type 2 diabetes mellitus without complication, unspecified whether local intermodal truck driver insulin use (E11.9) Active confirmed Problem Peripheral vascular disease (519874630) PVD (peripheral vascular disease) (I73.9) Active confirmed Problem Gastroesophageal reflux disease with esophagitis (disorder) (533076847) Gastroesophageal reflux disease with esophagitis without hemorrhage (K21.00) Active confirmed Problem Chronic kidney disease stage 3A (831913225) Stage 3a chronic kidney disease (N18.31) Active confirmed Problem Aortic aneurysm (42160272) Aortic aneurysm without rupture, unspecified portion of aorta (I71.9) Active confirmed Problem Primary hypertension (28475864) Primary hypertension (I10) Active confirmed Problem Eruption of skin (357241123) Rash and nonspecific skin eruption (R21) Active confirmed Problem Hyperglycemia due to type 2 diabetes mellitus (264824638586812) Uncontrolled type 2 diabetes mellitus with hyperglycemia (E11.65) Active confirmed Problem Dyspnea on exertion (82918108) Dyspnea on exertion (R06.00) Active confirmed Problem Diastolic dysfunctio n (1216983) Diastolic dysfunction (I51.89) Active confirmed Problem Allergic contact dermatitis (811241344) Allergic dermatitis (L23.9) Active confirmed Problem Heart disease (79635163) Heart disease (I51.9) Active confirmed Problem Elevated fasting lipid profile (922935686665) Elevated lipids (E78.5) Active confirmed Problem Abdominal aortic aneurysm without rupture (disorder) (02555725) Abdominal aortic aneurysm (AAA) without rupture, unspecified part (I71.40) Active confirmed Problem Congenital hypothyroidism screening test (347993398) Screening for hypothyroidism (Z13.29) Active confirmed Problem Hyperaldosteronism (44051296) Hyperaldosteronism (E26.9) Active confirmed Problem Hyperparathyroidism due to renal insufficiency (27380316) Hyperparathyroidism, 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) Active confirmed Problem Thoracic spondylosis (748694099) Thoracic spondylosis (M47.814) Active confirmed Vital Signs Heart Rate 79 /min 12/27/2024 Oximetry 99 % 12/27/2024 Blood pressure diastolic 74 mm Hg 12/27/2024 Height 65 in 12/27/2024 Blood pressure systolic 138 mm Hg 12/27/2024 Weight 150.9 lbs 12/27/2024 BMI 25.11 kg/m2 12/27/2024 Encounters Encounter Location Date Provider Diagnosis [facility] [address] 09/15/2024 Sonal Svrcek [facility] [address] 11/30/2024 Sonal Svrcek [facility] [address] 01/27/2024 Sonal Svrcek Essential hypertensi on I10 ; Type 2 diabetes mellitus without complication, unspecified whether local intermodal truck driver insulin use E11.9 ; Stage 3a chronic kidney disease N18.31 ; Hyperaldosteronism E26.9 ; Hyperparathyroidism, secondary renal N25.81 and Anemia in chronic kidney disease D63.1 [facility] [address] 02/18/2024 Sonal Svrcek Other chronic pain G 89.29 ; Right-sided chest wall pain R07.89 ; Pleuritic pain R07.81 ; Pain in thoracic spine M54.6 and Essential hypertension I10 [facility] [address] 02/24/2024 Sonal Svrcek Other chronic pain G 89.29 ; Right-sided chest wall pain R07.89 ; Pleuritic pain R07.81 and Essential hypertension I10 [facility] [address] 03/17/2024 Sonal Svrcek Other chronic pain G 89.29 ; Right-sided chest wall pain R07.89 ; Pleuritic pain R07.81 ; Essential hypertension I10 and Thoracic spondylosis M47.814 [facility] [address] [address] 06/16/2024 Sonal Svrcek Essential hypertensi on I10 ; Type 2 diabetes mellitus with complication, unspecified whether local intermodal truck driver insulin use E11.8 ; Hyperlipidemia, unspecified E78.5 ; intermediate teacher (current) use of insulin Z79.4 ; Hyperaldosteronism E26.9 and Stage 3a chronic kidney disease N18.31 [facility] [address] [address] 07/27/2024 Sonal Svrcek Essential hypertensi on I10 ; Type 2 diabetes mellitus with complication, unspecified whether alf insulin use E11.8 ; Hyperlipidemia, unspecified E78.5 ; intermediate teacher (current) use of insulin Z79.4 ; Hyperaldosteronism E26.9 ; Stage 3a chronic kidney disease N18.31 ; Systolic murmur R01.1 and Breast cancer screening by mammogram Z12.31 [facility] [address] [address] 09/21/2024 Sonal Svrcek Essential hypertensi on I10 ; Abdominal distention R14.0 ; Unexplained weight loss R63.4 ; Type 2 diabetes mellitus with complication, unspecified whether local intermodal truck driver insulin use E11.8 ; Hyperlipidemia, unspecified E78.5 ; intermediate teacher (current) use of insulin Z79.4 ; Hyperaldosteronism E26.9 ; Stage 3a chronic kidney disease N18.31 and Breast cancer screening by mammogram Z12.31 [facility] [address] [address] 10/25/2024 Sonal Svrcek Type 2 diabetes saira itus with complication, unspecified whether local intermodal truck driver insulin use E11.8 ; Aortic aneurysm without rupture, unspecified portion of aorta I71.9 ; Unexplained weight loss R63.4 ; Hyperlipidemia, unspecified E78.5 ; intermediate teacher (current) use of insulin Z79.4 ; Hyperaldosteronism E26.9 ; Stage 3a chronic kidney disease N18.31 and Hypertension, unspecified type I10 [facility] [address] [address] 12/27/2024 Sonal Svrcek Forgetfulness R68.89 ; Medicare annual wellness visit, subsequent Z00.00 ; Essential hypertension I10 ; Type 2 diabetes mellitus without complication, without long-term current use of insulin E11.9 ; Encounter for screening for other disorder Z13.89 and Alcohol screening Z13.[address] [facility] [address] [place] [address] 01/12/2024 TALAL VILLALBA [facility] [address] [place] [address] 02/05/2024 TALAL VILLALBA [facility] [address] [place] [address] 02/18/2024 TALAL VILLALBA [facility] [address] [place] [address] 02/24/2024 Sonal Svrcek [facility] [address] [place] [address] 03/01/2024 Sonal Svrcek [facility] [address] [place] [address] 03/15/2024 TALAL VILLALBA [facility] [address] [place] [address] 03/18/2024 Sonal Svrcek [facility] [address] [place] [address] 03/30/2024 Sonal Svrcek [facility] [address] [place] [address] 04/12/2024 Sonal Svrcek [facility] [address] [place] [address] 04/14/2024 TALAL VILLALBA [facility] [address] [place] [address] 04/19/2024 Snoal Svrcek [facility] [address] [place] [address] 05/13/2024 Sonal Svrcek [facility] [address] [place] [address] 05/24/2024 TALAL VILLALBA [facility] [address] [place] [address] 06/16/2024 TALAL VILLALBA [facility] [address] [place] [address] 07/26/2024 Sonal Svrcek [facility] [address] [place] [address] 07/27/2024 TALAL VILLALBA [facility] [address] [place] [address] 08/04/2024 TALAL VILLALBA [facility] [address] [place] [address] 08/08/2024 TALAL VILLALBA [facility] [address] [place] [address] 08/17/2024 Sonal Svrcek [facility] [address] [place] [address] 08/22/2024 Sonal Svrcek [facility] [address] [place] [address] 08/22/2024 Sonal Svrcek [facility] [address] [place] [address] 09/14/2024 Sonal Svrcek [facility] [address] [place] [address] 09/16/2024 Sonal Svrcek [facility] [address] [place] [address] 09/22/2024 Sonal Svrcek [facility] [address] [place] [address] 10/06/2024 TALAL VILLALBA [facility] [address] [place] [address] 10/18/2024 Sonal Svrcek [facility] [address] [place] [address] 10/19/2024 Sonal Svrcek [facility] [address] [place] [address] 10/25/2024 TALAL VILLALBA [facility] [address] [place] [address] 10/31/2024 TALAL VILLALBA [facility] [address] [place] [address] 11/15/2024 Sonal Svrcek [facility] [address] [place] [address] 12/01/2024 Sonal Svrcek [facility] [address] [place] [address] 12/28/2024 Sonal Svrcek [facility] [address] [place] [address] 12/29/2024 NITA VILLALBA Assessments Encounter Date Diagnosis (ICD Code) Assessment Notes Treatment Notes Treatment Clinical Notes Section Notes 01/27/2024 Essential hypertension (ICD-10 - I10) #Hypertension. Uncontrolled. Followed by [facility]. 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 She has [...] Dictation was accomplished with the use of [employer] voice recognition software, prone to medical misidentifications [...] 2 diabetes mellitus without complication, unspecified whether alf insulin use (ICD-10 - E11.9) #Hypertension. Uncontrolled. Followed by [facility]. 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 She has [...] Dictation was accomplished with the use of [employer] voice recognition software, prone to medical misidentifications [...] Dictation was accomplished with the use of [employer] voice recognition software, prone to medical misidentifications [...] Dictation was accomplished with the use of [employer] voice recognition software, prone to medical misidentifications [...] Dictation was accomplished with the use of [employer] voice recognition software, prone to medical misidentifications [...] Dictation was accomplished with the use of [employer] voice recognition software, prone to medical misidentifications [...] symptoms. Discussed options we will send to [facility] for consult. n #Hypertension. Uncontrolled. Followed by nephrology and cardiology. Has had extensive workup for secondary causes of hypertension. MRI did show nonspecific adrenal cortical thickening without mass or nodule. Continue to follow with nephrology. Follow labs closely. #Thoracic spondylosis noted on CT done this morning. T4-T12. Will refer to [facility]. Question could this be contributing to her intermittent chest pain as above. Case discussed with collaborating physician Yeni Villalba who reviewed the assessment and plan. Chart, medications, labs, vital signs reviewed. Dictation was accomplished with the use of [employer] voice recognition software, prone to medical misidentifications [...] symptoms. Discussed options we will send to [facility] for consult. n #Hypertension. Uncontrolled. Followed by nephrology and cardiology. Has had extensive workup for secondary causes of hypertension. MRI did show nonspecific adrenal cortical thickening without mass or nodule. Continue to follow with nephrology. Follow labs closely. #Thoracic spondylosis noted on CT done this morning. T4-T12. Will refer to [facility]. Question could this be contributing to her intermittent chest pain as above. Case discussed with collaborating physician Yeni Villalba who reviewed the assessment and plan. Chart, medications, labs, vital signs reviewed. Dictation was accomplished with the use of [employer] voice recognition software, prone to medical misidentifications [...] the past month. Advised to call her political director to discuss whether or not she should [...] it. I advised her to call her political director today to discuss further with them in regards to remaining off versus restarting. #Chronic kidney disease. As above. Followed by nephrology. Will get updated labs prior to follow-up in 6 weeks. Case discussed with collaborating physician Yeni Villalba who reviewed the assessment and plan. Chart, medications, labs, vital signs reviewed. Dictation was accomplished with the use of [employer] voice recognition software, prone to medical misidentifications [...] monitoring blood glucose closely. Will refer to life skills educator. She has not tolerated Rybelsus or [...] Dictation was accomplished with the use of [employer] voice recognition software, prone to medical misidentifications [...] 2 diabetes mellitus with complication, unspecified whether local intermodal truck driver insulin use (ICD-10 - E11.8) #Hypertension. Blood [...] monitoring blood glucose closely. Will refer to life skills educator. She has not tolerated Rybelsus or [...] Dictation was accomplished with the use of [employer] voice recognition software, prone to medical misidentifications [...] Dictation was accomplished with the use of [employer] voice recognition software, prone to medical misidentifications [...] Dictation was accomplished with the use of [employer] voice recognition software, prone to medical misidentifications [...] 2 diabetes mellitus with complication, unspecified whether alf insulin use (ICD-10 - E11.8) #Aortic aneurysm. [...] Dictation was accomplished with the use of [employer] voice recognition software, prone to medical misidentifications [...] Dictation was accomplished with the use of [employer] voice recognition software, prone to medical misidentifications [...] next visit it any questions/concerns arise. 12/27/2024 Forgetfulness (ICD-10 - R68.89) #Annual wellness [...] low readings. She is also working with special education paraeducator and quartz miner. Comprehensive discussion was done on the following. [...] log exercise and discussed fitness Apps like [employer] 911 which can help keep log off calories [...] Dictation was accomplished with the use of [employer] voice recognition software, prone to medical misidentifications [...] low readings. She is also working with special education paraeducator and quartz miner. Comprehensive discussion was done on the following. [...] log exercise and discussed fitness Apps like [employer] 911 which can help keep log off calories [...] Dictation was accomplished with the use of [employer] voice recognition software, prone to medical misidentifications [...] vaccine and pneumonia vaccine. PHQ-9 09/27. Audit /12. She is up-to-date on mammogram earlier this [...] low readings. She is also working with special education paraeducator and quartz miner. Comprehensive discussion was done on the following. [...] log exercise and discussed fitness Apps like [employer] 911 which can help keep log off calories [...] Dictation was accomplished with the use of [employer] voice recognition software, prone to medical misidentifications [...] Dictation was accomplished with the use of [employer] voice recognition software, prone to medical misidentifications [...] Dictation was accomplished with the use of [employer] voice recognition software, prone to medical misidentifications [...] monitoring blood glucose closely. Will refer to life skills educator. She has not tolerated Rybelsus or [...] Dictation was accomplished with the use of [employer] voice recognition software, prone to medical misidentifications [...] 2 diabetes mellitus with complication, unspecified whether alf insulin use (ICD-10 - E11.8) #Hypertension. Blood pressure is actually improved today compared to previous. Of note she has been off the eplerenone for the past month. Advised to call her political director to discuss whether or not she should [...] it. I advised her to call her political director today to discuss further with them in regards to remaining off versus restarting. #Chronic kidney disease. As above. Followed by nephrology. Will get updated labs prior to follow-up in 6 weeks. Case discussed with collaborating physician Yeni Villalba who reviewed the assessment and plan. Chart, medications, labs, vital signs reviewed. Dictation was accomplished with the use of [employer] voice recognition software, prone to medical misidentifications [...] symptoms. Discussed options we will send to [facility] for consult. n #Hypertension. Uncontrolled. Followed by nephrology and cardiology. Has had extensive workup for secondary causes of hypertension. MRI did show nonspecific adrenal cortical thickening without mass or nodule. Continue to follow with nephrology. Follow labs closely. #Thoracic spondylosis noted on CT done this morning. T4-T12. Will refer to [facility]. Question could this be contributing to her intermittent chest pain as above. Case discussed with collaborating physician Yeni Villalba who reviewed the assessment and plan. Chart, medications, labs, vital signs reviewed. Dictation was accomplished with the use of [employer] voice recognition software, prone to medical misidentifications [...] Dictation was accomplished with the use of [employer] voice recognition software, prone to medical misidentifications [...] Dictation was accomplished with the use of [employer] voice recognition software, prone to medical misidentifications [...] Followed by [facility]. 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 Advised to call her political director to discuss whether or not she should [...] it. I advised her to call her political director today to discuss further with them in regards to remaining off versus restarting. #Chronic kidney disease. As above. Followed by nephrology. Will get updated labs prior to follow-up in 6 weeks. Case discussed with collaborating physician Yeni Villalba who reviewed the assessment and plan. Chart, medications, labs, vital signs reviewed. Dictation was accomplished with the use of [employer] voice recognition software, prone to medical misidentifications [...] symptoms. Discussed options we will send to [facility] for consult. n #Hypertension. Uncontrolled. Followed by nephrology and cardiology. Has had extensive workup for secondary causes of hypertension. MRI did show nonspecific adrenal cortical thickening without mass or nodule. Continue to follow with nephrology. Follow labs closely. #Thoracic spondylosis noted on CT done this morning. T4-T12. Will refer to [facility]. Question could this be contributing to her intermittent chest pain as above. Case discussed with collaborating physician Yeni Villalba who reviewed the assessment and plan. Chart, medications, labs, vital signs reviewed. Dictation was accomplished with the use of [employer] voice recognition software, prone to medical misidentifications [...] monitoring blood glucose closely. Will refer to life skills educator. She has not tolerated Rybelsus or [...] Dictation was accomplished with the use of [employer] voice recognition software, prone to medical misidentifications [...] 2 diabetes mellitus with complication, unspecified whether alf insulin use (ICD-10 - E11.8) #Abdominal distention [...] Dictation was accomplished with the use of [employer] voice recognition software, prone to medical misidentifications [...] Dictation was accomplished with the use of [employer] voice recognition software, prone to medical misidentifications [...] low readings. She is also working with special education paraeducator and quartz miner. Comprehensive discussion was done on the following. [...] log exercise and discussed fitness Apps like [employer] which can help keep log off calories [...] Dictation was accomplished with the use of [employer] voice recognition software, prone to medical misidentifications [...] low readings. She is also working with special education paraeducator and quartz miner. Comprehensive discussion was done on the following. [...] log exercise and discussed fitness Apps like [employer] which can help keep log off calories [...] Dictation was accomplished with the use of [employer] voice recognition software, prone to medical misidentifications [...] next visit it any questions/concerns arise. 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 Will refer to life skills educator. She has not tolerated Rybelsus or [...] Dictation was accomplished with the use of [employer] voice recognition software, prone to medical misidentifications [...] symptoms. Discussed options we will send to [facility] for consult. n #Hypertension. Uncontrolled. Followed by nephrology and cardiology. Has had extensive workup for secondary causes of hypertension. MRI did show nonspecific adrenal cortical thickening without mass or nodule. Continue to follow with nephrology. Follow labs closely. #Thoracic spondylosis noted on CT done this morning. T4-T12. Will refer to [facility]. Question could this be contributing to her intermittent chest pain as above. Case discussed with collaborating physician Yeni Villalba who reviewed the assessment and plan. Chart, medications, labs, vital signs reviewed. Dictation was accomplished with the use of [employer] voice recognition software, prone to medical misidentifications [...] next visit it any questions/concerns arise. 06/16/2024 intermediate teacher (current) use of insulin (ICD-10 - Z79.4) #Hypertension. Blood pressure is actually improved today compared to previous. Of note she has been off the eplerenone for the past month. Advised to call her political director to discuss whether or not she should [...] it. I advised her to call her political director today to discuss further with them in regards to remaining off versus restarting. #Chronic kidney disease. As above. Followed by nephrology. Will get updated labs prior to follow-up in 6 weeks. Case discussed with collaborating physician Yeni Villalba who reviewed the assessment and plan. Chart, medications, labs, vital signs reviewed. Dictation was accomplished with the use of [employer] voice recognition software, prone to medical misidentifications [...] Dictation was accomplished with the use of [employer] voice recognition software, prone to medical misidentifications [...] Followed by [facility]. 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 Advised to call her political director to discuss whether or not she should [...] it. I advised her to call her political director today to discuss further with them in regards to remaining off versus restarting. #Chronic kidney disease. As above. Followed by nephrology. Will get updated labs prior to follow-up in 6 weeks. Case discussed with collaborating physician Yeni Villalba who reviewed the assessment and plan. Chart, medications, labs, vital signs reviewed. Dictation was accomplished with the use of [employer] voice recognition software, prone to medical misidentifications [...] monitoring blood glucose closely. Will refer to life skills educator. She has not tolerated Rybelsus or [...] Dictation was accomplished with the use of [employer] voice recognition software, prone to medical misidentifications [...] next visit it any questions/concerns arise. 09/21/2024 prison (current) use of insulin (ICD-10 - [...] Dictation was accomplished with the use of [employer] voice recognition software, prone to medical misidentifications [...] Dictation was accomplished with the use of [employer] voice recognition software, prone to medical misidentifications [...] low readings. She is also working with special education paraeducator and quartz miner. Comprehensive discussion was done on the following. [...] log exercise and discussed fitness Apps like [employer] which can help keep log off calories [...] Dictation was accomplished with the use of [employer] voice recognition software, prone to medical misidentifications [...] Dictation was accomplished with the use of [employer] voice recognition software, prone to medical misidentifications [...] Dictation was accomplished with the use of [employer] voice recognition software, prone to medical misidentifications [...] monitoring blood glucose closely. Will refer to life skills educator. She has not tolerated Rybelsus or [...] Dictation was accomplished with the use of [employer] voice recognition software, prone to medical misidentifications [...] the past month. Advised to call her political director to discuss whether or not she should [...] it. I advised her to call her political director today to discuss further with them in regards to remaining off versus restarting. #Chronic kidney disease. As above. Followed by nephrology. Will get updated labs prior to follow-up in 6 weeks. Case discussed with collaborating physician Yeni Villalba who reviewed the assessment and plan. Chart, medications, labs, vital signs reviewed. Dictation was accomplished with the use of [employer] voice recognition software, prone to medical misidentifications [...] monitoring blood glucose closely. Will refer to life skills educator. She has not tolerated Rybelsus or [...] Dictation was accomplished with the use of [employer] voice recognition software, prone to medical misidentifications [...] Dictation was accomplished with the use of [employer] voice recognition software, prone to medical misidentifications [...] Dictation was accomplished with the use of [employer] voice recognition software, prone to medical misidentifications [...] Dictation was accomplished with the use of [employer] voice recognition software, prone to medical misidentifications [...] Dictation was accomplished with the use of [employer] voice recognition software, prone to medical misidentifications [...] PANEL 04/06/2020 LIPID PANEL 05/26/2023 LIPID PANEL 12/27/2024 LIPID PANEL 01/27/2024 T3, FREE 10/22/2023 TSH 06/16/2024 TSH 12/27/2024 TSH 05/26/2023 TSH 10/20/2023 TSH 10/22/2023 URINALYSIS, COMPLETE 04/06/2020 CT Chest w Contrast 02/18/2024 US Abdomen Complete 07/16/2023 US Abdomen Complete 06/03/2022 XR Foot 2 Views RT 12/08/2023 VITAMIN B12 12/27/2024 UA WITH CULTURE IF INDICATED 12/27/2024 Cologuard 09/11/2022 COMPREHENSIVE METABOLIC PANEL 06/16/2024 COMPREHENSIVE METABOLIC PANEL 12/27/2024 COMPREHENSIVE METABOLIC PANEL 09/21/2024 CBC (INCLUDES DIFF/PLT) 09/21/2024 CBC (INCLUDES DIFF/PLT) 12/27/2024 CBC (INCLUDES DIFF/PLT) 06/16/2024 HEMOGLOBIN A1c 06/16/2024 HEMOGLOBIN A1c 12/27/2024 HEMOGLOBIN A1c 10/14/2021 HEMOGLOBIN A1c 01/27/2024 HEMOGLOBIN A1c 10/20/2023 VITAMIN B12 10/20/2023 T4, FREE 10/22/2023 TSH 01/27/2024 TSH 06/30/2023 VITAMIN D,25-OH,TOTAL,IA 12/27/2024 VITAMIN D, 1,25 DIHYDROXY LC/MS/MS 10/19 Dexa [...] 01/14/2023 Next Appt Details Provider Name:Sonal Ribeiro, 1 01:30:00 PM, [address] [facility], [place] [address], [place], [address], Provider Name:Sonal Ribeiro, 0 01/09/2026 01:00:00 PM, [address] [facility], [place] [address], [place], [address], Insurance Providers Payer Name Payer Address Payer Phone Subscriber Number Group Number Insured Name Patient Relationship to Insured Coverage Start Date Coverage End Date [employer] Preferred [address] [place] [address] [id number] LAURIE CHOUDHARY Self - patient is the insured 0 Medical (General) History Medical History History ICD Code hypertension hyperlipidemia type II diabetes acid reflux Surgical History Surgery Date(Month/Year) hysterectomy Left leg surgery x2 due to infection of muscle causing sepsis 2017 Hospitalization History Reason Date(Month/Year) diabetes 2002
--- OUTSIDE RECORDS SUMMARY | 2024-12-30 13:54 | XMS_ITS | Patient Health Record ---
Author Organization [facility] Address [address] [place] [address] Care Team Providers Care Educational Program Assistant Name Role Phone Deejay Avthomas Primary Care Provider Jarad Lacey Unavailable [phone] Allergies Allergen (clinical drug ingredient) Drug/Non Drug [...] Problem Acquired hammer toe of right foot (9123790260650306 ) Other hammer toe(s) (acquired), right foot (M20.41) Active confirmed Problem Acquired hammer toe of left foot (2922098884461323 ) Other hammer toe(s) (acquired), left foot (M20.42) Active confirmed Problem Plantar wart (91857009) Plantar wart (B07.0) Active confirmed Problem Polyneuropathy due to type 2 diabetes mellitus (237831721) Type 2 diabetes mellitus with diabetic polyneuropathy (E11.42) Active confirmed Plan Of Treatment Pending Test Test Name Order Date [id number] NAIL, 6 OR MORE 08/29/2021 [id number] NAIL, 6 OR MORE 11/28/2021 [id number] NAIL, 6 OR MORE 02/27/2022 [id number] NAIL, 6 OR MORE 05/29/2022 [id number] NAIL, 6 OR MORE 10/29/2022 [id number] NAIL, 6 OR MORE 01/28/2023 26657-Wlol Destruction, 1-14 01/28/2023 85243-Fsmx Destruction, 1-14 10/29/2022 55159-Qgur Destruction, 1-14 11/28/2021 78429-Mfjp Destruction, 1-14 05/29/2022 43800-Urks Destruction, 1-14 02/27/2022 60369-ENDL SKIN LESIONS, OVER 4 02/28/20 22 56701-FUDB SKIN LESIONS, OVER 4 05/29/19 23 12150-OHOZ SKIN LESIONS, OVER 4 11/29/19 22 00506-KQET SKIN LESIONS, OVER 4 08/30/19 22 85547-AGZP SKIN LESIONS, OVER 4 10/30/19 23 41029-MVVV SKIN LESIONS, OVER 4 01/29/20 23 Insurance Providers Payer Name Payer Address Payer Phone Subscriber Number Group Number Insured Name Patient Relationship to Insured Coverage Start Date Coverage End Date [employer] Preferred [address] [place] [address] [id number] Angelique Flores Self - patient is the insured Medical (General) History Medical History History ICD Code Diabetic High blood pressure Chicken pox Surgical History Surgery Date(Month/Year) leg surgery 10/21/16 hysterectomy 30 years ago
--- OUTSIDE RECORDS SUMMARY | 2024-12-30 13:54 | XMS_ITS | Clinical Summary ---
Author Organization [facility] Address [address] [place] [address] Care Team Providers Care Project Controls Scheduler Name Role Phone Unavailable Primary Care Provider Unavailabl e Social History Tobacco Use Types Packs/Day Years Used Date Smoking Tobacco: Never Assessed Comments Unknown Sex and Gender Information Value Date Recorded Sex Assigned at Female 03/03/2022 10:33 AM EDT Legal Sex Female 10:33 AM EDT Gender Identity Female 03/03/2022 10:33 AM EDT Sexual Orientation Straight 03/03/2022 10 :33 AM EDT Plan of Treatment Health Maintenance Due Date Last Done Comments CT Colonography 1952 Colonoscopy 1952 Depression Screening 1952 FIT 1952 FOBT 1952 Sigmoidoscopy 1952 Alcohol/Substance Use Screening 1964 Tobacco Screening 1964 DTaP/Tdap/Td Vaccines (1 - Tdap) 11/24/1971 Mammogram 1992 Pneumococcal Vaccine: 50+ Ye ars (1 of 1 - PCV) 2002 Zoster Vaccines (1 of 2) 2002 COVID-19 Vaccine (1 - 2023-2 5 season) 2024 Influenza Vaccine (#1) 2025 Colorectal Cancer Screening 10/01/2025 FIT DNA/Cologuard 10/01/2025 10/01/2022 RSV Patients and Pa tients Aged 60 years or older (1 - 1-dose 75+ series) 11/24/2027 HIB Vaccines Aged Out No longer eligi [...] patient's age to complete this topic Meningococcal Vaccine Aged Out No jimena ramone eligible based on patient's age to complete this topic RSV under 20 months Aged Out No longe r eligible based on patient's age to complete this topic Rotavirus Vaccines Aged Out No longer eligible based on patient's age to complete this topic
[2024-12-30 14:04] LABS: Glucose, Whole Blood 80 mg/dL (60-115)
== END 2024-12-30 14:26 | disposition home or self-care (01) ==
LOC: HO.ENCR 13:50
PROVIDERS: PCP Internal Medicine; Visit Provider Physician Assistant
DX: E11.65 Type 2 diabetes mellitus with hyperglycemia (principal); Z79.4 Long term (current) use of insulin; E11.29 Type 2 diabetes mellitus with other diabetic kidney complication; R80.9 Proteinuria, unspecified; I10 Essential (primary) hypertension

== ENCOUNTER → 2024-12-30 13:49 | Outpatient (BNVA) | payer MEDICARE, SELFPAY | PROVIDERS: PCP Internal Medicine; Visit Provider Physician Assistant | DX: E11.65 Type 2 diabetes mellitus with hyperglycemia (principal); E11.29 Type 2 diabetes mellitus with other diabetic kidney complication; R80.9 Proteinuria, unspecified; I10 Essential (primary) hypertension; Z79.4 Long term (current) use of insulin | CPT/HCPCS: 82947; 99212 ==

== ENCOUNTER 2025-03-13 14:56 | Outpatient (AMB) | payer MEDICARE, SELFPAY ==
--- NOTE | 2025-03-13 14:59 | A.OFFVIS_ITS ---
Vital Signs 03/13/25 15:00 Height 5 ft 6 in Weight 143 lb 15.39 oz BMI 23.2 BP 158/82 H Blood Pressure Location Lt brachial Position Sitting Pulse 85 Pulse Source Pulse Oximeter Pulse Oximetry (%) 98 Oxygen Delivery Method Room Air Intake Visit Reasons: T2DM Intake Note: Patient present today for Type 2 Diabetes Mellitus Last [facility] exam: [facility] Last Podiatry Visit: Last visit was on 01/2025 Random Glucose: 152 mg/dl HgA1C: 9.3% Director Data Processing Required: No Accompanied by: Daughter and grandchild Allergies amoxicillin Allergy (Mild, Verified 03/13/25 15:05) Rash semaglutide (From Rybelsus) Allergy (Mild, Verified 03/13/25 15:05) Rash HPI HPI T2DM: Details: Patient is a 74-year-old female who presents today for an initial consultation regarding type 2 diabetes. Endo: States that she was diagnosed with diabetes around 2004. Her A1c is 9.3. She is currently on metformin 1000 mg daily, Trulicity 0.75 mg weekly -Trulicity was added at our last visit but did not start it until 2.5 weeks ago. She has not noted any increased nausea with trulicity. Had weight loss but states prior to starting trulicity. Following with pcp for this. She states since starting the Trulicity she has noticed that her numbers are all in the green so she stopped using the insulin. She states that this drug appears to be very effective for her. Had a rash with jardiance, felt nauseous with ozempic CGM-freestyle Celso download shows 98% usage, average glucose 157, G mi 7.1%, variability 29%. Very hyperglycemic 4%, hyperglycemic 19%, in range 77%, 0% h ypoglycemia Hyperglycemia-rare since starting Trulicity Hypoglycemia -has not had any recently since stopping insulin CV: Blood pressure today in the office is 158/82. She is currently on amlodipi ne 10 mg daily, metoprolol 100 mg daily. Her cholesterol is managed with atorvastatin 40 mg. Following with cardiology. [facility] Surgical History History of surgery on lower extremity History of back surgery Hx of hysterectomy Family History Father Diabetes mellitus Mother Diabetes mellitus Social History Alcohol intake: current Alcohol intake frequency: does not drink Patient Tobacco Use Status: Never used Tobacco Physical Exam Vital Signs: Last Vital Signs Pulse 85 03/13/25 15:00 BP 158/82 H 03/13/25 15:00 Pulse Ox 98 03/13/25 15:00 Oxygen Delivery Method Room Air 03/13/25 15:00 BMI result Body Mass Index 23.2 Const Orientation/consciousness: patient oriented x3 HEENT Ears: hearing grossly normal bilaterally Neck Thyroid: Thyroid normal Lymphatic: no lymphadenopathy noted Resp Auscultation: clear to auscultation bilaterally Cardio Rate: regular rate Rhythm: regular rhythm Heart sounds: S1 normal heart sound present, S2 normal heart sound present and Murmur heart sound present Skin General skin exam: no rashes or lesions noted Neuro General: patient oriented x3, gait normal and no focal motor deficits Results AMB Hemoglobin A1c AMB Hemoglobin A1c 9.3 % Last Edit by NIKOLE Mcdonald on 03/13/25 15:17 Results Reviewed Results Reviewed: Laboratory Last Values Glucose (Clinic) 152 mg/dL (60-115) H 03/13/25 15:08 Laboratory Tests 11/21/24 11/30/24 12/05/24 14:35 09:06 12:30 Estimated GFR > 60 Glucose (Clinic) Hgb A1c (Clinic) 10.3 H C-Peptide 1.03 Urine Creatinine 62.35 Urine Microalbumin 1855.0 Microalb/Creat Ratio 2975.1 H Islet Cell Ab Screen NEGATIVE PURVI Antibody <5 12/30/24 14:00 Estimated GFR Glucose (Clinic) 80 Hgb A1c (Clinic) C-Peptide Urine Creatinine Urine Microalbumin Microalb/Creat Ratio Islet Cell Ab Screen PURVI Antibody Assessment & Plan Assessment & Plan (1) Type 2 diabetes mellitus with hyperglycemia, with long-term current use of insulin: Code(s): E11.65 - Type 2 diabetes mellitus with hyperglycemia; Z79.4 - [employer] (current) use of insulin Category: Medical Plan: Continue trulicity continue metformin Stop the Toujeo 10 units daily Stop the Humalog 4 units with meals (2) Microalbuminuria due to type 2 diabetes mellitus: Code(s): E11.29 - Type 2 diabetes mellitus with other diabetic kidney complication; R80.9 - Proteinuria, unspecified Category: Medical Plan: follows with [facility] transplant associates (3) HTN (hypertension): Code(s): I10 - Essential (primary) hypertension Category: Medical Plan: Elevated above goal. Saw Cardiology 2 days ago. Continue current regimen Orders: Orders AMB Hemoglobin A1c Today E11.65 - Type 2 diabetes mellitus with hyperglycemia, Z13.9 - Encounter for screening, unspecified, Z79.4 - [employer] (current) use of insulin Medications: Discontinued insulin lispro (Humalog KwikPen (U-100) Insulin) with meals Discontinued Reason: Doctor's Order 4 units (0.04 mL) subcut TID 15 mL 2RF insulin glargine U-300 conc (Toujeo Max U-300 SoloStar) Discontinued Reason: Doctor's Order 10 units (0.0333 mL) subcut QAM 6 mL 3RF Coding Level of Care Code Est Pt Level 4 (14123) Complex EM visit Add On G2211 Diagnoses Type 2 diabetes mellitus with hyperglycemia, with long-term current use of insulin E11.65; Z79.4 Microalbuminuria due to type 2 diabetes mellitus E11.29; R80.9 HTN (hypertension) I10
[2025-03-13 15:00] VITALS: BP 158/82; PULSE 85; O2SAT 98; BMI 23.2
[2025-03-13 15:11] LABS: Glucose, Whole Blood 152 mg/dL (60-115)
--- OUTSIDE RECORDS SUMMARY | 2025-03-13 17:10 | XMS_ITS | Clinical Summary ---
Author Organization [facility] Address [address] [place] [phone] Phone Care Team Providers Care Floral Artist Name Role Phone Jasper Villalba MD Primary Care Provider [phone] Allergies Active Allergy Reactions Criticality Noted Date Comments Insulin Detemir Other (see comments) 07/05/2020 Tramadol Other (see comments) 07/05/2020 Medications amLODIPine (NORVASC) 10 MG tablet Take 10 mg by mouth 1 (one) time each day 06/04/19 21 Active acetaminophen (TYLENOL) 500 MG tablet Take 1 tablet by mouth 3 (three) times a day Active insulin lispro (HumaLOG) 100 UNIT/ML injection [...] week 12 mL 5 05/28/19 23 Active eplerenone (INSPRA) 50 MG tabletIndications:Prim nesha Hyperaldosteronism Take 3 tablets (150 mg total) by mouth in the morning and 3 tablets (150 mg total) in the evening. 540 tablet 3 11/26/20 24 025 Active atorvastatin (LIPITOR) 40 MG tablet Take 40 mg by mouth in the morning. 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 Encounters Date Type Department Care Team Description 02/02/2025 3:00 PM EDT [facility] Visit [facility] [address] [phone] Nguyen Vu ARNP Hypertension; Chronic kidney disease, stage 2 (mild); Primary aldosteronism (HCC); Proteinuria, not otherwise specified 01/04/2025 2:45 PM EDT Office Visit [facility] [address] [phone] Nguyen Vu ARNP Chronic kidney disease, stage 2 (mild) (Primary Dx); Hypertension; Primary aldosteronism (HCC); Proteinuria, not otherwise specified from Last 3 Months Family History Medical History Relation Comments Diabetes [...] Sign Reading Time Taken Comments Blood Pressure 156/52 02/02/2025 3:32 PM EDT Pulse 79 02/02/2025 3:32 PM EDT Temperature - - Respiratory Rate - - Oxygen Saturation 99% 03/29/2024 2:13 PM EST Inhaled Oxygen Concentration - - Weight 66.7 kg (147 lb) 02/02/2025 3:32 PM EDT Height 170.2 cm (5' 7 ) 01/03/2021 1:18 PM EDT Body Mass Index 23.02 01/03/2021 1:18 PM EDT Plan of Treatment Upcoming Encounters Date Type Department Care Team (Late st Contact Info) Description 04/03/2025 2:15 PM EST Office Visit [facility] [address] [phone] Nguyen Vu ARNP [address] [phone] Health Maintenance Due Date Last Done Comments Breast Cancer Screening 1950 Pneumococcal Vaccine: 50+ Years (1 of 2 - PCV) 11/24/1971 Colorectal Cancer Screening: Annual FOBT 2001 Colorectal Cancer Screening: Colonoscopy 2001 Colorectal Cancer Screening: Sigmoidoscopy 2001 Diabetes: Ophthalmology Exam 07/05/2020 Diabetes: Pedal Pulse Checked 07/05/2020 Diabetes: Sensory Foot Exam 07/05/2020 Diabetes: Visual Foot Exam 07/05/2020 Diabetes: Hemoglobin A1C 10/25/2024 025, 07/25/2024, 01/13/2023, Additional history exists Influenza Vaccine (#1) 2025 Hepatitis B Vaccine Aged Out No longe r eligible based on patient's age to complete this topic Procedures Procedure Name Priority Date/Time Associated Diagnosis Comments URINE ALBUMIN / CREATININE RATIO Routine 03/02/2025 10:01 AM EDT Chronic kidney disease, stage 2 (mild) Hypertension Proteinuria, not otherwise specified PROTEIN / CREATININE RATIO, URINE Routine 03/02/2025 10:01 AM EDT Chronic kidney disease, stage 2 (mild) Hypertension Proteinuria, not otherwise specified HEMOGLOBIN A1C Routine 01/13/2023 11:05 AM EDT Chronic kidney disease, stage 2 (mild) from Last 3 Months or Most Recently Relevant to Health Maintenance Results * (ABNORMAL) Urine Protein / creatinine ratio (03/02/2025 10:01 AM EDT) Protein, Ur 223 mg/dL [facility] Urine Protein/Creati nine Ratio 2.28(H) <=0.20 mg/mg [facility] Creatinine, Urine 98.0 mg/dL [facility] Urine Urine specimen obtained by clean catch procedure / Unknown 03/02/2025 10:01 AM EDT 03/02/2025 10:31 AM EDT Nguyen Vu [facility] URINE ORDERABLES Final Result [facility] [address] [place] [address] * (ABNORMAL) Urine Albumin / Creatinine Ratio (03/02/2025 10:01 AM EDT) Creatinine, Urine 98.0 mg/dL [facility] Microalbumin Urine Random 2,030.0(H ) 0.0 - 29.0 mg/L [facility] Microalbumin/Cre atinine Ratio 2,071(H) <30 mg/g [facility] Urine Urine specimen obtained by clean catch procedure / Unknown 03/02/2025 10:01 AM EDT 03/02/2025 10:31 AM EDT us Nguyen Horace [facility] URINE ORDERABLES Final Result [facility] [address] [place] [address] * (ABNORMAL) Hemoglobin A1c (01/13/2023 11:05 AM EDT) Glycated Hemoglobin 8.9(H) <6.5 % [facility]) Estimated Average Glucose 209 mg/dL [facility] Performing Lab Performing Lab(H) [facility]) Comment: [employer], a member of [facility] [address] [place] [address] Retail Pharmacy Manager - Mary Leos MD Blood specimen (specimen) Venous blood / Unknown 01/13/2023 11:05 AM EDT 01/13/2023 11:05 AM EDT Gurwinder Quinonez MD LAB BLOOD ORDERABLES Final Re sult [facility] ([facility]) from Last 3 Months or Most Recently Relevant to Health Maintenance Insurance Medicaid [place] Member Subscriber Plan / Payer (Ef fective 2020-Present) Name:Angelique Delgadillo Relation to Subscriber:Self Name:Angelique Delgadillo Payer ID:Not on file Group ID:Not on file Type:Not on file Address: [facility] [id number] [place] [address] [employer] Medicaid [place] Member Subscriber Plan / Payer (Ef fective 2020-Present) Name:Angelique Delgadillo Relation to Subscriber:Self Name:Adamaris Delgadillodeb Jaime Payer ID:Not on file Group ID:Not on file Type:Not on file Address: [address] [phone] [employer] Care Teams Floral Artist Relationship Specialty Start Date End Date Jasper Villalba MD [address] [place] [phone] PCP - General Internal Medicine 01/03/21
--- OUTSIDE RECORDS SUMMARY | 2025-03-13 17:10 | XMS_ITS | Encounter Summary ---
Author Organization [facility] Address [address] [facility] [address] [place] [address] Phone Care Team Providers Care Panel Saw Operator Name Role Phone Jasper Villalba MD Primary Care Provider [phone] Encounter Details Date Type Department Care Team (Late Contact Info) Description 07/09/2021 Documentation Only [facility] [address] [facility] [address] [place] [phone] Gurwinder Quinonez MD [address] [place] [address], [address] [phone] Social History Tobacco Use Types Packs/Day Years [...] Department Care Team (Late Contact Info) Description 04/03/2025 2:15 PM EST Office Visit [facility] [address] [phone] Nguyen Vu ARNP [address] [phone] documented as of this encounter Visit Diagnoses Not on filedocumented in this encounter Care Teams Panel Saw Operator Relationship Specialty Start Date End Date Jasper Villalba MD [address] [place] [phone] PCP - General Internal Medicine 01/03/21 documented as of this encounter
--- OUTSIDE RECORDS SUMMARY | 2025-03-13 17:10 | XMS_ITS | Clinical Summary ---
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 (Primary Dx) 03/10/2025 Transcribe Orders [address] [place] [address] Jasper Villalba MD from Last 3 Months Social History Tobacco Use Types Packs/Day Years Used Date Smoking Tobacco: Never Assessed Comments Unknown Sex and Gender Information Value Date Recorded Sex Assigned at Not on file Legal Sex Female 11:28 AM EDT Gender Identity Not on file Sexual Orientation Not on file Plan of Treatment Not on file Medical Devices Not on file Insurance [employer] MEDICARE REPLACEMENT MEDICARE REPLACEMENT MEDICARE [place] [address] [place] [address] [place] [address] MEDICARE REPLACEMENT MEDICARE REPLACEMENT Care Teams Instructor Decorating Relationship Specialty Start Date End Date Jasper Villalba MD [address] [place] [phone] PCP - General Internal Medicine 11/07/24 Additional Source Comments The information contained in this document represents components of the legal health record. It is not the complete legal health record.[facility]
--- OUTSIDE RECORDS SUMMARY | 2025-03-13 17:10 | XMS_ITS | Clinical Summary ---
Author Organization [employer] Address [address] [facility] [address] [place] [address] Care Team Providers Care Marketing Support Manager Name Role Phone Unavailable Primary Care Provider [...] Colonoscopy 1952 Depression Screening 1952 FIT 1952 Sigmoidoscopy 1952 Alcohol/Substance Use Screening 1964 Tobacco Screening 1964 DTaP/Tdap/Td Vaccines (1 - Tdap) 11/24/1971 Pneumococcal Vaccine: 50+ Years (1 of 1 - PCV) 2002 Zoster Vaccines (1 of 2) 2002 FOBT 10/02/2023 10/01/2022 COVID-19 Vaccine (1 - 2023-2 5 season) 2025 Influenza Vaccine (#1) 2025 Colorectal Cancer Screening 10/01/2025 FIT DNA/Cologuard 10/01/2025 10/01/2022 Mammogram 08/22/2026 08/22/2024, 08/22/2024 RSV Patients and Patients Aged 60 years or older (1 - [...]
--- OUTSIDE RECORDS SUMMARY | 2025-03-13 17:10 | XMS_ITS | Encounter Summary ---
Author Organization [facility] Address [address] [facility] [address] [place] [address] Phone Care Team Providers Care Network Manager Name Role Phone Jasper Villalba MD Primary Care Provider Encounter Details Date Type Department Care Team (Late st Contact Info) Description 03/10/2025 Transcribe Orders [facility] [address] [place] [phone] Jasper Villalba MD [address] [place] [phone] Social History Tobacco Use Types Packs/Day Years Used Date Smoking Tobacco: Never Assessed Comments Unknown Sex and Gender Information Value Date Recorded Sex Assigned at Not on file Legal Sex Female 11:28 AM EDT Gender Identity Not on file Sexual Orientation Not on file documented as of this encounter Plan of Treatment Not on file documented as of this encounter Visit Diagnoses Not on filedocumented in this encounter Care Teams Network Manager Relationship Specialty Start Date End Date Jasper Villalba MD [address] [facility] [address] [place] [phone] PCP - General Internal Medicine 11/07/24 documented as of this encounter Additional Source Comments The information contained in this document represents components of the legal health record. It is not the complete legal health record.[facility]
--- OUTSIDE RECORDS SUMMARY | 2025-03-13 17:10 | XMS_ITS | Encounter Summary ---
Author Organization [employer] Address [address] [facility] 7[address] [place] [address] Care Team Providers Care Appeals Coordinator Name Role Phone Unavailable Primary Care Provider Unavailabl e Encounter Details Date Type Department Care Team (Latest Contact Info) Description 07/12/2019 Abstract [facility] CONVERSIONS Dental, Provider, DDS Social History Tobacco [...]
--- OUTSIDE RECORDS SUMMARY | 2025-03-13 17:10 | XMS_ITS | Encounter Summary ---
Author Organization [employer] Address [address] [facility] 7t [place] [address] Care Team Providers Care Fitting Room Associate Name Role Phone Unavailable Primary Care Provider Unavailabl e Encounter Details Date Type Department Care Team (Latest Contact Info) Description 09/07/2018 Abstract [facility] CONVERSIONS Dental, Provider, DDS Social [...]
--- OUTSIDE RECORDS SUMMARY | 2025-03-13 17:10 | XMS_ITS | Encounter Summary ---
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 Jasper Villalba MD [address] [place] [id number] Phone: tel: fax: [address] [address] Phone: tel: Referral ID Status Reason Start Date Expiration Date V isits Requested Visits Authorized [id number] New Request 03/10/2025 03/10/2026 1 1 Encounter Details Date Type Department Care Team (Latest Contact Info) Description 03/10/2025 Transcribe Orders [facility] [address] [place] [address] Jasper Villalba MD [address] [place] [id number] 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 (Primary Dx) Social History Tobacco Use Types Packs/Day Years Used Date Smoking Tobacco: Never Assessed Comments Unknown Sex and Gender Information Value Date Recorded Sex Assigned at Not on file Legal Sex Female 11:28 AM EDT Gender Identity Not on file Sexual Orientation Not on file documented as of this encounter Plan of Treatment Scheduled Referrals Name Type Priority Associated Diagnoses Orde r Schedule Ambulatory referral to [facility] Outpatient Referral Routine 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 It is not the complete legal health record.[facility]
== END 2025-03-13 15:28 | disposition home or self-care (01) ==
LOC: HO.ENCR 14:57
PROVIDERS: PCP Internal Medicine; Visit Provider Physician Assistant
DX: E11.65 Type 2 diabetes mellitus with hyperglycemia (principal); Z79.4 Long term (current) use of insulin; E11.29 Type 2 diabetes mellitus with other diabetic kidney complication; R80.9 Proteinuria, unspecified; I10 Essential (primary) hypertension; Z13.9 Encounter for screening, unspecified

== ENCOUNTER → 2025-03-13 14:56 | Outpatient (BNVA) | payer MEDICARE, SELFPAY | PROVIDERS: PCP Internal Medicine; Visit Provider Physician Assistant | DX: E11.65 Type 2 diabetes mellitus with hyperglycemia (principal); E11.29 Type 2 diabetes mellitus with other diabetic kidney complication; R80.9 Proteinuria, unspecified; I10 Essential (primary) hypertension; Z79.84 Long term (current) use of oral hypoglycemic drugs; Z79.85 Long-term (current) use of injectable non-insulin antidiabetic drugs; Z79.899 Other long term (current) drug therapy | CPT/HCPCS: 82947; 83036; 99212 ==